=== PATIENT | male | born 1980 | race Caucasian/White ===

== ENCOUNTER 2016-12-15 15:58 | Emergency (ER) | payer OTHER, MEDICAID ==
--- NOTE | 2016-12-15 17:34 | RAD ---
HISTORY: Subacute trauma, headache COMPARISONS: May 04, 2016 TECHNIQUE: Multiple contiguous axial CT scans were obtained of the head without intravenous contrast. FINDINGS: HEMORRHAGE/INFARCT: There is no hemorrhage or acute infarct. MASSES/SHIFT: There is no mass or shift. EXTRA-AXIAL SPACES: There are no extra-axial fluid collections. SULCI AND VENTRICLES: The sulci and ventricles are normal in size and position for the patient's stated age. CEREBRUM: There are no focal parenchymal abnormalities. BRAINSTEM: There are no focal parenchymal abnormalities. CEREBELLUM: There are no focal parenchymal abnormalities. VESSELS: The vessels are grossly normal. PARANASAL SINUSES: The paranasal sinuses are clear. ORBITS: The orbits are unremarkable. BONES AND SOFT TISSUE: No bone or soft tissue abnormalities are noted. OTHER: None IMPRESSION: NO ACUTE INTRACRANIAL PATHOLOGY.
[2016-12-15] MEDS ORDERED: Ibuprofen TAB* 400 MG PO ONE (17:58)
[2016-12-15 18:18] VITALS: BP 156/94
--- NOTE | 2016-12-17 08:26 | ED ---
Job Brennan Matthew, scribed for Jonathan Rosales MD on 12/15/16 at 1751 . Head Injury - HPI Summary HPI Summary: A 36 y/o male presents to the ED after hitting his head at work 3 days ago. The patient stated that he was putting stuff in the walk-in cooler, when he knelt down and hit the latch of the cooler. He denies seeing stars or LOC. Yesterday, the patient woke-up with a headache and felt dizziness. The headache has decreased in severity since onset. He began to feel better, but then he developed bilateral blurry vision, which prompted him to present to the ED. He denies nausea and photophobia. Hx of HTN, HLD, and neurofibromatosis type 1. No Hx of diabetes. The patient stopped smoking 14 years ago. - History Of Current Complaint Chief Complaint: EDHeadInjury Stated Complaint: HIT HEAD ON FRI Time Seen by Provider: 12/15/16 17:11 Hx Obtained From: Patient Mechanism Of Injury: Blunt Trauma Onset/Duration: Started Days Ago, Atraumatic, Still Present Onset of Pain: Days Severity Currently: Moderate Severity Initially: Mild Location of Head Injury: Frontal Associated Signs And Symptoms: Headache, Other: - Blurry vision; Dizziness - Allergies/Home Medications Allergies/Adverse Reactions: Allergies Allergy/AdvReac Type Severity Reaction Status Date / Time Amoxicillin [From Augmentin] Allergy Mild Vomiting Verified 09/24/16 12:38 Clavulanic Acid Allergy Mild Vomiting Verified 09/24/16 12:38 [From Augmentin] Mushrooms Allergy Airway Uncoded 09/24/16 12:38 Obstruction Shrimp Allergy Hives Uncoded 09/24/16 12:38 PMH/Surg Hx/FS Hx/Imm Hx Endocrine/Hematology History: Denies: Hx Diabetes, Hx Thyroid Disease Cardiovascular History: Reports: Hx Hypercholesterolemia, Hx Hypertension, Other Cardiovascular Problems/Disorders - HYPERCHOLESTEMIA; varicose veins issues - wears compression stockings Denies: Hx Congestive Heart Failure, Hx Pacemaker/ICD Respiratory History: Denies: Hx Asthma, Hx Chronic Obstructive Pulmonary Disease (COPD) GI History: Denies: Hx Ulcer History: Denies: Hx Renal Disease Musculoskeletal History: Reports: Other Musculoskeletal History - Raynaud's Sensory History: Denies: Hx Hearing Aid Neurological History: Reports: Other Neuro Impairments/Disorders - NF Psychiatric History: Denies: Hx Panic Disorder - Immunization History Date of Tetanus Vaccine: UTD Date of Influenza Vaccine: 2012 Infectious Disease History: No Infectious Disease History: Reports: 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 Denies: Hx Clostridium Difficile, Hx Hepatitis, Hx Human Immunodeficiency Virus (HIV), Hx Shingles, Hx Tuberculosis, Hx Known/Suspected VRE, Hx Known/ Suspected VRSA, History Other Infectious Disease, Traveled Outside the [place] in Last 30 Days - Family History Known Family History: Positive: Hypertension - Social History Alcohol Use: Rare Hx Substance Use: No Substance Use Type: Reports: None Hx Tobacco Use: Yes Smoking Status (MU): Former Smoker - quit 2002 Type: Cigarettes Length of Time of Smoking/Using Tobacco: 2-3 years Review of Systems Constitutional: Negative Negative: Fever, Chills Positive: Blurred Vision - bilateral ENT: Negative Negative: Sore Throat Cardiovascular: Negative Negative: Chest Pain Respiratory: Negative Negative: Shortness Of Breath, Cough Gastrointestinal: Negative Negative: Abdominal Pain, Vomiting, Diarrhea, Nausea Genitourinary: Negative Negative: dysuria, hematuria Musculoskeletal: Negative Negative: Myalgia, Edema Skin: Negative Negative: Rash Neurological: Other - Dizziness Positive: Headache Psychological: Normal All Other Systems Reviewed And Are Negative: Yes Physical Exam Triage Information Reviewed: Yes Vital Signs On Initial Exam: Initial Vitals Temp Pulse Resp BP Pulse Ox 98.4 F 105 20 151/97 98 12/15/16 16:04 12/15/16 16:04 12/15/16 16:04 12/15/16 16:04 12/15/16 16:04 Vital Signs Reviewed: Yes Appearance: Positive: Well-Appearing, No Pain Distress Skin: Positive: Warm, Dry Head/Face: Positive: Other - Normocephalic; Atraumatic Eyes: Positive: Conjunctiva Clear ENT: Positive: Normal ENT inspection Dental: Negative: Cervical Lymphadenopathy Neck: Positive: No Lymphadenopathy, Other: - Full ROM; No JVD Respiratory/Lung Sounds: Positive: Other - Normal Effort; No respiratory distress. Negative: Rales, Rhonchi, Stridor, Tracheal Deviation, Wheezes Cardiovascular: Positive: RRR, Other - Rhythm regular, rate normal, Heart sounds normal; Intact distal pulses; The pedal pulses are 2+ and symmetric. Radial pulses are 2+ and symmetric. Negative: Murmur Abdomen Description: Positive: Nontender, Soft, Other: - No Rebound. Negative: Distended, Guarding Bowel Sounds: Positive: Present Musculoskeletal: Negative: Edema Left, Edema Right Neurological: Positive: Alert, Oriented to Person Place, Time Psychiatric: Positive: Affect/Mood Appropriate - Jl Coma Scale Coma Scale Total: 15 Diagnostics - Vital Signs Vital Signs Temp Pulse Resp BP Pulse Ox 12/15/16 16:04 98.4 F 105 20 151/97 98 - Laboratory Lab Statement: Any lab studies that have been ordered have been reviewed, and results considered in the medical decision making process. - CT Brain CT CT Interpretation: No Acute Changes - IMPRESSION: NO ACUTE INTRACRANIAL PATHOLOGY. CT Interpretation Completed By: Radiologist Head Injury Course/Dx Assessment/Plan: A 36 y/o male presents to the ED after hitting his head at work 3 days ago. The patient stated that he was putting stuff in the walk-in cooler, when he knelt down and hit the latch of the cooler. He denies seeing stars or LOC. Yesterday, the patient woke-up with a headache and felt dizziness. The headache has decreased in severity since onset. He began to feel better, but then he developed bilateral blurry vision, which prompted him to present to the ED. He denies nausea and photophobia. Hx of HTN, HLD, and neurofibromatosis type 1. No Hx of diabetes. Brain CT showed no acute intracranial pathology. The patient will be discharged home with Motrin and follow-up with his PCP. He understands and agrees. - Diagnoses Provider Diagnoses: Concussion Discharge - Discharge Plan Condition: Stable Disposition: HOME Patient Education Materials: Concussion (ED) Forms: *Work Release Referrals: Rekha Nassar MD [Primary Care Provider] - 3 Days Additional Instructions: Please follow-up with your primary care physician and return to the ED if your symptoms change or worsen. The documentation as recorded by the Job wallace Matthew accurately reflects the service I personally performed and the decisions made by me, Jonathan Rosales MD.
== END 2016-12-15 18:17 | disposition home or self-care (01) ==
LOC: ED 15:58
DX: S06.0X0A Concussion without loss of consciousness, initial encounter (principal); R51 Headache; H53.8 Other visual disturbances; R42 Dizziness and giddiness; Z87.891 Personal history of nicotine dependence; W22.8XXA Striking against or struck by other objects, initial encounter; Y93.9 Activity, unspecified; Y92.9 Unspecified place or not applicable
CPT/HCPCS: 70450; 99281; A9270-GY

== ENCOUNTER 2017-08-23 16:30 | Emergency (ER) | payer OTHER, MEDICAID ==
[2017-08-23 16:55] VITALS: BP 165/102
--- OUTSIDE RECORDS SUMMARY | 2017-08-23 17:11 | XMS REPORT ---
:1980 External Reference #:[id number] Author Organization [facility] Address [address] [place] [address] Phone [phone] Care Team Providers Name Role Phone Rekha Nassar M.D. Care Team Information Fund Manager Unavailable Rekha Nassar M.D. Primary Care Physician Unavailable Payers Type Date Identification Numbers Payment Provider Subscriber Health Maintenance Effective: Policy Number: [employer] Alex Obrien [facility] (O) 08/17/2012 [id number] [facility] Group Number: [id number] [id number] Group Name: [place] [address] PayID: [id number] Medicaid Effective: 01/15/2014 Policy Number: [id number] Medicaid [place] Alex Keen Ora PayID: [id number] [address] [place] [address] Problems Date Description Provider Status Onset: 11/01/2013 Peripheral venous insufficiency Ubaldo Donaldson M.D. Active Onset: 02/13/2015 Essential hypertension Milan Garcia M.D. Active Onset: 02/13/2015 Hyperlipidemia Milan Garcia M.D. Active Onset: 12/04/2015 Mixed hyperlipidemia Rekha Nassar M.D. Active Onset: 05/09/2016 Neurofibromatosis, type 1 Rekha Nassar M.D. Active Onset: 05/09/2016 Morbid obesity Rekha Nassar M.D. Active Onset: 12/23/2016 Concussion with no loss of Johnnykevin Garnett M.D. Active consciousness Family History Date Family Member(s) Problem(s) Comments General No immediate family members with early [place] or CVA. No immediate family history of colon, breast, ovarian, cervical or prostate cancer. Father Diabetes Mellitus, II : (2011) Mother due to Intestinal obstruction Social History Type Date Description Comments Marital Status Patient is Living Situation Lives with spouse, son and daughter Diet Excessive intake of fats and sweets. 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 Cigarette Use Nonsmoker ETOH Use Denies alcohol use Smoking nonsmoker Daily Caffeine Consumes on average 2 sodas per day Exercise Type/Frequency Current Does not exercise Allergies, Adverse Reactions, Alerts Date Description Reaction Status Severity Comments 11/10/2003 Augmentin active 09/01/2005 Shellfish active 07/18/2010 Mushrooms active Throat Closing Medications Medication Date Status Form Strength Qnty SIG Indications Ordering Provider Hydrochlorothiazid 08/03 Active Capsules 12.5mg 30cap 1 by mouth I10 Rekha s every day Otis Nassar Ibuprofen 03/08 Active Tablets 800mg 60tab take one J01.90 s tablet by jung Camilo twice DESK DIRECTOR a day as needed for pain Amlodipine 02/13 Active Tablets 10mg 30tab take one I10 Rekha Besylate s tablet by jung Nassar every M.D. day Atorvastatin 04/17 Active Tablets 20mg 30tab take one E78.2 Rekha Calcium s tablet by jung Nassar at M.D. bedtime Benzonatate 08/06 Hx Capsules 200mg 30cap 1 by mouth R0 s three times Luly, - a day as [facility] 08/16 needed for cough Guaifenesin-Codein 08/06 Hx Syrup 100-10mg/ 120ml 1-2 R05 5ML teaspoon Luly, - every at [facility] 08/13 bedtime as needed for cough Meclizine HCL 05/09 Hx Tablets 25mg 60tab 1 tab by Rekha s mouth every [place], - 6 hours as M.D. 08/06 needed Mucinex 03/19 Hx Tablets 600mg 30tab 1 tablet J06.9 ER 12HR s twice daily KRISSY Mena - as needed 05/09 for congestion and cough J01.90 Clarithromycin 03/08/2016 - Hx Tablets 500mg 20tabs 1 by mouth J01.90 Christine 05/09/2016 twice a day x Leslee, 10 days DESK DIRECTOR Mucinex 03/05/2016 - Hx Tablets ER 600mg 30tabs 1 tablet J06.9 Mavis 03/15/2016 12HR twice daily KRISSY Mena as needed for congestion and cough J01.90 Compression 01/16/2016 - Hx 20mm 1Pair use as M72.2 Ania Stockings 01/16/2016 HG directed; wear Luly, during day; Afnp-C can take off at night Compression 01/16/2016 - Hx 20mm 1Pair use as M72.2 Ania Stockings 01/16/2016 HG directed; wear Luly, during day; Afnp-C can take off at night Compression 01/16/2016 - Hx 40mm 1Pair use as M72.2 Ania Stockings 01/16/2016 HG directed; wear Luly, during day; Afnp-C can take off at night Compression 01/15/2016 - Hx 30mm 1Pair use as Rekha Stockings 09/10/2016 HG directed; wear [place], during the M.D. day; may take off at night. Naproxen 12/04/2015 - Hx Tablets 500mg 60tabs take 1 tablet M72.2 Rekha 05/09/2016 every 12 hours [place], as needed with M.D. food Compression 12/04/2015 - Hx 20mm 1Pair use as M72.2 Rekha Stockings 01/15/2016 HG directed; wear [place], during day; M.D. can take off at night Medrol (Gómez) 09/25/2015 - Hx Tablets 4mg 1pk take as M25.571 Fatuma 10/02/2015 directed, with [place], food and water Afnp-C Sulfamethoxazole/ 07/18/2015 - Hx Tablets 800-16 28tabs 1 by mouth L03.032 Ania Trimethoprim DS 08/01/2015 0mg twice a day x Luly, 14 days Afnp-C Mupirocin 07/18/2015 - Hx Ointment 2% 22gm apply small Ania 07/25/2015 amount three Luly, times a day x Afnp-C 5 days to area on scalp Ciprofloxacin HCL 05/31/2015 - Hx Tablets 500mg 14tabs 1 by mouth M54.9 Yovanny A. 06/07/2015 twice a day Otis Croft Cyclobenzaprine 02/13/2015 - Hx Tablets 10mg 30tabs 1 by mouth 724.2 Milan Garcia, HCL 05/31/2015 three times a M.D. day as needed Hydrocodone-Aceta 02/13/2015 - Hx Tablets 5-325m 40tabs 1 every 6 724.2 Milan Garcia, minophen 05/31/2015 g hours as M.D. needed Azithromycin 10/01/2014 - Hx Tablets 250mg 6tabs 2 by mouth Yovanny A. 10/06/2014 today then 1 [place], by mouth every M.D. day x 4 days Out Of Work 10/01/2014 - Hx out of work 465.9 Mavis 10/03/2014 due to illness KRISSY Mena 10/02 & 10/03/14 Lidocaine Viscous 09/30/2014 - Hx Solution 2% 100ml 08/19 lidocaine, 462 Ania 05/31/2015 1/3 Luly, sharadadryl,08/19 Afnp-C maalox, 1 teaspoon of each, swish, gargle and spit out every 2-4 hours Amlodipine 07/21/2014 - Hx Tablets 5mg 30tabs 1 by mouth 729.5 Christine Besylate 02/13/2015 every day BRYN Camilo Compression 11/01/2013 - Hx 20mm 1units one pair - 459.81 Ubaldo Villar 02/13/2015 HG knee high Otis Donaldson Azithromycin 09/26/2013 - Hx Tablets 250mg 6tabs take 2 tablets 465.8 Christine 10/31/2013 by mouth Leslee, today then DESK DIRECTOR take 1 tablet daily for next 4 days Note For Work 09/26/2013 - Hx Alex was seen 465.8 Christine 10/31/2013 by me today Leslee, and may not DESK DIRECTOR return to work until Thursday, 2\\12\\14 Sulamyd Opthalmic 03/13/2012 - Hx 10% 1Bottle 1-2 gtts into 372.00 Fatuma gtts 03/20/2012 affected eye [place], q4hrs w/a Afnp-C until clear, then continue 1 more day do not exceed 1 week use Cephalexin 12/17/2011 - Hx Tablets 500mg 30tabs 1 tab tid x 10 462 Christine 03/13/2012 days Leslee, DESK DIRECTOR Out Of Work 12/17/2011 - Hx seen in this 462 Fatuma 03/14/2012 office today, [place], ok for work Afnp-C return 03/14/12 Out Of Work 07/18/2010 - Hx out of work 465.9 Ania 07/21/2010 today due to Luly, illness Afnp-C Cephalexin 12/05/2009 - Hx Tablets 500mg 24tabs 1 po tid Fatuma 12/13/2009 [facility], Afnp-C Ciloxan 11/13/2009 - Hx Solution 0.3% 15cc 2 gtt affected 372.30 Christine 07/18/2010 eye(s) tid for Leslee, 2d then bid DESK DIRECTOR until clear Note For Work 11/13/2009 - Hx Alex was seen 380.22 [facility] 12/05/2009 by me today Leslee, and may not DESK DIRECTOR return to work until , 4\\1\\10 Return To Work 12/17/2006 - Hx 12/21/06 with Xiomara 10/22/2007 out von restrictions Otis Toro Out Of Work 12/08/2006 - Hx out of work Xiomara 10/22/2007 12/21/06 for 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 Keflex 12/08/2006 - Hx Tablets 500mg 20tabs 1 po bid x 10 Conner A. 12/14/2008 Days Otis Donaldson Bactroban 12/08/2006 - Hx Ointment 2% 30gm Apply To Xiomara 10/22/2007 Affected Area von Zina Toro M.D. Entex Pse 10/20/2006 - Hx Tablets 600mg; 20tabs 1 PO Q12 Hours 465.8 Xiomara 10/22/2007 120 mg prn Head von Congestion Otis Toro Keflex 04/25/2006 - Hx Tablets 500 40tabs 1 PO qid For Riley J. 05/05/2006 10D Otis Donahue Coenzyme Q10 09/01/2005 - Hx 50mg 1 PO qd Riley Radha 10/22/2007 Otis Donahue Zithromax 08/16/2005 - Hx Tablets 250mg 1tabs 2 PO qd Today Johnny F. 08/16/2005 , Then 1 PO qd Tamir, Times 4 M.DNilo Ketek 08/16/2005 - Hx Tablets 400mg 6tabs 2 PO qd Johnny F. 08/23/2005 Otis Garnett Keflex 06/30/2005 - Hx Capsules 500mg 20caps 1 PO bid Isaiah TNilo 08/16/2005 Otis Soriano Note 11/13/2004 - Hx alex was seen Christine 02/04/2005 by ak 3\\28\\05 Leslee, for bronchitis DESK DIRECTOR Biaxin XL 11/11/2004 - Hx 500mg 14units 2 PO qd Christine 02/04/2005 Leslee, DESK DIRECTOR Lipitor 10/01/2004 - Hx 20mg 15units 1 po qhs 272.4 Christine 04/17/2012 Leslee DESK DIRECTOR Lipitor 06/04/2004 - Hx 40mg 90units 1 po qhs Riley JNilo 10/01/2004 Otis Donahue Cortisporin Otic 05/28/2004 - Hx 1Bottle 4-5 gtts into 380.22 Christine Susp 07/18/2010 r ear qid Leslee, until clear DESK DIRECTOR Z-Pack 03/26/2004 - Hx 1 1units as Dir Riley Radha 03/31/2004 Otsi Donahue Ziac 11/10/2003 - Hx 10mg 90units 1 qd Riley JNilo 09/27/2004 Otis Donahue Bactrim DS - Hx Tablets 800-16 42tabs use bid Unknown 07/21/2014 0mg Meclizine HCL - Hx Tablets 12.5mg 2 by mouth Rekha 05/09/2016 three times a [place], day as needed Otis Naproxen - Hx Tablets 500mg 1 by mouth Unknown 08/03/2017 twice a day with food Silvadene - Hx Cream 1% use daily Unknown 08/03/2017 Immunizations CPT Code Status Date Vaccine Lot # [id number] Given 05/07/2017 Influenza Vac, Quad[place], [place] [id number] Given 05/09/2016 Influenza Vac, Quadrivalent, Slit Virus, Im [id number] Given 04/27/2015 Influenza Vac, [place]riv[place] [id number] Given 04/27/2015 DO Not Use Split Influenza Virus Vaccine [id number] Given 06/17/2014 DO Not Use Split Influenza Virus Vaccine Vital Signs Date Vital Result Comment 08/03/2017 BP Systolic 150 mmHg BP Diastolic 98 mmHg Heart Rate 84 /min Body Temperature 97.5 F Height 75 inches 6'3" Weight 385.00 lb BMI (Body Mass Index) 48.1 kg/m2 12/23/2016 BP Systolic 144 mmHg BP Diastolic 90 mmHg Heart Rate 84 /min Body Temperature 99.0 F Respiratory Rate 18 /min Height 75 inches 6'3" Weight 388.00 lb BMI (Body Mass Index) 48.5 kg/m2 12/12/2016 BP Systolic 130 mmHg BP Diastolic 88 mmHg Heart Rate 80 /min Body Temperature 98.8 F Respiratory Rate 18 /min Height 75 inches 6'3" Weight 388.00 lb BMI (Body Mass Index) 48.5 kg/m2 09/11/2016 BP Systolic 162 mmHg BP Diastolic 100 mmHg Heart Rate 90 /min Body Temperature 98.1 F Height 75 inches 6'3" Weight 383.12 lb BMI (Body Mass Index) 47.9 kg/m2 08/06/2016 BP Systolic 142 mmHg BP Diastolic 78 mmHg Heart Rate 80 /min Body Temperature 97.6 F Respiratory Rate 18 /min Height 75 inches 6'3" Weight 383.00 lb BMI (Body Mass Index) 47.9 kg/m2 05/09/2016 BP Systolic 142 mmHg BP Diastolic 90 mmHg Heart Rate 88 /min Body Temperature 97.7 F Respiratory Rate 20 /min Height 75 inches 6'3" Weight 387.00 lb BMI (Body Mass Index) 48.4 kg/m2 03/08/2016 BP Systolic 120 mmHg BP Diastolic 80 mmHg Heart Rate 80 /min Body Temperature 98.2 F Respiratory Rate 18 /min Height 75 inches 6'3" 03/05/2016 BP Systolic 148 mmHg BP Diastolic 100 mmHg Heart Rate 104 /min Body Temperature 97.7 F Respiratory Rate 24 /min O2 % BldC Oximetry 97 % Height 75 inches 6'3" Weight 385.00 lb BMI (Body Mass Index) 48.1 kg/m2 12/04/2015 BP Systolic 140 mmHg BP Diastolic 80 mmHg Heart Rate 88 /min Body Temperature 98.1 F Respiratory Rate 16 /min Height 75 inches 6'3" Weight 383.00 lb BMI (Body Mass Index) 47.9 kg/m2 10/06/2015 BP Systolic 140 mmHg BP Diastolic 90 mmHg Heart Rate 76 /min Body Temperature 98.1 F Respiratory Rate 18 /min Weight 380.00 lb 09/25/2015 BP Systolic 140 mmHg BP Diastolic 90 mmHg Heart Rate 64 /min Body Temperature 97.8 F Respiratory Rate 20 /min Height 75 inches 6'3" Weight 380.00 lb BMI (Body Mass Index) 47.5 kg/m2 07/18/2015 BP Systolic 144 mmHg BP Diastolic 96 mmHg Heart Rate 90 /min Body Temperature 97.8 F Respiratory Rate 16 /min Height 75 inches 6'3" Weight 362.00 lb BMI (Body Mass Index) 45.2 kg/m2 05/31/2015 BP Systolic 150 mmHg BP Diastolic 80 mmHg Heart Rate 104 /min Body Temperature 100.5 F Respiratory Rate 20 /min Height 75 inches 6'3" Weight 383.00 lb BMI (Body Mass Index) 47.9 kg/m2 02/13/2015 BP Systolic 140 mmHg BP Diastolic 110 mmHg Heart Rate 80 /min Body Temperature 98.5 F Respiratory Rate 18 /min Height 75 inches 6'3" Weight 389.00 lb BMI (Body Mass Index) 48.6 kg/m2 09/30/2014 BP Systolic 140 mmHg BP Diastolic 96 mmHg Heart Rate 84 /min Body Temperature 98.3 F Respiratory Rate 18 /min Height 75 inches 6'3" Weight 376.12 lb BMI (Body Mass Index) 47.0 kg/m2 08/11/2014 BP Systolic 138 mmHg BP Diastolic 98 mmHg Heart Rate 98 /min Body Temperature 98.3 F Respiratory Rate 20 /min Height 75 inches 6'3" Weight 370.00 lb BMI (Body Mass Index) 46.2 kg/m2 07/21/2014 BP Systolic 168 mmHg BP Diastolic 110 mmHg Heart Rate 78 /min Body Temperature 97.1 F Respiratory Rate 16 /min Height 75 inches 6'3" Weight 374.00 lb BMI (Body Mass Index) 46.7 kg/m2 01/18/2014 BP Systolic 144 mmHg BP Diastolic 98 mmHg Heart Rate 76 /min Body Temperature 97.5 F Respiratory Rate 16 /min Height 75 inches 6'3" Weight 381.00 lb BMI (Body Mass Index) 47.6 kg/m2 11/01/2013 BP Systolic 132 mmHg BP Diastolic 90 mmHg Heart Rate 84 /min Body Temperature 97.7 F Height 75 inches 6'3" Weight 367.38 lb BMI (Body Mass Index) 45.9 kg/m2 09/26/2013 BP Systolic 130 mmHg BP Diastolic 70 mmHg Heart Rate 72 /min Body Temperature 100.7 F Respiratory Rate 18 /min Height 75 inches 6'3" Weight 371.00 lb BMI (Body Mass Index) 46.4 kg/m2 03/13/2012 BP Systolic 130 mmHg BP Diastolic 80 mmHg Heart Rate 80 /min Body Temperature 98.8 F Height 75 inches 6'3" 12/17/2011 BP Systolic 130 mmHg BP Diastolic 80 mmHg Heart Rate 80 /min Body Temperature 97.5 F Respiratory Rate 22 /min Height 75 inches 6'3" 07/17/2011 BP Systolic 130 mmHg BP Diastolic 90 mmHg Heart Rate 80 /min Body Temperature 98.8 F Height 75 inches 6'3" Weight 35.00 lb BMI (Body Mass Index) 4.4 kg/m2 03/21/2011 BP Systolic 118 mmHg BP Diastolic 80 mmHg Heart Rate 88 /min Body Temperature 97.4 F Height 75 inches 6'3" 07/18/2010 BP Systolic 130 mmHg BP Diastolic 84 mmHg Heart Rate 84 /min Body Temperature 97.4 F Height 75 inches 6'3" Weight 350.00 lb BMI (Body Mass Index) 43.7 kg/m2 12/05/2009 BP Systolic 124 mmHg BP Diastolic 92 mmHg Heart Rate 72 /min Body Temperature 97.6 F Height 75 inches 6'3" Weight 348.00 lb BMI (Body Mass Index) 43.5 kg/m2 11/13/2009 BP Systolic 142 mmHg BP Diastolic 80 mmHg Heart Rate 96 /min Body Temperature 98.3 F Weight 344.00 lb 08/11/2009 BP Systolic 122 mmHg BP Diastolic 80 mmHg Heart Rate 88 /min Body Temperature 99.1 F 07/31/2009 BP Systolic 122 mmHg BP Diastolic 72 mmHg Heart Rate 88 /min Body Temperature 97.6 F 12/14/2008 BP Systolic 136 mmHg BP Diastolic 80 mmHg Heart Rate 90 /min Body Temperature 98.0 F 11/18/2008 BP Systolic 144 mmHg BP Diastolic 84 mmHg Body Temperature 97.8 F Height 75 inches 6'3" Weight 350.00 lb BMI (Body Mass Index) 43.7 kg/m2 09/18/2008 BP Systolic 132 mmHg BP Diastolic 100 mmHg Heart Rate 88 /min Body Temperature 97.7 F Weight 350.00 lb 10/22/2007 BP Systolic 120 mmHg BP Diastolic 70 mmHg Heart Rate 76 /min Height 75 inches 6'3" Weight 338.00 lb BMI (Body Mass Index) 42.2 kg/m2 12/17/2006 BP Systolic 140 mmHg BP Diastolic 90 mmHg Heart Rate 88 /min Body Temperature 98.7 F Height 75 inches 6'3" Weight 342.00 lb BMI (Body Mass Index) 42.7 kg/m2 12/08/2006 BP Systolic 140 mmHg BP Diastolic 80 mmHg Heart Rate 100 /min Body Temperature 99.3 F Height 75 inches 6'3" Weight 345.00 lb BMI (Body Mass Index) 43.1 kg/m2 10/20/2006 BP Systolic 132 mmHg BP Diastolic 92 mmHg Heart Rate 84 /min Body Temperature 99.0 F Height 75 inches 6'3" Weight 339.00 lb BMI (Body Mass Index) 42.4 kg/m2 10/16/2006 BP Systolic 120 mmHg BP Diastolic 78 mmHg Heart Rate 76 /min Height 75 inches 6'3" Weight 316.00 lb BMI (Body Mass Index) 39.5 kg/m2 04/25/2006 BP Systolic 120 mmHg BP Diastolic 80 mmHg Heart Rate 80 /min Body Temperature 98.8 F Height 75 inches 6'3" Weight 329.00 lb BMI (Body Mass Index) 41.1 kg/m2 09/01/2005 BP Systolic 130 mmHg BP Diastolic 92 mmHg Heart Rate 88 /min Height 75 inches 6'3" Weight 318.00 lb BMI (Body Mass Index) 39.7 kg/m2 08/16/2005 BP Systolic 122 mmHg BP Diastolic 84 mmHg Heart Rate 82 /min Body Temperature 97.6 F O2 % BldC Oximetry 97 % Height 75 inches 6'3" Weight 317.00 lb BMI (Body Mass Index) 39.6 kg/m2 06/30/2005 BP Systolic 128 mmHg BP Diastolic 80 mmHg Heart Rate 90 /min Body Temperature 99.0 F Height 75 inches 6'3" Weight 323.00 lb BMI (Body Mass Index) 40.4 kg/m2 02/04/2005 BP Systolic 120 mmHg BP Diastolic 82 mmHg Heart Rate 74 /min Height 75 inches 6'3" Weight 320.00 lb BMI (Body Mass Index) 40.0 kg/m2 11/11/2004 BP Systolic 152 mmHg BP Diastolic 90 mmHg Heart Rate 92 /min Body Temperature 98.5 F Height 75 inches 6'3" Weight 312.00 lb BMI (Body Mass Index) 39.0 kg/m2 08/06/2004 BP Systolic 114 mmHg BP Diastolic 60 mmHg Heart Rate 60 /min Height 75 inches 6'3" Weight 305.00 lb BMI (Body Mass Index) 38.1 kg/m2 05/28/2004 BP Systolic 118 mmHg BP Diastolic 75 mmHg Heart Rate 70 /min Height 75 inches 6'3" Weight 312.00 lb BMI (Body Mass Index) 39.0 kg/m2 05/17/2004 BP Systolic 122 mmHg BP Diastolic 78 mmHg Heart Rate 84 /min Body Temperature 97.8 F Height 75 inches 6'3" Weight 307.00 lb BMI (Body Mass Index) 38.4 kg/m2 03/26/2004 BP Systolic 120 mmHg BP Diastolic 68 mmHg Heart Rate 80 /min Height 75 inches 6'3" Weight 324.00 lb BMI (Body Mass Index) 40.5 kg/m2 11/17/2003 BP Systolic 128 mmHg BP Diastolic 86 mmHg Heart Rate 84 /min Height 75 inches 6'3" Weight 322.00 lb BMI (Body Mass Index) 40.2 kg/m2 11/10/2003 BP Systolic 122 mmHg BP Diastolic 92 mmHg Heart Rate 74 /min Height 75 inches 6'3" Weight 310.00 lb BMI (Body Mass Index) 38.7 kg/m2 Results Test Date Test Result H/L Range Note Comprehensive Metabolic Prof 07/21/2017 Sodium 135 mEq/L 134-149 Potassium 3.7 mEq/L 3.6-5.5 Chloride 102 mEq/L 94-112 Carbon Dioxide 22 mEq/L 21-32 Glucose 85 mg/dL 70-105 BUN 12 mg/dL 6-26 Creatinine 0.7 mg/dL 0.6-1.4 BUN/Creat Ratio 17.1 CALC 8.0-36.0 Calcium 8.7 mg/dL 8.6-10.2 Total Protein 7.0 g/dL 6.4-8.3 Albumin 4.0 g/dL 3.8-5.5 Globulin 3.0 g/dL 2.0-4.8 A/G Ratio 1.3 CALC 0.6-2.3 Alk. Phosphatase 98 U/L High 22-95 Alt (SGPT) 23 U/L 7-35 Ast (Sgot) 11 U/L 5-34 Total Bilirubin 0.9 mg/dL 0.2-1.3 GFR Non- >60 ml/min/1.73m^ >=60 GFR >60 ml/min/1.73m^ >=60 Lipid Profile 07/21/2017 Cholesterol 133 mg/dL 120-200 Triglycerides 107 mg/dL 30-200 HDL Cholesterol 38 mg/dL 30-70 LDL (Calculated) 74 CALC 0-129 VLDL Cholesterol 21 mg/dL 0-50 HDL Risk Factor 3.5 CALC 0.0-4.4 Complete Blood Count 07/21/2017 WBC 9.2 x10^3/UL 3.6-9.6 RBC 5.17 x10^6/UL 3.90-5.70 HGB 13.9 g/dL 12.1-17.2 HCT 42 % 36-50 MCV 82.0 fL Low 82.2-97.4 MCH 26.9 pg Low 27.6-33.3 MCHC 32.9 g/dL Low 33.0-35.5 RDW 13.8 % High 11.6-13.7 PLT 215 x10^3/UL 150-400 MPV 8.5 fL 7.4-10.4 Gran # 7.1 x10^3/UL 1.5-7.2 Lymph# 1.7 x10^3/UL 0.7-4.9 [place]# 0.4 x10^3/UL 0.1-0.9 Gran % 76.1 % High 42.2-75.2 Lymph % 18.9 % Low 20.5-51.1 [place]% 5.0 % 1.7-9.3 CBC Auto Diff 05/04/2016 White Blood Count 10.8 10^3/uL 3.5-10.8 Red Blood Count 5.31 10^6/uL 4.0-5.4 Hemoglobin 14.1 g/dL 14.0-18.0 Hematocrit 42 % 42-52 Mean Corpuscular Volume 79 fL Low 80-94 Mean Corpuscular Hemoglobin 27 pg 27-31 Mean Corpuscular HGB Conc 34 g/dL 31-36 Red Cell Distribution Width 14 % 10.5-15 Platelet Count 225 10^3/uL 150-450 Mean Platelet Volume 9 um3 7.4-10.4 Abs Neutrophils 7.2 10^3/uL 1.5-7.7 Abs Lymphocytes 2.0 10^3/uL 1.0-4.8 Abs Monocytes 0.9 10^3/uL High 0-0.8 Abs Eosinophils 0.5 10^3/uL 0-0.6 Abs Basophils 0.1 10^3/uL 0-0.2 Abs Nucleated RBC 0 10^3/uL Granulocyte % 66.3 % 38-83 Lymphocyte % 18.8 % Low 25-47 Monocyte % 8.7 % 1-9 Eosinophil % 5.0 % 0-6 Basophil % 1.2 % 0-2 Nucleated Red Blood Cells % 0 Comp Metabolic Panel 05/04/2016 Sodium 136 mmol/L 133-145 Potassium 3.7 mmol/L 3.5-5.0 Chloride 103 mmol/L 101-111 Co2 Carbon Dioxide 25 mmol/L 22-32 Anion Gap 8 mmol/L 2-11 Glucose 98 mg/dL 70-100 Blood Urea Nitrogen 12 mg/dL 6-24 Creatinine 0.80 mg/dL 0.67-1.17 BUN/Creatinine Ratio 15.0 8-20 Calcium 8.8 mg/dL 8.6-10.3 Total Protein 7.2 g/dL 6.4-8.9 Albumin 3.7 g/dL 3.2-5.2 Globulin 3.5 g/dL 2-4 Albumin/Globulin Ratio 1.1 1-3 Total Bilirubin 0.50 mg/dL 0.2-1.0 Alkaline Phosphatase 83 U/L 34-104 Alt 18 U/L 7-52 Ast 16 U/L 13-39 Egfr Non- 110.7 >60 Egfr 142.3 >60 1 Laboratory test finding 05/04/2016 Troponin I 0.00 ng/mL <0.03 2 Urinalysis Profile 05/04/2016 Urine Color Yellow Urine Appearance Clear Urine Specific [place]den 1.024 1.010-1.030 Urine pH 6.0 5-9 Urine Urobilinogen Negative Negative Urine Ketones Negative Negative Urine Protein Negative Negative Urine Leukocytes Negative Negative Urine Blood Negative Negative Urine Nitrite Negative Negative Urine Bilirubin Negative Negative Urine Glucose Negative Negative Comprehensive Metabolic Prof 04/29/2016 Sodium 138 mEq/L 134-149 Potassium 4.0 mEq/L 3.6-5.5 Chloride 102 mEq/L 94-112 Carbon Dioxide 25 mEq/L 21-32 Glucose 72 mg/dL 70-105 BUN 11 mg/dL 6-26 Creatinine 0.8 mg/dL 0.6-1.4 BUN/Creat Ratio 13.8 CALC 8.0-36.0 Calcium 8.7 mg/dL 8.6-10.2 Total Protein 7.0 g/dL 6.4-8.3 Albumin 3.8 g/dL 3.8-5.5 Globulin 3.2 g/dL 2.0-4.8 A/G Ratio 1.2 CALC 0.6-2.3 Alk. Phosphatase 83 U/L 22-95 Alt (SGPT) 22 U/L 7-35 Ast (Sgot) 17 U/L 5-34 Total Bilirubin 0.9 mg/dL 0.2-1.3 GFR Non- >60 ml/min/1.73m^ >=60 GFR >60 ml/min/1.73m^ >=60 Lipid Profile 04/29/2016 Cholesterol 131 mg/dL 120-200 Triglycerides 92 mg/dL 30-200 HDL Cholesterol 34 mg/dL 30-70 LDL (Calculated) 79 CALC 0-129 VLDL Cholesterol 18 mg/dL 0-50 HDL Risk Factor 3.9 CALC 0.0-4.4 Complete Blood Count 04/29/2016 WBC 10.0 x10^3/UL High 3.6-9.6 RBC 5.05 x10^6/UL 3.90-5.70 HGB 14.0 g/dL 12.1-17.2 HCT 42 % 36-50 MCV 83.0 fL 82.2-97.4 MCH 27.7 pg 27.6-33.3 MCHC 33.5 g/dL 33.0-35.5 RDW 14.0 % High 11.6-13.7 PLT 232 x10^3/UL 150-400 MPV 8.1 fL 7.4-10.4 Gran # 7.5 x10^3/UL High 1.5-7.2 Lymph# 1.9 x10^3/UL 0.7-4.9 [place]# 0.6 x10^3/UL 0.1-0.9 Gran % 74.8 % 42.2-75.2 Lymph % 19.1 % Low 20.5-51.1 [place]% 6.1 % 1.7-9.3 Laboratory test finding 01/10/2016 Rapid Strep Molecular Negative Negative 3 Rapid Strep A SEE RESULT BELOW 4 Rapid Influenza A & B 10/19/2015 Influenza A Molecular NEGATIVE Negative 5 Antigen Influenza B Molecular NEGATIVE Negative Laboratory test 10/19/2015 Rapid Strep A SEE RESULT BELOW 6 finding Rapid Influenza A 10/19/2015 Influenza A Molecular NEGATIVE Negative 7 & B Antigen Influenza B Molecular NEGATIVE Negative Laboratory test finding 10/19/2015 Rapid Strep Molecular Negative Negative 8 Throat Beta Strep Culture SEE RESULT BELOW 9 CBC Auto Diff 08/06/2015 White Blood Count 10.2 10^3/uL 3.5-10.8 Red Blood Count 5.65 10^6/uL High 4.0-5.4 Hemoglobin 15.1 g/dL 14.0-18.0 Hematocrit 47 % 42-52 Mean Corpuscular Volume 83 fL 80-94 Mean Corpuscular Hemoglobin 27 pg 27-31 Mean Corpuscular HGB Conc 32 g/dL 31-36 Red Cell Distribution Width 14 % 10.5-15 Platelet Count 205 10^3/uL 150-450 Mean Platelet Volume 9 um3 7.4-10.4 Abs Neutrophils 7.1 10^3/uL 1.5-7.7 Abs Lymphocytes 1.8 10^3/uL 1.0-4.8 Abs Monocytes 1.0 10^3/uL High 0-0.8 Abs Eosinophils 0.2 10^3/uL 0-0.6 Abs Basophils 0.1 10^3/uL 0-0.2 Abs Nucleated RBC 0.01 10^3/uL Granulocyte % 69.7 % 38-83 Lymphocyte % 17.8 % Low 25-47 Monocyte % 9.4 % High 1-9 Eosinophil % 2.1 % 0-6 Basophil % 1.0 % 0-2 Nucleated Red Blood Cells % 0.1 Comp Metabolic Panel 08/06/2015 Sodium 136 mmol/L 133-145 Potassium 4.1 mmol/L 3.5-5.0 Chloride 105 mmol/L 101-111 Co2 Carbon Dioxide 25 mmol/L 22-32 Anion Gap 6 mmol/L 2-11 Glucose 75 mg/dL 70-100 Blood Urea Nitrogen 11 mg/dL 6-24 Creatinine 0.67 mg/dL 0.67-1.17 BUN/Creatinine Ratio 16.4 8-20 Calcium 9.0 mg/dL 8.6-10.3 Total Protein 7.6 g/dL 6.4-8.9 Albumin 4.0 g/dL 3.2-5.2 Globulin 3.6 g/dL 2-4 Albumin/Globulin Ratio 1.1 1-3 Total Bilirubin 0.40 mg/dL 0.2-1.0 Alkaline Phosphatase 77 U/L 34-104 Alt 23 U/L 7-52 Ast 17 U/L 13-39 Egfr Non- 136.6 >60 Egfr 175.7 >60 10 Laboratory test finding 08/06/2015 Lipase 16 U/L 11.0-82.0 C Reactive Protein 14.45 mg/L High < 5.00 11 Lactic Acid 0.8 mmol/L 0.5-2.0 12 Urinalysis Profile 08/06/2015 Urine Color Yellow Urine Appearance Clear Urine Specific [place] 1.015 1.010-1.030 Urine pH 7.0 5-9 Urine Urobilinogen Negative Negative Urine Ketones Negative Negative Urine Protein Negative Negative Urine Leukocytes Negative Negative Urine Blood Negative Negative Urine Nitrite Negative Negative Urine Bilirubin Negative Negative Urine Glucose Negative Negative Aerobic Bacterial Culture 07/18/2015 Aerobic Bacterial Final report 13 , 14 Culture Result 1 Staphylococcus a <SEE NOTE> 13, 15 Result 2 Skin laron isola <SEE NOTE> 13, 16 Antimicrobial Susceptibility See Comment: 13, 17 Ua - Micro (Fma) 06/13/2015 Appearance CLEAR Color YELLOW Glucose, Urine (Fma/CMC/CTX) NEG Bilirubin NEG Ketones NEG SP Grav 1.010 Blood NEG PH 6.5 Protein NEG Urobil 0.2 Nitrite NEG Leukocytes (Fma/CMC/[facility]) NEG Hyaline - /Lpf Granular - /Lpf WBC (Fma,[facility]) 0-1 RBC 0-1 Mucus - /Lpf Epith - /Lpf Bacteria - /Hpf Amorphous - /Lpf Crystals, Fluid (Fma/CMC/CTX) - Z#Comments - Laboratory test finding 05/31/2015 Urine Culture And SEE RESULT BELOW 18 Sensitivities Ua - Micro (Fma) 05/31/2015 Appearance CLEAR Color YELLOW Glucose, Urine (Fma/CMC/CTX) NEG Bilirubin ICTO:NEG Ketones NEG SP Grav 1.020 Blood TRACE-LYSED PH 6.0 Protein SSA:NEG Urobil 0.2 Nitrite NEG Leukocytes (Fma/CMC/[facility]) NEG Hyaline - /Lpf Granular - /Lpf WBC (Fma,[facility]) 0-1 RBC 0-1 Mucus - /Lpf Epith - /Lpf Bacteria - /Hpf Amorphous - /Lpf Crystals, Fluid (Fma/CMC/CTX) - Z#Comments - Comprehensive Metabolic Prof 02/13/2015 Sodium 136 mEq/L 134-149 Potassium 4.0 mEq/L 3.6-5.5 Chloride 103 mEq/L 94-112 Carbon Dioxide 23 mEq/L 21-32 Glucose 84 mg/dL 70-105 BUN 14 mg/dL 6-26 Creatinine 0.7 mg/dL 0.6-1.4 BUN/Creat Ratio 20.0 CALC 8.0-36.0 Calcium 8.9 mg/dL 8.6-10.2 Total Protein 7.2 g/dL 6.4-8.3 Albumin 4.0 g/dL 3.8-5.5 Globulin 3.5 g/dL 2.0-4.8 A/G Ratio 1.3 CALC 0.6-2.3 Alk. Phosphatase 79 U/L 22-95 Alt (SGPT) 30 U/L 7-35 Ast (Sgot) 17 U/L 5-34 Total Bilirubin 0.6 mg/dL 0.2-1.3 Lipid Profile 02/13/2015 Cholesterol 120 mg/dL 120-200 Triglycerides 86 mg/dL 30-200 HDL Cholesterol 33 mg/dL 30-70 LDL (Calculated) 70 CALC 0-129 VLDL Cholesterol 17 mg/dL 0-50 HDL Risk Factor 3.6 CALC 0.0-4.4 Complete Blood Count 02/13/2015 WBC 9.3 x10^3/UL 3.6-9.6 RBC 5.37 x10^6/UL 3.90-5.70 HGB 14.5 g/dL 12.1-17.2 HCT 44 % 36-50 MCV 82.0 fL Low 82.2-97.4 MCH 27.0 pg Low 27.6-33.3 MCHC 32.9 g/dL Low 33.0-35.5 RDW 13.7 % 11.6-13.7 PLT 227 x10^3/UL 150-400 MPV 7.5 fL 7.4-10.4 Gran # 6.4 x10^3/UL 1.5-7.2 Lymph# 2.2 x10^3/UL 0.7-4.9 [place]# 0.7 x10^3/UL 0.1-0.9 Gran % 67.6 % 42.2-75.2 Lymph % 24.3 % 20.5-51.1 [place]% 8.1 % 1.7-9.3 Laboratory test finding 09/30/2014 Quickstrep NEGATIVE Negative Throat - Beta Strep Fma POSITIVE Throat-Beta Strept 03/13/2014 Throat Beta Strep (SEE NOTE) 19 Culture Comprehensive Metabolic Prof 01/18/2014 Sodium 135 mEq/L 134-149 Potassium 4.3 mEq/L 3.6-5.5 Chloride 105 mEq/L 94-112 Carbon Dioxide 20 mEq/L Low 21-32 20 Glucose 83 mg/dL 70-105 BUN 12 mg/dL 6-26 Creatinine 0.9 mg/dL 0.6-1.4 BUN/Creat Ratio 13.3 CALC 8.0-36.0 Calcium 9.3 mg/dL 8.6-10.2 Total Protein 7.6 g/dL 6.3-8.1 Albumin 4.5 g/dL 3.8-5.5 Globulin 3.1 g/dL 2.0-4.8 A/G Ratio 1.5 CALC 0.6-2.3 Alk. Phosphatase 93 U/L 22-95 Alt (SGPT) 39 U/L 10-40 Ast (Sgot) 19 U/L 5-34 Total Bilirubin 0.3 mg/dL 0.2-1.3 Lipid Profile 01/18/2014 Cholesterol 136 mg/dL 120-200 Triglycerides 114 mg/dL 30-200 HDL Cholesterol 35 mg/dL 30-70 LDL (Calculated) 78 CALC 0-129 VLDL Cholesterol 23 mg/dL 0-50 HDL Risk Factor 3.9 CALC 0.0-4.4 Ear Culture 01/10/2014 Ear Culture/Gram stain (SEE NOTE) 21 Laboratory test finding 11/01/2013 Magnesium, Serum 2.0 mEq/L 1.2-2.1 TSH 1.75 mIU/L 0.50-6.00 Basic Metabolic Profile 11/01/2013 Sodium 139 mEq/L 134-149 Potassium 4.1 mEq/L 3.6-5.5 Chloride 100 mEq/L 94-112 Carbon Dioxide 24 mEq/L 21-32 Glucose 81 mg/dL 70-105 BUN 12 mg/dL 6-26 Creatinine 0.8 mg/dL 0.6-1.4 BUN/Creat Ratio 15.0 CALC 8.0-36.0 Calcium 9.3 mg/dL 8.6-10.2 Complete Blood Count 11/01/2013 WBC 9.2 x10^3/UL 3.6-9.6 RBC 5.06 x10^6/UL 3.90-5.70 HGB 13.7 g/dL 12.1-17.2 HCT 42 % 36-50 MCV 84.0 fL 82.2-97.4 MCH 27.1 pg Low 27.6-33.3 MCHC 32.4 g/dL Low 33.0-35.5 RDW 11.9 % 11.6-13.7 PLT 203 x10^3/UL 150-400 MPV 8.1 fL 7.4-10.4 Gran # 7.1 x10^3/UL 1.5-7.2 Lymph# 1.7 x10^3/UL 0.7-4.9 [place]# 0.4 x10^3/UL 0.1-0.9 Gran % 76.6 % High 42.2-75.2 Lymph % 19.0 % Low 20.5-51.1 [place]% 4.4 % 1.7-9.3 Influenza A&B 09/26/2013 Influenza A NEG Influenza B NEG Lipid Profile 01/12/2013 Cholesterol 124 mg/dL 120-200 HDL 36 mg/dL 30-70 Triglycerides 107 mg/dL 30-200 HDL Risk Factor 3.4 CALC 0.0-4.4 LDL (Calculated) 66 CALC 0-129 VLDL (Calculated) 21 mg/dL 0-50 Hepatic 01/12/2013 Albumin 4.6 g/dL 3.8-5.5 Alk. Phos. 100 U/L High 22-95 Alt (SGPT) 29 U/L 10-40 Ast (Sgot) 17 U/L 5-34 Total Bilirubin 0.4 mg/dL 0.2-1.3 Total Protein 7.2 g/dL 6.3-8.1 Direct Bilirubin 0.2 mg/dL 0.0-0.6 Globulin 2.6 g/dL 2.0-4.8 A/G Ratio 1.8 Calc 0.6-2.3 Indirect Bilirubin 0.19 0.10-1.00 Laboratory test finding 12/17/2011 Quickstrep NEG Negative Throat - Beta Strep Fma negative@48hrs CBC Electronic (Fma) 07/17/2011 WBC 9.9 High 3.6-9.6 RBC 5.42 3.90-5.70 Hemoglobin (Fma/CMC/CTX) 15.0 g/dL 12.1 - 17.2 Hematocrit (Fma/CMC/CTX) 45.5 % 36.1 - 50.3 Platelets 227 10^3/ul 150-400 Lymph% 14.4 Low 20.5-51.1 Mixed% 3.8 Neutrophils % 81.8 Mean Corpuscular Vol 84 82.2-97.4 Mean Corpuscular Hemoglobin 27.7 27.6-33.3 Mean Corpuscular Hemo Concen 33.0 32.0-36.0 RDW 11.8 11.6-13.7 Mean Platelet Volume 8.2 6.5-11.0 Urinalysis 07/10/2011 Ua Color YELLOW Yellow Appearance-Urine CLEAR Clear Specific [place]-Ur 1.021 1.010-1.030 Esterase-Urine NEGATIVE Negative Nitrite NEGATIVE Negative [id number] NEGATIVE Negative Protein-Urine NEGATIVE Negative PH-Urine 6.0 5-9 Blood-Urine NEGATIVE Negative Ketones-Urine NEGATIVE Negative Bilirubin-Ur NEGATIVE Negative Glucose-Urine NEGATIVE Negative Comp Metabolic Panel 07/10/2011 Sodium 139 mmol/L 135-145 Potassium 4.2 mmol/L 3.5-5.0 Chloride 101 mmol/L 101-111 Co2 (Carbon Dioxide) 28.0 mmol/L 22-32 Anion Gap 10.0 mmol/L 2-11 22 Glucose 71 mg/dL 70-100 BUN 13 mg/dL 6-24 Creatinine 1.1 mg/dL 0.50-1.40 One Over Creatinine 0.90 BUN/Creatinine Ratio 11.8 8-20 Calcium 9.1 mg/dL 8.1-9.9 Total Protein 7.3 GM/DL 6.2-8.1 Albumin 3.8 GM/DL 3.6-5.4 Globulin 3.5 GM/DL 2-4 Albumin/Globulin Ratio 1.1 1-3 Bilirubin Total 0.7 mg/dL 0.4-1.5 23 Alkaline Phosphatase 86 U/L 39-117 Alt (SGPT) 38 U/L 17-63 Ast (Sgot) 20 U/L 12-42 eGFR Non- 79.1 > 60 eGFR 101.8 > 60 24 Laboratory test finding 07/10/2011 Magnesium 1.9 mg/dL 1.7-2.6 Amylase 64 U/L 20-120 25 Lipase 26 U/L 22-51 CBC Auto Diff 07/10/2011 White Blood Count 12.5 CUMM High 4.8-10.8 Red Cell Count 5.34 CUMM 4.6-6.2 Hemoglobin 15.2 g/dL 14.0-18.0 Hematocrit 45 % 42-52 Mean Corpuscular Volume 84 um3 80-94 Mean Corpuscular Hemoglob 28 pg 27-31 Mean Corpuscular HGB Cone 34 g/dL 32-36 Redcell Distribution WDTH 14 % 10.5-15 Platelet Count 210 CUMM 150-450 Mean Platelet Volume 9.7 um3 7.4-10.4 26 Manual Differential 07/10/2011 Polysegmented Neutrophil 80 % 38-83 Lymphocyte 14 % Low 25-47 Monocyte 4 % 0-13 Eosinophil 2 % 0-6 Absolute Neutrophil Count 10.0 RBC Morphology NORMAL Lipid Profile 03/21/2011 Cholesterol 117 mg/dL Low 120-200 27 HDL 34 mg/dL 30-70 Triglycerides 83 mg/dL 30-200 HDL Risk Factor 3.4 CALC 0.0-4.0 LDL (Calculated) 66 CALC 0-129 VLDL (Calculated) 17 mg/dL 0-50 Hepatic 03/21/2011 Albumin 4.0 g/dL 3.8-5.5 Alk. Phos. 97 U/L High 22-95 28 Alt (SGPT) 39 U/L 10-40 Ast (Sgot) 19 U/L 5-34 Total Bilirubin 0.5 mg/dL 0.2-1.3 Total Protein 6.9 g/dL 6.3-8.1 Direct Bilirubin 0.2 mg/dL 0.0-0.6 Globulin 2.9 g/dL 2.0-4.8 A/G Ratio 1.4 Calc 0.6-2.2 Indirect Bilirubin 0.21 0.10-1.00 Culture And Sensitivity 02/05/2011 Gram Stain Smear RARE EPITHELIAL 29 , 30 <SEE NOTE> Laboratory test finding 02/05/2011 Culture Sensitivity METH RESIST S. A 29, 31 <SEE NOTE> Sensitivities Wound 02/05/2011 Clindamycin <=0.25 29 Culture Ciprofloxacin <=0.5 29 Erythromycin >=8 29 Gentamicin <=0.5 29 Levofloxacin <=0.12 29 Linezolid 2 29 Oxacillin >=4 29 Rifampin <=0.5 29 Trimeth-Sulfa <=10 29 Tetracycline <=1 29 Tigecycline <=0.12 29 Vancomycin 1 29 Laboratory test finding 07/18/2010 Quickstrep NEGATIVE Negative Throat - Beta Strep Fma NEG @ 48 HRS CBC With Electronic Diff 04/04/2010 White Blood Count 9.6 CUMM 4.8-10.8 Red Cell Count 5.35 CUMM 4.6-6.2 Hemoglobin 15.4 g/dL 14.0-18.0 Hematocrit 45 % 42-52 Mean Corpuscular Volume 84 um3 80-94 Mean Corpuscular Hemoglob 29 pg 27-31 Mean Corpuscular HGB Cone 34 g/dL 32-36 Redcell Distribution WDTH 13 % 10.5-15 Platelet Count 185 CUMM 150-450 Mean Platelet Volume 8.3 um3 7.4-10.4 Gran % 77.9 % 38-83 Lymph % 8.9 % Low 25-47 Mononuclear % 10.7 % High 1-9 Eosinophil % 1.8 % 0-6 Basophil % 0.7 % 0-2 Abs Lymphs 0.9 Low 1.0-4.8 Abs Mononuclear 1.0 High 0-0.8 Absolute Neutrophil Count 7.5 1.5-7.7 Abs Eosinophils 0.2 0-0.6 Abs Basophils 0.1 0-0.2 32 Comp Metabolic Panel 04/04/2010 Sodium 136 mmol/L 135-145 Potassium 3.7 mmol/L 3.5-5.0 Chloride 106 mmol/L 101-111 Co2 (Carbon Dioxide) 23.0 mmol/L 22-32 Anion Gap 7.0 mmol/L 2-11 33 Glucose 91 mg/dL 70-100 34 BUN 10 mg/dL 6-24 Creatinine 0.70 mg/dL 0.50-1.40 One Over Creatinine 1.40 BUN/Creatinine Ratio 14.3 8-20 Calcium 9.1 mg/dL 8.1-9.9 35 Total Protein 7.3 GM/DL 6.2-8.1 Albumin 3.8 GM/DL 3.6-5.4 Globulin 3.5 GM/DL 2-4 Albumin/Globulin Ratio 1.1 1-3 Bilirubin Total 1.1 mg/dL 0.4-1.5 36 Alkaline Phosphatase 87 U/L 39-117 Alt (SGPT) 49 U/L 17-63 Ast (Sgot) 27 U/L 12-42 eGFR Non- 142.7 > 60 eGFR 172.7 > 60 37 Urinalysis 04/04/2010 Ua Color YELLOW Yellow Appearance-Urine CLEAR Clear Specific [place]-Ur 1.024 1.010-1.030 Esterase-Urine NEGATIVE Negative Nitrite NEGATIVE Negative Exqisxzyzwdy-Tk-PSC NEGATIVE Negative Protein-Urine NEGATIVE Negative PH-Urine 5.5 5-9 Blood-Urine NEGATIVE Negative Ketones-Urine NEGATIVE Negative Bilirubin-Ur NEGATIVE Negative Glucose-Urine NEGATIVE Negative Ua - Non Micro (Fma) 07/31/2009 Appearance clear Color yellow Glucose neg Bilirubin neg Ketones neg SP Grav 1.025 Blood neg PH 5.5 Protein neg Urobil 0.2 Nitrite neg Leukocytes ([facility] [place] neg Hepatic 12/07/2008 Albumin 4.3 g/dL 3.8-5.5 38 Alk. Phos. 89 U/L 22-95 38 Alt (SGPT) 42 U/L High 10-40 38, 39 Ast (Sgot) 23 U/L 5-34 38 Total Bilirubin 0.7 mg/dL 0.2-1.3 38 Total Protein 7.7 g/dL 6.3-8.1 38 Direct Bilirubin 0.4 mg/dL 0.0-0.6 38 Globulin 3.4 g/dL 2.0-4.8 38 A/G Ratio 1.3 Calc 0.6-2.2 38 Indirect Bilirubin 0.29 0.10-1.00 38 Lipid Profile 12/07/2008 Cholesterol 144 mg/dL 120-200 38 HDL 43 mg/dL 30-70 38 Triglycerides 104 mg/dL 30-200 38 HDL Risk Factor 3.4 CALC Low 4.2-7.0 38 LDL (Calculated) 81 CALC 0-129 38 VLDL (Calculated) 21 mg/dL 0-50 38 Comprehensive Metabolic Prof 10/22/2007 Albumin 4.2 g/dL 3.8-5.5 38 Alk. Phos. 88 U/L 22-95 38 Alt (SGPT) 60 U/L High 10-40 38, 40 Ast (Sgot) 25 U/L 5-34 38 BUN 14 mg/dL 6-26 38 Calcium 9.6 mg/dL 8.6-10.2 38 Chloride 101 mEq/L 94-112 38 Creatinine 0.9 mg/dL 0.6-1.4 38 Carbon Dioxide 26 mEq/L 21-32 38 Glucose 70 mg/dL 70-105 38 Sodium 138 mEq/L 134-149 38 Total Bilirubin 0.5 mg/dL 0.2-1.3 38 Total Protein 7.3 g/dL 6.3-8.1 38 Potassium 4.3 mEq/L 3.6-5.5 38 Globulin 3.1 g/dL 2.0-4.8 38 A/G Ratio 1.3 Calc 0.6-2.2 38 BUN/Creat Ratio 15.2 Calc 8.0-36.0 38 Lipid Profile 10/22/2007 Cholesterol 137 mg/dL 120-200 38 HDL 32 mg/dL 30-70 38 Triglycerides 112 mg/dL 30-200 38 HDL Risk Factor 4.3 CALC 4.2-7.0 38 LDL (Calculated) 83 CALC 0-129 38 VLDL (Calculated) 22 mg/dL 0-50 38 Laboratory test finding 10/20/2006 Quickstrep NEGATIVE Negative Throat - Beta Strep Fma NEG @ 48 HOURS Comprehensive Metabolic Prof 10/16/2006 Albumin 4.4 g/dL 3.8-5.5 38 Alk. Phos. 94 U/L 22-95 38 Alt (SGPT) 39 U/L 10-40 38 Ast (Sgot) 18 U/L 5-34 38 BUN 12 mg/dL 6-26 38 Calcium 9.1 mg/dL 8.6-10.2 38 Chloride 98 mEq/L 94-112 38 Creatinine 0.8 mg/dL 0.6-1.4 38 Carbon Dioxide 26 mEq/L 21-32 38 Glucose 73 mg/dL 70-105 38 Sodium 139 mEq/L 134-149 38 Total Bilirubin 0.7 mg/dL 0.2-1.3 38 Total Protein 7.9 g/dL 6.3-8.1 38 Potassium 4.1 mEq/L 3.6-5.5 38 Globulin 3.5 g/dL 2.0-4.8 38 A/G Ratio 1.3 Calc 0.6-2.2 38 BUN/Creat Ratio 16.0 Calc 8.0-36.0 38 Lipid Profile 10/16/2006 Cholesterol 150 mg/dL 120-200 38 HDL 35 mg/dL 30-70 38 Triglycerides 118 mg/dL 30-200 38 HDL Risk Factor 4.3 CALC 4.2-7.0 38 LDL (Calculated) 91 CALC 0-129 38 VLDL (Calculated) 24 mg/dL 0-50 38 Lipid Profile(a) Male 09/01/2005 Cholesterol 135 mg/dL 120-200 Triglyceride 130 mg/dL 30-200 HDL Cholesterol (a) Male 38 mg/dL 30-70 LDL, Calculated ([place] 71 CALC 0-129 LDL Direct (/[facility]) - mg/dL 0-130 VLDL 26 0-50 HDL Risk Factor (Fma) 3.5 CALC Low 4.2-7.0 Comp Metabolic (Fma) Male 09/01/2005 Glucose, Serum (Fma/CMC/CTX) 76 mg/dL 70-105 BUN (a[place] 9 mg/dL 6-26 Creatinine (a/CMC/CTX) 0.8 mg/dL 0.6-1.4 BUN/Creatinin Ratio 12.2 8.0-36 Sodium 141 134-149 Potassium 4.0 3.6-5.5 Chloride 99 mEq/L 94-112 Co2 30 21-32 Calcium (Fma/CMC/[facility]) 9.7 mg/dL 8.6-10.2 Total Protein 7.5 g/dL 6.3-8.1 Albumin (Fma/[facility]) 4.6 3.8-5.5 Globulin 2.9 2.0-4.8 A/G Ratio (a/CMC/[facility]) 1.6 0.6-2.2 Alk Phos ([facility]) Male 93 U/L 22-95 Alt-M SGPT Male ([facility]) 52 RESULT ANU'D High 10-40 Ast Sgot 25 U/L 5-34 Bilirubin, Total 0.7 mg/dL 0.2-1.3 CBC Electronic ([facility]) 09/01/2005 WBC 7.5 3.6-9.6 Lymphocytes 20.9 % 20.5 - 51.1 Monocytes 8.7 % 1.7-9.3 Granulocytes 70.4 % 42.2 - 75.2 Lymphocytes 1.6 10^3/uL 0.7 - 4.9 Monocytes 0.7 10^3/uL 0.1 - 0.9 Granulocytes 5.3 10^3/uL 1.5 - 7.2 RBC 5.63 3.90-5.70 Hemoglobin (a/CMC/CTX) 16.1 g/dL 12.1 - 17.2 Hematocrit (a/CMC/CTX) 46.4 % 36.1 - 50.3 Mean Corpuscular Vol 82.6 82.2-97.4 Mean Corpuscular Hemaglobin 28.5 27.6-33.3 Mean Corpuscular Hemo Concen 34.6 33.0-36.0 RDW 12.3 11.6-13.7 Platelets 198. 10^3/ul 150-400 Mean Platelet Volume 8.4 7.4-10.4 Ua - Non Micro ([facility]) 09/01/2005 Appearance CLEAR Color LT YELLOW Glucose NEG Bilirubin NEG Ketones NEG SP Grav 1.010 Blood NEG PH 6.0 Protein NEG g/dL Low 6.3-8.1 Urobil 0.2 Nitrite NEG Leukocytes NEG Laboratory test finding 08/16/2005 Throat Culture NEG @ 48 HOURS Flu A&B NEGATIVE Negative Liver Function ([facility]) 02/04/2005 Total Protein 8.0 g/dL 6.3-8.1 Albumin ([facility]) 4.5 3.8-5.5 A/G Ratio ([facility] 1.3 0.6-2.2 Globulin 3.6 2.0-4.8 Alkaline Phosphatase (F/C/CTX) 122 U/L High 22-95 Alt (SGPT) ([facility] 51 High 7-35 Ast (Sgot) ([facility]) 23 U/mL 5-34 Bilirubin, Total 0.8 mg/dL 0.2-1.3 Bilirubin, Direct 0.4 mg/dL 0-0.6 Bilirubin, Indirect 0.39 ml/dl 0.10-1.0 Liver Function ([facility]) 08/06/2004 Total Protein 7.4 g/dL 6.3-8.1 Albumin ([facility]) 4.4 3.8-5.5 A/G Ratio ([facility] 1.5 0.6-2.2 Globulin 3.0 2.0-4.8 Alkaline Phosphatase (F/C/CTX) 91 U/L 30-110 Alt (SGPT) 55 High 7-35 41 Ast (Sgot) ([facility] 23 U/mL 5-34 Bilirubin, Total 0.7 mg/dL 0.2-1.3 Bilirubin, Direct 0.3 mg/dL 0-0.6 Bilirubin, Indirect 0.35 ml/dl 0.10-1.0 Lipid Profile(a) Male 08/06/2004 Cholesterol 108 mg/dL Low 120-200 42 Triglyceride 90 mg/dL 30-200 HDL Cholesterol (a) Male 28 mg/dL Low 30-70 43 LDL, Calculated ([facility] 62 CALC 0-129 LDL, Direct - mg/dL 0-130 VLDL 18 0-50 HDL Risk Factor (Fma) 3.9 CALC Low 4.2-7.0 Lipid Profile([facility]) Male 05/28/2004 Cholesterol 216 mg/dL High 120-200 Triglyceride 133 mg/dL 30-200 HDL Cholesterol (Fma) Male 30 mg/dL 30-70 LDL, Calculated ([facility] 159 CALC High 0-129 LDL, Direct - mg/dL 0-130 VLDL 27 0-50 HDL Risk Factor (Fma) 7.1 CALC High 4.2-7.0 Laboratory test finding 05/17/2004 Throat Culture NEG @ 48 HOURS Lipid Profile(Fma) Male 03/27/2004 Cholesterol 221 mg/dL High 120-200 Triglyceride 151 mg/dL 30-200 HDL Cholesterol (Fma) Male 40 mg/dL 30-70 LDL, Calculated (Fma/CMC) 150 CALC High 0-129 LDL, Direct - mg/dL 0-130 VLDL 30 0-50 HDL Risk Factor (Fma) 5.5 CALC 4.2-7.0 Glucose/Hgaic Profile 03/27/2004 Glucose, Serum 80 mg/dL 70-118 (Fma/CMC (Fma/CMC/CTX) Hemoglobin A1c (F/C/CTX) 4.6 % 4.1-5.7 1 Because ethnic data is not always readily available, this report includes an eGFR for both -Americans and non- Americans. The National Kidney Disease Education Program (NKDEP) does not endorse the use of the MDRD equation for patients that are not between the ages of 18 and 70, are , have extremes of body size, muscle mass, or nutritional status, or are non- or non-. According to the National Kidney Foundation, irrespective of diagnosis, the stage of the disease is based on the level of kidney function: Stage Description GFR(mL/min/1.73 m(2)) 1 Kidney damage with normal or decreased GFR 90 2 Kidney damage with mild decrease in GFR 60-89 3 Moderate decrease in GFR 30-59 4 Severe decrease in GFR 15-29 5 Kidney failure <15 (or dialysis) 2 Reference Range and Interpretation: TnI (ng/mL) Interpretation Less Than 0.03 ng/mL Not supportive of diagnosis of [place] 0.03 - 0.50 ng/mL Indeterminate: suggest serial studies if clinically indicated. Greater than 0.5 ng/mL Consistent with diagnosis of [place] 3 Picture Enlarger: [id number] Owens Due to the increased sensitivity of molecular testing, reflex cultures are no longer performed. 4 SEE RESULT BELOW Name: ALEX OBRIEN : [address]: Montez Drake MD Acct: [id number] Unit: [id number] AGE: 35 Location: ED Re01/10/16 SEX: M Status: REG ER SPEC: [id number] SELENE: 01/10/16-[address]: Montez Drake MD REQ: [id number] RECD: 01/10/16 STATUS: COMP OTHR DR: Fatuma Richards VICE PRESIDENT OF PROCUREMENT _ SOURCE: THROAT SPDESC: ORDERED: Strep A Request Procedure Result Reported Site Rapid Strep A Request Final 01/10/16- 2219 ML Specimen received for Rapid Strep A Molecular testing * ML - MAIN LAB ([facility]) . END OF REPORT * ML=Testing performed at Main Lab DEPARTMENT OF PATHOLOGY, [address] [place] [address] Denilson Cheney M.D. Director [facility] # [id number] 5 Picture Enlarger: [id number] TICKNOR LUIS 6 SEE RESULT BELOW Name: ALEX OBRIEN : [address]: Perla Mcguire MD Acct: [id number] Unit: [id number] AGE: 35 Location: ED Re10/19/15 SEX: M Status: REG ER SPEC: [id number] SELENE: 10/19/[address]: Jus MCCLELLAND REQ: [id number] RECD: 10/19/15 STATUS: KARTIK HILLIARD DR: Fatuma Mcguire MD _ SOURCE: THROAT SPDESC: ORDERED: Strep A Request Procedure Result Reported Site Rapid Strep A Request Final 10/19/15- 1848 ML Specimen received for Rapid Strep A Molecular testing * ML - MAIN LAB ([facility]) . END OF REPORT * ML=Testing performed at Main Lab DEPARTMENT OF PATHOLOGY, [address] [place] [address] Denilson Cheney M.D. Director [facility] # [id number] 7 Picture Enlarger: SONIA SMITH 8 Picture Enlarger: SONIA SMITH The vascular ultrasound technologist and regulatory agencies both recommend that a throat culture for beta strep be performed if a Rapid Group A Strep assay yields a negative result. Therefore a culture will be automatically performed on all negative samples. 9 SEE RESULT BELOW Name: ALEX OBRIEN: [address]: Perla Mcguire MD Acct: [id number] Unit: [id number] AGE: 35 Location: ED Re10/19/15 SEX: M Status: DEP ER SPEC: [id number] SELENE: 10/19/[address]: Perla Mcguire MD REQ: [id number] RECD: 10/19/15 STATUS: KARTIK HILLIARD DR: Fatuma Richards VICE PRESIDENT OF PROCUREMENT _ SOURCE: THROAT SPDESC: ORDERED: Throat Beta Str Procedure Result Reported Site Throat Beta Strep Culture Final 10/21/15- 1006 ML Negative For Group A Beta Streptococcus * ML - MAIN LAB ([facility]) . END OF REPORT * ML=Testing performed at Main Lab DEPARTMENT OF PATHOLOGY, [address] [place] [address] Denilson Cheney M.D. Director [facility] # [id number] 10 Because ethnic data is not always readily available, this report includes an eGFR for both -Americans and non- Americans. The National Kidney Disease Education Program (NKDEP) does not endorse the use of the MDRD equation for patients that are not between the ages of 18 and 70, are , have extremes of body size, muscle mass, or nutritional status, or are non- or non-. According to the National Kidney Foundation, irrespective of diagnosis, the stage of the disease is based on the level of kidney function: Stage Description GFR(mL/min/1.73 m(2)) 1 Kidney damage with normal or decreased GFR 90 2 Kidney damage with mild decrease in GFR 60-89 3 Moderate decrease in GFR 30-59 4 Severe decrease in GFR 15-29 5 Kidney failure <15 (or dialysis) 11 Acute inflammation: >10.00 12 [facility] Severe Sepsis and Septic Shock Management Bundle Measure requires all lactic acids initially measuring >2.0mmol/L be repeated. 13 SRC:abdomin 1 plascencia fines t swab 14 Source of Specimen: abdomin 1 plascencia fines 15 Staphylococcus aureus Source of Specimen: abdomin 1 plascencia fines Moderate growth Most isolates of Staphylococcus sp. produce a beta-lactamase enzyme rendering them resistant to penicillin. Please contact the laboratory if penicillin is being considered for therapy. Based on susceptibility to oxacillin this isolate would be susceptible to: * Beta-lactam/beta-lactamase inhibitor combinations; such as: Amoxicillin-clavulanic acid Ampicillin-sulbactam * Antistaphylococcal cephems; such as: Cefaclor Cefuroxime * Antistaphylococcal carbapenems; such as: Imipenem Meropenem 16 Skin laron isolated Source of Specimen: abdomin 1 plascencia fines Moderate growth 17 Source of Specimen: abdomin 1 plascencia fines S=Susceptible; I=Intermediate; R=Resistant P=Positive; N=Negative MICS are expressed in micrograms per mL Antibiotic RSLT#1 RSLT#2 RSLT#3 RSLT#4 Ciprofloxacin R Clindamycin S Erythromycin S Gentamicin S Levofloxacin I Linezolid S Moxifloxacin R Oxacillin S Quinupristin/Dalfopristin S Rifampin S Tetracycline S Trimethoprim/Sulfa S Vancomycin S 18 SEE RESULT BELOW Name: ALEX OBRIEN : [address]: Yovanny Croft MD Acct: [id number] Unit: [id number] AGE: 35 Location: [facility] Re06/01/15 SEX: M Status: REG REF SPEC: [id number] SELENE: 05/31/15-[address]32 [facility] [address]: Yovanny Croft MD REQ: [id number] RECD: 06/01/15 STATUS: COMP _ SOURCE: URINE SPDESC: ORDERED: Urine Culture COMMENTS: LUIZ WITH URINE Procedure Result Verified Site Urine Culture Final 06/03/15- 1051 ML No Growth Day 2 (<1,000 CFU/mL) * ML - MAIN LAB ([facility]) . END OF REPORT * ML=Testing performed at Main Lab DEPARTMENT OF PATHOLOGY, [facility] [place] [address] Denilson Cheney M.D. Director [facility] # [id number] 19 RUN DATE: 03/16/14 [facility] LAB LIVE PAGE 1 RUN TIME: 08 [facility] [place], [place] [address] Specimen Inquiry Name: ALEX OBRIEN : [address]: Jung Puente MD Acct: [id number] Unit: [id number] AGE: 34 Location: [facility] Re03/13/14 SEX: M Status: DEP ER SPEC: [id number] SELENE: 03/13/14-[address] [facility] [address]: Jnug Puente MD REQ: [id number] RECD: 03/14/14 STATUS: KARTIK HILLIARD DR: [facility] Ubaldo Donaldson MD _ SOURCE: THROAT SPDESC: ORDERED: Throat Beta Str Procedure Result Verified Site Throat Beta Strep Culture Final 03/16/14- 5156 ML Negative For Group A Beta Streptococcus END OF REPORT * ML=Testing performed at Main Lab DEPARTMENT OF PATHOLOGY, [address] [place] [address] Denilson Cheney M.D. Director [facility] # [id number] 20 RESULTS VERIFIED BY REPEAT ANALYSIS 21 RUN DATE: 01/13/14 [facility] LAB LIVE PAGE 1 RUN TIME: [address] [place] [id number] Specimen Inquiry Name: ALEX OBRIEN : [address]: Berenice Zavala MD Acct: [id number] Unit: [id number] AGE: 33 Location: [facility] Re01/10/14 SEX: M Status: DEP ER SPEC: [id number] SELENE: 01/10/14-[address] [facility] [address]: Kierra MCCLELLAND REQ: [id number] RECD: 01/10/14 STATUS: KARTIK HILLIARD DR: Berenice Donaldson MD _ SOURCE: EAR SPDESC:LEFT ORDERED: EAR Cult/GS Procedure Result Verified Site Ear Culture Final 01/13/14- 1037 ML Organism 1 MRSA Quantity 1+ Organism 2 NORMAL LARON Quantity 2+ 1. MRSA M.I.C. RX --------- ------ Penicillin >=0.5 R Clindamycin >=8 R Erythromycin >=8 R Gentamicin <=0.5 S Linezolid 2 S Nitrofurantoin <=16 S Oxacillin >=4 R * Quinupristin/Dalfopristin 0.5 S Rifampin <=0.5 S Tetracycline <=1 S Doxycycline - Deduced S * Minocycline - Deduced S Trimethoprim/Sulfamethoxazole <=10 S Vancomycin 1 S Imipenem-Deduced R * Ampicillin/Sulbactam-Deduced R Cefazolin-Deduced R CONTINUED ON NEXT PAGE * ML=Testing performed at Main Lab DEPARTMENT OF PATHOLOGY, [facility] [address] [place], [place] [address] Denilson Cheney M.D. Director [facility] # [id number] RUN DATE: 01/13/14 [facility] LAB LIVE PAGE 2 RUN TIME: 1036 [facility] [place] [place], [place] [address] Specimen Inquiry Patient: ALEX OBRIEN [id number] (Continued) Specimen: [id number] Collected: 01/10/14-1649 Received: 01/10/14 (Continued) Procedure Result Verified Site Ear Culture Final (continued) * These antibiotics are not available in the [facility] Formulary Contact the Microbiology Department for any additional antibiotic reporting. Ear Gram Stain Final 01/11/14- 820 ML 1+ Polys 2+ Epithelial Cells 1+ Gram Positive Cocci END OF REPORT * ML=Testing performed at Main Lab DEPARTMENT OF PATHOLOGY, [address] [place] [address] Denilson Cheney M.D. Director [facility] # [id number] 22 Anion gap measurement may be of limited value in the presence of any alkalosis, especially in a combined acid base disorder. . 23 A metabolite of Naproxen, O-desmethylnaproxen, has been shown to interfere with the Jendrassik-Radha method for measuring total bilirubin. Samples from patients who have taken Naproxen have shown spurious elevation in total bilirubin levels. 24 Because ethnic data is not always readily available, this report includes an eGFR for both -Americans and non- Americans. The National Kidney Disease Education Program (NKDEP) does not endorse the use of the MDRD equation for patients that are not between the ages of 18 and 70, are , have extremes of body size, muscle mass, or nutritional status, or are non- or non-. According to the National Kidney Foundation, irrespective of diagnosis, the stage of the disease is based on the level of kidney function: Stage Description GFR(mL/min/1.73 m(2)) 1 Kidney damage with normal or decreased GFR 90 2 Kidney damage with mild decrease in GFR 60-89 3 Moderate decrease in GFR 30-59 4 Severe decrease in GFR 15-29 5 Kidney failure <15 (or dialysis) 25 PLEASE NOTE NEW REFERENCE RANGE. 26 Lymphopenia % 27 RESULT ANU'D 28 RESULT ANU'D 29 COMMENTS: WOUND ON RIGHT LOWER LEG 30 RARE EPITHELIAL CELLS RARE GRAM POSITIVE COCCI NONE 31 METH RESIST S. AUREUS (MRSA) MOD^MODERATE^QTY 32 Lymphopenia % 33 Anion gap measurement may be of limited value in the presence of any alkalosis, especially in a combined acid base disorder. . 34 Note change in reference range as of 04/06/08. The change was based on recommendations from the [place] [employer]. 35 Please note change in reference range effective 08 . 36 A metabolite of Naproxen, O-desmethylnaproxen, has been shown to interfere with the Jendrassik-Radha method for measuring total bilirubin. Samples from patients who have taken Naproxen have shown spurious elevation in total bilirubin levels. 37 Because ethnic data is not always readily available, this report includes an eGFR for both -Americans and non- Americans. The National Kidney Disease Education Program (NKDEP) does not endorse the use of the MDRD equation for patients that are not between the ages of 18 and 70, are , have extremes of body size, muscle mass, or nutritional status, or are non- or non-. According to the National Kidney Foundation, irrespective of diagnosis, the stage of the disease is based on the level of kidney function: Stage Description GFR(mL/min/1.73 m(2)) 1 Kidney damage with normal or decreased GFR 90 2 Kidney damage with mild decrease in GFR 60-89 3 Moderate decrease in GFR 30-59 4 Severe decrease in GFR 15-29 5 Kidney failure <15 (or dialysis) 38 FASTING 39 RESULT ANU'D 40 RESULT ANU'D 41 RESULT VERIFIED BY REPEAT ANALYSIS 42 RESULT VERIFIED BY REPEAT ANALYSIS 43 RESULT VERIFIED BY REPEAT ANALYSIS Procedures Date CPT Code Description Status 05/09/2016 92986 CPHL SHQ Completed 11/01/2013 19862 Electrocardiogram Complete Completed Encounters Type Date Location Provider CPT E/M Dx Office Visit 12/12/2016 11:10a [facility] Rekha Nassar M.D. 06563 I10 Q85.01 E66.01 Office Visit 09/11/2016 9:45a [facility] BRYN Basilio 66146 M25.561 Office Visit 08/06/2016 3:45p [facility] Maria R Sultana 45209 R05 Office Visit 03/08/2016 11:15a [facility] Office BRYN Basilio 77126 J01.90 Office Visit 03/05/2016 2:30p [place] [address] J06.9 Office Visit 12/04/2015 11:30a Main Office Rekha Nassar M.D. 53965 M72.2 I10 E78.2 E66.8 Office Visit 10/06/2015 11:30a [facility] BRYN Alvarez 26621 J02.9 Office Visit 09/25/2015 9:00a [facility] Fatuma Richards 88781 M25.571 Afkrissy-C M79.671 Office Visit 07/18/2015 11:15a [facility] Maria R Sultana 43181 L03.032 L03.311 L03.811 Office Visit 05/31/2015 6:30p Main Office Yovanny Croft M.D. 48344 M54.9 Office Visit 02/13/2015 11:10a [facility] Milan Garcia M.D. 03325 724.2 401.9 272.4 Office Visit 09/30/2014 10:45a Main Office Ania Mauricio Afnp-C 96017 462 Office Visit 08/11/2014 1:30p Main Office Christine Camilo, [facility] 34221 729.5 Office Visit 07/21/2014 1:30p Main Office Christine Camilo, DESK DIRECTOR 80068 729.5 Office Visit 01/18/2014 9:30a Main Office Christine Camilo, DESK DIRECTOR 21296 272.4 041.12 Office Visit 11/01/2013 8:50a [facility] Ubaldo Donaldson M.D. 90551 785.1 459.81 Office Visit 09/26/2013 1:45p Main Office Christine Camilo, DESK DIRECTOR 17943 465.8 Office Visit 03/13/2012 10:15a Main Office Fatuma Richards, Afnp-C 57285 372.00 Office Visit 12/17/2011 9:15a [facility] Christine Camilo, DESK DIRECTOR 36669 462 Office Visit 07/17/2011 9:30a [facility] Ania Mauricio, Afnp-C 26846 789.00 Office Visit 03/21/2011 9:00a Main Office Christine Camilo, DESK DIRECTOR 76239 272.4 Office Visit 07/18/2010 10:15a Main Office Ania Mauricio, Afnp-C 67104 465.9 462 Office Visit 12/05/2009 2:00p Main Office Fatuma Richards, Afnp-C 60312 373.11 703.0 Office Visit 11/13/2009 8:00p Main Office Christine Camilo, DESK DIRECTOR 05159 380.22 372.30 Office Visit 08/11/2009 10:30a [facility] Zbigniew Peterson M.D. 79209 465.9 Office Visit 07/31/2009 8:30a Main Office Cristel Guerrero M.D. 10236 388.70 791.0 Office Visit 12/14/2008 9:40a [facility] Xiomara Delacruz, 22473 272.4 M.Rita 401.9 959.7 Office Visit 11/18/2008 10:00a Main Office Ubaldo Donaldson M.D. 22126 382.9 Office Visit 09/18/2008 8:40a [facility] Jocelyne Day M.D. 91342 477.8 401.9 Office Visit 12/21/2007 3:20p Main Office Ubaldo Donaldson M.D. 22055 465.9 Office Visit 10/22/2007 9:45a Main Office Christine Camilo [facility] 69745 272.4 Office Visit 10/20/2006 8:00p [place] [address] 465.8 528.00 Office Visit 10/16/2006 9:45a Main Office Christine Camilo [facility] 58366 272.4 Office Visit 04/25/2006 11:40a Main Office Riley Donahue M.D. 53612 682.6 680.6 Office Visit 09/01/2005 10:20a Main Office Riley Donahue M.D. 27888 V70.0 272.4 V12.2 237.70 Office Visit 08/16/2005 12:20p Main Office Johnny Garnett M.D. 97603 465.9 461.9 272.4 Office Visit 06/30/2005 12:00p Main Office Isaiah Soriano M.D. 84528 461.9 465.9 Office Visit 02/04/2005 11:10a Main Office Riley Donahue M.D. 67380 272.4 278.00 Office Visit 11/11/2004 7:15p Main Office BRYN Basilio 25853 490 Office Visit 08/06/2004 11:20a Main Office Riley Donahue M.D. 44524 401.9 272.4 Office Visit 05/28/2004 9:00a Main Office Riley Donahue M.D. 63541 401.1 380.10 272.4 278.00 Office Visit 05/17/2004 10:30a [facility] NoeGwen 57689 465.9 Office Visit 03/26/2004 9:00a Main Office Riley Donahue M.D. 97040 278.00 401.9 382.9 784.0 V77.1 Office Visit 11/17/2003 9:50a Main Office Isaiah Soriano M.D. 59917 719.47 Office Visit 11/10/2003 10:00a [facility] NoeGwen 68822 401.9 Plan of Care Future Appointment(s):11/12/2017 9:40 am - Rekha Nassar M.D. at Main [id number] - Rekha Nassar M.D.Z00.01 Encounter for general adult medical exam w abnormal findingsComments:Encourage an active and healthy lifestyle with proper eating habits including fruits, vegetables, 6-8 glasses of water a day and monitoring portion size. Recommend 30 minutes of daily physical activityincluding walking, aerobic exercise, sports, yoga or dance. Any activity is better than no activity.Recommend routine eye and dental exams. Encourage 1200 units of calcium and 1000 units of vitamin D daily. Next physical is due in 1-2 years.I10 Essential (primary) hypertensionNew Medication: Hydrochlorothiazide 12.5 mgComments:The patient will continue to monitor blood pressure and let me know the blood pressure results if there are readings persistently above 140/80. Goal blood pressure is less than 140/80. Recommend low salt/cardiac diet and routine exercise.Follow up:3 vvjsplZ25.01 Neurofibromatosis, type 1E66.01 Morbid (severe) obesity due to excess caloriesComments:Counseled on heart healthy diet such as Mediterranean diet. Eat protein and vegetables first then carbohydrates last. Get at least 150 minutes of moderate aerobic activity or 75 minutes of vigorous aerobic activity a week, or a combination of moderate and vigorous activity. General goal of 30 minutes of physical activity a day.E78.2 Mixed hyperlipidemiaComments:stable on xsksspzompjI44.83 SnoringComments:would like to think about sleep testG57.12 Meralgia paresthetica, left lower limbComments:advised weight loss and mens multivitaminAllComments:~B_~U_Medication Management~b_~u_ Patient Understands medications he's taking? Yes No Are there Barriers to Adherence? Yes No Has the patient been asked about herbal supplements and therapies, and OTC meds? Yes No
[2017-08-23] MEDS ORDERED: Clindamycin CAP* 150 MG PO ONE ×2 (18:10→18:11)
[2017-08-23] MEDS ORDERED: Acetaminop/Codeine 30 MG TAB* 1 TAB (300 MG/30 MG) PO ONE (18:10)
[2017-08-23] MEDS ORDERED: Ketorolac INJ* 60 MG/2 ML VIAL IM ONE (18:10)
--- NOTE | 2017-09-04 11:32 | ED ---
Throat Pain/Nasal Congestion - HPI Summary HPI Summary: Pt here w/ Rt upper jaw dental pain x 2 days. Denies injury here but admits he' s had issues with his teeth and has not had dental care and he's quite afraid of having dental work done. Denies fever, chills, N/V/D, neck pain, facial swelling, headache, neck stiffness, difficulty breathing or swallowing. Eating and drinking well. - History of Current Complaint Chief Complaint: EDDentalPain Time Seen by Provider: 08/23/17 17:40 Hx Obtained From: Patient, Family/Double Backer - female partner - Allergies/Home Medications Allergies/Adverse Reactions: Allergies Allergy/AdvReac Type Severity Reaction Status Date / Time Amoxicillin [From Augmentin] Allergy Mild Vomiting Verified 09/24/16 12:38 Clavulanic Acid Allergy Mild Vomiting Verified 09/24/16 12:38 [From Augmentin] Mushrooms Allergy Airway Uncoded 09/24/16 12:38 Obstruction Shrimp Allergy Hives Uncoded 09/24/16 12:38 PMH/Surg Hx/FS Hx/Imm Hx Previously Healthy: Yes Endocrine/Hematology History: Denies: Hx Diabetes, Hx Thyroid Disease Cardiovascular History: Reports: Hx Hypercholesterolemia, Hx Hypertension, Other Cardiovascular Problems/Disorders - HYPERCHOLESTEMIA; varicose veins issues - wears compression stockings Denies: Hx Congestive Heart Failure, Hx Pacemaker/ICD Respiratory History: Denies: Hx Asthma, Hx Chronic Obstructive Pulmonary Disease (COPD) GI History: Denies: Hx Ulcer History: Denies: Hx Renal Disease Musculoskeletal History: Reports: Other Musculoskeletal History - Raynaud's Sensory History: Denies: Hx Hearing Aid Neurological History: Reports: Other Neuro Impairments/Disorders - NF Psychiatric History: Denies: Hx Panic Disorder - Immunization History Date of Tetanus Vaccine: UTD Date of Influenza Vaccine: 2012 Infectious Disease History: No Infectious Disease History: Reports: 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 Denies: Hx Clostridium Difficile, Hx Hepatitis, Hx Human Immunodeficiency Virus (HIV), Hx Shingles, Hx Tuberculosis, Hx Known/Suspected VRE, Hx Known/ Suspected VRSA, History Other Infectious Disease, Traveled Outside the [place] in Last 30 Days - Family History Known Family History: Positive: Hypertension - Social History Lives: With Family Alcohol Use: Rare Hx Substance Use: No Substance Use Type: Reports: None Hx Tobacco Use: Yes Smoking Status (MU): Former Smoker Type: Cigarettes Length of Time of Smoking/Using Tobacco: 2-3 years Review of Systems Constitutional: Negative Negative: Fever, Chills Eyes: Negative Negative: Photophobia, Blurred Vision, Diplopia, Erythema Positive: Dental Pain. Negative: Sore Throat, Ear Ache, Nasal Discharge Cardiovascular: Negative Negative: Chest Pain Respiratory: Negative Negative: Shortness Of Breath Gastrointestinal: Negative Positive: no symptoms reported Musculoskeletal: Negative Skin: Negative Neurological: Negative Positive: Anxious All Other Systems Reviewed And Are Negative: Yes Physical Exam Triage Information Reviewed: Yes Vital Signs On Initial Exam: Initial Vitals Temp Pulse Resp BP Pulse Ox 99.5 F 95 16 165/102 98 08/23/17 16:53 08/23/17 16:53 08/23/17 16:53 08/23/17 16:53 08/23/17 16:53 Vital Signs Reviewed: Yes Appearance: Positive: Well-Appearing, Pain Distress - mild, Obese Skin: Positive: Warm, Skin Color Reflects Adequate Perfusion, Dry - no erythema , no lesions, no ecchymosis nor edema about Rt side of face where pt complains of pain Head/Face: Positive: Normal Head/Face Inspection Eyes: Positive: Normal, EOMI, Conjunctiva Clear. Negative: Conjunctiva Inflammed, Discharge ENT: Positive: Normal ENT inspection, Hearing grossly normal, Pharynx normal, TMs normal. Negative: Nasal congestion, Nasal drainage Dental: Positive: Percussion Tenderness @, Gross Decay/Caries @. Negative: Abscess @ - no obvious area of abscess - gingiva is w/ mild edema about the tooth diffusely and w/ mild erythema -no pustules nor d/c observed Neck: Positive: Supple, Nontender, No Lymphadenopathy Respiratory/Lung Sounds: Positive: Clear to Auscultation, Breath Sounds Present Cardiovascular: Positive: Normal, RRR Musculoskeletal: Positive: Normal, Strength/ROM Intact Neurological: Positive: Normal, Sensory/Motor Intact, Alert, Oriented to Person Place, Time, CN Intact II-III Psychiatric: Positive: Anxious - concerned about seeing a dentist - [place] Coma Scale Coma Scale Total: 15 Diagnostics - Vital Signs Vital Signs Temp Pulse Resp BP Pulse Ox 08/23/17 16:53 99.5 F 95 16 165/102 98 - Laboratory Lab Statement: Any lab studies that have been ordered have been reviewed, and results considered in the medical decision making process. EENT Course/Dx - Diagnoses Provider Diagnoses: Dental infection, Gingivitis Discharge - Discharge Plan Condition: Stable Disposition: HOME Prescriptions: Acetaminophen TAB* [Tylenol TAB*] 975 mg PO Q6H PRN #20 tab MDD 4 PRN Reason: Pain Chlorhexidine MOUTHWASH 0.12%* [Peridex Mouth Wash 0.12%*] 15 ml MT BID #1 btl Clindamycin HCl [Clindamycin 150 MG CAP*] 300 mg PO Q8HR #28 cap Patient Education Materials: Dental Abscess (ED), Gingivitis (ED) Referrals: Rekha Nassar MD [Primary Care Provider] - Additional Instructions: Rinse with warm salt water throughout the day May apply heat to face or ice for pain as needed Complete antibiotics as directed both pills and mouthwash You may take ibuprofen (800mg) alternating with acetaminophen (975mg) for pain - DO NOT EXCEED 4,000MG daily Avoid sleeping pills or narcotic pain medications until you are tested for sleep apnea - call PCP tomorrow to schedule appointment Call dentist tomorrow to address dental issue - a list of providers in the area has been given to you today *If you develop facial swelling, severe headache, fever, trouble breathing or swallowing, return to ED
== END 2017-08-23 18:40 | disposition home or self-care (01) ==
LOC: ED 16:30
DX: K04.7 Periapical abscess without sinus (principal); K05.10 Chronic gingivitis, plaque induced; Z86.79 Personal history of other diseases of the circulatory system; Z87.891 Personal history of nicotine dependence
CPT/HCPCS: 96372; 99282; A9270-GY; J1885

== ENCOUNTER 2017-10-07 15:18 | Emergency (ER) | payer OTHER, MEDICAID ==
--- NOTE | 2017-10-07 20:36 | RAD ---
INDICATION: ] Right upper quadrant pain COMPARISON: CT abdomen pelvis August 06, 2015 TECHNIQUE: Longitudinal and transverse scans of the right upper quadrant were obtained. Doppler interrogation of the hepatic and portal venous system was performed. This is a limited examination due to morbid obesity FINDINGS: Liver: There is hepatomegaly with hepatic steatosis. There are no masses . The liver measures 19.9 cm in cephalocaudal dimension. Vessels: There is normal hepatic and portal venous flow. Bile ducts: There is no evidence of intrahepatic or extrahepatic ductal dilatation. The common duct measures 0.4 cm. Gallbladder: There are probable tiny gallstones There is no evidence of cholelithiasis, thickening of the gallbladder wall, or pericholecystic fluid. Pancreas: The visualized pancreas appears normal Right kidney: The right kidney is normal in size and echogenicity. There are no masses or calculi. There is no evidence of hydronephrosis. The right kidney measures 11.2 x 6.3 x 5.7 cm. IVC and aorta: The aorta and superior vena cava appear normal. Fluid: There is no ascites. Other: None. IMPRESSION: SUSPECT MULTIPLE TINY GALLSTONES. HEPATOMEGALY WITH HEPATIC STEATOSIS LIMITED EXAMINATION DUE TO BODY HABITUS.
--- NOTE | 2017-10-07 21:13 | RAD ---
INDICATION: ] Right upper quadrant pain. Negative gallbladder sonogram COMPARISON: Gallbladder sonogram same date TECHNIQUE: Noncontrast axial source images were acquired from the level hemidiaphragms to the symphysis pubis as part of CT imaging for renal stone. Examination is mildly limited due to artifact from the gantry. This is related to patient's size Lung bases: The lung bases are clear. Liver: The liver is enlarged with findings of hepatic steatosis. Noncontrast imaging shows no evidence of a hepatic mass or ductal dilatation. Gallbladder: There are no calcified gallstones. Gallbladder ultrasonography has suggested tiny gallstones, however. There is no evidence of wall thickening or pericholecystic fluid.. Spleen: The spleen is normal in size. The noncontrast CT appearance is normal. Pancreas: Noncontrast imaging shows no pancreatic mass or ductal dilitation. Adrenal glands: No masses are identified. Kidneys/Bladder: There is no evidence of nephrolithiasis or CT evidence of hydronephrosis. Noncontrast imaging shows no evidence of a renal mass. The bladder is unremarkable.. Adenopathy: There is no evidence of intraperitoneal or retroperitoneal adenopathy. Evaluation is limited without oral contrast. Fluid collections: There are no free or localized fluid collections. Vessels: The aorta and iliac vessels are normal in caliber. There are no significant atherosclerotic changes. The IVC appears normal Pelvic organs: The prostate and seminal vesicles appear normal GI tract: Evaluation of the bowel is limited without oral contrast. The stomach, small bowel, and lower GI tract are grossly normal. Soft tissues: There is a small periumbilical hernia. Osseous structures: There are no acute osseous findings. IMPRESSION: NO CT EVIDENCE OF UROLITHIASIS. NO MASS OR INFLAMMATORY CHANGES
[2017-10-07 21:22] LABS: ABS Basophils 0.1 10^3/ul (0-0.2); ABS Eosinophils 0.3 10^3/ul (0-0.6); ABS Monocytes 0.9 10^3/ul (0-0.8); ABS Neutrophils 9.4 10^3/ul (1.5-7.7); ABS Nucleated RBC 0 10^3/ul; Eosinophil % 2.3 % (0-6); Hematocrit 42 % (42-52); Hemoglobin 14.2 g/dl (14.0-18.0); Lymphocyte % 15.7 % (25-47); Mean Corpuscular HGB Conc 33 g/dl (31-36); Mean Corpuscular Hemoglobin 27 pg (27-31); Mean Corpuscular Volume 81 fL (80-94); Mean Platelet Volume 8 um3 (7.4-10.4); Nucleated Red Blood Cells % 0.3; Platelet Count 239 10^3/ul (150-450); Red Blood Count 5.24 10^6/ul (4.0-5.4); Red Cell Distribution Width 14 % (10.5-15); White Blood Count 12.7 10^3/ul (3.5-10.8)
[2017-10-07 21:39] LABS: Urine Appearance Clear; Urine Blood Negative (Negative); Urine Color Yellow; Urine Ketones Trace (Negative); Urine Protein Negative (Negative); Urine Specific Gravity 1.017 (1.010-1.030); Urine Urobilinogen Negative (Negative)
[2017-10-07 21:40] LABS: EGFR Non-African American 126.3 (>60)
[2017-10-07] MEDS ORDERED: Potassium Chlor TAB* 20 MEQ TAB.ER PO ONE (21:43)
[2017-10-07] MEDS ORDERED: oxyCODONE/Acetamin 5/325 MG* TAB PO ONE (22:01)
[2017-10-08 01:53] VITALS: BP 157/93
--- NOTE | 2017-10-08 20:47 | ED ---
Filiberto Brennan Julia, scribed for Ruslan Dominguez on 10/07/17 at 2021 . Abdominal Pain/Male - HPI Summary HPI Summary: This patient is a 37 year old M presenting to [facility] with a chief complaint of intermittent stabbing RUQ abdominal pain for the past two days. Patient reports nausea. Patient denies vomiting, diarrhea, blood in urine, chest pain, an d SOB. The patient rates the pain 7/10 in severity. - History of Current Complaint Chief Complaint: EDAbdPain Stated Complaint: ABD PAIN Time Seen by Provider: 10/07/17 19:59 Hx Obtained From: Patient Onset/Duration: Lasting Days Timing: Intermittent Pain Intensity: 7 Pain Scale Used: 0-10 Numeric Location: Discrete At: RUQ Character: Sharp - stabbing Associated Signs And Symptoms: Positive: Other - nausea. Negative: Chest Pain, Urinary Symptoms, Vomiting, Diarrhea - Allergies/Home Medications Allergies/Adverse Reactions: Allergies Allergy/AdvReac Type Severity Reaction Status Date / Time MS Amoxicillin Allergy Mild Vomiting Verified 09/24/16 12:38 [From Augmentin] MS Clavulanic Acid Allergy Mild Vomiting Verified 09/24/16 12:38 [From Augmentin] Mushrooms Allergy Airway Uncoded 09/24/16 12:38 Obstruction Shrimp Allergy Hives Uncoded 09/24/16 12:38 PMH/Surg Hx/FS Hx/Imm Hx Endocrine/Hematology History: Denies: Hx Diabetes, Hx Thyroid Disease Cardiovascular History: Reports: Hx Hypercholesterolemia, Hx Hypertension, Other Cardiovascular Problems/Disorders - HYPERCHOLESTEMIA; varicose veins issues - wears compression stockings Denies: Hx Congestive Heart Failure, Hx Pacemaker/ICD Respiratory History: Denies: Hx Asthma, Hx Chronic Obstructive Pulmonary Disease (COPD) GI History: Denies: Hx Ulcer History: Denies: Hx Renal Disease Musculoskeletal History: Reports: Other Musculoskeletal History - Raynaud's Sensory History: Denies: Hx Hearing Aid Neurological History: Reports: Other Neuro Impairments/Disorders - NF Psychiatric History: Denies: Hx Panic Disorder - Immunization History Date of Tetanus Vaccine: UTD Date of Influenza Vaccine: 2012 Infectious Disease History: No Infectious Disease History: Reports: 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 Denies: Hx Clostridium Difficile, Hx Hepatitis, Hx Human Immunodeficiency Virus (HIV), Hx Shingles, Hx Tuberculosis, Hx Known/Suspected VRE, Hx Known/ Suspected VRSA, History Other Infectious Disease, Traveled Outside the [place] in Last 30 Days - Family History Known Family History: Positive: Hypertension - Social History Alcohol Use: Rare Hx Substance Use: No Substance Use Type: Reports: None Hx Tobacco Use: Yes Smoking Status (MU): Former Smoker Type: Cigarettes Length of Time of Smoking/Using Tobacco: 2-3 years Review of Systems Negative: Chest Pain Negative: Shortness Of Breath Positive: Abdominal Pain, Nausea. Negative: Vomiting, Diarrhea Negative: hematuria All Other Systems Reviewed And Are Negative: Yes Physical Exam - Summary Physical Exam Summary: Appearance: Well appearing, no pain distress Skin: warm, dry, reflects adequate perfusion Head/face: normal Eyes: EOMI, GABRIELA ENT: normal Neck: supple, non-tender Respiratory: CTA, breath sounds present Cardiovascular: RRR, pulses symmetrical Abdomen: RUQ and RLQ tenderness, soft Bowel: present Musculoskeletal: normal, strength/ROM intact Neuro: normal, sensory motor intact, A&Ox3 Triage Information Reviewed: Yes Vital Signs On Initial Exam: Initial Vitals Temp Pulse Resp BP Pulse Ox 98.2 F 94 20 145/89 97 10/07/17 15:20 10/07/17 15:20 10/07/17 15:20 10/07/17 15:20 10/07/17 15:20 Vital Signs Reviewed: Yes Diagnostics - Vital Signs Vital Signs Temp Pulse Resp BP Pulse Ox 10/07/17 17:15 98.2 F 92 20 142/86 97 10/07/17 15:20 98.2 F 94 20 145/89 97 - Laboratory Lab Results: Lab Results 10/07/17 10/07/17 10/07/17 Range/Units 21:05 21:05 21:05 WBC 12.7 H (3.5-10.8) 10^3/ul RBC 5.24 (4.0-5.4) 10^6/ul Hgb 14.2 (14.0-18.0) g/dl Hct 42 (42-52) % MCV 81 (80-94) fL MCH 27 (27-31) pg MCHC 33 (31-36) g/dl RDW 14 (10.5-15) % Plt Count 239 (150-450) 10^3/ul MPV 8 (7.4-10.4) um3 Neut % (Auto) 73.8 (38-83) % Lymph % (Auto) 15.7 L (25-47) % [place] % (Auto) 7.5 (1-9) % Eos % (Auto) 2.3 (0-6) % Baso % (Auto) 0.7 (0-2) % Absolute Neuts (auto) 9.4 H (1.5-7.7) 10^3/ul Absolute Lymphs (auto) 2.0 (1.0-4.8) 10^3/ul Absolute Monos (auto) 0.9 H (0-0.8) 10^3/ul Absolute Eos (auto) 0.3 (0-0.6) 10^3/ul Absolute Basos (auto) 0.1 (0-0.2) 10^3/ul Absolute Nucleated RBC 0 10^3/ul Nucleated RBC % 0.3 Sodium 136 (133-145) mmol/L Potassium 3.3 L (3.5-5.0) mmol/L Chloride 102 (101-111) mmol/L Carbon Dioxide 25 (22-32) mmol/L Anion Gap 9 (2-11) mmol/L BUN 11 (6-24) mg/dL Creatinine 0.71 (0.67-1.17) mg/dL Est GFR ( Amer) 162.4 (>60) Est GFR (Non-Af Amer) 126.3 (>60) BUN/Creatinine Ratio 15.5 (8-20) Glucose 70 (70-100) mg/dL Lactic Acid 0.9 (0.5-2.0) mmol/L Calcium 9.1 (8.6-10.3) mg/dL Total Bilirubin 0.70 (0.2-1.0) mg/dL AST 16 (13-39) U/L ALT 24 (7-52) U/L Alkaline Phosphatase 87 (34-104) U/L Troponin I 0.01 (<0.04) ng/mL C-Reactive Protein 21.95 H (< 5.00) mg/L Total Protein 7.6 (6.4-8.9) g/dL Albumin 3.9 (3.2-5.2) g/dL Globulin 3.7 (2-4) g/dL Albumin/Globulin Ratio 1.1 (1-3) Lipase 11 (11.0-82.0) U/L Urine Color Urine Appearance Urine pH (5-9) Ur Specific [place] (1.010-1.030) Urine Protein (Negative) Urine Ketones (Negative) Urine Blood (Negative) Urine Nitrate (Negative) Urine Bilirubin (Negative) Urine Urobilinogen (Negative) Ur Leukocyte Esterase (Negative) Urine Glucose (Negative) 10/07/17 Range/Units 21:29 WBC (3.5-10.8) 10^3/ul RBC (4.0-5.4) 10^6/ul Hgb (14.0-18.0) g/dl Hct (42-52) % MCV (80-94) fL MCH (27-31) pg MCHC (31-36) g/dl RDW (10.5-15) % Plt Count (150-450) 10^3/ul MPV (7.4-10.4) um3 Neut % (Auto) (38-83) % Lymph % (Auto) (25-47) % [place] % (Auto) (1-9) % Eos % (Auto) (0-6) % Baso % (Auto) (0-2) % Absolute Neuts (auto) (1.5-7.7) 10^3/ul Absolute Lymphs (auto) (1.0-4.8) 10^3/ul Absolute Monos (auto) (0-0.8) 10^3/ul Absolute Eos (auto) (0-0.6) 10^3/ul Absolute Basos (auto) (0-0.2) 10^3/ul Absolute Nucleated RBC 10^3/ul Nucleated RBC % Sodium (133-145) mmol/L Potassium (3.5-5.0) mmol/L Chloride (101-111) mmol/L Carbon Dioxide (22-32) mmol/L Anion Gap (2-11) mmol/L BUN (6-24) mg/dL Creatinine (0.67-1.17) mg/dL Est GFR ( Amer) (>60) Est GFR (Non-Af Amer) (>60) BUN/Creatinine Ratio (8-20) Glucose (70-100) mg/dL Lactic Acid (0.5-2.0) mmol/L Calcium (8.6-10.3) mg/dL Total Bilirubin (0.2-1.0) mg/dL AST (13-39) U/L ALT (7-52) U/L Alkaline Phosphatase (34-104) U/L Troponin I (<0.04) ng/mL C-Reactive Protein (< 5.00) mg/L Total Protein (6.4-8.9) g/dL Albumin (3.2-5.2) g/dL Globulin (2-4) g/dL Albumin/Globulin Ratio (1-3) Lipase (11.0-82.0) U/L Urine Color Yellow Urine Appearance Clear Urine pH 5.0 (5-9) Ur Specific [place] 1.017 (1.010-1.030) Urine Protein Negative (Negative) Urine Ketones Trace H (Negative) Urine Blood Negative (Negative) Urine Nitrate Negative (Negative) Urine Bilirubin Negative (Negative) Urine Urobilinogen Negative (Negative) Ur Leukocyte Esterase Negative (Negative) Urine Glucose Negative (Negative) Result Diagrams: 10/07/17 21:05 10/07/17 21:05 Lab Statement: Any lab studies that have been ordered have been reviewed, and results considered in the medical decision making process. - CT A/P CT Interpretation Completed By: Radiologist - NO CT EVIDENCE OF UROLITHIASIS. NO MASS OR INFLAMMATORY CHANGES. ED Physician has reviewed this report. - Additional Comments Diagnostic Additional Comments: A Gallbladder US reveals: SUSPECT MULTIPLE TINY GALLSTONES. HEPATOMEGALY WITH HEPATIC STEATOSIS LIMITED EXAMINATION DUE TO BODY HABITUS. ED Physician has reviewed this report. Abdominal Pain Fem Course/Dx - Course Course Of Treatment: Patient presents with intermittent stabbing RUQ abdominal pain for the past two days. Patient reports nausea. A Gallbladder US is indicative of gallstones. A CT A/P reveals no evidence for kidney stones. Patient is given Potassium Chloride. - Diagnoses Differential Diagnosis/HQI/PQRI: Appendicitis, Diverticulitis, Renal Colic, Ureteral Stone, Urinary Tract Infection Provider Diagnoses: Gallstones, Abdominal pain - Provider Notifications Discussed Care Of Patient With: Corey Buenrostro - surgery Time Discussed With Above Provider: 21:55 Instructed by Provider To: Other - Patient should follow up in his office. Discharge - Discharge Plan Condition: Stable Disposition: HOME Prescriptions: Oxycodone HCl/Acetaminophen [Percocet] 1 tab PO TID #202 tab MDD 3 Patient Education Materials: Gallstones (ED) Referrals: Corey Buenrostro MD [Medical Doctor] - 1 Day (Call Dr. Bravo office in the morning. Contact information is provided.) The documentation as recorded by the Filiberto wallace Julia accurately reflects the service I personally performed and the decisions made by , Ruslan Dominguez.
== END 2017-10-07 22:55 | disposition home or self-care (01) ==
LOC: ED 15:18
DX: K80.80 Other cholelithiasis without obstruction (principal); R10.11 Right upper quadrant pain; R11.0 Nausea; Z87.891 Personal history of nicotine dependence
CPT/HCPCS: 36415; 74176; 76705; 80053; 81003; 83605; 83690; 84484; 85025; 86140; 87040; 99283; A9270-GY

== ENCOUNTER 2018-01-28 20:42 | Emergency (ER) | payer OTHER, MEDICAID ==
--- OUTSIDE RECORDS SUMMARY | 2018-01-28 20:59 | XMS REPORT ---
:1980 External Reference #:[id number] Author Organization [facility] Address [address] [place] [address] Phone [phone] Care Team Providers Name Role Phone Rekha Nassar M.D. Care Team Information Filling Room Operator Unavailable Rekha Nassar M.D. Primary Care Physician Unavailable Payers Type Date Identification Numbers Payment Provider Subscriber Health Maintenance Effective: Policy Number: [place] Alex Obrien [facility] ([facility]) 08/17/2012 [id number] [facility] Group Number: [id number] [id number] Group Name: [place] [id number] PayID: [id number] Medicaid Effective: 01/15/2014 Policy Number: [id number] Medicaid [place] Alex Chavezley PayID: [id number] [address] [place] [address] Problems Date Description Provider Status Onset: 11/01/2013 [...] General No immediate family members with early AR or CVA. No immediate family history of colon, breast, ovarian, cervical or prostate cancer. Father Diabetes Mellitus, II : (2011) Mother due to Intestinal obstruction Social History Type Date Description Comments Marital Status Patient is Living Situation Lives with spouse, son and daughter Diet Excessive intake of fats and sweets. 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 Cigarette Use Nonsmoker ETOH Use Denies alcohol use Smoking nonsmoker Daily Caffeine Consumes on average 2 sodas per day Exercise Type/Frequency Current Does not exercise Allergies, Adverse Reactions, Alerts Date Description Reaction Status Severity Comments 11/10/2003 Augmentin active 09/01/2005 Shellfish active 07/18/2010 Mushrooms active Throat Closing Medications Medication Date Status Form Strength Qnty SIG Indications Ordering Provider Proair HFA 01/01 Active Aerosol 108(90Bas 8.500 2 puffs R05 e) gm every 4 Terrance, mcg/Act hours as [employer]IN [employer] needed Breo Ellipta 01/01 Active Aerosol 100-25mcg 1 R05 Xiomara /2018 /Inh inhalation Terrance, once per [employer] day, rinse, samples Xyzal Allergy 24HR 11/18 Active Tablets 5mg 30tab one by H69.93 Zbigniew Orozco /2017 s mouth Divina waldrop MD Compression 10/31 Active 30-40mm 2unit to knee, Rekha Stockings /2017 HG s wear as [place], needed M.D. please provide size to patient that fits Hydrochlorothiazid 08/03 Active Capsules 12.5mg 90cap 1 by mouth I10 Rekha s every day Otis Nassar Ibuprofen 03/08 Active Tablets 800mg 90tab 1 by mouth J01.90 Rekha /2015 s q8 hours Cesario three M.D. times a day as needed with food Amlodipine 02/13 Active Tablets 10mg 90tab take one I10 Rekha Besylate s tablet by Cesario mouth M.D. every day Atorvastatin 04/17 Active Tablets 20mg 90tab take one E78.2 Rekha Calcium s tablet by Cesario mouth at M.D. bedtime Tamiflu 09/09 Hx Capsules 75mg 10cap 1 tab by Rekha s mouth Cesario, - twice a M.D. 11/11 day x days Benzonatate 08/06 Hx Capsules 200mg 30cap 1 by mouth R05 s three Luly, - times a Afnp-C 08/16 day needed for cough Guaifenesin-Codein 08/06 Hx Syrup 100-10mg/ 120ml 1-2 R05 5ML teaspoon Luly, - every at Afnp-C 08/13 bedtime needed for cough Meclizine HCL 05/09 Hx Tablets 25mg 60tab 1 tab by s mouth [place], - every 6 M.D. 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 day; may take off at night. Naproxen 12/04/2015 - Hx Tablets 500mg 60tabs take 1 tablet M72.2 Rekha 05/09/2016 every 12 hours [place], as needed with M.D. food Compression 12/04/2015 - Hx 20mm 1Pair use as M72.2 Rekha Stockings 01/15/2016 HG directed; wear [place], during day; M.D. can take off at [...] 500mg 14tabs 1 by mouth M54.9 Yovanny ANilo 06/07/2015 twice a day Otis Croft Cyclobenzaprine 02/13/2015 - Hx Tablets 10mg 30tabs 1 by mouth 724.2 Milan Garcia, HCL 05/31/2015 three times a M.D. day as needed Hydrocodone-Aceta 02/13/2015 - Hx Tablets 5-325m 40tabs 1 every 6 724.2 Milan Garcia, minophen 05/31/2015 g hours as M.D. needed Azithromycin 10/01/2014 - Hx Tablets 250mg 6tabs 2 by mouth Yovanny ANilo 10/06/2014 today then 1 Guerda, by mouth every M.D. 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 Azithromycin 09/26/2013 - Hx Tablets 250mg 6tabs take 2 tablets 465.8 Christine 10/31/2013 by mouth Leslee, today then [employer] take 1 tablet daily for next 4 days Note For Work 09/26/2013 - Hx Laex was seen 465.8 Christine 10/31/2013 by me today Leslee, and may not [employer] TE[employer]ER return to work until Thursday, 2\\12\\14 Sulamyd Opthalmic 03/13/2012 - Hx 10% 1Bottle 1-2 gtts into 372.00 Fatuma gtts 03/20/2012 affected eye Susie, q4hrs w/a Afnp-C until clear, then continue 1 more day do not exceed 1 week use Cephalexin 12/17/2011 - Hx Tablets 500mg 30tabs 1 tab tid x 10 462 Christine 03/13/2012 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, [employer]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 Out Of Work 12/17/2011 - Hx seen in this 462 Fatuma 03/14/2012 office today, antonio Richards for work Afnp-C return 03/14/12 Out Of Work 07/18/2010 - Hx out of work 465.9 Ania 07/21/2010 today due to Luly, illness Afnp-C Cephalexin 12/05/2009 - Hx Tablets 500mg 24tabs 1 po tid Fatuma 12/13/2009 Malcom Richards-Musa Ciloxan 11/13/2009 - Hx Solution 0.3% 15cc 2 gtt affected 372.30 Christine 07/18/2010 eye(s) tid for Leslee, 2d then bid [employer] TE[employer]ER until clear Note For Work 11/13/2009 - Hx Alex was seen 380.22 Christine 12/05/2009 by me today Leslee, and 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 Out Of Work 12/08/2006 - Hx out of work Xiomara 10/22/2007 12/21/06 for von work related [place], fingertip Otis amputation Vicodin 5/500 12/08/2006 - Hx 30units 1 PO QHS prn Xiomara 10/22/2007 Pain penny Toro M.D. Keflex 12/08/2006 - Hx Tablets 500mg 20tabs 1 po bid x 10 Conner A. 12/14/2008 Days Otis Donaldson Bactroban 12/08/2006 - Hx Ointment 2% 30gm Apply To [place] 10/22/2007 Affected Area von Daily Otis Toro Entex Pse 10/20/2006 - Hx Tablets 600mg; 20tabs 1 PO Q12 Hours 465.8 Xiomara 10/22/2007 120 mg prn Head von Congestion Otis Toro Keflex 04/25/2006 - Hx Tablets 500 40tabs 1 PO qid For Riley JNilo 05/05/2006 10D Otis Donahue Coenzyme Q10 09/01/2005 - Hx 50mg 1 PO qd Riley JNilo 10/22/2007 Otis Donahue Zithromax 08/16/2005 - Hx Tablets 250mg 1tabs 2 PO qd Today Johnny FNilo 08/16/2005 , Then 1 PO qd Tamir, Ricki 4 MNiloDNilo Ketalessandra 08/16/2005 - Hx Tablets 400mg 6tabs 2 PO qd Johnny F. 08/23/2005 Otis Garnett Keflex 06/30/2005 - Hx Capsules 500mg 20caps 1 PO bid Isaiah TNilo 08/16/2005 Otis Soriano Note 11/13/2004 - Hx alex was seen Christine 02/04/2005 by id 3\\28\\05 lavon Camilo bronchitis BRYN Biaxin XL 11/11/2004 - Hx 500mg 14units 2 PO qd Christine 02/04/2005 BRYN Camilo Lipitor 10/01/2004 - Hx 20mg 15units 1 po qhs 272.4 Christine 04/17/2012 BRYN Camilo Lipitor 06/04/2004 - Hx 40mg 90units 1 po qhs Riley J. 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 Z-Pack 03/26/2004 - Hx 1 1units as Dir Riley Garcia 03/31/2004 Otis Donahue Ziac 11/10/2003 - Hx 10mg 90units 1 qd Riley Garcia 09/27/2004 Otis Donahue Bactrim DS - Hx Tablets 800-16 42tabs use bid Unknown 07/21/2014 0mg Meclizine HCL - Hx Tablets 12.5mg 2 by mouth Rekha 05/09/2016 three times a [place], day as needed Otis Naproxen - Hx Tablets 500mg 1 by mouth Unknown 08/03/2017 twice a day with food Silvadene - Hx Cream 1% use daily Unknown 08/03/2017 Naproxen - Hx Tablets 500mg 1 by mouth Unknown 11/12/2017 twice a day with food Immunizations CPT Code Status Date Vaccine Lot # [id number] Given 05/07/2017 Influenza Vac, Quadriv[place], [place] [address] Given 05/09/2016 Influenza Vac, Quadrivalent, Slit Virus, Im [id number] Given 04/27/2015 Influenza Vac, [place]riv[place] [address] Given 04/27/2015 DO Not Use Split Influenza Virus Vaccine 52814 Given 06/17/2014 DO Not Use Split Influenza Virus Vaccine Vital Signs Date Vital Result Comment 01/01/2018 BP Systolic 144 mmHg BP Diastolic 92 mmHg Heart Rate 86 /min Body Temperature 97.5 F Respiratory Rate 18 /min Height 75 inches 6'3" Weight 405.12 lb BMI (Body Mass Index) 50.6 kg/m2 11/18/2017 BP Systolic 144 mmHg BP Diastolic 88 mmHg Heart Rate 90 /min Body Temperature 98.4 F Respiratory Rate 16 /min Height 75 inches 6'3" 11/12/2017 BP Systolic 144 mmHg BP Diastolic 84 mmHg Heart Rate 80 /min Body Temperature 98.1 F Respiratory Rate 18 /min Height 75 inches 6'3" Weight 387.00 lb BMI (Body Mass Index) 48.4 kg/m2 08/03/2017 BP Systolic 150 mmHg BP Diastolic [...] Test Date Test Result H/L Range Note Laboratory test finding 10/07/2017 Blood Culture SEE RESULT BELOW 1 Urinalysis Profile 10/07/2017 Urine Color Yellow Urine Appearance Clear Urine Specific [place] 1.017 1.010-1.030 Urine pH 5.0 5-9 Urine Urobilinogen Negative Negative Urine Ketones Trace Negative Urine Protein Negative Negative Urine Leukocytes Negative Negative Urine Blood Negative Negative Urine Nitrite Negative Negative Urine Bilirubin Negative Negative Urine Glucose Negative Negative Laboratory test finding 10/07/2017 Lactic Acid 0.9 mmol/L 0.5-2.0 2 Comp Metabolic Panel 10/07/2017 Sodium 136 mmol/L 133-145 Potassium 3.3 mmol/L Low 3.5-5.0 Chloride 102 mmol/L 101-111 Co2 Carbon Dioxide 25 mmol/L 22-32 Anion Gap 9 mmol/L 2-11 Glucose 70 mg/dL 70-100 Blood Urea Nitrogen 11 mg/dL 6-24 Creatinine 0.71 mg/dL 0.67-1.17 BUN/Creatinine Ratio 15.5 8-20 Calcium 9.1 mg/dL 8.6-10.3 Total Protein 7.6 g/dL 6.4-8.9 Albumin 3.9 g/dL 3.2-5.2 Globulin 3.7 g/dL 2-4 Albumin/Globulin Ratio 1.1 1-3 Total Bilirubin 0.70 mg/dL 0.2-1.0 Alkaline Phosphatase 87 U/L 34-104 Alt 24 U/L 7-52 Ast 16 U/L 13-39 Egfr Non- 126.3 >60 Egfr 162.4 >60 3 CBC Auto Diff 10/07/2017 White Blood Count 12.7 10^3/uL High 3.5-10.8 Red Blood Count 5.24 10^6/uL 4.0-5.4 Hemoglobin 14.2 g/dL 14.0-18.0 Hematocrit 42 % 42-52 Mean Corpuscular Volume 81 fL 80-94 Mean Corpuscular Hemoglobin 27 pg 27-31 Mean Corpuscular HGB Conc 33 g/dL 31-36 Red Cell Distribution Width 14 % 10.5-15 Platelet Count 239 10^3/uL 150-450 Mean Platelet Volume 8 um3 7.4-10.4 Abs Neutrophils 9.4 10^3/uL High 1.5-7.7 Abs Lymphocytes 2.0 10^3/uL 1.0-4.8 Abs Monocytes 0.9 10^3/uL High 0-0.8 Abs Eosinophils 0.3 10^3/uL 0-0.6 Abs Basophils 0.1 10^3/uL 0-0.2 Abs Nucleated RBC 0 10^3/uL Granulocyte % 73.8 % 38-83 Lymphocyte % 15.7 % Low 25-47 Monocyte % 7.5 % 1-9 Eosinophil % 2.3 % 0-6 Basophil % 0.7 % 0-2 Nucleated Red Blood Cells % 0.3 Laboratory test finding 10/07/2017 Lipase 11 U/L 11.0-82.0 C Reactive Protein 21.95 mg/L High < 5.00 4 Troponin I 0.01 ng/mL <0.04 Comprehensive Metabolic Prof 07/21/2017 Sodium 135 mEq/L [...] >60 ml/min/1.73m^ >=60 GFR >60 ml/min/1.73m^ >=60 Complete Blood Count 07/21/2017 WBC 9.2 x10^3/UL 3.6-9.6 RBC 5.17 x10^6/UL 3.90-5.70 HGB 13.9 g/dL 12.1-17.2 HCT 42 % 36-50 MCV 82.0 fL Low 82.2-97.4 MCH 26.9 pg Low 27.6-33.3 MCHC 32.9 g/dL Low 33.0-35.5 RDW 13.8 % High 11.6-13.7 PLT 215 x10^3/UL 150-400 MPV 8.5 fL 7.4-10.4 Gran # 7.1 x10^3/UL 1.5-7.2 Lymph# 1.7 x10^3/UL 0.7-4.9 Republic# 0.4 x10^3/UL 0.1-0.9 Gran % 76.1 % High 42.2-75.2 Lymph % 18.9 % Low 20.5-51.1 Republic% 5.0 % 1.7-9.3 Lipid Profile 07/21/2017 Cholesterol 133 mg/dL 120-200 Triglycerides 107 mg/dL 30-200 HDL Cholesterol 38 mg/dL 30-70 LDL (Calculated) 74 CALC 0-129 VLDL Cholesterol 21 mg/dL 0-50 HDL Risk Factor 3.5 CALC 0.0-4.4 Comp Metabolic Panel 05/04/2016 Sodium 136 mmol/L [...] Egfr Non- 110.7 >60 Egfr 142.3 >60 5 Laboratory test finding 05/04/2016 Troponin I 0.00 ng/mL <0.03 6 Urinalysis Profile 05/04/2016 Urine Color Yellow Urine Appearance Clear Urine Specific [place] 1.024 1.010-1.030 Urine pH 6.0 5-9 Urine Urobilinogen Negative Negative Urine Ketones Negative Negative Urine Protein Negative Negative Urine Leukocytes Negative Negative Urine Blood Negative Negative Urine Nitrite Negative Negative Urine Bilirubin Negative Negative Urine Glucose Negative Negative CBC Auto Diff 05/04/2016 White Blood Count [...] 0-2 Nucleated Red Blood Cells % 0 Comprehensive Metabolic Prof 04/29/2016 Sodium 138 mEq/L [...] x10^3/UL High 1.5-7.2 Lymph# 1.9 x10^3/UL 0.7-4.9 Republic# 0.6 x10^3/UL 0.1-0.9 Gran % 74.8 % 42.2-75.2 Lymph % 19.1 % Low 20.5-51.1 Republic% 6.1 % 1.7-9.3 Laboratory test finding 01/10/2016 Rapid Strep Molecular Negative Negative 7 Rapid Strep A SEE RESULT BELOW 8 Rapid Influenza A & B 10/19/2015 Influenza A Molecular NEGATIVE Negative 9 Antigen Influenza B Molecular NEGATIVE Negative Laboratory test 10/19/2015 Rapid Strep A SEE RESULT BELOW 10 finding Rapid Influenza A 10/19/2015 Influenza A NEGATIVE Negative 11 & B Antigen Molecular Influenza B Molecular NEGATIVE Negative Laboratory test finding 10/19/2015 Rapid Strep Molecular Negative Negative 12 Throat Beta Strep Culture SEE RESULT BELOW 13 Laboratory test finding 08/06/2015 Lipase 16 U/L 11.0-82.0 C Reactive Protein 14.45 mg/L High < 5.00 14 Lactic Acid 0.8 mmol/L 0.5-2.0 15 Urinalysis Profile 08/06/2015 Urine Color Yellow Urine Appearance Clear Urine Specific [place] 1.015 1.010-1.030 Urine pH 7.0 5-9 Urine Urobilinogen Negative Negative Urine Ketones Negative Negative Urine Protein Negative Negative Urine Leukocytes Negative Negative Urine Blood Negative Negative Urine Nitrite Negative Negative Urine Bilirubin Negative Negative Urine Glucose Negative Negative Comp Metabolic Panel 08/06/2015 Sodium 136 mmol/L [...] Egfr Non- 136.6 >60 Egfr 175.7 >60 16 CBC Auto Diff 08/06/2015 White Blood Count [...] 0-2 Nucleated Red Blood Cells % 0.1 Aerobic Bacterial Culture 07/18/2015 Aerobic Bacterial Final report 17 , 18 Culture Result 1 Staphylococcus a <SEE NOTE> 17, 19 Result 2 Skin laron isola <SEE NOTE> 17, 20 Antimicrobial Susceptibility See Comment: 17, 21 Ua - Micro (Fma) 06/13/2015 Appearance CLEAR [...] 05/31/2015 Urine Culture And SEE RESULT BELOW 22 Sensitivities Ua - Micro (Fma) 05/31/2015 Appearance [...] 6.4 x10^3/UL 1.5-7.2 Lymph# 2.2 x10^3/UL 0.7-4.9 Republic# 0.7 x10^3/UL 0.1-0.9 Gran % 67.6 % 42.2-75.2 Lymph % 24.3 % 20.5-51.1 Republic% 8.1 % 1.7-9.3 Laboratory test finding 09/30/2014 Quickstrep NEGATIVE Negative Throat - Beta Strep Fma POSITIVE Throat-Beta Strept 03/13/2014 Throat Beta Strep (SEE NOTE) 23 Culture Comprehensive Metabolic Prof 01/18/2014 Sodium 135 mEq/L 134-149 Potassium 4.3 mEq/L 3.6-5.5 Chloride 105 mEq/L 94-112 Carbon Dioxide 20 mEq/L Low 21-32 24 Glucose 83 mg/dL 70-105 BUN 12 mg/dL [...] Culture 01/10/2014 Ear Culture/Gram stain (SEE NOTE) 25 Laboratory test finding 11/01/2013 Magnesium, Serum 2.0 [...] 7.1 x10^3/UL 1.5-7.2 Lymph# 1.7 x10^3/UL 0.7-4.9 Republic# 0.4 x10^3/UL 0.1-0.9 Gran % 76.6 % High 42.2-75.2 Lymph % 19.0 % Low 20.5-51.1 Republic% 4.4 % 1.7-9.3 Influenza A&B 09/26/2013 Influenza [...] Color YELLOW Yellow Appearance-Urine CLEAR Clear Specific [place]-Ur 1.021 1.010-1.030 Esterase-Urine NEGATIVE Negative Nitrite NEGATIVE Negative [id number] NEGATIVE Negative Protein-Urine NEGATIVE Negative PH-Urine 6.0 5-9 Blood-Urine NEGATIVE Negative Ketones-Urine NEGATIVE Negative Bilirubin-Ur NEGATIVE Negative Glucose-Urine NEGATIVE Negative Comp Metabolic Panel 07/10/2011 Sodium 139 mmol/L 135-145 Potassium 4.2 mmol/L 3.5-5.0 Chloride 101 mmol/L 101-111 Co2 (Carbon Dioxide) 28.0 mmol/L 22-32 Anion Gap 10.0 mmol/L 2-11 26 Glucose 71 mg/dL 70-100 BUN 13 mg/dL 6-24 Creatinine 1.1 mg/dL 0.50-1.40 One Over Creatinine 0.90 BUN/Creatinine Ratio 11.8 8-20 Calcium 9.1 mg/dL 8.1-9.9 Total Protein 7.3 GM/DL 6.2-8.1 Albumin 3.8 GM/DL 3.6-5.4 Globulin 3.5 GM/DL 2-4 Albumin/Globulin Ratio 1.1 1-3 Bilirubin Total 0.7 mg/dL 0.4-1.5 27 Alkaline Phosphatase 86 U/L 39-117 Alt (SGPT) 38 U/L 17-63 Ast (Sgot) 20 U/L 12-42 eGFR Non- 79.1 > 60 eGFR 101.8 > 60 28 Laboratory test finding 07/10/2011 Magnesium 1.9 mg/dL 1.7-2.6 Amylase 64 U/L 20-120 29 Lipase 26 U/L 22-51 CBC Auto Diff [...] 150-450 Mean Platelet Volume 9.7 um3 7.4-10.4 30 Manual Differential 07/10/2011 Polysegmented Neutrophil 80 % 38-83 Lymphocyte 14 % Low 25-47 Monocyte 4 % 0-13 Eosinophil 2 % 0-6 Absolute Neutrophil Count 10.0 RBC Morphology NORMAL Lipid Profile 03/21/2011 Cholesterol 117 mg/dL Low 120-200 31 HDL 34 mg/dL 30-70 Triglycerides 83 mg/dL 30-200 HDL Risk Factor 3.4 CALC 0.0-4.0 LDL (Calculated) 66 CALC 0-129 VLDL (Calculated) 17 mg/dL 0-50 Hepatic 03/21/2011 Albumin 4.0 g/dL 3.8-5.5 Alk. Phos. 97 U/L High 22-95 32 Alt (SGPT) 39 U/L 10-40 Ast (Sgot) 19 U/L 5-34 Total Bilirubin 0.5 mg/dL 0.2-1.3 Total Protein 6.9 g/dL 6.3-8.1 Direct Bilirubin 0.2 mg/dL 0.0-0.6 Globulin 2.9 g/dL 2.0-4.8 A/G Ratio 1.4 Calc 0.6-2.2 Indirect Bilirubin 0.21 0.10-1.00 Culture And Sensitivity 02/05/2011 Gram Stain Smear RARE EPITHELIAL 33 , 34 <SEE NOTE> Laboratory test finding 02/05/2011 Culture Sensitivity METH RESIST S. A 33, 35 <SEE NOTE> Sensitivities Wound 02/05/2011 Clindamycin <=0.25 33 Culture Ciprofloxacin <=0.5 33 Erythromycin >=8 33 Gentamicin <=0.5 33 Levofloxacin <=0.12 33 Linezolid 2 33 Oxacillin >=4 33 Rifampin <=0.5 33 Trimeth-Sulfa <=10 33 Tetracycline <=1 33 Tigecycline <=0.12 33 Vancomycin 1 33 Laboratory test finding 07/18/2010 Quickstrep NEGATIVE Negative [...] Eosinophils 0.2 0-0.6 Abs Basophils 0.1 0-0.2 36 Comp Metabolic Panel 04/04/2010 Sodium 136 mmol/L 135-145 Potassium 3.7 mmol/L 3.5-5.0 Chloride 106 mmol/L 101-111 Co2 (Carbon Dioxide) 23.0 mmol/L 22-32 Anion Gap 7.0 mmol/L 2-11 37 Glucose 91 mg/dL 70-100 38 BUN 10 mg/dL 6-24 Creatinine 0.70 mg/dL 0.50-1.40 One Over Creatinine 1.40 BUN/Creatinine Ratio 14.3 8-20 Calcium 9.1 mg/dL 8.1-9.9 39 Total Protein 7.3 GM/DL 6.2-8.1 Albumin 3.8 GM/DL 3.6-5.4 Globulin 3.5 GM/DL 2-4 Albumin/Globulin Ratio 1.1 1-3 Bilirubin Total 1.1 mg/dL 0.4-1.5 40 Alkaline Phosphatase 87 U/L 39-117 Alt (SGPT) 49 U/L 17-63 Ast (Sgot) 27 U/L 12-42 eGFR Non- 142.7 > 60 eGFR 172.7 > 60 41 Urinalysis 04/04/2010 Ua Color YELLOW Yellow Appearance-Urine CLEAR Clear Specific [place]-Ur 1.024 1.010-1.030 Esterase-Urine NEGATIVE Negative Nitrite NEGATIVE Negative Pktnzanxqtjn-Te-KRL NEGATIVE Negative Protein-Urine NEGATIVE Negative PH-Urine 5.5 5-9 Blood-Urine NEGATIVE Negative Ketones-Urine NEGATIVE Negative Bilirubin-Ur NEGATIVE Negative Glucose-Urine NEGATIVE Negative Ua - Non Micro (Fma) 07/31/2009 Appearance clear Color yellow Glucose neg Bilirubin neg Ketones neg SP Grav 1.025 Blood neg PH 5.5 Protein neg Urobil 0.2 Nitrite neg Leukocytes (Fma/CMC/Centrex) neg Hepatic 12/07/2008 Albumin 4.3 g/dL 3.8-5.5 42 Alk. Phos. 89 U/L 22-95 42 Alt (SGPT) 42 U/L High 10-40 42, 43 Ast (Sgot) 23 U/L 5-34 42 Total Bilirubin 0.7 mg/dL 0.2-1.3 42 Total Protein 7.7 g/dL 6.3-8.1 42 Direct Bilirubin 0.4 mg/dL 0.0-0.6 42 Globulin 3.4 g/dL 2.0-4.8 42 A/G Ratio 1.3 Calc 0.6-2.2 42 Indirect Bilirubin 0.29 0.10-1.00 42 Lipid Profile 12/07/2008 Cholesterol 144 mg/dL 120-200 42 HDL 43 mg/dL 30-70 42 Triglycerides 104 mg/dL 30-200 42 HDL Risk Factor 3.4 CALC Low 4.2-7.0 42 LDL (Calculated) 81 CALC 0-129 42 VLDL (Calculated) 21 mg/dL 0-50 42 Comprehensive Metabolic Prof 10/22/2007 Albumin 4.2 g/dL 3.8-5.5 42 Alk. Phos. 88 U/L 22-95 42 Alt (SGPT) 60 U/L High 10-40 42, 44 Ast (Sgot) 25 U/L 5-34 42 BUN 14 mg/dL 6-26 42 Calcium 9.6 mg/dL 8.6-10.2 42 Chloride 101 mEq/L 94-112 42 Creatinine 0.9 mg/dL 0.6-1.4 42 Carbon Dioxide 26 mEq/L 21-32 42 Glucose 70 mg/dL 70-105 42 Sodium 138 mEq/L 134-149 42 Total Bilirubin 0.5 mg/dL 0.2-1.3 42 Total Protein 7.3 g/dL 6.3-8.1 42 Potassium 4.3 mEq/L 3.6-5.5 42 Globulin 3.1 g/dL 2.0-4.8 42 A/G Ratio 1.3 Calc 0.6-2.2 42 BUN/Creat Ratio 15.2 Calc 8.0-36.0 42 Lipid Profile 10/22/2007 Cholesterol 137 mg/dL 120-200 42 HDL 32 mg/dL 30-70 42 Triglycerides 112 mg/dL 30-200 42 HDL Risk Factor 4.3 CALC 4.2-7.0 42 LDL (Calculated) 83 CALC 0-129 42 VLDL (Calculated) 22 mg/dL 0-50 42 Laboratory test finding 10/20/2006 Quickstrep NEGATIVE Negative Throat - Beta Strep Fma NEG @ 48 HOURS Comprehensive Metabolic Prof 10/16/2006 Albumin 4.4 g/dL 3.8-5.5 42 Alk. Phos. 94 U/L 22-95 42 Alt (SGPT) 39 U/L 10-40 42 Ast (Sgot) 18 U/L 5-34 42 BUN 12 mg/dL 6-26 42 Calcium 9.1 mg/dL 8.6-10.2 42 Chloride 98 mEq/L 94-112 42 Creatinine 0.8 mg/dL 0.6-1.4 42 Carbon Dioxide 26 mEq/L 21-32 42 Glucose 73 mg/dL 70-105 42 Sodium 139 mEq/L 134-149 42 Total Bilirubin 0.7 mg/dL 0.2-1.3 42 Total Protein 7.9 g/dL 6.3-8.1 42 Potassium 4.1 mEq/L 3.6-5.5 42 Globulin 3.5 g/dL 2.0-4.8 42 A/G Ratio 1.3 Calc 0.6-2.2 42 BUN/Creat Ratio 16.0 Calc 8.0-36.0 42 Lipid Profile 10/16/2006 Cholesterol 150 mg/dL 120-200 42 HDL 35 mg/dL 30-70 42 Triglycerides 118 mg/dL 30-200 42 HDL Risk Factor 4.3 CALC 4.2-7.0 42 LDL (Calculated) 91 CALC 0-129 42 VLDL (Calculated) 24 mg/dL 0-50 42 Lipid Profile([facility]) Male 09/01/2005 Cholesterol 135 mg/dL 120-200 Triglyceride 130 mg/dL 30-200 HDL Cholesterol ([facility]) Male 38 mg/dL 30-70 LDL, Calculated (a/[facility]) 71 CALC 0-129 LDL Direct (/[facility]rex) - mg/dL 0-130 VLDL 26 0-50 HDL Risk Factor (a) 3.5 CALC Low 4.2-7.0 Comp Metabolic ([facility]) Male 09/01/2005 Glucose, Serum (a/CMC/CTX) 76 mg/dL 70-105 BUN (a/CMC/Centrex) 9 mg/dL 6-26 Creatinine (a/CMC/CTX) 0.8 mg/dL 0.6-1.4 BUN/Creatinin Ratio 12.2 8.0-36 Sodium 141 134-149 Potassium 4.0 3.6-5.5 Chloride 99 mEq/L 94-112 Co2 30 21-32 Calcium (Fma/CMC/Centrex) 9.7 mg/dL 8.6-10.2 Total Protein 7.5 g/dL 6.3-8.1 Albumin (Fma/CMCC/Centrex) 4.6 3.8-5.5 Globulin 2.9 2.0-4.8 A/G Ratio (Fma/CMC/Centrex) 1.6 0.6-2.2 Alk Phos (a) Male 93 U/L 22-95 Alt-M SGPT Male ([facility]) 52 RESULT ANU'D High 10-40 Ast Sgot 25 U/L 5-34 Bilirubin, Total 0.7 mg/dL 0.2-1.3 CBC Electronic ([facility]) 09/01/2005 WBC 7.5 3.6-9.6 Lymphocytes 20.9 % 20.5 - 51.1 Monocytes 8.7 % 1.7-9.3 Granulocytes 70.4 % 42.2 - 75.2 Lymphocytes 1.6 10^3/uL 0.7 - 4.9 Monocytes 0.7 10^3/uL 0.1 - 0.9 Granulocytes 5.3 10^3/uL 1.5 - 7.2 RBC 5.63 3.90-5.70 Hemoglobin ([facility]) 16.1 g/dL 12.1 - 17.2 Hematocrit ([facility]/CTX) 46.4 % 36.1 - 50.3 Mean Corpuscular Vol 82.6 82.2-97.4 Mean Corpuscular Hemaglobin 28.5 27.6-33.3 Mean Corpuscular Hemo Concen 34.6 33.0-36.0 RDW 12.3 11.6-13.7 Platelets 198. 10^3/ul 150-400 Mean Platelet Volume 8.4 7.4-10.4 Ua - Non Micro ([facility]) 09/01/2005 Appearance CLEAR Color LT YELLOW Glucose NEG Bilirubin NEG Ketones NEG SP Grav 1.010 Blood NEG PH 6.0 Protein NEG g/dL Low 6.3-8.1 Urobil 0.2 Nitrite NEG Leukocytes NEG Laboratory test finding 08/16/2005 Throat Culture NEG @ 48 HOURS Flu A&B NEGATIVE Negative Liver Function (a) 02/04/2005 Total Protein 8.0 g/dL 6.3-8.1 Albumin ([facility]) 4.5 3.8-5.5 A/G Ratio ([facility]) 1.3 0.6-2.2 Globulin 3.6 2.0-4.8 Alkaline Phosphatase (F/C/CTX) 122 U/L High 22-95 Alt (SGPT) ([facility]) 51 High 7-35 Ast (Sgot) ([facility]) 23 U/mL 5-34 Bilirubin, Total 0.8 mg/dL 0.2-1.3 Bilirubin, Direct 0.4 mg/dL 0-0.6 Bilirubin, Indirect 0.39 ml/dl 0.10-1.0 Lipid Profile([facility]) Male 08/06/2004 Cholesterol 108 mg/dL Low 120-200 45 Triglyceride 90 mg/dL 30-200 HDL Cholesterol (a) Male 28 mg/dL Low 30-70 46 LDL, Calculated ([facility]) 62 CALC 0-129 LDL, Direct - mg/dL 0-130 VLDL 18 0-50 HDL Risk Factor ([facility]) 3.9 CALC Low 4.2-7.0 Liver Function (a) 08/06/2004 Total Protein 7.4 g/dL 6.3-8.1 Albumin ([facility]) 4.4 3.8-5.5 A/G Ratio ([facility]) 1.5 0.6-2.2 Globulin 3.0 2.0-4.8 Alkaline Phosphatase (F/C/CTX) 91 U/L 30-110 Alt (SGPT) 55 High 7-35 47 Ast (Sgot) ([facility]) 23 U/mL 5-34 Bilirubin, Total 0.7 mg/dL 0.2-1.3 Bilirubin, Direct 0.3 mg/dL 0-0.6 Bilirubin, Indirect 0.35 ml/dl 0.10-1.0 Lipid Profile([facility]) Male 05/28/2004 Cholesterol 216 mg/dL High 120-200 Triglyceride 133 mg/dL 30-200 HDL Cholesterol (a) Male 30 mg/dL 30-70 LDL, Calculated ([facility]) 159 CALC High 0-129 LDL, Direct - [...] Hemoglobin A1c (F/C/CTX) 4.6 % 4.1-5.7 1 SEE RESULT BELOW Name: ALEX OBRIEN : [address]: Ruslan Dominguez MD Acct: [id number] Unit: [id number] AGE: 37 Location: ED Re10/07/17 SEX: M Status: DEP ER SPEC: [id number] SELENE: 10/07/[address]: Geoff Maldonado MD REQ: [id number] RECD: 10/07/17 STATUS: KARTIK HILLIARD DR: Rekha Dominguez MD _ SOURCE: BLOOD,[facility]: ORDERED: Blood Cult Procedure Result Reported Site Aerobic Culture Bottle Final 10/12/172116 ML No Growth Day 5 Anaerobic Culture Bottle Final 10/12/172116 ML No Growth Day 5 * ML - MAIN LAB ([facility]) . END OF REPORT * ML=Testing performed at Main Lab DEPARTMENT OF PATHOLOGY, [address] [place] [address] Denilson Cheney M.D. Director [facility] # [id number] 2 [facility] Severe Sepsis and Septic Shock Management Bundle Measure requires all lactic acids initially measuring >2.0 mmol/L be repeated. 3 Because ethnic data is not always readily [...] 15-29 5 Kidney failure <15 (or dialysis) 4 Acute inflammation: >10.00 5 Because ethnic data is not always readily [...] 15-29 5 Kidney failure <15 (or dialysis) 6 Reference Range and Interpretation: TnI (ng/mL) Interpretation Less Than 0.03 ng/mL Not supportive of diagnosis of AR 0.03 - 0.50 ng/mL Indeterminate: suggest serial studies if clinically indicated. Greater than 0.5 ng/mL Consistent with diagnosis of AR 7 [employer] Head: [id number] Owens Due to the increased sensitivity of molecular testing, reflex cultures are no longer performed. 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 END OF REPORT * ML=Testing performed at Main Lab DEPARTMENT OF PATHOLOGY, [address] [place] [address] Denilson Cheney M.D. Director [facility] # [id number] 9 [employer] Head: [id number] TICKNOR LUIS 10 SEE RESULT BELOW Name: ALEX OBRIEN : [address]: Perla Mcguire MD Acct: [id number] Unit: [id number] AGE: 35 Location: ED Re10/19/15 SEX: M Status: REG ER SPEC: [id number] SELENE: 10/19/[address]: Jus MCCLELLAND REQ: [id number] RECD: 10/19/15 STATUS: KARTIK HILLIARD DR: Fatuma Mcguire MD _ SOURCE: THROAT SPDESC: ORDERED: Strep A Request Procedure Result Reported Site Rapid Strep A Request Final 10/19/15- 1848 ML Specimen received for Rapid Strep A Molecular testing * ML - MAIN LAB ([facility]) . END OF REPORT * ML=Testing performed at Main Lab DEPARTMENT OF PATHOLOGY, [address] [place] [address] Denilson Chneey M.D. Director [facility] # [id number] 11 [employer] Head: SONIA SMITH 12 [employer] Head: SONIA SMITH The machine operator packaging and regulatory agencies both recommend that a throat culture for beta strep be performed if a Rapid Group A Strep assay yields a negative result. Therefore a culture will be automatically performed on all negative samples. 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 END OF REPORT * ML=Testing performed at Main Lab DEPARTMENT OF PATHOLOGY, [address] [place] [address] Denilson Cheney M.D. Director [facility] # [id number] 14 Acute inflammation: >10.00 15 [facility] Severe Sepsis and Septic Shock Management Bundle Measure requires all lactic acids initially measuring >2.0mmol/L be repeated. 16 Because ethnic data is not always readily [...] 15-29 5 Kidney failure <15 (or dialysis) 17 SRC:abdomin 1 [facility] t swab 18 Source of Specimen: abdomin 1 [facility] 19 Staphylococcus aureus Source of Specimen: abdomin 1 [...] * Antistaphylococcal carbapenems; such as: Imipenem Meropenem 20 Skin laron isolated Source of Specimen: abdomin 1 plasc[employer] fines Moderate growth 21 Source of Specimen: abdomin 1 plascencia fines S=Susceptible; I=Intermediate; R=Resistant P=Positive; N=Negative MICS are expressed in micrograms per mL Antibiotic RSLT#1 RSLT#2 RSLT#3 RSLT#4 Ciprofloxacin R Clindamycin S Erythromycin S Gentamicin S Levofloxacin I Linezolid S Moxifloxacin R Oxacillin S Quinupristin/Dalfopristin S Rifampin S Tetracycline S Trimethoprim/Sulfa S Vancomycin S 22 SEE RESULT BELOW Name: ALEX OBRIEN : [address]: Yovanny Croft MD Acct: [id number] Unit: [id number] AGE: 35 Location: [facility] Re06/01/15 SEX: M Status: REG REF SPEC: [id number] SELENE: 05/31/15-[address] [facility] [address]: Yovanny Croft MD REQ: [id number] RECD: 06/01/15 STATUS: COMP _ SOURCE: URINE SPDESC: ORDERED: Urine Culture COMMENTS: LUIZ WITH URINE Procedure Result Verified Site Urine Culture Final 06/03/15- 1051 ML No Growth Day 2 (<1,000 CFU/mL) * ML - MAIN LAB ([facility]) . END OF REPORT * ML=Testing performed at Main Lab DEPARTMENT OF PATHOLOGY, [facility] [employer] [address] Denilson Cheney M.D. Director [facility] # [id number] 23 RUN DATE: 03/16/14 [facility] LAB LIVE PAGE 1 RUN TIME: 08 [facility] [employer], [place] [address] Specimen Inquiry Name: ALEX OBRIEN : [address]: Jung Puente MD Acct: [id number] Unit: [id number] AGE: 34 Location: [facility] Re03/13/14 SEX: M Status: DEP ER SPEC: [id number] SELENE: 03/13/14-[address] [facility] [address]: Jung Puente MD REQ: [id number] RECD: 03/14/14 STATUS: KARTIK HILLIARD DR: [employer] Ubaldo Donaldson MD _ SOURCE: THROAT SPDESC: ORDERED: Throat Beta Str Procedure Result Verified Site Throat Beta Strep Culture Final 03/16/14- 6756 ML Negative For Group A Beta Streptococcus END OF REPORT * ML=Testing performed at Main Lab DEPARTMENT OF PATHOLOGY, [address] [place] [address] Denilson Cheney M.D. Director [facility] # [id number] 24 RESULTS VERIFIED BY REPEAT ANALYSIS RUN DATE: 01/13/14 [facility] LAB LIVE PAGE 1 RUN TIME: [address] [place] [address] Specimen Inquiry Name: ALEX OBRIEN : [address]: Berenice Zavala MD Acct: [id number] Unit: [id number] AGE: 33 Location: [facility] Re01/10/14 SEX: M Status: DEP ER SPEC: [id number] SELENE: 01/10/14-[address] [facility] [address]: Kierra MCCLELLAND REQ: [id number] RECD: 01/10/14 STATUS: KARTIK HILLIARD DR: Berenice [...] performed at Main Lab DEPARTMENT OF PATHOLOGY, [facility] [employer] [place], [place] [address] Denilson Cheney M.D. Director [facility] # [id number] RUN DATE: 01/13/14 [facility] LAB LIVE PAGE 2 RUN TIME: 1036 [facility] [place], [place] [address] Specimen Inquiry Patient: ALEX OBRIEN [id number] (Continued) Specimen: [id number] Collected: 01/10/14-1649 Received: 01/10/14 (Continued) Procedure Result Verified Site Ear Culture Final (continued) * These antibiotics are not available in the [facility] Formulary Contact the Microbiology Department for any additional antibiotic reporting. Ear Gram Stain Final 01/11/14- 820 ML 1+ Polys 2+ Epithelial Cells 1+ Gram Positive Cocci END OF REPORT * ML=Testing performed at Main Lab DEPARTMENT OF PATHOLOGY, [address] [place] [address] Denilson Cheney M.D. Director [facility] # [id number] 26 Anion gap measurement may be of limited value in the presence of any alkalosis, especially in a combined acid base disorder. . 27 A metabolite of Naproxen, O-desmethylnaproxen, has been shown to interfere with the Jendrassik-Radha method for measuring total bilirubin. Samples from patients who have taken Naproxen have shown spurious elevation in total bilirubin levels. 28 Because ethnic data is not always readily [...] 15-29 5 Kidney failure <15 (or dialysis) 29 PLEASE NOTE NEW REFERENCE RANGE. 30 Lymphopenia % 31 RESULT ANU'D 32 RESULT ANU'D 33 COMMENTS: WOUND ON RIGHT LOWER LEG 34 RARE EPITHELIAL CELLS RARE GRAM POSITIVE COCCI NONE 35 METH RESIST S. AUREUS (MRSA) MOD^MODERATE^QTY 36 Lymphopenia % 37 Anion gap measurement may be of limited value in the presence of any alkalosis, especially in a combined acid base disorder. . 38 Note change in reference range as of 04/06/08. The change was based on recommendations from the [employer]. 39 Please note change in reference range effective 08 . 40 A metabolite of Naproxen, O-desmethylnaproxen, has been shown to interfere with the Jendrassik-Radha method for measuring total bilirubin. Samples from patients who have taken Naproxen have shown spurious elevation in total bilirubin levels. 41 Because ethnic data is not always readily [...] 15-29 5 Kidney failure <15 (or dialysis) 42 FASTING 43 RESULT ANU'D 44 RESULT ANU'D 45 RESULT VERIFIED BY REPEAT ANALYSIS 46 RESULT VERIFIED BY REPEAT ANALYSIS 47 RESULT VERIFIED BY REPEAT ANALYSIS Procedures Date CPT Code Description Status 08/03/2017 62920 [facility] Completed 05/09/2016 79526 [facility] Completed 11/01/2013 64604 Electrocardiogram Complete Completed Encounters Type Date Location Provider CPT E/M Dx Office Visit 11/18/2017 4:10p [place] [address] H69.93 Office Visit 11/12/2017 9:40a Main Office Rekha Nassar M.D. 49777 M25.531 I10 Q85.01 E66.01 E78.5 Office Visit 12/12/2016 11:10a [facility] Rekha Nassar M.D. 17668 I10 Q85.01 E66.01 Office Visit 09/11/2016 9:45a [facility] BRYN Basilio 15904 M25.561 Office Visit 08/06/2016 3:45p [facility] Office Maria R Sultana 21229 R05 Office Visit 03/08/2016 11:15a Main Office BRYN Basilio 99852 J01.90 Office Visit 03/05/2016 2:30p [place] [address] J06.9 Office Visit 12/04/2015 11:30a Main Office Rekha Nassar M.D. 03311 M72.2 I10 E78.2 E66.8 Office Visit 10/06/2015 11:30a [facility] Office BRYN Alvarez 37666 J02.9 Office Visit 09/25/2015 9:00a [facility] Office Fatuma Richards, 29601 M25.571 Afnp-C M79.671 Office Visit 07/18/2015 11:15a [facility] Ania Mauricio Afnp-C 82348 L03.032 L03.311 L03.811 Office Visit 05/31/2015 6:30p Main Office Yovanny Croft M.D. 96595 M54.9 Office Visit 02/13/2015 11:10a [facility] Milan Garcia M.D. 93496 724.2 401.9 272.4 Office Visit 09/30/2014 10:45a Main Office Ania Mauricio Afnp-C 39757 462 Office Visit 08/11/2014 1:30p Main Office Christine Camilo, VIOLIN TEACHER 21787 729.5 Office Visit 07/21/2014 1:30p Main Office Christine Penarer, VIOLIN TEACHER 71255 729.5 Office Visit 01/18/2014 9:30a Main Office Christine Rinconr, VIOLIN TEACHER 38203 272.4 041.12 Office Visit 11/01/2013 8:50a [facility] Office Ubaldo Donaldson M.D. 48255 785.1 459.81 Office Visit 09/26/2013 1:45p Main Office Christine Camilo, VIOLIN TEACHER 86309 465.8 Office Visit 03/13/2012 10:15a Main Office Fatuma Richards Afnp-C 91131 372.00 Office Visit 12/17/2011 9:15a [facility] Christine Penarer, VIOLIN TEACHER 98260 462 Office Visit 07/17/2011 9:30a [facility] Office Ania Mauricio Afnp-C 62262 789.00 Office Visit 03/21/2011 9:00a Main Office Christine Penarer, VIOLIN TEACHER 78155 272.4 Office Visit 07/18/2010 10:15a Main Office Ania Mauricio, Afnp-C 08039 465.9 462 Office Visit 12/05/2009 2:00p Main Office Fatuma Richards Afnp-C 94747 373.11 703.0 Office Visit 11/13/2009 8:00p Main Office Christine Camilo [facility] 14220 380.22 372.30 Office Visit 08/11/2009 10:30a [facility] Office Zbigniew Peterson M.D. 75655 465.9 Office Visit 07/31/2009 8:30a Main Office Cristel Guerrero M.D. 58658 388.70 791.0 Office Visit 12/14/2008 9:40a [facility] Office Xiomara Chungnatalie, 99110 272.4 MChi 401.9 959.7 Office Visit 11/18/2008 10:00a Main Office Ubaldo Donaldson M.D. 62848 382.9 Office Visit 09/18/2008 8:40a [facility] Jocelyne Day M.D. 33849 477.8 401.9 Office Visit 12/21/2007 3:20p Main Office Ubaldo Donaldson M.D. 51814 465.9 Office Visit 10/22/2007 9:45a Main Office Christine Camilo [facility] 86426 272.4 Office Visit 10/20/2006 8:00p Main Office Cat Hendricks KRISSY Bazzi 73300 465.8 528.00 Office Visit 10/16/2006 9:45a Main Office Christine Camilo [facility] 90726 272.4 Office Visit 04/25/2006 11:40a Main Office Riley Donahue M.D. 68265 682.6 680.6 Office Visit 09/01/2005 10:20a Main Office Riley Donahue M.D. 16596 V70.0 272.4 V12.2 237.70 Office Visit 08/16/2005 12:20p Main Office Johnny Garnett M.D. 13331 465.9 461.9 272.4 Office Visit 06/30/2005 12:00p Main Office Isaiah Soriano M.D. 87677 461.9 465.9 Office Visit 02/04/2005 11:10a Main Office Riley Donahue M.D. 93571 272.4 278.00 Office Visit 11/11/2004 7:15p Main Office Christine Camilo [facility] 17798 490 Office Visit 08/06/2004 11:20a Main Office Riley Donahue M.D. 70395 401.9 272.4 Office Visit 05/28/2004 9:00a Main Office Riley Donahue M.D. 24970 401.1 380.10 272.4 278.00 Office Visit 05/17/2004 10:30a [facility] Office Maria R Sultana 59715 465.9 Office Visit 03/26/2004 9:00a Main Office Riley Donahue M.D. 04908 278.00 401.9 382.9 784.0 V77.1 Office Visit 11/17/2003 9:50a Main Office Isaiah Soriano M.D. 86196 719.47 Office Visit 11/10/2003 10:00a [facility] Office Ania HughesMaria R black 96704 401.9 Plan of Care Future Appointment(s):05/18/2018 8:00 am - Carmenza Ball NP at [facility] Uzdlnl6101/01/2018 - Xiomara Carlos, [id number] CoughNew Medication:Proair HFA 108( 90 Base) mcg/ActBreo Ellipta 100-25 mcg/InhComments:You appear to have a bronchial infection, 80-90% bronchitis infections caused by VIRUS not BACTERIAANTIBIOTICS treat BACTERIA, not VIRUSESWe don't have treatment for VIRUSES in the vast majority of cases, such as yoursInhalers will help with coughing, windednessKeep taking Tussin as neededWarm steamy showers, humidity in the bedroom, PUSH FLUIDSContinue your allergy medications as you are using nowR06.02 Shortness of bzmwrmN38.89 Other chest painAllComments:~B_~U_ Medication Management~b_~u_ Patient Understands medications he 's taking? Yes No Are there Barriers to Adherence? Yes No Has the patient been asked about herbal supplements and therapies, and OTC meds? Yes No
[2018-01-28] MEDS ORDERED: Meclizine TAB* 12.5 MG PO ONE (22:34)
[2018-01-28] MEDS ORDERED: Metoclopramide TAB* 10 MG PO ONE (22:34)
[2018-01-29 00:20] VITALS: BP 142/82
--- NOTE | 2018-01-29 05:36 | ED ---
Nolan Brennan Elizabeth, scribed for Errol Sinclair MD on 01/28/18 at 2253 . Dizziness - HPI Summary HPI Summary: This patient is a 37 year old M presenting to [facility] with a chief complaint of sudden onset, intermittent dizziness since 12:00 today. The patient reports that the dizziness has alleviated since arrival to [facility]. The patient rates the pain 0/10 in severity. Symptoms aggravated by nothing. Symptoms alleviated by nothing. Patient reports nausea. Patient denies shortness of breath, chest pain , vomiting, diarrhea, and change in appetite. The patient has hx of vertigo but takes no medications for it. - History Of Current Complaint Chief Complaint: EDDizziness Stated Complaint: DIZZINESS/SOB Time Seen by Provider: 01/28/18 21:30 Hx Obtained From: Patient Onset/Duration: Resolved, Suddenly Timing: Hours Severity Initially: Moderate Severity Currently: None Character: Lightheaded, Dizzy Aggravating Factor(s): Nothing Alleviating Factor(s): Nothing Associated Signs And Symptoms: Positive: Nausea. Negative: Vomiting, Diarrhea, Chest Pain, SOB, Change In Diet - Allergies/Home Medications Allergies/Adverse Reactions: Allergies Allergy/AdvReac Type Severity Reaction Status Date / Time amoxicillin Allergy Vomiting Verified 01/28/18 21:43 clavulanic acid Allergy Vomiting Verified 01/28/18 21:43 mushroom Allergy Airway Verified 01/28/18 21:43 Obstruction shrimp Allergy Hives Verified 01/28/18 21:43 Home Medications: Home Medications Atorvastatin* [Lipitor*] 20 mg PO DAILY 01/28/18 [History Confirmed 01/28/18] Hydrochlorothiazide TAB* [Hydrodiuril TAB*] 12.5 mg PO DAILY 01/28/18 [History Confirmed 01/28/18] LevoCETirizine TAB (NF) [Xyzal TAB (NF)] 5 mg PO DAILY 01/28/18 [History Confirmed 01/28/18] amLODIPine TAB* [Norvasc 5 mg TAB*] 10 mg PO DAILY 01/28/18 [History Confirmed 01/28/18] PMH/Surg Hx/FS Hx/Imm Hx Endocrine/Hematology History: Denies: Hx Diabetes, Hx Thyroid Disease Cardiovascular History: Reports: Hx Hypercholesterolemia, Hx Hypertension, Other Cardiovascular Problems/Disorders - HYPERCHOLESTEMIA; varicose veins issues - wears compression stockings Denies: Hx Congestive Heart Failure, Hx Pacemaker/ICD Respiratory History: Denies: Hx Asthma, Hx Chronic Obstructive Pulmonary Disease (COPD) GI History: Denies: Hx Ulcer History: Denies: Hx Renal Disease Musculoskeletal History: Reports: Other Musculoskeletal History - Raynaud's Sensory History: Denies: Hx Hearing Aid Neurological History: Reports: Other Neuro Impairments/Disorders - NF Psychiatric History: Denies: Hx Panic Disorder - Immunization History Date of Tetanus Vaccine: UTD Date of Influenza Vaccine: 2012 Infectious Disease History: No Infectious Disease History: Reports: 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 Denies: Hx Clostridium Difficile, Hx Hepatitis, Hx Human Immunodeficiency Virus (HIV), Hx Shingles, Hx Tuberculosis, Hx Known/Suspected VRE, Hx Known/ Suspected VRSA, History Other Infectious Disease, Traveled Outside the [place] in Last 30 Days - Family History Known Family History: Positive: Hypertension - Social History Alcohol Use: Rare Hx Substance Use: No Substance Use Type: Reports: None Hx Tobacco Use: Yes Smoking Status (MU): Former Smoker Type: Cigarettes Length of Time of Smoking/Using Tobacco: 2-3 years Review of Systems Negative: Fever Negative: Epistaxis Negative: Chest Pain Negative: Shortness Of Breath Positive: Nausea. Negative: Vomiting, Diarrhea Neurological: Other - positive dizziness All Other Systems Reviewed And Are Negative: Yes Physical Exam - Summary Physical Exam Summary: Appearance: Well-appearing, no distress, Well-nourished Skin: Warm, color reflects adequate perfusion Head: Normal Head/Face inspection Eyes: Conjunctiva clear, horizontal nystagmus ENT: Normal inspection Neck: Supple, no nodes, no JVD. Respiratory: Lungs clear, Normal breath sounds, no respiratory distress Cardio: RRR, No murmur, pulses normal, brisk capillary refill Abdomen: soft, nontender, no guarding, no rebound Bowel sounds: present Musculoskeletal: Strength Intact/ ROM intact. No calf tenderness. No edema. Neuro: Alert, muscle tone normal, facial symmetry, speech normal, sensory/motor intact, GCS 15 Psychological: Normal Triage Information Reviewed: Yes Vital Signs On Initial Exam: Initial Vitals Temp Pulse Resp BP Pulse Ox 98.3 F 106 22 157/99 95 01/28/18 20:45 01/28/18 20:45 01/28/18 20:45 01/28/18 20:45 01/28/18 20:45 Vital Signs Reviewed: Yes Diagnostics - Vital Signs Vital Signs Temp Pulse Resp BP Pulse Ox 01/28/18 22:11 100 23 163/94 95 01/28/18 22:00 95 19 95 01/28/18 21:41 96 22 151/88 96 01/28/18 20:45 98.3 F 106 22 157/99 95 - Laboratory Lab Statement: Any lab studies that have been ordered have been reviewed, and results considered in the medical decision making process. - CT CT Brain CT Interpretation: No Acute Changes - impression: no acute territorial infarct, hemorrhage, or space-occupying mass. Dr. Sinclair has reviewed this report. CT Interpretation Completed By: Radiologist Re-Evaluation - Re-Evaluation First Eval Re-Evaluation Time: 23:36 Change: Improved - Pt symptoamtically improved. pt resting comfortably in bed. pt repeat CN exam inact II-XII. pt symptoms most consistent with vertigo. Dizzy Course/Dx - Diagnoses Differential Diagnosis/HQI/PQRI: Anxiety, Benign Paroxysmal Positional Vertigo, Coronary Artery Disease, CVA, Dysrhythmia, Transient Ischemic Attack, Vasovagal Reaction Provider Diagnoses: Vertigo Discharge - Sign-Out/Discharge Documenting (check all that apply): Discharge/Admit/Transfer - Discharge Plan Condition: Improved Disposition: HOME Prescriptions: Meclizine TAB* [Antivert 12.5 TAB*] 25 mg PO TID 5 Days #12 tab Patient Education Materials: Vertigo (ED) Referrals: Rekha Nassar MD [Primary Care Provider] - - Billing Disposition and Condition Condition: IMPROVED Disposition: Home The documentation as recorded by the Nolan wallace Elizabeth accurately reflects the service I personally performed and the decisions made by , Errol Sinclair MD.
--- NOTE | 2018-01-29 07:51 | RAD ---
HISTORY: dizziness COMPARISONS: December 15, 2016 TECHNIQUE: Multiple contiguous axial CT scans were obtained of the head without intravenous contrast. FINDINGS: HEMORRHAGE/INFARCT: There is no hemorrhage or acute infarct. MASSES/SHIFT: There is no mass or shift. EXTRA-AXIAL SPACES: There are no extra-axial fluid collections. SULCI AND VENTRICLES: The sulci and ventricles are normal in size and position for the patient's stated age. CEREBRUM: There are no focal parenchymal abnormalities. BRAINSTEM: There are no focal parenchymal abnormalities. CEREBELLUM: There are no focal parenchymal abnormalities. VESSELS: The vessels are grossly normal. PARANASAL SINUSES: The paranasal sinuses are clear. ORBITS: The orbits are unremarkable. BONES AND SOFT TISSUE: No bone or soft tissue abnormalities are noted. OTHER: None IMPRESSION: NO ACUTE INTRACRANIAL PATHOLOGY.
== END 2018-01-29 00:18 | disposition home or self-care (01) ==
LOC: ED 20:42
DX: R42 Dizziness and giddiness (principal); I10 Essential (primary) hypertension; E78.00 Pure hypercholesterolemia, unspecified; Z87.891 Personal history of nicotine dependence; Z88.3 Allergy status to other anti-infective agents; Z88.8 Allergy status to other drugs, medicaments and biological substances
CPT/HCPCS: 70450; 99283; A9270-GY

== ENCOUNTER 2018-03-14 13:23 | Emergency (ER) | payer OTHER, MEDICAID ==
[2018-03-14 15:07] LABS: Urine Appearance Clear; Urine Blood Negative (Negative); Urine Color Yellow; Urine Ketones Negative (Negative); Urine Protein Negative (Negative); Urine Specific Gravity 1.021 (1.010-1.030); Urine Urobilinogen Negative (Negative)
--- NOTE | 2018-03-14 15:57 | RAD ---
INDICATION: Right flank pain COMPARISON: CT abdomen pelvis October 07, 2017 TECHNIQUE: Noncontrast axial source images were acquired from the level hemidiaphragms to the symphysis pubis as part of CT imaging for renal stone. Lung bases: The lung bases are clear. Liver: The liver is normal in size. Noncontrast imaging shows no evidence of a hepatic mass or ductal dilatation. Gallbladder: There are no calcified gallstones. There is no evidence of wall thickening or pericholecystic fluid. The gallbladder is contracted.. Spleen: The spleen is normal in size. The noncontrast CT appearance is normal. Pancreas: Noncontrast imaging shows no pancreatic mass or ductal dilitation. Adrenal glands: No masses are identified. Kidneys/Bladder: There is no evidence of nephrolithiasis or CT evidence of hydronephrosis. Noncontrast imaging shows no evidence of a renal mass. The bladder is unremarkable.. Adenopathy: There is no evidence of intraperitoneal or retroperitoneal adenopathy. Evaluation is limited without oral contrast. Fluid collections: There are no free or localized fluid collections. Vessels: The aorta and iliac vessels are normal in caliber. There are no significant atherosclerotic changes. The IVC appears normal Pelvic organs: The uterus and adnexa appear normal GI tract: Evaluation of the bowel is limited without oral contrast. The stomach, small bowel, and lower GI tract appear grossly normal. There are no obstructive findings. The appendix is visualized and appears normal. Soft tissues: There are edematous changes in the subcutaneous fat in the anterior lower abdomen, unchanged. There is a tiny periumbilical hernia Osseous structures: There are no acute osseous findings. There is degenerative disc disease about L5-S1. IMPRESSION: NO ACUTE CT FINDINGS. NO EVIDENCE OF UROLITHIASIS. NORMAL APPENDIX.
[2018-03-14] MEDS ORDERED: Ketorolac INJ* 30 MG/ML 1 ML VIAL IM ONE (16:00)
[2018-03-14] MEDS ORDERED: Cyclobenzaprine TAB* 10 MG PO ONE (16:00)
--- NOTE | 2018-03-14 16:01 | ED ---
Back Pain - HPI Summary HPI Summary: 37-year-old male presents with right-sided flank pain for the past couple days. He denies any injury. No loss of bowel or bladder. No saddle anesthesia. No numbness or tingling. No pains in legs. No dysuria hematuria or urgency or frequency. No fevers. No nausea vomiting. No history kidney stones. No abdominal pain. No previous belly surgeries. Has not tried anything for her symptoms. Pain is worse with movement. - History of Current Complaint Chief Complaint: EDBackInjuryPain Stated Complaint: BACK PAIN Time Seen by Provider: 03/14/18 14:28 Pain Intensity: 6 - Allergies/Home Medications Allergies/Adverse Reactions: Allergies Allergy/AdvReac Type Severity Reaction Status Date / Time amoxicillin Allergy Vomiting Verified 03/14/18 14:15 clavulanic acid Allergy Vomiting Verified 03/14/18 14:15 mushroom Allergy Airway Verified 03/14/18 14:15 Obstruction shrimp Allergy Hives Verified 03/14/18 14:15 PMH/Surg Hx/FS Hx/Imm Hx Endocrine/Hematology History: Denies: Hx Diabetes, Hx Thyroid Disease Cardiovascular History: Reports: Hx Hypercholesterolemia, Hx Hypertension, Other Cardiovascular Problems/Disorders - HYPERCHOLESTEMIA; varicose veins issues - wears compression stockings Denies: Hx Congestive Heart Failure, Hx Pacemaker/ICD Respiratory History: Denies: Hx Asthma, Hx Chronic Obstructive Pulmonary Disease (COPD) GI History: Denies: Hx Ulcer History: Denies: Hx Renal Disease Musculoskeletal History: Reports: Other Musculoskeletal History - Raynaud's Sensory History: Denies: Hx Hearing Aid Neurological History: Reports: Other Neuro Impairments/Disorders - NF Psychiatric History: Denies: Hx Panic Disorder - Immunization History Date of Tetanus Vaccine: UTD Date of Influenza Vaccine: 2012 Infectious Disease History: No Infectious Disease History: Reports: 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 Denies: Hx Clostridium Difficile, Hx Hepatitis, Hx Human Immunodeficiency Virus (HIV), Hx Shingles, Hx Tuberculosis, Hx Known/Suspected VRE, Hx Known/ Suspected VRSA, History Other Infectious Disease, Traveled Outside the [place] in Last 30 Days - Family History Known Family History: Positive: Hypertension - Social History Alcohol Use: Occasionally Hx Substance Use: No Substance Use Type: Reports: None Hx Tobacco Use: Yes Smoking Status (MU): Former Smoker Type: Cigarettes Length of Time of Smoking/Using Tobacco: 2-3 years Review of Systems Negative: Fever Negative: Chest Pain Negative: Shortness Of Breath Negative: Abdominal Pain, Nausea Positive: flank pain. Negative: dysuria All Other Systems Reviewed And Are Negative: Yes Physical Exam Triage Information Reviewed: Yes Vital Signs On Initial Exam: Initial Vitals Temp Pulse Resp BP Pulse Ox 98.2 F 98 18 156/95 96 03/14/18 13:36 03/14/18 13:36 03/14/18 13:36 03/14/18 13:36 03/14/18 13:36 Vital Signs Reviewed: Yes Appearance: Positive: Well-Appearing Skin: Positive: Warm, Dry Head/Face: Positive: Normal Head/Face Inspection Eyes: Positive: Normal, Conjunctiva Clear ENT: Positive: Pharynx normal Respiratory/Lung Sounds: Positive: Clear to Auscultation, Breath Sounds Present Cardiovascular: Positive: Normal, RRR Abdomen Description: Positive: Nontender, Soft, CVA Tenderness (R), Other: - tenderness right side of back Bowel Sounds: Positive: Present Musculoskeletal: Positive: Normal, Strength/ROM Intact - back, Other - neg SLR, good pulses Neurological: Positive: Normal Psychiatric: Positive: Normal Diagnostics - Vital Signs Vital Signs Temp Pulse Resp BP Pulse Ox 03/14/18 13:36 98.2 F 98 18 156/95 96 - Laboratory Lab Results: Lab Results 03/14/18 Range/Units 14:55 Urine Color Yellow Urine Appearance Clear Urine pH 5.0 (5-9) Ur Specific Bruner 1.021 (1.010-1.030) Urine Protein Negative (Negative) Urine Ketones Negative (Negative) Urine Blood Negative (Negative) Urine Nitrate Negative (Negative) Urine Bilirubin Negative (Negative) Urine Urobilinogen Negative (Negative) Ur Leukocyte Esterase Negative (Negative) Urine Glucose Negative (Negative) Lab Statement: Any lab studies that have been ordered have been reviewed, and results considered in the medical decision making process. - CT abd CT Interpretation: No Acute Changes CT Interpretation Completed By: Radiologist Back Pain Course/Dx - Course Course Of Treatment: 37-year-old male presents with right-sided flank pain for the past couple days. He denies any injury. No loss of bowel or bladder. No saddle anesthesia. No numbness or tingling. No pains in legs. No dysuria hematuria or urgency or frequency. No fevers. No nausea vomiting. No history kidney stones. No abdominal pain. No previous belly surgeries. Has not tried anything for her symptoms. Pain is worse with movement. on exam has tenderness right side of lower back. urine normal. CT normal. nontender abd. will treat with muscle relaxer. patient understand and agrees with plan. - Diagnoses Differential Diagnosis/HQI/PQRI: Positive: Herniated Disc, Strain, Sprain Provider Diagnoses: Back pain Discharge - Sign-Out/Discharge Documenting (check all that apply): Patient Departure - Discharge Plan Condition: Good Disposition: HOME Prescriptions: Cyclobenzaprine TAB* [Flexeril 10 MG TAB*] 10 mg PO TID PRN #21 tab PRN Reason: Pain Patient Education Materials: Back Pain (ED) Forms: *Work Release Referrals: Rekha Nassar MD [Primary Care Provider] - Additional Instructions: Take muscle relaxers three times a day Use ibuprofen or Tylenol for pain every 6 hours ice/heat area, move as much as possible Follow up with primary within 5 days Return to ED if develop any new or worsening symptoms - Billing Disposition and Condition Condition: GOOD Disposition: Home
[2018-03-14 16:24] VITALS: BP 127/74
== END 2018-03-14 16:22 | disposition home or self-care (01) ==
LOC: ED 13:23
DX: M54.5 Low back pain (principal); Z87.891 Personal history of nicotine dependence; Z88.3 Allergy status to other anti-infective agents; Z88.8 Allergy status to other drugs, medicaments and biological substances
CPT/HCPCS: 74176; 81003; 96372; 99282; A9270-GY; J1885

== ENCOUNTER 2018-04-25 10:10 | Emergency (ER) | payer OTHER, MEDICAID ==
--- NOTE | 2018-04-25 11:34 | ED ---
Lower Extremity - HPI Summary HPI Summary: Patient is a 38-year-old male who presents emergency department for ongoing right foot pain times roughly once 2 weeks. Patient does not recall any specific injuries or falls. 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 Pain is worse with ambulation and better with rest. Symptoms are mild in severity. - History of Current Complaint Chief Complaint: EDExtremityLower Stated Complaint: RT FOOT PAIN Time Seen by Provider: 04/25/18 11:06 Hx Obtained From: Patient Pain Intensity: 8 - Allergies/Home Medications Allergies/Adverse Reactions: Allergies Allergy/AdvReac Type Severity Reaction Status Date / Time amoxicillin Allergy Vomiting Verified 03/14/18 14:15 clavulanic acid Allergy Vomiting Verified 03/14/18 14:15 mushroom Allergy Airway Verified 03/14/18 14:15 Obstruction shrimp Allergy Hives Verified 03/14/18 14:15 PMH/Surg Hx/FS Hx/Imm Hx Previously Healthy: Yes Endocrine/Hematology History: Denies: Hx Diabetes, Hx Thyroid Disease Cardiovascular History: Reports: Hx Hypercholesterolemia, Hx Hypertension, Other Cardiovascular Problems/Disorders - HYPERCHOLESTEMIA; varicose veins issues - wears compression stockings Denies: Hx Congestive Heart Failure, Hx Pacemaker/ICD Respiratory History: Denies: Hx Asthma, Hx Chronic Obstructive Pulmonary Disease (COPD) GI History: Denies: Hx Ulcer History: Denies: Hx Renal Disease Musculoskeletal History: Reports: Other Musculoskeletal History - Raynaud's Sensory History: Denies: Hx Hearing Aid Neurological History: Reports: Other Neuro Impairments/Disorders - NF Psychiatric History: Denies: Hx Panic Disorder - Immunization History Date of Tetanus Vaccine: UTD Date of Influenza Vaccine: 2012 Infectious Disease History: No Infectious Disease History: Reports: 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 Denies: Hx Clostridium Difficile, Hx Hepatitis, Hx Human Immunodeficiency Virus (HIV), Hx Shingles, Hx Tuberculosis, Hx Known/Suspected VRE, Hx Known/ Suspected VRSA, History Other Infectious Disease, Traveled Outside the [place] in Last 30 Days - Family History Known Family History: Positive: Hypertension - Social History Occupation: Employed Full-time Lives: With Family Alcohol Use: Occasionally Hx Substance Use: No Substance Use Type: Reports: None Hx Tobacco Use: Yes Smoking Status (MU): Former Smoker Type: Cigarettes Length of Time of Smoking/Using Tobacco: 2-3 years Review of Systems Positive: Other - pain to right foot All Other Systems Reviewed And Are Negative: Yes Physical Exam Triage Information Reviewed: Yes Vital Signs On Initial Exam: Initial Vitals Temp Pulse Resp BP Pulse Ox 97.6 F 88 18 161/100 98 04/25/18 10:15 04/25/18 10:15 04/25/18 10:15 04/25/18 10:15 04/25/18 10:15 Vital Signs Reviewed: Yes Appearance: Positive: Well-Appearing - Patient lying in bed in no acute distress. Family present., Obese Skin: Positive: Warm, Dry Head/Face: Positive: Normal Head/Face Inspection Eyes: Positive: Normal, EOMI Neck: Positive: Supple Musculoskeletal: Positive: Other - Small numerous noninfected looking wounds noted to right lower leg. No calf tenderness or swelling. Pain on palpation over the plantar aspect at the heel. Neurological: Positive: Normal, CN Intact II-III Psychiatric: Positive: Affect/Mood Appropriate Diagnostics - Vital Signs Vital Signs Temp Pulse Resp BP Pulse Ox 04/25/18 10:15 97.6 F 88 18 161/100 98 - Laboratory Lab Statement: Any lab studies that have been ordered have been reviewed, and results considered in the medical decision making process. Lower Extremity Course/Dx - Course Course Of Treatment: Pt. presenting for ongoing right foot pain. Xray obtained to r/o stress fx. Heel spur noted. Radiology read shows mild edema without fx. Results discussed. Advised pt. to f.u with ortho. Ice and elevate. Tylenol or Motrin for pain as directed. Supportive footwear. Pt. understands and agrees with plan. - Diagnoses Differential Diagnosis/HQI/PQRI: Positive: Contusion, Fracture (Closed), Sprain , Strain Provider Diagnoses: Heel spur, Strain of foot Discharge - Sign-Out/Discharge Documenting (check all that apply): Patient Departure - Discharge Plan Condition: Good Disposition: HOME Patient Education Materials: Foot Sprain (ED), Heel Spur (ED) Referrals: Rekha Nassar MD [Primary Care Provider] - Joni Law MD [Medical Doctor] - Additional Instructions: Schedule a follow up appointment with orthopedics Ice and elevate Tylenol or Motrin for pain as directed Wear supportive foot wear Return to ER if symptoms change or worsen - Billing Disposition and Condition Condition: GOOD Disposition: Home
--- NOTE | 2018-04-25 12:18 | RAD ---
Indication: Right foot pain. 3 views of the right foot are reviewed. No fracture is noted. Soft tissue swelling is noted medially. IMPRESSION: Soft tissue swelling medially in the foot without fracture.
[2018-04-25 12:35] VITALS: BP 150/93
== END 2018-04-25 12:34 | disposition home or self-care (01) ==
LOC: ED 10:10
DX: S96.911A Strain of unspecified muscle and tendon at ankle and foot level, right foot, initial encounter (principal); X58.XXXA Exposure to other specified factors, initial encounter; Y92.9 Unspecified place or not applicable; M77.9 Enthesopathy, unspecified; Z88.3 Allergy status to other anti-infective agents; Z88.8 Allergy status to other drugs, medicaments and biological substances; Z87.891 Personal history of nicotine dependence
CPT/HCPCS: 99281

== ENCOUNTER 2018-05-02 20:29 | Emergency (ER) | payer OTHER, MEDICAID ==
--- OUTSIDE RECORDS SUMMARY | 2018-05-02 20:44 | XMS REPORT ---
:1980 External Reference #:[id number] Author Organization [facility] Address [address] [place] [address] [place] [address] Phone [phone] Care Team Providers Name Role Phone Rekha Nassar MD Primary Care Physician Unavailable Payers Type Date Identification Numbers Payment Provider Subscriber Commercial Policy Number: [id number] [employer] Alex Payan PayID: [id number] [address] [place] [address] Medigap Part B Effective: 2013 Policy Number: [id number] Medicaid Alex Payan Group Name: 1 1 [address] PayID: [id number] [place] [address] Problems Description No Information Social History Type Date Description Comments Marital Status Lives With Family Occupation [employer] ETOH Use Rarely consumes alcohol Smoking Patient is a former smoker Recreational Drug Use Denies Drug Use Exercise Type/Frequency Does not exercise Allergies, Adverse Reactions, Alerts Date Description Reaction Status Severity Comments 10/09/2017 Mushrooms active 10/09/2017 Shrimp Allergenic Extract active 10/09/2017 Amoxicillin / Clavulanate active Medications Medication Date Status Form Strength Qnty SIG Indications Ordering Provider Ibuprofen Active Tablets 800mg by mouth Unknown /0000 three times a day as needed Amlodipine Active Tablets 10mg 1 by mouth Unknown Besylate /0000 every day Atorvastatin Active Tablets 20mg take 1 Unknown Calcium /0000 tablet at bedtime Xyzal Allergy 24HR 00/ Active Unknown /0000 Hydrochlorothiazid 0000 Active Unknown e /0000 Clindamycin HCL Hx Capsules 300mg Unknown /0000 Silver 00 Hx Cream 1% . Unknown Sulfadiazine /0000 - 04/29 Meclizine HCL Hx Tablets 25mg 1 tablet Unknown /0000 every 8 hours as needed Chlorhexidine Hx Solution 0.12% swish and Unknown Gluconate / spit 15 - milliliters 04/29 twice a day until resolution of symptoms Oxycodone-Acetamin Hx Tablets 5-325mg 1-2 tabs by Unknown ophen / mouth every - 4-6 hours 04/29 as needed for pain Vital Signs Date Vital Result Comment 04/30/2018 Height 75 inches 6'3" Weight 406.00 lb Heart Rate 100 /min Respiratory Rate 22 /min Body Temperature 98.0 F Pain Level 5 BMI (Body Mass Index) 50.7 kg/m2 10/09/2017 Height 75 inches 6'3" Weight 380.00 lb Heart Rate 76 /min BP Systolic 156 mmHg BP Diastolic 98 mmHg Respiratory Rate 18 /min Body Temperature 98.1 F BMI (Body Mass Index) 47.5 kg/m2 Results Description No Information Procedures Date CPT Code Description Status 12/06/2013 22752 Removal Devitalization Tissue Wound Less Than Equal 20 Completed Square CM 11/15/2013 80479 Removal Devitalization Tissue Wound Less Than Equal 20 Completed Square CM 10/21/2013 80498 Holter Monitor Review (24 hr)dr eller & interp only Completed Encounters Type Date Location Provider CPT E/M Dx Office Visit 04/30/2018 [facility] [place] [address] M72.2 9:30a C.M.ANilo Office Visit 10/09/2017 [facility], [address] K80.20 2:15p Elio FLOREZ Office Visit 01/05/2014 [facility] [place], [address] 707.19 10:49a TYRONE Berg 459.31 Office Visit 12/29/2013 11:12a [facility] [address] 707.19 TYRONE Berg 459.31 Office Visit 12/22/2013 10:34a [facility] [place], [address] 707.19 TYRONE Berg 459.31 Office Visit 12/13/2013 10:06a [facility] [place], [address] 707.19 [facility] Otis 459.31 Office Visit 11/29/2013 3:25p [facility] [place], [address] 707.19 [facility] Otis 459.31 457.1 Office Visit 11/22/2013 12:27p [facility] [place], [address] 707.19 [facility] tOis 459.31 457.1 Office Visit 11/08/2013 12:30p [facility] [place], [address] 707.19 [facility] Otis 681.11 Plan of Care Future Appointment(s):06/11/2018 10:00 am - Albino Suggs MD at [facility].04/30/2018 - Alb[facility] Suggs, MDM72.2 Plantar fascial fibromatosisFollow up:Follow Up: 6 weeks Patient education
--- NOTE | 2018-05-02 21:09 | ED ---
Complex/Multi-Sys Presentation - HPI Summary HPI Summary: This patient is a 38 year old M presenting to [facility] with a concern for possible adverse drug reaction. Pt was prescribed Bactrim for a small sore on his foot 3 days ago and states since then he has developed bilateral neck pain and RODRIGUEZ that have been getting worse since. The patient rates the pain 8/10 in severity. Patient reports mildly labored breathing. Patient denies rash, SOB, sore throat , and fever. - History Of Current Complaint Chief Complaint: EDAllergicReaction Hx Obtained From: Patient Onset/Duration: Lasting Days, Still Present, Worse Since Timing: Constant Severity Currently: Mild Severity Initially: Mild Location: Pain At: - neck and head Associated Signs And Symptoms: Positive: Headache. Negative: SOB - Allergies/Home Medications Allergies/Adverse Reactions: Allergies Allergy/AdvReac Type Severity Reaction Status Date / Time amoxicillin Allergy Vomiting Verified 05/02/18 20:38 clavulanic acid Allergy Vomiting Verified 05/02/18 20:38 mushroom Allergy Airway Verified 05/02/18 20:38 Obstruction shrimp Allergy Hives Verified 05/02/18 20:38 PMH/Surg Hx/FS Hx/Imm Hx Endocrine/Hematology History: Denies: Hx Diabetes, Hx Thyroid Disease Cardiovascular History: Reports: Hx Hypercholesterolemia, Hx Hypertension, Other Cardiovascular Problems/Disorders - HYPERCHOLESTEMIA; varicose veins issues - wears compression stockings Denies: Hx Congestive Heart Failure, Hx Pacemaker/ICD Respiratory History: Denies: Hx Asthma, Hx Chronic Obstructive Pulmonary Disease (COPD) GI History: Denies: Hx Ulcer History: Denies: Hx Renal Disease Musculoskeletal History: Reports: Other Musculoskeletal History - Raynaud's Sensory History: Denies: Hx Hearing Aid Neurological History: Reports: Other Neuro Impairments/Disorders - NF Psychiatric History: Denies: Hx Panic Disorder - Immunization History Date of Tetanus Vaccine: UTD Date of Influenza Vaccine: 2012 Infectious Disease History: No Infectious Disease History: Reports: 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 Denies: Hx Clostridium Difficile, Hx Hepatitis, Hx Human Immunodeficiency Virus (HIV), Hx Shingles, Hx Tuberculosis, Hx Known/Suspected VRE, Hx Known/ Suspected VRSA, History Other Infectious Disease, Traveled Outside the [place] in Last 30 Days - Family History Known Family History: Positive: Hypertension - Social History Alcohol Use: Occasionally Hx Substance Use: No Substance Use Type: Reports: None Hx Tobacco Use: Yes Smoking Status (MU): Former Smoker Type: Cigarettes Length of Time of Smoking/Using Tobacco: 2-3 years Review of Systems Negative: Fever Positive: Other - neck pain Positive: Headache All Other Systems Reviewed And Are Negative: Yes Physical Exam - Summary Physical Exam Summary: Appearance: Well-appearing, Well-nourished, lying in bed comfortably Skin: Warm, dry, multiple caf ole spots Eyes: sclera anicteric, no conjunctival pallor ENT: mucous membranes moist, pharynx appears normal Neck: Supple, nontender Respiratory: Clear to auscultation, no signs of respiratory distress Cardiovascular: Normal S1, S2. No murmurs. Normal distal pulses in tibial and radial bilaterally. Abdomen: Soft, nontender, normal active bowel sounds present Musculoskeletal: Normal, Strength/ROM Intact Neurological: A&Ox3, awake and alert, mentation is normal, speech is fluent and appropriate Psychiatric: affect is normal, does not appear anxious or depressed Triage Information Reviewed: Yes Vital Signs On Initial Exam: Initial Vitals Temp Pulse Resp BP Pulse Ox 98.7 F 101 20 119/85 96 05/02/18 20:35 05/02/18 20:35 05/02/18 20:35 05/02/18 20:35 05/02/18 20:35 Vital Signs Reviewed: Yes Diagnostics - Vital Signs Vital Signs Temp Pulse Resp BP Pulse Ox 05/02/18 20:35 98.7 F 101 20 119/85 96 - Laboratory Lab Statement: Any lab studies that have been ordered have been reviewed, and results considered in the medical decision making process. Complex Multi-Symp Course/Dx Assessment/Plan: This patient is a 38 year old M presenting to [facility] with a concern for possible adverse drug reaction. Pt was prescribed Bactrim for a small sore on his foot 3 days ago and states since then he has developed bilateral neck pain and RODRIGUEZ that have been getting worse since. The patient rates the pain 8/10 in severity. Patient reports mildly labored breathing. Patient denies rash, SOB, sore throat, and fever. Pt was instructed to stop Bactrim because I dont think it is essential because his wound is healing and does not appear infected. I suspect the patient is developing an illness that may be causing his sx . Patient will be discharged. The patient is agreeable with this plan. - Diagnoses Provider Diagnoses: Neck pain Discharge - Sign-Out/Discharge Documenting (check all that apply): Patient Departure - Discharge Plan Condition: Good Disposition: HOME Patient Education Materials: Neck Pain (ED) Referrals: Rekha Nassar MD [Primary Care Provider] - Additional Instructions: The symptoms you are describing are not typical for a reaction to Bactrim, but I don't believe an coincidences I think it is reasonable to stop the Bactrim in case it is the offending agent. I do not think that the indication for the Bactrim is so compelling as to mandate substitution of another antibiotic, as that could potentially muddy the picture further. If her symptoms progress or worsen, or you develop new symptoms that are concerning, you can always return here. - Billing Disposition and Condition Condition: GOOD Disposition: Home - Attestation Statements Document Initiated by Esau: Yes Documenting Scribe: Laurent Rabago Provider For Whom Esau is Documenting (Include Credential): Montez Pabon MD Scribe Attestation: ILaurent , scribed for Montez Pabon MD on 05/03/18 at 0209. Scribe Documentation Reviewed: Yes Provider Attestation: The documentation as recorded by the Laurent wallace accurately reflects the service I personally performed and the decisions made by me, Montez Pabon MD
[2018-05-02 21:24] VITALS: BP 127/75
== END 2018-05-02 21:23 | disposition home or self-care (01) ==
LOC: ED 20:29
DX: M54.2 Cervicalgia (principal); E78.00 Pure hypercholesterolemia, unspecified; I10 Essential (primary) hypertension
CPT/HCPCS: 99282

== ENCOUNTER 2018-05-31 19:11 | Emergency (ER) | payer OTHER, MEDICAID ==
--- OUTSIDE RECORDS SUMMARY | 2018-05-31 19:43 | XMS REPORT ---
:1980 External Reference #:[id number] Author Organization [facility] Address [address] [place] [address] Phone [phone] Care Team Providers Name Role Phone Rekha Nassar M.D. Care Team Information Facing Baster Jumpbasting Unavailable Rekha Nassar M.D. Primary Care Physician Unavailable Payers Type Date Identification Numbers Payment Provider Subscriber Health Maintenance Effective: Policy Number: [place] [facility] [place] 08/17/2012 [id number] [facility] Group Number: [id number] [id number] Group Name: [place] [id number] PayID: [id number] Medicaid Effective: 01/15/2014 Policy Number: [id number] Medicaid [place] Alex Keen Ora PayID: [id number] [id number] [facility] [place] [address] Problems Date Description Provider Status Onset: 11/01/2013 Peripheral venous insufficiency Ubaldo Donaldson M.D. Active Onset: 02/13/2015 Essential hypertension Milan Garcia M.D. Active Onset: 02/13/2015 Hyperlipidemia Milan Garcia M.D. Active Onset: 12/04/2015 Mixed hyperlipidemia Rekha Nassar M.D. Active Onset: 05/09/2016 Neurofibromatosis, type 1 Rekha Nassar M.D. Active Onset: 05/09/2016 Morbid obesity Rekha Nassar M.D. Active Onset: 12/23/2016 Concussion with no loss of Johnny Alex Garnett M.D. Active consciousness Family History Date Family Member(s) Problem(s) Comments General No immediate family members with early NE or CVA. No immediate family history of colon, breast, ovarian, cervical or prostate cancer. Father Diabetes Mellitus, II : (2011) Mother due to Intestinal obstruction Social History Type Date Description Comments Marital Status Patient is Living Situation Lives with spouse, son and daughter Diet Excessive intake of fats and sweets. 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 Cigarette Use Nonsmoker ETOH Use Denies alcohol use Smoking nonsmoker Daily Caffeine Consumes on average 2 sodas per day Exercise Type/Frequency Current Does not exercise Allergies, Adverse Reactions, Alerts Date Description Reaction Status Severity Comments 11/10/2003 Augmentin active 09/01/2005 Shellfish active 07/18/2010 Mushrooms active Throat Closing Medications Medication Date Status Form Strength Qnty SIG Indications Ordering Provider Xyzal Allergy 24HR 11/18 Active Tablets 5mg 30tab one by H69.93 Carmenza Arcelia /2017 s mouth Ball, daily CUSTOMS COMPLIANCE DIRECTOR Compression 10/31 Active 30-40mm 2unit to knee, Rekha Stockings /2017 HG s wear as Keo, needed M.D. please provide size to patient that fits Hydrochlorothiazid 08/03 Active Capsules 12.5mg 90cap 1 by mouth I10 Carmenza Arcelia e s every day KRISSY Ball Ibuprofen 03/08 Active Tablets 800mg 90tab 1 by mouth J30.2 s q8 hours Keo, three M.D. 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 11/11 day x days Benzonatate 08/06 Hx Capsules 200mg 30cap 1 by mouth R05 s three Luly, - times a Afnp-C 08/16 day needed for cough Guaifenesin-Codein 08/06 Hx Syrup 100-10mg/ 120ml 1-2 R05 5ML teaspoon Luly, - every at Afnp-C 08/13 bedtime needed for cough Meclizine HCL 05/09 Hx Tablets 25mg 60tab 1 tab by s mouth Keo, - every 6 M.D. 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 day; may take off at night. Naproxen 12/04/2015 - Hx Tablets 500mg 60tabs take 1 tablet M72.2 Rekha 05/09/2016 every 12 hours Keo, as needed with M.D. food Compression 12/04/2015 - Hx 20mm 1Pair use as M72.2 Rekha Stockings 01/15/2016 directed; wear Keo, during day; M.D. can take off at night Medrol (Gómez) 09/25/2015 - Hx Tablets 4mg 1pk take as M25.571 Fatuma 10/02/2015 directed, with Hiliaorf, food and water Afnp-C Sulfamethoxazole/ 07/18/2015 - [...] Tablets 10mg 30tabs 1 by mouth 724.2 Milanmelany Garcia, HCL 05/31/2015 three times a M.D. day as needed Hydrocodone-Aceta 02/13/2015 - Hx Tablets 5-325m 40tabs 1 every 6 724.2 Milan Garcia, minophen 05/31/2015 g hours as M.D. needed Azithromycin 10/01/2014 - Hx Tablets 250mg 6tabs 2 by mouth Yovanny A. 10/06/2014 today then 1 Guerda, by mouth every M.D. day x 4 days Out Of Work 10/01/2014 - Hx out of work 465.9 Mavis 10/03/2014 due to illness Brown, CUSTOMS COMPLIANCE DIRECTOR 10/02 & 10/03/14 Lidocaine Viscous 09/30/2014 - Hx Solution 2% 100ml 08/19 lidocaine, 462 Ania 05/31/2015 1/3 Luly, benadryl,/3 Afnp-C maalox, 1 teaspoon of each, swish, gargle and spit out every 2-4 hours Amlodipine 07/21/2014 - Hx Tablets 5mg 30tabs 1 by mouth 729.5 Christine Besylate 02/13/2015 every day Leslee, HAT STOCK LAMINATING MACHINE OPERATOR Compression 11/01/2013 - Hx 20mm 1units one pair - 459.81 Ubaldo Villar 02/13/2015 HG sacha Donaldson M.D. 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 return to work until Thursday, 2\\12\\14 Sulamyd Opthalmic 03/13/2012 - Hx 10% 1Bottle 1-2 gtts into 372.00 Fatuma gtts 03/20/2012 affected eye Susie, q4hrs w/a Afnp-C until clear, then continue 1 more day do not exceed 1 week use Cephalexin 12/17/2011 - Hx Tablets 500mg 30tabs 1 tab tid x 10 462 Christine 03/13/2012 days Leslee, HAT STOCK LAMINATING MACHINE OPERATOR Out Of Work 12/17/2011 - Hx seen in this 462 [facility] 03/14/2012 office today, Susie, pa for work Afnp-C return 03/14/12 Out Of Work 07/18/2010 - Hx out of work 465.9 Ania 07/21/2010 today due to Luly, illness Afnp-C Cephalexin 12/05/2009 - Hx Tablets 500mg 24tabs 1 po tid Fatuma 12/13/2009 Malcom Richards-C Ciloxan 11/13/2009 - Hx Solution 0.3% 15cc 2 gtt affected 372.30 Christine 07/18/2010 eye(s) tid for Leslee, 2d then bid 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 Out Of Work 12/08/2006 - Hx out [...] Apply To Xiomara 10/22/2007 Affected Area von Daily Otis Toro Entex Pse 10/20/2006 - Hx Tablets 600mg; 20tabs 1 PO Q12 Hours 465.8 Xiomara 10/22/2007 120 mg prn Head von Congestion Otis Toro Keflex 04/25/2006 - Hx Tablets 500 40tabs 1 PO qid For Riley J. 05/05/2006 10D Otis Donahue Coenzyme Q10 09/01/2005 - Hx 50mg 1 PO qd Riley J. 10/22/2007 Otis Donahue Zithromax 08/16/2005 - Hx Tablets 250mg 1tabs 2 PO qd Today Johnny FNilo 08/16/2005 , Then 1 PO qd Tamir, Ricki 4 M.DNilo Ketalessandra 08/16/2005 - Hx Tablets 400mg 6tabs 2 PO qd Johnny F. 08/23/2005 Otis Garnett Keflex 06/30/2005 - Hx Capsules 500mg 20caps 1 PO bid Isaiah TNilo 08/16/2005 Otis Soriano Note 11/13/2004 - Hx alex was seen Christine 02/04/2005 by me 3\\28\\05 lavon Camilo bronchitis HAT STOCK LAMINATING MACHINE OPERATOR Biaxin XL 11/11/2004 - Hx 500mg 14units 2 PO qd Christine 02/04/2005 BRYN Camilo Lipitor 10/01/2004 - Hx 20mg 15units 1 po qhs 272.4 Christine 04/17/2012 BRYN Camilo Lipitor 06/04/2004 - Hx 40mg 90units 1 po qhs Riley J. 10/01/2004 Otis Donahue Cortisporin Otic 05/28/2004 - Hx 1Bottle 4-5 gtts into 380.22 Christine Susp 07/18/2010 r ear qid Leslee, until clear HAT STOCK LAMINATING MACHINE OPERATOR Z-Pack 03/26/2004 - Hx 1 1units as Dir Riley Garcia 03/31/2004 Otis Donahue Ziac 11/10/2003 - Hx 10mg 90units 1 qd Riley Garcia 09/27/2004 Otis Donahue Bactrim DS - Hx Tablets 800-16 42tabs use bid Unknown 07/21/2014 0mg Meclizine HCL - Hx Tablets 12.5mg 2 by mouth Rekha 05/09/2016 three times a Keo, day as needed Otis Naproxen - Hx Tablets 500mg 1 by mouth Unknown 08/03/2017 twice a day with food Silvadene - Hx Cream 1% use daily Unknown 08/03/2017 Naproxen - Hx Tablets 500mg 1 by mouth Unknown 11/12/2017 twice a day with food Immunizations CPT Code Status Date Vaccine Lot # [id number] Given 05/07/2017 Influenza Vac, Quadriv[place], [place] [id number] Given 05/09/2016 Influenza Vac, Quadrivalent, Slit Virus, Im [id number] Given 04/27/2015 Influenza Vac, [place]riv[place] [address] Given 04/27/2015 DO Not Use Split Influenza Virus Vaccine [id number] Given 06/17/2014 DO Not Use Split Influenza Virus Vaccine Vital Signs Date Vital Result Comment 05/18/2018 BP Systolic 130 mmHg BP Diastolic 78 mmHg Heart Rate 84 /min Body Temperature 97.9 F Respiratory Rate 18 /min Height 75 inches 6'3" Weight 409.00 lb BMI (Body Mass Index) 51.1 kg/m2 01/01/2018 BP Systolic 144 mmHg BP Diastolic [...] Test Date Test Result H/L Range Note Urinalysis Profile 03/14/2018 Urine Color Yellow Urine Appearance Clear Urine Specific Nenzel 1.021 1.010-1.030 Urine pH 5.0 5-9 Urine Urobilinogen Negative Negative Urine Ketones Negative Negative Urine Protein Negative Negative Urine Leukocytes Negative Negative Urine Blood Negative Negative Urine Nitrite Negative Negative Urine Bilirubin Negative Negative Urine Glucose Negative Negative Urinalysis Profile 10/07/2017 Urine Color Yellow Urine Appearance Clear Urine Specific Nenzel 1.017 1.010-1.030 Urine pH 5.0 5-9 Urine Urobilinogen Negative Negative Urine Ketones Trace Negative Urine Protein Negative Negative Urine Leukocytes Negative Negative Urine Blood Negative Negative Urine Nitrite Negative Negative Urine Bilirubin Negative Negative Urine Glucose Negative Negative Laboratory test finding 10/07/2017 Lactic Acid 0.9 mmol/L 0.5-2.0 1 Comp Metabolic Panel 10/07/2017 Sodium 136 mmol/L [...] Egfr Non- 126.3 >60 Egfr 162.4 >60 2 Laboratory test finding 10/07/2017 Lipase 11 U/L 11.0-82.0 C Reactive Protein 21.95 mg/L High < 5.00 3 Troponin I 0.01 ng/mL <0.04 CBC Auto Diff 10/07/2017 White Blood Count [...] Cells % 0.3 Laboratory test finding 10/07/2017 Blood Culture SEE RESULT BELOW 4 Comprehensive Metabolic Prof 07/21/2017 Sodium 135 mEq/L [...] 7.1 x10^3/UL 1.5-7.2 Lymph# 1.7 x10^3/UL 0.7-4.9 Bee# 0.4 x10^3/UL 0.1-0.9 Gran % 76.1 % High 42.2-75.2 Lymph % 18.9 % Low 20.5-51.1 Bee% 5.0 % 1.7-9.3 CBC Auto Diff 05/04/2016 [...] 0-2 Nucleated Red Blood Cells % 0 Urinalysis Profile 05/04/2016 Urine Color Yellow Urine Appearance Clear Urine Specific Nenzel 1.024 1.010-1.030 Urine pH 6.0 5-9 Urine Urobilinogen Negative Negative Urine Ketones Negative Negative Urine Protein Negative Negative Urine Leukocytes Negative Negative Urine Blood Negative Negative Urine Nitrite Negative Negative Urine Bilirubin Negative Negative Urine Glucose Negative Negative Laboratory test finding 05/04/2016 Troponin I 0.00 ng/mL <0.03 5 Comp Metabolic Panel 05/04/2016 Sodium 136 mmol/L [...] Egfr Non- 110.7 >60 Egfr 142.3 >60 6 Complete Blood Count 04/29/2016 WBC 10.0 x10^3/UL High 3.6-9.6 RBC 5.05 x10^6/UL 3.90-5.70 HGB 14.0 g/dL 12.1-17.2 HCT 42 % 36-50 MCV 83.0 fL 82.2-97.4 MCH 27.7 pg 27.6-33.3 MCHC 33.5 g/dL 33.0-35.5 RDW 14.0 % High 11.6-13.7 PLT 232 x10^3/UL 150-400 MPV 8.1 fL 7.4-10.4 Gran # 7.5 x10^3/UL High 1.5-7.2 Lymph# 1.9 x10^3/UL 0.7-4.9 Bee# 0.6 x10^3/UL 0.1-0.9 Gran % 74.8 % 42.2-75.2 Lymph % 19.1 % Low 20.5-51.1 Bee% 6.1 % 1.7-9.3 Lipid Profile 04/29/2016 Cholesterol 131 mg/dL 120-200 Triglycerides 92 mg/dL 30-200 HDL Cholesterol 34 mg/dL 30-70 LDL (Calculated) 79 CALC 0-129 VLDL Cholesterol 18 mg/dL 0-50 HDL Risk Factor 3.9 CALC 0.0-4.4 Comprehensive Metabolic Prof 04/29/2016 Sodium 138 mEq/L [...] >60 ml/min/1.73m^ >=60 GFR >60 ml/min/1.73m^ >=60 Laboratory test finding 01/10/2016 Rapid Strep Molecular Negative Negative 7 Rapid Strep A SEE RESULT BELOW 8 Rapid Influenza A & B Antigen 10/19/2015 Influenza A Molecular NEGATIVE Negative 9 Influenza B Molecular NEGATIVE Negative Laboratory test 10/19/2015 Rapid Strep A SEE RESULT BELOW 10 finding Rapid Influenza A & B 10/19/2015 Influenza A NEGATIVE Negative 11 Antigen Molecular Influenza B Molecular NEGATIVE Negative Laboratory test finding 10/19/2015 Rapid Strep Molecular Negative Negative 12 Throat Beta Strep Culture SEE RESULT BELOW 13 Urinalysis Profile 08/06/2015 Urine Color Yellow Urine Appearance Clear Urine Specific Nenzel 1.015 1.010-1.030 Urine pH 7.0 5-9 Urine Urobilinogen Negative Negative Urine Ketones Negative Negative Urine Protein Negative Negative Urine Leukocytes Negative Negative Urine Blood Negative Negative Urine Nitrite Negative Negative Urine Bilirubin Negative Negative Urine Glucose Negative Negative Laboratory test finding 08/06/2015 Lipase 16 U/L 11.0-82.0 C Reactive Protein 14.45 mg/L High < 5.00 14 Lactic Acid 0.8 mmol/L 0.5-2.0 15 Comp Metabolic Panel 08/06/2015 Sodium 136 mmol/L [...] 6.4 x10^3/UL 1.5-7.2 Lymph# 2.2 x10^3/UL 0.7-4.9 Bee# 0.7 x10^3/UL 0.1-0.9 Gran % 67.6 % 42.2-75.2 Lymph % 24.3 % 20.5-51.1 Bee% 8.1 % 1.7-9.3 Laboratory test finding 09/30/2014 [...] 7.1 x10^3/UL 1.5-7.2 Lymph# 1.7 x10^3/UL 0.7-4.9 Bee# 0.4 x10^3/UL 0.1-0.9 Gran % 76.6 % High 42.2-75.2 Lymph % 19.0 % Low 20.5-51.1 Bee% 4.4 % 1.7-9.3 Influenza A&B 09/26/2013 Influenza [...] - Beta Strep Fma negative@48hrs CBC Electronic (a) 07/17/2011 WBC 9.9 High 3.6-9.6 RBC 5.42 [...] Color YELLOW Yellow Appearance-Urine CLEAR Clear Specific Nenzel-Ur 1.021 1.010-1.030 Esterase-Urine NEGATIVE Negative Nitrite NEGATIVE Negative Kucwpwtlknfi-Do-OBO NEGATIVE Negative Protein-Urine NEGATIVE Negative PH-Urine 6.0 [...] Color YELLOW Yellow Appearance-Urine CLEAR Clear Specific Nenzel-Ur 1.024 1.010-1.030 Esterase-Urine NEGATIVE Negative Nitrite NEGATIVE Negative Sjonvmeumkde-No-CIO NEGATIVE Negative Protein-Urine NEGATIVE Negative PH-Urine 5.5 5-9 Blood-Urine NEGATIVE Negative Ketones-Urine NEGATIVE Negative Bilirubin-Ur NEGATIVE Negative Glucose-Urine NEGATIVE Negative Ua - Non Micro (Fma) 07/31/2009 Appearance clear Color yellow Glucose neg Bilirubin neg Ketones neg SP Grav 1.025 Blood neg PH 5.5 Protein neg Urobil 0.2 Nitrite neg Leukocytes ([facility]) neg Hepatic 12/07/2008 Albumin 4.3 g/dL 3.8-5.5 [...] g/dL 3.8-5.5 42 Alk. Phos. 88 U/L -95 42 Alt (SGPT) 60 U/L High 10-40 [...] Beta Strep Fma NEG @ 48 HOURS Lipid Profile 10/16/2006 Cholesterol 150 mg/dL 120-200 42 HDL 35 mg/dL 30-70 42 Triglycerides 118 mg/dL 30-200 42 HDL Risk Factor 4.3 CALC 4.2-7.0 42 LDL (Calculated) 91 CALC 0-129 42 VLDL (Calculated) 24 mg/dL 0-50 42 Comprehensive Metabolic Prof 10/16/2006 Albumin 4.4 g/dL [...] 42 BUN/Creat Ratio 16.0 Calc 8.0-36.0 42 Ua - Non Micro (a New) 09/01/2005 Appearance CLEAR Color LT YELLOW Glucose NEG Bilirubin NEG Ketones NEG SP Grav 1.010 Blood NEG PH 6.0 Protein NEG g/dL Low 6.3-8.1 Urobil 0.2 Nitrite NEG Leukocytes NEG Lipid Profile(a) Male 09/01/2005 Cholesterol 135 mg/dL 120-200 Triglyceride 130 mg/dL 30-200 HDL Cholesterol (a) Male 38 mg/dL 30-70 LDL, Calculated (Fma/CMC) 71 CALC 0-129 LDL Direct (FM/CMC/[facility]) - mg/dL 0-130 VLDL 26 0-50 HDL Risk Factor (Fma) 3.5 CALC Low 4.2-7.0 Comp Metabolic (a) Male 09/01/2005 Glucose, Serum (Fma/CMC/CTX) 76 mg/dL 70-105 BUN (Fma/[facility]) 9 mg/dL 6-26 Creatinine (Fma/CMC/CTX) 0.8 mg/dL 0.6-1.4 BUN/Creatinin Ratio 12.2 8.0-36 Sodium 141 134-149 Potassium 4.0 3.6-5.5 Chloride 99 mEq/L 94-112 Co2 30 21-32 Calcium (Fma/[facility]) 9.7 mg/dL 8.6-10.2 Total Protein 7.5 g/dL 6.3-8.1 Albumin (Fma/[facility]) 4.6 3.8-5.5 Globulin 2.9 2.0-4.8 A/G Ratio (Fma/[facility]) 1.6 0.6-2.2 Alk Phos ([facility]) Male 93 U/L 22-95 Alt-M SGPT Male (a) 52 RESULT ANU'D High 10-40 Ast Sgot 25 U/L 5-34 Bilirubin, Total 0.7 mg/dL 0.2-1.3 CBC Electronic ([facility]) 09/01/2005 WBC 7.5 3.6-9.6 Lymphocytes [...] 10^3/ul 150-400 Mean Platelet Volume 8.4 7.4-10.4 Laboratory test finding 08/16/2005 Throat Culture NEG @ 48 HOURS Flu A&B NEGATIVE Negative Liver Function (a) 02/04/2005 Total Protein 8.0 g/dL 6.3-8.1 Albumin ([facility]) 4.5 3.8-5.5 A/G Ratio ([facility]) 1.3 0.6-2.2 Globulin 3.6 2.0-4.8 Alkaline Phosphatase (F/C/CTX) 122 U/L High 22-95 Alt (SGPT) ([facility]) 51 High 7-35 Ast (Sgot) ([facility]) 23 U/mL 5-34 Bilirubin, Total 0.8 mg/dL 0.2-1.3 Bilirubin, Direct 0.4 mg/dL 0-0.6 Bilirubin, Indirect 0.39 ml/dl 0.10-1.0 Lipid Profile([facility]) Male 08/06/2004 Cholesterol 108 mg/dL Low 120-200 45 Triglyceride 90 mg/dL 30-200 HDL Cholesterol ([facility]) Male 28 mg/dL Low 30-70 46 LDL, Calculated ([facility]) 62 CALC 0-129 LDL, Direct - mg/dL 0-130 VLDL 18 0-50 HDL Risk Factor ([facility]) 3.9 CALC Low 4.2-7.0 Liver Function ([facility]) 08/06/2004 Total Protein 7.4 g/dL 6.3-8.1 Albumin ([facility]) 4.4 3.8-5.5 A/G Ratio ([facility]) 1.5 0.6-2.2 Globulin 3.0 2.0-4.8 Alkaline Phosphatase (F/C/CTX) 91 U/L 30-110 Alt (SGPT) 55 High 7-35 47 Ast (Sgot) ([facility]) 23 U/mL 5-34 Bilirubin, Total 0.7 mg/dL 0.2-1.3 Bilirubin, Direct 0.3 mg/dL 0-0.6 Bilirubin, Indirect 0.35 ml/dl 0.10-1.0 Lipid Profile(Fma) Male 05/28/2004 Cholesterol 216 mg/dL High 120-200 Triglyceride 133 mg/dL 30-200 HDL Cholesterol ([facility]ma) Male 30 mg/dL 30-70 LDL, Calculated (Fma/[facility]) 159 CALC High 0-129 LDL, Direct - mg/dL 0-130 VLDL 27 0-50 HDL Risk Factor (Fma) 7.1 CALC High 4.2-7.0 Laboratory test finding 05/17/2004 Throat Culture NEG @ 48 HOURS Glucose/Hgaic Profile 03/27/2004 Glucose, Serum 80 mg/dL 70-118 (Fma/CMC (Fma/CMC/CTX) Hemoglobin A1c (F/C/CTX) 4.6 % 4.1-5.7 Lipid Profile(Fma) Male 03/27/2004 Cholesterol 221 mg/dL High 120-200 Triglyceride 151 mg/dL 30-200 HDL Cholesterol (Fma) Male 40 mg/dL 30-70 LDL, Calculated (Fma/CMC) 150 CALC High 0-129 LDL, Direct - mg/dL 0-130 VLDL 30 0-50 HDL Risk Factor (Fma) 5.5 CALC 4.2-7.0 1 [facility] Severe Sepsis and Septic Shock Management Bundle Measure requires all lactic acids initially measuring >2.0 mmol/L be repeated. 2 Because ethnic data is not always readily [...] 15-29 5 Kidney failure <15 (or dialysis) 3 Acute inflammation: >10.00 4 SEE RESULT BELOW Name: ALEX OBRIEN : [address]: Ruslan Dominguez MD Acct: [id number] Unit: [id number] AGE: 37 Location: ED Re10/07/17 SEX: M Status: DEP ER SPEC: [id number] SELENE: 10/07/[address] [facility] DR: Geoff Maldonado MD REQ: [id number] RECD: 10/07/17 STATUS: KARTIK HILLIARD DR: Rekha Dominguez MD _ SOURCE: BLOOD,VENO SPDESC: ORDERED: Blood Cult Procedure Result Reported Site Aerobic Culture Bottle Final 10/12/172116 ML No Growth Day 5 Anaerobic Culture Bottle Final 10/12/172116 ML No Growth Day 5 * ML - [facility] ([facility]) . END OF REPORT * ML=Testing performed at Main Lab DEPARTMENT OF PATHOLOGY, [address] [place] [address] Denilson Cheney M.D. Director [facility] # [id number] 5 Reference Range and Interpretation: TnI (ng/mL) Interpretation Less Than 0.03 ng/mL Not supportive of diagnosis of NE 0.03 - 0.50 ng/mL Indeterminate: suggest serial studies if clinically indicated. Greater than 0.5 ng/mL Consistent with diagnosis of NE 6 Because ethnic data is not always readily [...] 15-29 5 Kidney failure <15 (or dialysis) 7 Complaint Analyst: [id number] Owens Due to the increased sensitivity of molecular testing, reflex cultures are no longer performed. 8 SEE RESULT BELOW Name: ALEX OBRIEN : [address]: Montez Drake MD Acct: [id number] Unit: [id number] AGE: 35 Location: ED Re01/10/16 SEX: M Status: REG ER SPEC: [id number] SELENE: 01/10/[address]: Montez Drake MD REQ: [id number] RECD: 01/10/16 STATUS: KARTIK HILLIARD DR: Fatuma Richards CUSTOMS COMPLIANCE DIRECTOR _ SOURCE: THROAT SPDESC: ORDERED: Strep A Request Procedure Result Reported Site Rapid Strep A Request Final 01/10/16- 2219 ML Specimen received for Rapid Strep A Molecular testing * ML - MAIN LAB ([facility]) . END OF REPORT * ML=Testing performed at Main Lab DEPARTMENT OF PATHOLOGY, [address] [place] [address] Denilson Cheney M.D. Director [facility] # [id number] 9 Complaint Analyst: [id number] ZACKERY SMITH 10 SEE RESULT BELOW Name: ALEX OBRIEN : [address]: Perla Mcguire MD Acct: [id number] Unit: [id number] AGE: 35 Location: ED Re10/19/15 SEX: M Status: REG ER SPEC: [id number] SELENE: 10/19/[address]: Jus MCCLELLAND REQ: [id number] RECD: 10/19/15 STATUS: COMP OTHR DR: Fatuma Mcguire MD _ SOURCE: THROAT SPDESC: ORDERED: Strep A Request Procedure Result Reported Site Rapid Strep A Request Final 10/19/15- 1848 ML Specimen received for Rapid Strep A Molecular testing * ML - MAIN LAB ([facility]) . END OF REPORT * ML=Testing performed at Main Lab DEPARTMENT OF PATHOLOGY, [address] [place] [address] Denilson Cheney M.D. Director [facility] # [id number] 11 Complaint Analyst: SONIA SMITH 12 Complaint Analyst: SONIA SMITH The [employer] bpm architect and regulatory agencies both recommend that a throat culture for beta strep be performed if a Rapid Group A Strep assay yields a negative result. Therefore a culture will be automatically performed on all negative samples. 13 SEE RESULT BELOW Name: ALEX OBRIEN Leonila : [address]: Perla Mcguire MD Acct: [id number] Unit: [id number] AGE: 35 Location: ED Re10/19/15 SEX: M Status: DEP ER SPEC: [id number] SELENE: 10/19/[address] [facility] DR: Perla Mcguire MD REQ: [id number] RECD: 10/19/15 STATUS: KARTIK HILLIARD DR: Fatuma Richards CUSTOMS COMPLIANCE DIRECTOR _ SOURCE: THROAT SPDESC: ORDERED: Throat Beta Str Procedure Result Reported Site Throat Beta Strep Culture Final 10/21/15- 1006 ML Negative For Group A Beta Streptococcus * ML - MAIN LAB ([facility]) . END OF REPORT * ML=Testing performed at Main Lab DEPARTMENT OF PATHOLOGY, [address] [place] [address] Denilson Cheney M.D. Director [facility] # [id number] 14 Acute inflammation: >10.00 15 [facility] Severe Sepsis and Septic Shock Management [...] failure <15 (or dialysis) 17 SRC:abdomin 1 plascencia fines t swab 18 Source of Specimen: abdomin 1 plascencia fines 19 Staphylococcus aureus Source of Specimen: abdomin [...] laron isolated Source of Specimen: abdomin 1 [employer] devontes Moderate growth 21 Source of Specimen: abdomin 1 plascencia devontes S=Susceptible; I=Intermediate; R=Resistant P=Positive; N=Negative MICS are expressed in micrograms per mL Antibiotic RSLT#1 RSLT#2 RSLT#3 RSLT#4 Ciprofloxacin R Clindamycin S Erythromycin S Gentamicin S Levofloxacin I Linezolid S Moxifloxacin R Oxacillin S Quinupristin/Dalfopristin S Rifampin S Tetracycline S Trimethoprim/Sulfa S Vancomycin S 22 SEE RESULT BELOW Name: ALEX OBRIEN : [address]: Yovanny Croft MD Acct: [id number] Unit: [id number] AGE: 35 Location: [facility] Re06/01/15 SEX: M Status: REG REF SPEC: [id number] SELENE: 05/31/15-[address] [facility] DR: Yovanny Croft MD REQ: [id number] RECD: 06/01/15 STATUS: COMP _ SOURCE: URINE SPDESC: ORDERED: Urine Culture COMMENTS: LUIZ WITH URINE Procedure Result Verified Site Urine Culture Final 06/03/15- 1051 ML No Growth Day 2 (<1,000 CFU/mL) * ML - MAIN LAB (PSC1) . END OF REPORT * ML=Testing performed at Main Lab DEPARTMENT OF PATHOLOGY, [facility] [place], [place] [address] Denilson Cheney M.D. Director CLIA # [id number] RUN DATE: 03/16/14 [facility] LAB LIVE PAGE 1 RUN TIME: 855 [facility] [place], [place] [address] Specimen Inquiry Name: ALEX OBRIEN : [address]: Jung Puente MD Acct: [id number] Unit: [id number] AGE: 34 Location: [facility] Re03/13/14 SEX: M Status: DEP ER SPEC: [id number] SELENE: 03/13/14-[address] [facility] DR: Jung Puente MD REQ: [id number] RECD: 03/14/14-1040 STATUS: KARTIK HILLIARD DR: [facility] Ubaldo Donaldson MD _ SOURCE: THROAT SPDESC: ORDERED: Throat Beta Str Procedure Result Verified Site Throat Beta Strep Culture Final 03/16/14- 0856 ML Negative For Group A Beta Streptococcus END OF REPORT * ML=Testing performed at Main Lab DEPARTMENT OF PATHOLOGY, [address] [place] [address] Denilson Cheney M.D. Director STEVE # [id number] 24 RESULTS VERIFIED BY REPEAT ANALYSIS RUN DATE: 01/13/14 [facility] LAB LIVE PAGE 1 RUN TIME: [address] [place] [address] Specimen Inquiry Name: ALEX OBRIEN : [address]: Berenice Zavala MD Acct: [id number] Unit: [id number] AGE: 33 Location: [facility] Re01/10/14 SEX: M Status: DEP ER SPEC: [id number] SELENE: 01/10/14-[address] [facility] DR: Kierra MCCLELLAND REQ: [id number] RECD: 01/10/14 STATUS: KARTIK HILLIARD DR: Berenice Donaldson MD _ SOURCE: EAR SPDESC:LEFT ORDERED: EAR Cult/GS Procedure Result Verified Site Ear Culture Final 01/13/14- 1037 ML Organism 1 MRSA Quantity 1+ Organism 2 NORMAL ALRON Quantity 2+ 1. MRSA M.I.C. RX --------- [...] performed at Main Lab DEPARTMENT OF PATHOLOGY, [facility] [place] [address] Denilson Cheney M.D. Director [facility] # [id number] RUN DATE: 01/13/14 [facility] LAB LIVE PAGE 2 RUN TIME: 1037 [facility] [place], [place] [address] Specimen Inquiry Patient: ALEX OBRIEN [id number] (Continued) Specimen: [id number] Collected: 01/10/14 Received: 01/10/14 (Continued) Procedure Result Verified Site Ear Culture Final (continued) * These antibiotics are not available in the [facility] Formulary Contact the Microbiology Department for any additional antibiotic reporting. Ear Gram Stain Final 01/11/14820 ML 1+ Polys 2+ Epithelial Cells 1+ Gram Positive Cocci END OF REPORT * ML=Testing performed at Main Lab DEPARTMENT OF PATHOLOGY, [address] [place] [address] Denilson Cheney M.D. Director [facility] # [id number] 26 Anion gap measurement may be of [...] change was based on recommendations from the [place] [employer]. 39 Please note change in reference range effective 08 . 40 A metabolite of Naproxen, O-desmethylnaproxen, has been shown to interfere with the Jendrassik-Mcalmont method for measuring total bilirubin. Samples from [...] ANALYSIS Procedures Date CPT Code Description Status 01/01/2018 54667 Nebulizer Treatment Completed 08/03/2017 57782 CPHL SHQ Completed 05/09/2016 53695 CPHL SHQ Completed 11/01/2013 85905 Electrocardiogram Complete Completed Encounters Type Date Location Provider CPT E/M Dx Office Visit 01/01/2018 9:45a Main Office BRYN Alvarez 51421 R05 R06.02 R07.89 Office Visit 11/18/2017 4:10p [place] [address] H69.93 Office Visit 11/12/2017 9:40a Main Office Rekha Nassar M.D. 51201 M25.531 I10 Q85.01 E66.01 E78.5 Office Visit 12/12/2016 11:10a Northeast Office Rekha Nassar M.D. 58394 I10 Q85.01 E66.01 Office Visit 09/11/2016 9:45a Northeast Office BRYN Basilio 66280 M25.561 Office Visit 08/06/2016 3:45p Northeast Office Maria R Sultana 48513 R05 Office Visit 03/08/2016 11:15a Main Office BRYN Basilio 63821 J01.90 Office Visit 03/05/2016 2:30p [place] [address] J06.9 Office Visit 12/04/2015 11:30a Main Office Rekha Nassar M.D. 95396 M72.2 I10 E78.2 E66.8 Office Visit 10/06/2015 11:30a Northeast Office Xiomara Carlos, [facility] 94906 J02.9 Office Visit 09/25/2015 9:00a Northeast Office Fatuma Richards, [address] M25.571 Afnp-C M79.671 Office Visit 07/18/2015 11:15a Northeast Office Ania Mauricio Afnp-C 38520 L03.032 L03.311 L03.811 Office Visit 05/31/2015 6:30p Main Office Yovanny Croft M.D. 69086 M54.9 Office Visit 02/13/2015 11:10a Northeast Office Milan Garcia M.D. 09460 724.2 401.9 272.4 Office Visit 09/30/2014 10:45a Main Office Ania Mauricio Afnp-C 01031 462 Office Visit 08/11/2014 1:30p Main Office Christine Camilo, [facility] 59669 729.5 Office Visit 07/21/2014 1:30p Main Office Christine Camilo, [employer] L[employer]INATING MACHINE OPERATOR 16333 729.5 Office Visit 01/18/2014 9:30a Main Office Christine Camilo, [employer] L[employer]INATING MACHINE OPERATOR 53524 272.4 041.12 Office Visit 11/01/2013 8:50a Northeast Office Ubaldo Donaldson M.D. 43484 785.1 459.81 Office Visit 09/26/2013 1:45p Main Office Christine Camilo, [employer] LAMINATING MACHINE OPERATOR 12075 465.8 Office Visit 03/13/2012 10:15a Main Office Fatuma Zenaina Afnp-C 55050 372.00 Office Visit 12/17/2011 9:15a Northeast Office Christine Camilo [employer] STOCK LAMINATING MACHINE OPERATOR 52429 462 Office Visit 07/17/2011 9:30a Northeast Office Ania Mauricio Afnp-C 32193 789.00 Office Visit 03/21/2011 9:00a Main Office Christine Camilo, H[employer] STOCK LAMINATING MACHINE OPERATOR 65792 272.4 Office Visit 07/18/2010 10:15a Main Office Ania Mauricio Afnp-C 78091 465.9 462 Office Visit 12/05/2009 2:00p Main Office Fatuma Richards, [facility] 48638 373.11 703.0 Office Visit 11/13/2009 8:00p Main Office Christine Camilo, [facility] 30337 380.22 372.30 Office Visit 08/11/2009 10:30a Northeast Office Zbigniew Peterson M.D. 97783 465.9 Office Visit 07/31/2009 8:30a Main Office Cristel Guerrero M.D. 50940 388.70 791.0 Office Visit 12/14/2008 9:40a Northeast Office Xiomaranate Delacruz 69206 272.4 Otis 401.9 959.7 Office Visit 11/18/2008 10:00a Main Office Ubaldo Donaldson M.D. 32328 382.9 Office Visit 09/18/2008 8:40a Northeast Office Jocelyne Day M.D. 26638 477.8 401.9 Office Visit 12/21/2007 3:20p Main Office Ubaldo Donaldson M.D. 50084 465.9 Office Visit 10/22/2007 9:45a Main Office Christine Camilo [facility] 47476 272.4 Office Visit 10/20/2006 8:00p Main Office Cat Hendricks KRISSY Bazzi 46786 465.8 528.00 Office Visit 10/16/2006 9:45a Main Office Christine Camilo [facility] 66179 272.4 Office Visit 04/25/2006 11:40a Main Office Riley Donahue M.D. 58527 682.6 680.6 Office Visit 09/01/2005 10:20a Main Office Riley Donahue M.D. 74694 V70.0 272.4 V12.2 237.70 Office Visit 08/16/2005 12:20p Main Office Johnny Garnett M.D. 56830 465.9 461.9 272.4 Office Visit 06/30/2005 12:00p Main Office Isaiah Soriano M.D. 23935 461.9 465.9 Office Visit 02/04/2005 11:10a Main Office Riley Donahue M.D. 27692 272.4 278.00 Office Visit 11/11/2004 7:15p Main Office Christine CamiloBRYN 34879 490 Office Visit 08/06/2004 11:20a Main Office Riley Donahue M.D. 52986 401.9 272.4 Office Visit 05/28/2004 9:00a Main Office Riley Donahue M.D. 34765 401.1 380.10 272.4 278.00 Office Visit 05/17/2004 10:30a Northeast Office Malcom Sultana-C 25690 465.9 Office Visit 03/26/2004 9:00a Main Office Riley Donahue M.D. 83651 278.00 401.9 382.9 784.0 V77.1 Office Visit 11/17/2003 9:50a Main Office Isaiah Soriano M.D. 96458 719.47 Office Visit 11/10/2003 10:00a Northeast Office Malcom Sultana-C 63945 401.9 Plan of Care 05/18/2018 - Carmenza Ball, NPI10 Essential (primary) hypertensionNew Labs: Comp Metabolic-ALL Lab CompaniLipid Panel-ALL Lab CompaniesCBC Electronic-ALL Lab CompaniUa - Micro If Indicated (CentrTSH (Fma/CMC/[facility])Comments:The patient will continue to monitor blood pressure and let me know the blood pressure results if there are readings persistently above 140/80. Goal blood pressure is less than 140/80. Recommend low salt/cardiac diet and routine exercise.Follow up:stable - follow up on all chronic conditions in 6 fbfzisK25.01 Neurofibromatosis, type 1E66.01 Morbid (severe) obesity due to excess caloriesNew Labs:Microalb, Random (Fma/CMC/CTX)Comments:Counseled on heart healthy diet and olsktillJ76.5 Hyperlipidemia, unspecifiedComments:Goal LDL is <130, HDL >40, Triglycerides <200I73.00 Raynaud's syndrome without gangreneComments:encouraged use of dish gloves while washing and mittens as the winter is coming upZ23 Encounter for immunizationComments:Your flu vaccination has been administered. This protects you for the fall, winter and spring. It will decrease the likelihood that you will get the flu. If you are unlucky and get the flu, the symptoms will be less severe.J30.2 Other seasonal allergic rhinitisComments:patient was instructed to call or return if symptoms did not improveAllComments:~B_~U_Medication Management~b_~u_ Patient Understands medications he 's taking? Yes No Are there Barriers to Adherence? Yes No Has the patient been asked about herbal supplements and therapies, and OTC meds? Yes No ~B_~U_Care Plan~b_~u_1. Patient has been queried about patient's goals/preferences and functional/ lifestyle goals at relevant visits. If relevant, describe: na2. Treatment goals as explained to the patient: above3. Are there barriers to meeting treatment goals? Yes No If Yes, please describe:4. Self-Management goals as described to the patient:Yes NoAs always, we strongly encourage a healthy diet and making physical activity a part of your every day life. If you have questions about how or where to start, please contact the office.
[2018-05-31] MEDS ORDERED: Cephalexin CAP* 500 MG PO ONE (21:22)
--- NOTE | 2018-05-31 21:25 | ED ---
Lower Extremity - HPI Summary HPI Summary: Patient hasn't recurrent known to left anterior angel. Has been followed by wound care for same with intermittent healing and intermittent reopening of wound. Patient states wound is been open for 4 days, denies trauma, erythema, purulent discharge, fever, cough, sore throat, CP, SOB, N/V/D, abdominal pain, change in urine, change in BM. Medical history is HTN, HDL. - History of Current Complaint Chief Complaint: EDExtremityLower Stated Complaint: LT LEG SWOLLEN Time Seen by Provider: 05/31/18 20:25 Hx Obtained From: Patient Mechanism Of Injury: Unknown Severity Currently: None Pain Intensity: 0 Pain Scale Used: 0-10 Numeric Associated Signs And Symptoms: Positive: Negative Aggravating Factor(s): Nothing - Allergies/Home Medications Allergies/Adverse Reactions: Allergies Allergy/AdvReac Type Severity Reaction Status Date / Time amoxicillin Allergy Vomiting Verified 05/31/18 20:23 clavulanic acid Allergy Vomiting Verified 05/31/18 20:23 mushroom Allergy Airway Verified 05/31/18 20:23 Obstruction shrimp Allergy Hives Verified 05/31/18 20:23 trimethoprim AdvReac See Comment Verified 05/31/18 20:23 PMH/Surg Hx/FS Hx/Imm Hx Endocrine/Hematology History: Denies: Hx Diabetes, Hx Thyroid Disease Cardiovascular History: Reports: Hx Hypercholesterolemia, Hx Hypertension, Other Cardiovascular Problems/Disorders - HYPERCHOLESTEMIA; varicose veins issues - wears compression stockings Denies: Hx Congestive Heart Failure, Hx Pacemaker/ICD Respiratory History: Denies: Hx Asthma, Hx Chronic Obstructive Pulmonary Disease (COPD) GI History: Denies: Hx Ulcer History: Denies: Hx Renal Disease Musculoskeletal History: Reports: Other Musculoskeletal History - Raynaud's Sensory History: Denies: Hx Hearing Aid Neurological History: Reports: Other Neuro Impairments/Disorders - NF Psychiatric History: Denies: Hx Panic Disorder - Immunization History Date of Tetanus Vaccine: UTD Date of Influenza Vaccine: 2012 Infectious Disease History: No Infectious Disease History: Reports: 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 Denies: Hx Clostridium Difficile, Hx Hepatitis, Hx Human Immunodeficiency Virus (HIV), Hx Shingles, Hx Tuberculosis, Hx Known/Suspected VRE, Hx Known/ Suspected VRSA, History Other Infectious Disease, Traveled Outside the [place] in Last 30 Days - Family History Known Family History: Positive: Hypertension - Social History Alcohol Use: Occasionally Hx Substance Use: No Substance Use Type: Reports: None Hx Tobacco Use: Yes Smoking Status (MU): Former Smoker Type: Cigarettes Length of Time of Smoking/Using Tobacco: 2-3 years Review of Systems Constitutional: Negative Eyes: Negative ENT: Negative Cardiovascular: Negative Respiratory: Negative Gastrointestinal: Negative Genitourinary: Negative Musculoskeletal: Negative Positive: Bruising Neurological: Negative Psychological: Normal All Other Systems Reviewed And Are Negative: Yes Physical Exam - Summary Physical Exam Summary: Wound to left anterior angel. No purulent discharge, no erythema, no redness, swelling, extra warmth noted to left leg. Nontender. PMS intact distally. Triage Information Reviewed: Yes Vital Signs On Initial Exam: Initial Vitals Temp Pulse Resp BP Pulse Ox 98.2 F 104 20 152/99 97 05/31/18 19:28 05/31/18 19:28 05/31/18 19:28 05/31/18 19:28 05/31/18 19:28 Vital Signs Reviewed: Yes Appearance: Positive: Well-Appearing Skin: Positive: Warm Head/Face: Positive: Normal Head/Face Inspection Eyes: Positive: Normal Neck: Positive: Supple Respiratory/Lung Sounds: Positive: Clear to Auscultation Cardiovascular: Positive: Normal Abdomen Description: Positive: Nontender Musculoskeletal: Positive: Normal Neurological: Positive: Normal Psychiatric: Positive: Normal - [place] Coma Scale Best Eye Response: 4 - Spontaneous Best Motor Response: 6 - Obeys Commands Best Verbal Response: 5 - Oriented Coma Scale Total: 15 Diagnostics - Vital Signs Vital Signs Temp Pulse Resp BP Pulse Ox 05/31/18 19:28 98.2 F 104 20 152/99 97 - Laboratory Lab Statement: Any lab studies that have been ordered have been reviewed, and results considered in the medical decision making process. Lower Extremity Course/Dx - Course Course Of Treatment: Patient hasn't recurrent known to left anterior angel. Has been followed by wound care for same with intermittent healing and intermittent reopening of wound. Patient states wound is been open for 4 days, denies trauma , erythema, purulent discharge, fever, cough, sore throat, CP, SOB, N/V/D, abdominal pain, change in urine, change in BM. Medical history is HTN, HDL. Physical exam:Wound to left anterior angel. No purulent discharge, no erythema, no redness, swelling, extra warmth noted to left leg. Nontender. PMS intact distally. Patient states history of same. Wound usually heals with Keflex by mouth. Rx for Keflex by mouth. - Diagnoses Provider Diagnoses: Wound cellulitis Discharge - Sign-Out/Discharge Documenting (check all that apply): Patient Departure - Discharge Plan Condition: Stable Disposition: HOME Prescriptions: Cephalexin CAP* [Keflex CAP*] 500 mg PO TID 10 Days #30 cap Patient Education Materials: Cellulitis (ED) Referrals: Rekha Nassar MD [Primary Care Provider] - Additional Instructions: Keep wound clean and and dry and cover when not washing. Return to the ED for any new or worsening symptoms. - Billing Disposition and Condition Condition: STABLE Disposition: Home
[2018-05-31 21:45] VITALS: BP 127/81
== END 2018-05-31 21:40 | disposition home or self-care (01) ==
LOC: ED 19:11
DX: L03.116 Cellulitis of left lower limb (principal); S81.802A Unspecified open wound, left lower leg, initial encounter; X58.XXXA Exposure to other specified factors, initial encounter; Y92.9 Unspecified place or not applicable; Z87.891 Personal history of nicotine dependence; Z88.0 Allergy status to penicillin
CPT/HCPCS: 99282; A9270-GY

== ENCOUNTER → 2018-06-27 19:55 | Emergency (ER) | payer OTHER, MEDICAID ==
[~2018-06-27 19:55] MED LIST: Azithromycin TAB* 250 MG PO ONE; Benzonatate CAP* 100 MG PO ONE; Potassium Chlor TAB* 20 MEQ TAB.ER PO ONE
--- OUTSIDE RECORDS SUMMARY | 2018-06-27 20:14 | XMS REPORT ---
:1980 External Reference #:[id number] Author Organization [employer] Address [address] [place] [address] [place] [address] Phone [phone] Care Team Providers Name Role Phone Rekha Nassar MD Primary Care Physician Unavailable Payers Type Date Identification Numbers Payment Provider Subscriber Commercial Policy Number: [id number] [employer] Alex Payan PayID: [id number] [address] [place] [address] Medigap Part B Effective: 2013 Policy Number: [id number] Medicaid Alex Payan Group Name: 1 1 [address] PayID: [id number] [place] [address] Problems Description No Information Social History Type Date Description Comments Marital Status Lives With Family Occupation [employer] ETOH Use Rarely consumes alcohol Smoking Patient is a former smoker Recreational Drug Use Denies Drug Use Exercise Type/Frequency Does not exercise Allergies, Adverse Reactions, Alerts Date Description Reaction Status Severity Comments 10/09/2017 Mushrooms active 10/09/2017 Shrimp Allergenic Extract active 10/09/2017 Amoxicillin / Clavulanate active Medications Medication Date Status Form Strength Qnty SIG Indications Ordering Provider Bactrim DS 04/30 Active Tablets 800-160mg 14tab 1 by mouth s twice a day MD Ifeanyi Ibuprofen Active Tablets 800mg by mouth Unknown /0000 three times a day as needed Amlodipine Active Tablets 10mg 1 by mouth Unknown Besylate /0000 every day Atorvastatin Active Tablets 20mg take 1 Unknown Calcium /0000 tablet at bedtime Xyzal Allergy 24HR Active Unknown /0000 Hydrochlorothiazid Active Unknown e Clindamycin HCL Hx Capsules 300mg Unknown Silver Hx Cream 1% . Unknown Sulfadiazine / - 04/29 Meclizine HCL Hx Tablets 25mg 1 tablet Unknown / every 8 hours as needed Chlorhexidine Hx Solution 0.12% swish and Unknown Gluconate / spit 15 - milliliters 04/29 twice a day /2017 until resolution of symptoms Oxycodone-Acetamin Hx Tablets 5-325mg 1-2 tabs by Unknown ophen / mouth every - 4-6 hours 04/29 as needed for pain Vital Signs Date Vital Result Comment 06/11/2018 Heart Rate 100 /min Respiratory Rate 18 /min Body Temperature 97.2 F 04/30/2018 Height 75 inches 6'3" Weight 406.00 [...] Procedures Date CPT Code Description Status 12/06/2013 96215 Removal Devitalization Tissue Wound Less Than Equal 20 Completed Square CM 11/15/2013 39158 Removal Devitalization Tissue Wound Less Than Equal 20 Completed Square CM 10/21/2013 92969 Holter Monitor Review (24 hr)dr review & interp only Completed Encounters Type Date Location Provider CPT E/M Dx Office Visit 06/11/2018 [facility] [place] [address] M72.2 10:00a C.M.A. Office Visit 04/30/2018 [facility] [place] [address] M72.2 9:30a C.M.A. Office Visit 10/09/2017 [facility], 56387 K80.20 2:15p Elio FLOREZ Office Visit 01/05/2014 [facility], 12090 707.19 10:49a TYRONE Berg 459.31 Office Visit 12/29/2013 11:12a [facility] [address] 707.19 [facility] [place] 459.31 Office Visit 12/22/2013 10:34a [facility], [address] 707.19 [facility] [place] 459.31 Office Visit 12/13/2013 10:06a [facility], 43157 707.19 [facility] [place] 459.31 Office Visit 11/29/2013 3:25p [facility], [address]67 707.19 [facility] [place] 459.31 457.1 Office Visit 11/22/2013 12:27p [facility], 21502 707.19 [facility] [place] 459.31 457.1 Office Visit 11/08/2013 12:30p [facility], 13253 707.19 [facility] [place] 681.11 Plan of Care 06/11/2018 - Albino Suggs, MDM72.2 Plantar fascial fibromatosisFollow up: Follow Up: As needed
--- OUTSIDE RECORDS SUMMARY | 2018-06-27 20:14 | XMS REPORT ---
:1980 External Reference #:[id number] Author Organization [employer] Address [address] [place] [address] [place] [address] Phone [phone] Care Team Providers Name Role Phone Rekha Nassar MD Primary Care Physician Unavailable Payers Type Date Identification Numbers Payment Provider Subscriber Commercial Policy Number: [id number] [employer] Insurance Alex Payan PayID: [id number] [address] [place] [address] Medigap Part B Effective: 2013 Policy Number: [id number] Medicaid Alex Payan Group Name: 1 1 [address] PayID: [id number] [place] [address] Problems Description No Information Social History Type Date Description Comments Marital Status Lives With Family Occupation [employer] [facility] [facility] ETOH Use Rarely consumes alcohol Smoking Patient [...] Procedures Date CPT Code Description Status 12/06/2013 77949 Removal Devitalization Tissue Wound Less Than Equal 20 Completed Square CM 11/15/2013 28546 Removal Devitalization Tissue Wound Less Than Equal 20 Completed Square CM 10/21/2013 20874 Holter Monitor Review (24 hr)dr review & interp only Completed Encounters Type Date Location Provider CPT E/M Dx Office Visit 06/11/2018 [facility] [place] [address] M72.2 10:00a C.M.A. Office Visit 04/30/2018 [facility] [place] [address] M72.2 9:30a C.M.A. Office Visit 10/09/2017 [facility], 72508 K80.20 2:15p Elio FLOREZ Office Visit 01/05/2014 [facility], 97762 707.19 10:49a TYRONE Berg 459.31 Office Visit 12/29/2013 11:12a [facility] [address] 707.19 [facility] Otis 459.31 Office Visit 12/22/2013 10:34a [facility], 14216 707.19 [facility] Otis 459.31 Office Visit 12/13/2013 10:06a [facility], 31032 707.19 [facility] Otis 459.31 Office Visit 11/29/2013 3:25p [facility], 40547 707.19 [facility] Otis 459.31 457.1 Office Visit 11/22/2013 12:27p [facility], 87065 707.19 [facility] Otis 459.31 457.1 Office Visit 11/08/2013 12:30p [facility], 02582 707.19 [facility] Otis 681.11 Plan of Care 06/11/2018 - Albino Suggs, MDM72.2 Plantar fascial fibromatosisFollow up: Follow Up: As needed
[2018-06-27 22:23] LABS: ABS Basophils 0.1 10^3/ul (0-0.2); ABS Eosinophils 0.2 10^3/ul (0-0.6); ABS Lymphocytes 1.5 10^3/ul (1.0-4.8); ABS Monocytes 1.5 10^3/ul (0-0.8); ABS Neutrophils 7.6 10^3/ul (1.5-7.7); ABS Nucleated RBC 0 10^3/ul; Eosinophil % 1.8 % (0-6); Hematocrit 41 % (42-52); Hemoglobin 13.5 g/dl (14.0-18.0); Lymphocyte % 13.8 % (25-47); Mean Corpuscular HGB Conc 33 g/dl (31-36); Mean Corpuscular Hemoglobin 26 pg (27-31); Mean Corpuscular Volume 79 fL (80-94); Mean Platelet Volume 8.3 fL (7.4-10.4); Nucleated Red Blood Cells % 0.3; Platelet Count 220 10^3/ul (150-450); Red Blood Count 5.15 10^6/ul (4.00-5.40); Red Cell Distribution Width 14 % (10.5-15); White Blood Count 11.1 10^3/ul (3.5-10.8)
[2018-06-27 22:39] LABS: EGFR Non-African American 109.4 (>60)
--- NOTE | 2018-06-27 23:03 | ED ---
Respiratory - HPI Summary HPI Summary: Complains of persistent dry cough, mild SOB associated with cough, chills starting 06/25/18 Denies fever, sore throat, RODRIGUEZ, neck stiffness, CP, N/V/D, bowel pain, change in urine, change in BM, sinus congestion, body aches. Medical history is HTN, HDL, no neurofibromatosis, raynauds. Nonsmoker. - History of Current Complaint Chief Complaint: EDUpperRespComplaint Stated Complaint: SOB/COUGH/CONGESTION Time Seen by Provider: 06/27/18 22:03 Hx Obtained From: Patient Onset/Duration: Gradual Onset Timing: Constant Initial Severity: Moderate Current Severity: Moderate Pain Intensity: 6 Character: Cough (Nonproductive) Sputum Amount: Small Sputum Color: Blanco Aggravating Factor(s): Nothing Alleviating Factor(s): Nothing Associated Signs and Symptoms: SOB, Chills - Allergy/Home Medications Allergies/Adverse Reactions: Allergies Allergy/AdvReac Type Severity Reaction Status Date / Time amoxicillin Allergy Vomiting Verified 06/27/18 20:02 clavulanic acid Allergy Vomiting Verified 06/27/18 20:02 mushroom Allergy Airway Verified 06/27/18 20:02 Obstruction shrimp Allergy Hives Verified 06/27/18 20:02 trimethoprim AdvReac See Comment Verified 06/27/18 20:02 PMH/Surg Hx/FS Hx/Imm Hx Endocrine/Hematology History: Denies: Hx Diabetes, Hx Thyroid Disease Cardiovascular History: Reports: Hx Hypercholesterolemia, Hx Hypertension, Other Cardiovascular Problems/Disorders - HYPERCHOLESTEMIA; varicose veins issues - wears compression stockings Denies: Hx Congestive Heart Failure, Hx Pacemaker/ICD Respiratory History: Denies: Hx Asthma, Hx Chronic Obstructive Pulmonary Disease (COPD) GI History: Denies: Hx Ulcer History: Denies: Hx Renal Disease Musculoskeletal History: Reports: Other Musculoskeletal History - Raynaud's Sensory History: Denies: Hx Hearing Aid Neurological History: Reports: Other Neuro Impairments/Disorders - NF Psychiatric History: Denies: Hx Panic Disorder - Immunization History Date of Tetanus Vaccine: UTD Date of Influenza Vaccine: 2012 Infectious Disease History: Yes Infectious Disease History: Reports: 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 Denies: Hx Clostridium Difficile, Hx Hepatitis, Hx Human Immunodeficiency Virus (HIV), Hx Shingles, Hx Tuberculosis, Hx Known/Suspected VRE, Hx Known/ Suspected VRSA, History Other Infectious Disease, Traveled Outside the [place] in Last 30 Days - Family History Known Family History: Positive: Hypertension - Social History Alcohol Use: Rare Hx Substance Use: No Substance Use Type: Reports: None Hx Tobacco Use: Yes Smoking Status (MU): Former Smoker Type: Cigarettes Length of Time of Smoking/Using Tobacco: 2-3 years Review of Systems Constitutional: Negative Eyes: Negative ENT: Negative Cardiovascular: Negative Positive: Shortness Of Breath, Cough Gastrointestinal: Negative Genitourinary: Negative Musculoskeletal: Negative Skin: Negative Neurological: Negative Psychological: Normal All Other Systems Reviewed And Are Negative: Yes Physical Exam Triage Information Reviewed: Yes Vital Signs On Initial Exam: Initial Vitals Temp Pulse Resp BP Pulse Ox 99.3 F 116 20 130/78 96 06/27/18 19:55 06/27/18 19:55 06/27/18 19:55 06/27/18 19:55 06/27/18 19:55 Vital Signs Reviewed: Yes Appearance: Positive: Well-Appearing Skin: Positive: Warm Head/Face: Positive: Normal Head/Face Inspection Eyes: Positive: Normal Neck: Positive: Supple Respiratory/Lung Sounds: Positive: Clear to Auscultation Cardiovascular: Positive: Normal Abdomen Description: Positive: Nontender Musculoskeletal: Positive: Normal Neurological: Positive: Normal Psychiatric: Positive: Normal AVPU Assessment: Alert - [place] Coma Scale Best Eye Response: 4 - Spontaneous Best Motor Response: 6 - Obeys Commands Best Verbal Response: 5 - Oriented Coma Scale Total: 15 Diagnostics - Vital Signs Vital Signs Temp Pulse Resp BP Pulse Ox 06/27/18 19:55 99.3 F 116 20 130/78 96 - Laboratory Lab Results: Lab Results 06/27/18 06/27/18 06/27/18 Range/Units 22:11 22:11 22:11 WBC 11.1 H (3.5-10.8) 10^3/ul RBC 5.15 (4.00-5.40) 10^6/ul Hgb 13.5 L (14.0-18.0) g/dl Hct 41 L (42-52) % MCV 79 L (80-94) fL MCH 26 L (27-31) pg MCHC 33 (31-36) g/dl RDW 14 (10.5-15) % Plt Count 220 (150-450) 10^3/ul MPV 8.3 (7.4-10.4) fL Neut % (Auto) 69.2 (38-83) % Lymph % (Auto) 13.8 L (25-47) % [place] % (Auto) 13.9 H (0-7) % Eos % (Auto) 1.8 (0-6) % Baso % (Auto) 1.3 (0-2) % Absolute Neuts (auto) 7.6 (1.5-7.7) 10^3/ul Absolute Lymphs (auto) 1.5 (1.0-4.8) 10^3/ul Absolute Monos (auto) 1.5 H (0-0.8) 10^3/ul Absolute Eos (auto) 0.2 (0-0.6) 10^3/ul Absolute Basos (auto) 0.1 (0-0.2) 10^3/ul Absolute Nucleated RBC 0 10^3/ul Nucleated RBC % 0.3 Sodium 133 L (135-145) mmol/L Potassium 3.3 L (3.5-5.0) mmol/L Chloride 101 (101-111) mmol/L Carbon Dioxide 24 (22-32) mmol/L Anion Gap 8 (2-11) mmol/L BUN 14 (6-24) mg/dL Creatinine 0.80 (0.67-1.17) mg/dL Est GFR ( Amer) 132.4 (>60) Est GFR (Non-Af Amer) 109.4 (>60) BUN/Creatinine Ratio 17.5 (8-20) Glucose 107 H (70-100) mg/dL Lactic Acid 0.9 (0.5-2.0) mmol/L Calcium 8.9 (8.6-10.3) mg/dL Total Bilirubin 0.70 (0.2-1.0) mg/dL AST 21 (13-39) U/L ALT 31 (7-52) U/L Alkaline Phosphatase 84 (34-104) U/L C-Reactive Protein 87.96 H (<8.01) mg/L Total Protein 7.6 (6.4-8.9) g/dL Albumin 3.8 (3.2-5.2) g/dL Globulin 3.8 (2-4) g/dL Albumin/Globulin Ratio 1.0 (1-3) Result Diagrams: 11/11/18 22:11 06/27/18 22:11 Lab Statement: Any lab studies that have been ordered have been reviewed, and results considered in the medical decision making process. Disposition - Course Course Of Treatment: Complains of persistent dry cough, mild SOB associated with cough, chills starting 06/25/18 Denies fever, sore throat, RODRIGUEZ, neck stiffness, CP, N/V/D, bowel pain, change in urine, change in BM, sinus congestion, body aches. Medical history is HTN, HDL, no neurofibromatosis, raynauds. Nonsmoker. Vital signs within normal limits. Labs unremarkable. Chest x-ray unremarkable. Rx for azithromycin and Tessalon Perles. - Differential Dx - Cardiopulmonary Differential Diagnoses - Cardiopulmonary: Acute Dyspnea, Bronchitis, Lower Resp Infection - Diagnoses Provider Diagnoses: Upper respiratory infection Discharge - Sign-Out/Discharge Documenting (check all that apply): Patient Departure - Discharge Plan Condition: Stable Disposition: HOME Prescriptions: Azithromycin 250 mg PO DAILY 4 Days #4 tablet Benzonatate CAP* [Tessalon 100 MG CAP*] 200 mg PO TID 4 Days #12 cap Patient Education Materials: Upper Respiratory Infection (ED) Referrals: Rekha Nassar MD [Primary Care Provider] - Additional Instructions: Follow-up with primary care. Return to the ED for any new or worsening symptoms - Billing Disposition and Condition Condition: STABLE Disposition: Home
[2018-06-27 23:18] VITALS: BP 152/93
== END | disposition home or self-care (01) ==
LOC: ED 19:55
DX: J06.9 Acute upper respiratory infection, unspecified (principal); Z88.1 Allergy status to other antibiotic agents; Z88.0 Allergy status to penicillin; Z88.2 Allergy status to sulfonamides; Z87.891 Personal history of nicotine dependence
CPT/HCPCS: 36415; 71045; 80053; 83605; 85025; 86140; 99282; A9270-GY

== ENCOUNTER 2018-08-21 16:05 | Emergency (ER) | payer OTHER, MEDICAID ==
[2018-08-21] MEDS ORDERED: Ketorolac INJ* 30 MG/ML 1 ML VIAL IM ONE (18:28)
[2018-08-21] MEDS ORDERED: Dexamethasone IV* 4 MG/ML 1 ML (4 MG) IM ONE (18:28)
[2018-08-21] MEDS ORDERED: Methocarbamol TAB* 500 MG PO ONE ×2 (18:29)
--- NOTE | 2018-08-21 18:30 | ED ---
Back Pain - HPI Summary HPI Summary: 38-year-old presents with back pain for the past couple days. he states it started after he took down the tree. No urinary symptoms. No fevers. no abdominal pain. No loss bowel or bladder or saddle anesthesia. He states it is located in left side of his back. No pain into his legs. No numbness or tingling. No weakness. Able to ambulate. Tried some Flexeril and ibuprofen yesterday without relief. he states that this pain is in a different location than his normal. Denies any other symptoms. - History of Current Complaint Chief Complaint: EDBackInjuryPain Stated Complaint: BACK PAIN Time Seen by Provider: 08/21/18 17:35 Pain Intensity: 8 - Allergies/Home Medications Allergies/Adverse Reactions: Allergies Allergy/AdvReac Type Severity Reaction Status Date / Time amoxicillin Allergy Vomiting Verified 08/21/18 17:43 clavulanic acid Allergy Vomiting Verified 08/21/18 17:43 mushroom Allergy Airway Verified 08/21/18 17:43 Obstruction shrimp Allergy Hives Verified 08/21/18 17:43 trimethoprim AdvReac See Comment Verified 08/21/18 17:43 PMH/Surg Hx/FS Hx/Imm Hx Endocrine/Hematology History: Denies: Hx Diabetes, Hx Thyroid Disease Cardiovascular History: Reports: Hx Hypercholesterolemia, Hx Hypertension, Other Cardiovascular Problems/Disorders - HYPERCHOLESTEMIA; varicose veins issues - wears compression stockings Denies: Hx Congestive Heart Failure, Hx Pacemaker/ICD Respiratory History: Denies: Hx Asthma, Hx Chronic Obstructive Pulmonary Disease (COPD) GI History: Denies: Hx Ulcer History: Denies: Hx Renal Disease Musculoskeletal History: Reports: Other Musculoskeletal History - Raynaud's Sensory History: Denies: Hx Hearing Aid Neurological History: Reports: Other Neuro Impairments/Disorders - NF Psychiatric History: Denies: Hx Panic Disorder - Immunization History Date of Tetanus Vaccine: UTD Date of Influenza Vaccine: 2012 Infectious Disease History: No Infectious Disease History: Reports: 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 Denies: Hx Clostridium Difficile, Hx Hepatitis, Hx Human Immunodeficiency Virus (HIV), Hx Shingles, Hx Tuberculosis, Hx Known/Suspected VRE, Hx Known/ Suspected VRSA, History Other Infectious Disease, Traveled Outside the [place] in Last 30 Days - Family History Known Family History: Positive: Hypertension - Social History Alcohol Use: Rare Hx Substance Use: No Substance Use Type: Reports: None Hx Tobacco Use: Yes Smoking Status (MU): Former Smoker Type: Cigarettes Length of Time of Smoking/Using Tobacco: 2-3 years Review of Systems Negative: Fever Negative: Chest Pain Negative: Shortness Of Breath Positive: Myalgia - back pain All Other Systems Reviewed And Are Negative: Yes Physical Exam Triage Information Reviewed: Yes Vital Signs On Initial Exam: Initial Vitals Temp Pulse Resp BP Pulse Ox 98.4 F 98 18 181/64 98 08/21/18 16:23 08/21/18 16:23 08/21/18 16:23 08/21/18 16:23 08/21/18 16:23 Vital Signs Reviewed: Yes Appearance: Positive: Well-Appearing Skin: Positive: Warm, Dry Head/Face: Positive: Normal Head/Face Inspection Eyes: Positive: Normal, Conjunctiva Clear ENT: Positive: Pharynx normal Respiratory/Lung Sounds: Positive: Clear to Auscultation, Breath Sounds Present Cardiovascular: Positive: Normal, RRR Musculoskeletal: Positive: Other - tenderness left side of back, neg SLR, no midline tenderness, good pulses Neurological: Positive: Babinski Bilateral - normal Psychiatric: Positive: Normal Diagnostics - Vital Signs Vital Signs Temp Pulse Resp BP Pulse Ox 08/21/18 16:23 98.4 F 98 18 181/64 98 - Laboratory Lab Statement: Any lab studies that have been ordered have been reviewed, and results considered in the medical decision making process. Back Pain Course/Dx - Course Course Of Treatment: 38-year-old presents with back pain for the past couple days. he states it started after he took down the tree. No urinary symptoms. No fevers. no abdominal pain. No loss bowel or bladder or saddle anesthesia. He states it is located in left side of his back. No pain into his legs. No numbness or tingling. No weakness. Able to ambulate. Tried some Flexeril and ibuprofen yesterday without relief. he states that this pain is in a different location than his normal. Denies any other symptoms. On exam has tenderness over left sided lower back. No midline tenderness. had normal CT a couple months ago and has no midline tenderness so did not get imaging. Neurovascularly intact. Full range of motion of back. We'll treat with Robaxin and steroid. Patient understands agrees with plan. - Diagnoses Differential Diagnosis/HQI/PQRI: Positive: Fracture, Herniated Disc, Strain Provider Diagnoses: Back pain Discharge - Sign-Out/Discharge Documenting (check all that apply): Patient Departure - Discharge Plan Condition: Good Disposition: HOME Prescriptions: Methocarbamol TAB* [Robaxin 500 MG TAB*] 500 mg PO TID PRN #15 tab PRN Reason: Pain methylPREDNISolone [Medrol Dosepak 4 MG*] 4 mg PO .SEE JOHN INSTRUCTION #1 packet Patient Education Materials: Back Pain (ED) Referrals: Rekha Nassar MD [Primary Care Provider] - Additional Instructions: Follow directions on package for Medrol pack Take muscle relaxers three times a day Use ibuprofen or Tylenol for pain every 6 hours ice/heat area, move as much as possible Follow up with primary within 5 days Return to ED if develop any new or worsening symptoms - Billing Disposition and Condition Condition: GOOD Disposition: Home
[2018-08-21 19:13] VITALS: BP 166/102
== END 2018-08-21 19:12 | disposition home or self-care (01) ==
LOC: ED 16:05
DX: M54.9 Dorsalgia, unspecified (principal); Z88.1 Allergy status to other antibiotic agents; Z88.0 Allergy status to penicillin; Z87.891 Personal history of nicotine dependence
CPT/HCPCS: 96372; 99282; A9270-GY; J1100; J1885

== ENCOUNTER → 2018-08-31 11:42 | Day surgery (SDC) | payer OTHER, MEDICAID ==
[~2018-08-31 11:42] MED LIST changes: +Acetaminophen IV 1GM/100ML * 1,000 MG/100 ML VIAL IVPB ONE; +Acetaminophen IV 1GM/100ML * 100 ML ONE; -Azithromycin TAB* 250 MG PO ONE; -Benzonatate CAP* 100 MG PO ONE; +Buffered Lidocaine 1% SYRIN* 1 ML/SYRINGE INTRADERM ONE; +Bupivacaine 0.25% W/EPI* 10 ML SDV ONE; +Dexamethasone IV* 4 MG/ML 1 ML (4 MG) IV SLOW PU ONE; +Dexamethasone IV* 4 MG/ML 1 ML (4 MG) ONE; +DiMENhydriNATE IV* 50 MG/ML VIAL IV PUSH PRN; +DiMENhydriNATE IV* 50 MG/ML VIAL ONE; +Famotidine IV* 10 MG/ML 2 ML (20 mg) IV ONE; +Famotidine IV* 10 MG/ML 2 ML (20 mg) ONE; +Glycopyrrolate IV* 0.2 MG/ML 1 ML VIAL ONE; +HYDROcodone/ACETAMIN 5-325 MG* 1 TAB ONE; +HYDROcodone/ACETAMIN 5-325 MG* 1 TAB PO PRN; +Heparin VIAL(*) 5000 UNITS/ML VIAL (FIVE THOUSAND) ONE; +Ketorolac INJ* 30 MG/ML 1 ML VIAL IV PRN; +Ketorolac INJ* 30 MG/ML 1 ML VIAL ONE; +Lactated Ringers 1000 ML Bag* 1,000 ML IV SCH; +Lidocaine 2% PF * 5 ML VIAL ONE; +Midazolam* 1 MG/ML 2 ML VIAL (2 MG) ONE; +Naloxone* 0.4 MG/ML 1 ML VIAL IV PRN; +Neostigmine Methylsulfate* 1 MG/ML 10 ML VIAL (1 mg/ml) ONE; +Ondansetron INJ* 2 MG/ML VIAL ONE; +PROCHLORPERAZINE INJ 5 MG/ML 2 ML VIAL IV PRN; -Potassium Chlor TAB* 20 MEQ TAB.ER PO ONE; +Propofol* 10 MG/ML 20 ML BTL ONE; +Rocuronium* 10 MG/ML VIAL ONE; +Succinylcholine* 20 MG/ML 10 ML VIAL ONE; +ceFAZolin 1 GM ADVAN(*) 1 GM ADDV.VIAL IVPB ONE; +ceFAZolin 2 GM PREMIX in ORs 2 GM/50 ML BAG IVPB ONE; +fentaNYL* 50 MCG/ML 2 ML VIAL (100 MCG VIAL) IV PRN; +fentaNYL* 50 MCG/ML 5 ML VIAL (250 MCG VIAL) ONE; +hydrALAZINE IV* 20 MG/ML VIAL IV SLOW PU ONE
[2018-08-31 18:51] VITALS: BP 148/95
--- NOTE | 2018-09-01 02:01 | OP ---
CC: [facility] * DATE OF OPERATION: 08/31/18 - SDS DATE OF : 84 SURGEON: Dr. Lopez Salgado. PRESS TENDER: Jennifer Arellano NP. ANESTHESIOLOGIST: Dr. Khan. ANESTHESIA: General endotracheal. PRE-OP DIAGNOSIS: Symptomatic cholelithiasis. POST-OP DIAGNOSIS: Symptomatic cholelithiasis. OPERATIVE PROCEDURE: Laparoscopic cholecystectomy. ESTIMATED BLOOD LOSS: 50 mL. IV FLUIDS: Crystalloid. SPECIMENS: Gallbladder. DRAINS: None. COMPLICATIONS: None. COUNTS: Instrument, needle and sponge counts correct. DESCRIPTION OF PROCEDURE: The patient was brought to the operating room and placed on the table supine. Sequential compression devices were placed on both lower extremities and general anesthesia was administered. The abdomen was prepped and draped in the usual sterile fashion. Time-out was performed. Local anesthetic was infiltrated into the skin and soft tissue prior to making each incision. Entry into the abdomen was through a right supraumbilical paramedian incision accommodating a 5 optical trocar. After accessing the peritoneal cavity, carbon dioxide was insufflated to a pressure of 15 mmHg. Under direct visualization, two 5 mm trocars were placed in the right upper quadrant and a 12 mm trocar was placed in the subxiphoid position. The liver appeared to be fatty infiltrated. The gallbladder was identified. It appeared to be contracted and enrobed in yellow fat. The fundus was grasped and retracted cephalad, and adhesions that were met into the gallbladder were taken down using a combination of blunt and sharp dissection with cautery. The fat invested in the gallbladder and the perineum was incised with cautery and dissected free. The infundibulum was identified and retracted laterally. The dissection proceeded around the medial and lateral aspects of the gallbladder, dissected out, and blunt and sharp dissection was used to dissect out the cystic artery and cystic duct. A critical view was obtained and then each structure was clipped and divided. The gallbladder was then freed from attachments to the liver using the cautery, staying in an avascular plane. Once the gallbladder was freed, it was placed into a retrieval bag and retrieved through the subxiphoid port site. Inspection revealed hemostasis to be excellent and clips were intact. Ports were removed under direct visualization and carbon dioxide was released. The incisions were closed with 4 -0 Monocryl in subcuticular fashion and Steri-Strips were applied. The patient tolerated the procedure well. He was extubated and transferred to recovery in stable condition. [id number]/[facility] #: [id number] [facility]OSPITALAdwoa
== END | disposition home or self-care (01) ==
LOC: OR 11:42
PROVIDERS: ATTEND Surgery
DX: K81.1 Chronic cholecystitis (principal); I10 Essential (primary) hypertension; E78.5 Hyperlipidemia, unspecified; G47.33 Obstructive sleep apnea (adult) (pediatric); Z87.891 Personal history of nicotine dependence; Z88.8 Allergy status to other drugs, medicaments and biological substances
CPT/HCPCS: 88304; J0330; J0690; J1100; J1240; J1644; J1885; J2250; J2405; J2704; J2710; J3010

== ENCOUNTER 2018-12-12 20:41 | Emergency (ER) | payer OTHER, MEDICAID ==
--- OUTSIDE RECORDS SUMMARY | 2018-12-12 20:54 | XMS REPORT | Continuity of Care Document ---
:1980 External Reference #:[id number] Author Name Carmenza Ball NP Address [address] [place] [address] Care Team Providers Name Role Phone Rekha Nassar M.D. Care Team Information Coronary Care Unit Nurse Unavailable Rekha Nassar M.D. Primary Care Physician Unavailable Payers Date Identification Numbers Payment Provider Subscriber Effective: 2012 Policy Number: [id number] [facility] Alex Obrien Group Number: [id number] [id number] Group Name: [place] [address] PayID: [id number] Effective: 2014 Policy Number: [id number] Medicaid [place] Alex Obrien PayID: [id number] [address] [place] [address] Advance Directives Description No Information Available Problems Active Problems Provider Date Peripheral venous insufficiency Ubaldo Donaldson M.D. Onset: 11/01/2013 Essential hypertension Milan aGrcia M.D. Onset: 02/13/2015 Hyperlipidemia Milan Garcia M.D. Onset: 02/13/2015 Mixed hyperlipidemia Rekha Nassar M.D. Onset: 12/04/2015 Neurofibromatosis type 1 Rekha Nassar M.D. Onset: 05/09/2016 Morbid obesity Rekha Nassar M.D. Onset: 05/09/2016 Concussion with no loss of consciousness Johnny Garnett M.D. Onset: 2016 Family History Date Family Member(s) Observation Comments General No immediate family members with early TX or CVA. No immediate family history of colon, breast, ovarian, cervical or prostate cancer. Father Diabetes Mellitus, II : (2011) Mother due to Intestinal obstruction Social History Type Date Description Comments Sex Unknown Marital Status Patient is Living Situation Lives with spouse, son and daughter Diet Excessive intake of fats and sweets. 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 Tobacco Use Start: Unknown Nonsmoker Smoking Status Reviewed: 11/22/18 Nonsmoker ETOH Use Denies alcohol use Tobacco Use Start: Unknown nonsmoker Exercise Type/Frequency Does not exercise Current Allergies, Adverse Reactions, Alerts Active Allergies Reaction Severity Comments Date Augmentin 11/10/2003 Shellfish 09/01/2005 Mushrooms Throat Closing 07/18/2010 Bactrim stiff neck 11/08/2018 Medications Active Medications SIG Qnty Indications Ordering Date Provider Naproxen 1 by mouth 60tabs M54.5 Carmenza Paniagua 11/22/2018 500mg Tablets twice a day as KRISSY Ball needed pain Cyclobenzaprine HCL take 1-2 30tabs M54.5 Carmenza Paniagua 11/22/2018 5mg Tablets tablets by KRISSY Ball mouth at night as needed for back spasm Xyzal Allergy 24HR one by mouth 30tabs H69.93 Carmenza Paniagua 11/18/2017 5mg Tablets daily KRISSY Ball Compression Stockings to knee, wear 2units Rekha Nassar, 10/31/2017 30-40mm HG as needed M.D. please provide size to patient that fits Hydrochlorothiazide 1 by mouth 90caps I10 Carmenza Paniagua 08/03/2017 12.5mg every day KRISSY Ball Capsules Ibuprofen 1 by mouth q8 90tabs J30.2 Rekha Nassar, 03/08/2016 800mg Tablets hours three M.D. times a day as needed with food Amlodipine Besylate Take One 90tabs I10 Rekha Nassar, 02/13/2015 10mg Tablets Tablet By M.D. Mouth Every Day Atorvastatin Calcium take one 30tabs E78.2 Carmenza Paniagua 04/17/2012 20mg Tablets tablet by KRISSY Ball mouth at bedtime History Medications Medrol take dose pack as 1units Carmenza Paniagua 11/08/2018 - 4mg TBPK directed KRISSY Ball 11/22/2018 Proair HFA 2 puffs every 4 8.500gm R05 Xiomara 01/01/2018 - hours as needed Terrance, [facility] 05/18/2018 108(90Base) mcg/Act Aerosol Breo Ellipta 1 inhalation once R0 Xiomara 01/01/2018 - per day, rinse, Terrance, [facility] 05/18/2018 100-25mcg/Inh samples Aerosol Tamiflu 1 tab by mouth 10caps Rekha Nassar, 09/09/2017 - 75mg twice a day x 5 M.D. 11/11/2017 Capsules days Benzonatate 1 by mouth three 30caps R05 Ania Mauricio, 08/06/2016 - 200mg times a day as Afnp-C 08/16/2016 Capsules needed for cough Guaifenesin-Codeine 1-2 teaspoon every 120ml R0 Ania Mauricio, 2015 - at bedtime as Afnp-C 08/13/2016 100-10mg/5ML Syrup needed for cough Meclizine HCL 1 tab by mouth 60tabs Rekha Nassar, 05/09/2016 - 25mg every 6 hours as M.D. 08/06/2016 Tablets needed Mucinex 1 tablet twice 30tabs J06.9 Mavis Mena, RESPIRATORY COORDINATOR 03/19/2016 - 600mg daily as needed 05/09/2016 Tablets ER 12HR for congestion and cough J30.2 Clarithromycin 1 by mouth twice a 20tabs J30.2 Christine Camilo, 03/08/2016 - 500mg day x 10 days [facility] 05/09/2016 Tablets Mucinex 1 tablet twice 30tabs J06.9 Mavis Mena, 03/05/2016 - 600mg Tablets ER daily as needed RESPIRATORY COORDINATOR 03/15/2016 12HR for congestion and cough J30.2 Compression Stockings use as directed; 1Pair M72.2 Ania Luly, 2015 - wear during day; Afnp-C 01/16/2016 20mm HG can take off at night Compression Stockings use as directed; 1Pair M72.2 Ania Luly, 2015 - wear during day; Afnp-C 01/16/2016 20mm HG can take off at night Compression Stockings use as directed; 1Pair M72.2 Ania Luly, 2015 - wear during day; Afnp-C 01/16/2016 40mm HG can take off at night Compression Stockings use as directed; 1Pair Rekha Nassar, 01/15/2016 - wear during the M.D. 09/10/2016 30mm HG day; may take off at night. Naproxen take 1 tablet 60tabs M72.2 Rekha Nassar, 12/04/2015 - 500mg Tablets every 12 hours as M.D. 05/09/2016 needed with food Compression Stockings use as directed; 1Pair M72.2 Rekha Rumely, 2015 - wear during day; M.D. 01/15/2016 20mm HG can take off at night Medrol (Gómez) take as directed, 1pk M25.571 Fatuma 09/25/2015 - 4mg with food and [place], 10/02/2015 Tablets water Afnp-C Mupirocin apply small amount 22gm Ania Mauricio, 07/18/2015 - 2% Ointment three times a day Afnp-C 07/25/2015 x 5 days to area on scalp Sulfamethoxazole/Trim 1 by mouth twice a 28tabs L03.032 Ania Mauricio, 09/2014 - ethoprim DS day x 14 days Afnp-C 08/01/2015 800-160mg Tablets Ciprofloxacin HCL 1 by mouth twice a 14tabs M54.9 Yovanny Nick 05/31/2015 - 500mg day Otis Croft 06/07/2015 Tablets Cyclobenzaprine HCL 1 by mouth three 30tabs 724.2 Milan Garcia M.D. 2014 - times a day as 05/31/2015 10mg Tablets needed Hydrocodone-Acetamino 1 every 6 hours as 40tabs 724.2 Milan Garcia M.D. - phen needed 05/31/2015 5-325mg Tablets Azithromycin 2 by mouth today 6tabs Yovanny Nick 10/01/2014 - 250mg then 1 by mouth Otis Croft 10/06/2014 Tablets every day x 4 days Out Of Work out of work due to 465.9 Mavis Mena, 10/01/2014 - illness 10/02 & RESPIRATORY COORDINATOR 10/03/2014 10/03/14 Lidocaine Viscous 08/19 lidocaine, 08/19 100ml 462 Ania Mauricio, 09/30/2014 - 2% benadryl,1/3 Afnp-C 05/31/2015 Solution maalox, 1 teaspoon of each, swish, gargle and spit out every 2-4 hours Amlodipine Besylate 1 by mouth every 30tabs 729.5 Christine Camilo, 2013 - 5mg day [facility] 02/13/2015 Tablets Compression Stockings one pair - knee 1units 459.81 Ubaldo Nick 11/01/2013 - high Mendoza M.D. 02/13/2015 20mm HG Azithromycin take 2 tablets by 6tabs 465.8 Christine Camilo, 09/26/2013 - 250mg mouth today then [facility] 10/31/2013 Tablets take 1 tablet daily for next 4 days Note For Work Alex was seen by 465.8 Christine Camilo, 09/26/2013 - me today and december [facility] 10/31/2013 not return to work until Thursday, 2\\12\\14 Sulamyd Opthalmic 1-2 gtts into 1Bottle 372.00 [facility] 03/13/2012 - gtts affected eye q4hrs [facility], 03/20/2012 10% w/a until Afnp-C clear, then continue 1 more day do not exceed 1 week use Cephalexin 1 tab tid x 10 30tabs 462 Christine Camilo, 12/17/2011 - 500mg days [facility] 03/13/2012 Tablets Out Of Work seen in this 462 Fatuma 12/17/2011 - office today, [facility], 03/14/2012 for work return Afnp-C 03/14/12 Out Of Work out of work today 465.9 Ania Mauricio, 07/18/2010 - due to illness Afnp-C 07/21/2010 Cephalexin 1 po tid 24tabs [facility] 12/05/2009 - 500mg [facility], 12/13/2009 Tablets Afnp-C Note For Work Alex was seen by 380.22 Christine Camilo, 11/13/2009 - me today and december [facility] 12/05/2009 not return to work until , 4\\1\\10 Ciloxan 2 gtt affected 15cc 372.30 Christine Camilo, 11/13/2009 - 0.3% Solution eye(s) tid for 2d [employer] 07/18/2010 then bid until clear Return To Work 12/21/06 with out Xiomara francis 12/17/2006 - restrictions Otis Toro 10/22/2007 Out Of Work out of work 12/21/06 Xiomara francis 12/08/2006 - for work related Otis Toro 10/22/2007 fingertip amputation Vicodin 5/500 1 PO QHS prn Pain 30units Xiomara francis 12/08/2006 - Otis Toro 10/22/2007 Keflex 1 po bid x 10 Days 20tabs Conner ANilo 12/08/2006 - 500mg Tablets Otis Donaldson 12/14/2008 Bactroban Apply To Affected 30gm iXomara francis 12/08/2006 - 2% Ointment Area Daily Otis Toro 10/22/2007 Entex Pse 1 PO Q12 Hours prn 20tabs 465.8 Xiomara francis 10/20/2006 - 600mg;120 mg Head Congestion Otis Toro 10/22/2007 Tablets Keflex 1 PO qid For 10D 40tabs Riley Garcia 04/25/2006 - 500 Tablets Otis Donahue 05/05/2006 Coenzyme Q10 1 PO qd Riley Garcia 09/01/2005 - 50mg Otis Donahue 10/22/2007 Zithromax 2 PO qd Today , 1tabs Johnny FNilo 08/16/2005 - 250mg Tablets Then 1 PO qd Times Otis Garnett 08/16/2005 4 Ketek 2 PO qd 6tabs Johnny FNilo 08/16/2005 - 400mg Tablets Otis Garnett 08/23/2005 Keflex 1 PO bid 20caps Isaiah Soriano, 06/30/2005 - 500mg Capsules Otis 08/16/2005 Note alex was seen by Christine Camilo, 11/13/2004 - wi 3\\28\\05 for [employer] 02/04/2005 bronchitis Biaxin XL 2 PO qd 14units Christine Camilo, 11/11/2004 - 500mg [employer] 02/04/2005 Lipitor 1 po qhs 15units 272.4 Christine Camilo, 10/01/2004 - 20mg [employer] 04/17/2012 Lipitor 1 po qhs 90undiana Riley Garcia 06/04/2004 - 40mg Otis Donahue 10/01/2004 Cortisporin Otic Susp 4-5 gtts into r 1Bottle 380.22 Christine Camilo, 2003 - ear qid until [employer] TE[employer] 07/18/2010 clear Z-Pack as Dir 1undiana Riley Garcia 03/26/2004 - 1 Otis Donahue 03/31/2004 Ziac 1 qd 90undiana Riley Garcia 11/10/2003 - 10mg Otis Donahue 09/27/2004 Bactrim DS use bid 42tabs Unknown - 800-160mg 07/21/2014 Tablets Meclizine HCL 2 by mouth three Rekha Rumely, - 12.5mg times a day as MChi 05/09/2016 Tablets needed Naproxen 1 by mouth twice a Unknown - 500mg Tablets day with food 08/03/2017 Silvadene use daily Unknown - 1% Cream 08/03/2017 Naproxen 1 by mouth twice a Unknown - 500mg Tablets day with food 11/12/2017 Medrol dose-pack as Unknown - 4mg Tablets instructed 08/26/2018 Cyclobenzaprine HCL 1 by mouth three Unknown - times a day as 11/07/2018 10mg Tablets needed Immunizations CPT Code Status Date Vaccine Lot # [id number] Given 05/18/2018 Influenza Vac, Quadrivalent, Slit Virus, Im [id number] Given 05/07/2017 Influenza Vac, [place] [id number] Given 05/09/2016 Influenza Vac, Quadrivalent, Slit Virus, Im [id number] [id number] Given 04/27/2015 Influenza Vac, [place] [id number] Given 04/27/2015 DO Not Use Split Influenza Virus Vaccine [id number] Given 06/17/2014 DO Not Use Split Influenza Virus Vaccine Vital Signs Date Vital Result Comment 11/22/2018 8:53am BP Systolic 148 mmHg BP Diastolic 72 mmHg Heart Rate 97 /min Body Temperature 97.5 F Respiratory Rate 24 /min Weight 399.00 lb 11/08/2018 9:44am BP Systolic 146 mmHg BP Diastolic 88 mmHg Heart Rate 78 /min Body Temperature 98.6 F Respiratory Rate 18 /min Height 75 inches 6'3" Weight 399.00 lb BMI (Body Mass Index) 49.9 kg/m2 08/23/2018 6:27pm BP Systolic 128 mmHg BP Diastolic 80 mmHg Heart Rate 80 /min Body Temperature 98.8 F Respiratory Rate 16 /min Weight 397.00 lb 05/18/2018 7:58am BP Systolic 130 mmHg BP Diastolic 78 mmHg Heart Rate 84 /min Body Temperature 97.9 F Respiratory Rate 18 /min Height 75 inches 6'3" Weight 409.00 lb BMI (Body Mass Index) 51.1 kg/m2 01/01/2018 9:39am BP Systolic 144 mmHg BP Diastolic 92 mmHg Heart Rate 86 /min Body Temperature 97.5 F Respiratory Rate 18 /min Height 75 inches 6'3" Weight 405.12 lb BMI (Body Mass Index) 50.6 kg/m2 11/18/2017 4:05pm BP Systolic 144 mmHg BP Diastolic 88 mmHg Heart Rate 90 /min Body Temperature 98.4 F Respiratory Rate 16 /min Height 75 inches 6'3" 11/12/2017 8:57am BP Systolic 144 mmHg BP Diastolic 84 mmHg Heart Rate 80 /min Body Temperature 98.1 F Respiratory Rate 18 /min Height 75 inches 6'3" Weight 387.00 lb BMI (Body Mass Index) 48.4 kg/m2 08/03/2017 6:00pm BP Systolic 150 mmHg BP Diastolic 98 mmHg Heart Rate 84 /min Body Temperature 97.5 F Height 75 inches 6'3" Weight 385.00 lb BMI (Body Mass Index) 48.1 kg/m2 12/23/2016 8:45pm BP Systolic 144 mmHg BP Diastolic 90 mmHg Heart Rate 84 /min Body Temperature 99.0 F Respiratory Rate 18 /min Height 75 inches 6'3" Weight 388.00 lb BMI (Body Mass Index) 48.5 kg/m2 12/12/2016 10:52am BP Systolic 130 mmHg BP Diastolic 88 mmHg Heart Rate 80 /min Body Temperature 98.8 F Respiratory Rate 18 /min Height 75 inches 6'3" Weight 388.00 lb BMI (Body Mass Index) 48.5 kg/m2 09/11/2016 9:53am BP Systolic 162 mmHg BP Diastolic 100 mmHg Heart Rate 90 /min Body Temperature 98.1 F Height 75 inches 6'3" Weight 383.12 lb BMI (Body Mass Index) 47.9 kg/m2 08/06/2016 3:32pm BP Systolic 142 mmHg BP Diastolic 78 mmHg Heart Rate 80 /min Body Temperature 97.6 F Respiratory Rate 18 /min Height 75 inches 6'3" Weight 383.00 lb BMI (Body Mass Index) 47.9 kg/m2 05/09/2016 2:46pm BP Systolic 142 mmHg BP Diastolic 90 mmHg Heart Rate 88 /min Body Temperature 97.7 F Respiratory Rate 20 /min Height 75 inches 6'3" Weight 387.00 lb BMI (Body Mass Index) 48.4 kg/m2 03/08/2016 11:10am BP Systolic 120 mmHg BP Diastolic 80 mmHg Heart Rate 80 /min Body Temperature 98.2 F Respiratory Rate 18 /min Height 75 inches 6'3" 03/05/2016 2:11pm BP Systolic 148 mmHg BP Diastolic 100 mmHg Heart Rate 104 /min Body Temperature 97.7 F Respiratory Rate 24 /min O2 % BldC Oximetry 97 % Height 75 inches 6'3" Weight 385.00 lb BMI (Body Mass Index) 48.1 kg/m2 12/04/2015 11:27am BP Systolic 140 mmHg BP Diastolic 80 mmHg Heart Rate 88 /min Body Temperature 98.1 F Respiratory Rate 16 /min Height 75 inches 6'3" Weight 383.00 lb BMI (Body Mass Index) 47.9 kg/m2 10/06/2015 11:26am BP Systolic 140 mmHg BP Diastolic 90 mmHg Heart Rate 76 /min Body Temperature 98.1 F Respiratory Rate 18 /min Weight 380.00 lb 09/25/2015 8:52am BP Systolic 140 mmHg BP Diastolic 90 mmHg Heart Rate 64 /min Body Temperature 97.8 F Respiratory Rate 20 /min Height 75 inches 6'3" Weight 380.00 lb BMI (Body Mass Index) 47.5 kg/m2 07/18/2015 11:34am BP Systolic 144 mmHg BP Diastolic 96 mmHg Heart Rate 90 /min Body Temperature 97.8 F Respiratory Rate 16 /min Height 75 inches 6'3" Weight 362.00 lb BMI (Body Mass Index) 45.2 kg/m2 05/31/2015 6:16pm BP Systolic 150 mmHg BP Diastolic 80 mmHg Heart Rate 104 /min Body Temperature 100.5 F Respiratory Rate 20 /min Height 75 inches 6'3" Weight 383.00 lb BMI (Body Mass Index) 47.9 kg/m2 02/13/2015 11:07am BP Systolic 140 mmHg BP Diastolic 110 mmHg Heart Rate 80 /min Body Temperature 98.5 F Respiratory Rate 18 /min Height 75 inches 6'3" Weight 389.00 lb BMI (Body Mass Index) 48.6 kg/m2 09/30/2014 11:11am BP Systolic 140 mmHg BP Diastolic 96 mmHg Heart Rate 84 /min Body Temperature 98.3 F Respiratory Rate 18 /min Height 75 inches 6'3" Weight 376.12 lb BMI (Body Mass Index) 47.0 kg/m2 08/11/2014 1:20pm BP Systolic 138 mmHg BP Diastolic 98 mmHg Heart Rate 98 /min Body Temperature 98.3 F Respiratory Rate 20 /min Height 75 inches 6'3" Weight 370.00 lb BMI (Body Mass Index) 46.2 kg/m2 07/21/2014 1:26pm BP Systolic 168 mmHg BP Diastolic 110 mmHg Heart Rate 78 /min Body Temperature 97.1 F Respiratory Rate 16 /min Height 75 inches 6'3" Weight 374.00 lb BMI (Body Mass Index) 46.7 kg/m2 01/18/2014 8:58am BP Systolic 144 mmHg BP Diastolic 98 mmHg Heart Rate 76 /min Body Temperature 97.5 F Respiratory Rate 16 /min Height 75 inches 6'3" Weight 381.00 lb BMI (Body Mass Index) 47.6 kg/m2 11/01/2013 8:45am BP Systolic 132 mmHg BP Diastolic 90 mmHg Heart Rate 84 /min Body Temperature 97.7 F Height 75 inches 6'3" Weight 367.38 lb BMI (Body Mass Index) 45.9 kg/m2 09/26/2013 1:50pm BP Systolic 130 mmHg BP Diastolic 70 mmHg Heart Rate 72 /min Body Temperature 100.7 F Respiratory Rate 18 /min Height 75 inches 6'3" Weight 371.00 lb BMI (Body Mass Index) 46.4 kg/m2 03/13/2012 10:16am BP Systolic 130 mmHg BP Diastolic 80 mmHg Heart Rate 80 /min Body Temperature 98.8 F Height 75 inches 6'3" 12/17/2011 9:21am BP Systolic 130 mmHg BP Diastolic 80 mmHg Heart Rate 80 /min Body Temperature 97.5 F Respiratory Rate 22 /min Height 75 inches 6'3" 07/17/2011 9:33am BP Systolic 130 mmHg BP Diastolic 90 mmHg Heart Rate 80 /min Body Temperature 98.8 F Height 75 inches 6'3" Weight 35.00 lb BMI (Body Mass Index) 4.4 kg/m2 03/21/2011 8:56am BP Systolic 118 mmHg BP Diastolic 80 mmHg Heart Rate 88 /min Body Temperature 97.4 F Height 75 inches 6'3" 07/18/2010 10:13am BP Systolic 130 mmHg BP Diastolic 84 mmHg Heart Rate 84 /min Body Temperature 97.4 F Height 75 inches 6'3" Weight 350.00 lb BMI (Body Mass Index) 43.7 kg/m2 12/05/2009 2:12pm BP Systolic 124 mmHg BP Diastolic 92 mmHg Heart Rate 72 /min Body Temperature 97.6 F Height 75 inches 6'3" Weight 348.00 lb BMI (Body Mass Index) 43.5 kg/m2 11/13/2009 8:16pm BP Systolic 142 mmHg BP Diastolic 80 mmHg Heart Rate 96 /min Body Temperature 98.3 F Weight 344.00 lb 08/11/2009 10:47am BP Systolic 122 mmHg BP Diastolic 80 mmHg Heart Rate 88 /min Body Temperature 99.1 F 07/31/2009 8:35am BP Systolic 122 mmHg BP Diastolic 72 mmHg Heart Rate 88 /min Body Temperature 97.6 F 12/14/2008 9:41am BP Systolic 136 mmHg BP Diastolic 80 mmHg Heart Rate 90 /min Body Temperature 98.0 F 11/18/2008 9:52am BP Systolic 144 mmHg BP Diastolic 84 mmHg Body Temperature 97.8 F Height 75 inches 6'3" Weight 350.00 lb BMI (Body Mass Index) 43.7 kg/m2 09/18/2008 9:07am BP Systolic 132 mmHg BP Diastolic 100 mmHg Heart Rate 88 /min Body Temperature 97.7 F Weight 350.00 lb 10/22/2007 9:54am BP Systolic 120 mmHg BP Diastolic 70 mmHg Heart Rate 76 /min Height 75 inches 6'3" Weight 338.00 lb BMI (Body Mass Index) 42.2 kg/m2 12/17/2006 11:55am BP Systolic 140 mmHg BP Diastolic 90 mmHg Heart Rate 88 /min Body Temperature 98.7 F Height 75 inches 6'3" Weight 342.00 lb BMI (Body Mass Index) 42.7 kg/m2 12/08/2006 7:10pm BP Systolic 140 mmHg BP Diastolic 80 mmHg Heart Rate 100 /min Body Temperature 99.3 F Height 75 inches 6'3" Weight 345.00 lb BMI (Body Mass Index) 43.1 kg/m2 10/20/2006 8:11pm BP Systolic 132 mmHg BP Diastolic 92 mmHg Heart Rate 84 /min Body Temperature 99.0 F Height 75 inches 6'3" Weight 339.00 lb BMI (Body Mass Index) 42.4 kg/m2 10/16/2006 9:30am BP Systolic 120 mmHg BP Diastolic 78 mmHg Heart Rate 76 /min Height 75 inches 6'3" Weight 316.00 lb BMI (Body Mass Index) 39.5 kg/m2 04/25/2006 11:19am BP Systolic 120 mmHg BP Diastolic 80 mmHg Heart Rate 80 /min Body Temperature 98.8 F Height 75 inches 6'3" Weight 329.00 lb BMI (Body Mass Index) 41.1 kg/m2 09/01/2005 10:27am BP Systolic 130 mmHg BP Diastolic 92 mmHg Heart Rate 88 /min Height 75 inches 6'3" Weight 318.00 lb BMI (Body Mass Index) 39.7 kg/m2 08/16/2005 1:22pm BP Systolic 122 mmHg BP Diastolic 84 mmHg Heart Rate 82 /min Body Temperature 97.6 F O2 % BldC Oximetry 97 % Height 75 inches 6'3" Weight 317.00 lb BMI (Body Mass Index) 39.6 kg/m2 06/30/2005 11:52am BP Systolic 128 mmHg BP Diastolic 80 mmHg Heart Rate 90 /min Body Temperature 99.0 F Height 75 inches 6'3" Weight 323.00 lb BMI (Body Mass Index) 40.4 kg/m2 02/04/2005 10:59am BP Systolic 120 mmHg BP Diastolic 82 mmHg Heart Rate 74 /min Height 75 inches 6'3" Weight 320.00 lb BMI (Body Mass Index) 40.0 kg/m2 11/11/2004 7:26pm BP Systolic 152 mmHg BP Diastolic 90 mmHg Heart Rate 92 /min Body Temperature 98.5 F Height 75 inches 6'3" Weight 312.00 lb BMI (Body Mass Index) 39.0 kg/m2 08/06/2004 11:01am BP Systolic 114 mmHg BP Diastolic 60 mmHg Heart Rate 60 /min Height 75 inches 6'3" Weight 305.00 lb BMI (Body Mass Index) 38.1 kg/m2 05/28/2004 8:56am BP Systolic 118 mmHg BP Diastolic 75 mmHg Heart Rate 70 /min Height 75 inches 6'3" Weight 312.00 lb BMI (Body Mass Index) 39.0 kg/m2 05/17/2004 10:40am BP Systolic 122 mmHg BP Diastolic 78 mmHg Heart Rate 84 /min Body Temperature 97.8 F Height 75 inches 6'3" Weight 307.00 lb BMI (Body Mass Index) 38.4 kg/m2 03/26/2004 8:50am BP Systolic 120 mmHg BP Diastolic 68 mmHg Heart Rate 80 /min Height 75 inches 6'3" Weight 324.00 lb BMI (Body Mass Index) 40.5 kg/m2 11/17/2003 9:53am BP Systolic 128 mmHg BP Diastolic 86 mmHg Heart Rate 84 /min Height 75 inches 6'3" Weight 322.00 lb BMI (Body Mass Index) 40.2 kg/m2 11/10/2003 10:23am BP Systolic 122 mmHg BP Diastolic 92 mmHg Heart Rate 74 /min Height 75 inches 6'3" Weight 310.00 lb BMI (Body Mass Index) 38.7 kg/m2 Results Test Date Facility Test Result H/L Range Note Laboratory test 11/08/2018 [facility] Quickstrep negative Negative finding (607)- - Laboratory test 11/08/2018 [facility] Culture Throat SEE RESULT 1 finding BELOW Comp Metabolic 08/25/2018 [facility] Sodium 136 mmol/L N 135-145 Panel Potassium 3.7 mmol/L N 3.5-5.0 Chloride 104 mmol/L N 101-111 Co2 Carbon Dioxide 24 mmol/L N 22-32 Anion Gap 8 mmol/L N 2-11 Glucose 78 mg/dL N 70-100 Blood Urea Nitrogen 18 mg/dL N 6-24 Creatinine 0.69 mg/dL N 0.67-1.17 BUN/Creatinine Ratio 26.1 High 8-20 Calcium 9.0 mg/dL N 8.6-10.3 Total Protein 7.5 g/dL N 6.4-8.9 Albumin 4.2 g/dL N 3.2-5.2 Globulin 3.3 g/dL N 2-4 Albumin/Globulin Ratio 1.3 N 1-3 Total Bilirubin 0.50 mg/dL N 0.2-1.0 Alkaline Phosphatase 88 U/L N 34-104 Alt 26 U/L N 7-52 Ast 15 U/L N 13-39 Egfr Non- 129.7 >60 Egfr 157.0 >60 2 Laboratory test finding 08/25/2018 [facility] Lipase 20 U/L N 11.0-82.0 C Reactive Protein 10.69 mg/L High <8.01 CBC Auto Diff 08/25/2018 [facility] White Blood Count 18.5 10^3/uL High 3.5- 10.8 Red Blood Count 5.79 10^6/uL High 4.00-5.40 Hemoglobin 15.1 g/dL N 14.0-18.0 Hematocrit 46 % N 42-52 Mean Corpuscular Volume 80 fL N 80-94 Mean Corpuscular Hemoglobin 26 pg Low 27-31 Mean Corpuscular HGB Conc 33 g/dL N 31-36 Red Cell Distribution Width 15 % N 10.5-15 Platelet Count 252 10^3/uL N 150-450 Mean Platelet Volume 8.8 fL N 7.4-10.4 Abs Neutrophils 14.5 10^3/uL High 1.5-7.7 Abs Lymphocytes 1.9 10^3/uL N 1.0-4.8 Abs Monocytes 1.8 10^3/uL High 0-0.8 Abs Eosinophils 0.2 10^3/uL N 0-0.6 Abs Basophils 0.1 10^3/uL N 0-0.2 Abs Nucleated RBC 0.1 10^3/uL Granulocyte % 78.3 % Lymphocyte % 10.3 % Monocyte % 9.6 % Eosinophil % 1.0 % Basophil % 0.8 % Nucleated Red Blood Cells % 0.3 Laboratory test finding 08/25/2018 [facility] Lactic Acid 0.9 mmol/L N 0.5-2.0 3 Comp Metabolic Panel 06/27/2018 [facility] Sodium 133 mmol/L Low 135-145 Potassium 3.3 mmol/L Low 3.5-5.0 Chloride 101 mmol/L N 101-111 Co2 Carbon Dioxide 24 mmol/L N 22-32 Anion Gap 8 mmol/L N 2-11 Glucose 107 mg/dL High 70-100 Blood Urea Nitrogen 14 mg/dL N 6-24 Creatinine 0.80 mg/dL N 0.67-1.17 BUN/Creatinine Ratio 17.5 N 8-20 Calcium 8.9 mg/dL N 8.6-10.3 Total Protein 7.6 g/dL N 6.4-8.9 Albumin 3.8 g/dL N 3.2-5.2 Globulin 3.8 g/dL N 2-4 Albumin/Globulin Ratio 1.0 N 1-3 Total Bilirubin 0.70 mg/dL N 0.2-1.0 Alkaline Phosphatase 84 U/L N 34-104 Alt 31 U/L N 7-52 Ast 21 U/L N 13-39 Egfr Non- 109.4 >60 Egfr 132.4 >60 4 Laboratory test 06/27/2018 [facility] C Reactive Protein 87.96 mg/L High <8.01 finding CBC Auto Diff 06/27/2018 [facility] White Blood Count 11.1 10^3/uL High 3.5- 10.8 Red Blood Count 5.15 10^6/uL N 4.00-5.40 Hemoglobin 13.5 g/dL Low 14.0-18.0 Hematocrit 41 % Low 42-52 Mean Corpuscular Volume 79 fL Low 80-94 Mean Corpuscular Hemoglobin 26 pg Low 27-31 Mean Corpuscular HGB Conc 33 g/dL N 31-36 Red Cell Distribution Width 14 % N 10.5-15 Platelet Count 220 10^3/uL N 150-450 Mean Platelet Volume 8.3 fL N 7.4-10.4 Abs Neutrophils 7.6 10^3/uL N 1.5-7.7 Abs Lymphocytes 1.5 10^3/uL N 1.0-4.8 Abs Monocytes 1.5 10^3/uL High 0-0.8 Abs Eosinophils 0.2 10^3/uL N 0-0.6 Abs Basophils 0.1 10^3/uL N 0-0.2 Abs Nucleated RBC 0 10^3/uL Granulocyte % 69.2 % N 38-83 Lymphocyte % 13.8 % Low 25-47 Monocyte % 13.9 % High 0-7 Eosinophil % 1.8 % N 0-6 Basophil % 1.3 % N 0-2 Nucleated Red Blood Cells % 0.3 Laboratory test finding 06/27/2018 [facility] Lactic Acid 0.9 mmol/L N 0.5-2.0 5 Ua - Non Micro (Fma) 05/18/2018 [facility] Appearance clear (607)- - Color yellow Glucose, Urine (Fma/CMC/CTX) neg Bilirubin neg Ketones neg SP Grav 1.015 Blood neg PH 5.5 Protein neg Urobil 0.2 Nitrite neg Leukocytes (a/CMC/Centrex) neg Laboratory test 05/18/2018 [facility] Microalb, Random 16.0 mg/L 0.5-37 finding (607)- - (Fma/CMC/CTX) CBC Electronic 05/18/2018 Rudy Parisi WBC 10.2 High 4.0-10.0 Fma x10^3/UL RBC 5.34 x10^6/UL 3.93-6.00 HGB 14.3 g/dL 12.0-17.0 HCT 43 % 35-50 MCV 80.1 fL 80.0-95.0 MCH 26.8 pg 25.6-32.2 MCHC 33.4 g/dL 32.2-36.0 RDW-CV 13.3 % 11.6-14.4 PLT 234 x10^3/UL 163-400 MPV 10.2 fL 9.4-12.4 [place]ida# 7.16 x10^3/UL High 1.56-6.13 Lymph# 1.60 x10^3/UL 1.18-3.74 [place]# 0.92 x10^3/UL High 0.24-0.82 Eos # 0.4 x10^3/UL 0.0-0.5 Baso # 0.09 x10^3/UL High 0.01-0.08 Frida% 70.4 % High 34.0-70.0 Lymph % 15.7 % Low 20.0-52.0 [place]% 9.0 % 5.0-12.0 Eos% 3.6 % 0.7-7.0 Baso% 0.9 % 0.1-1.2 Laboratory test 05/18/2018 Grant Flora TSH 2.77 mIU/L 0.50-6.00 finding Lipid Profile 05/18/2018 Rudy Laron Cholesterol 131 mg/dL 120-200 Triglycerides 99 mg/dL 30-200 HDL Cholesterol 39 mg/dL 30-70 LDL (Calculated) 72 CALC 0-129 VLDL Cholesterol 20 mg/dL 0-50 HDL Risk Factor 3.4 CALC 0.0-4.4 Comprehensive Metabolic Prof 05/18/2018 Grant Laron Sodium 135 mEq/L 134-149 Potassium 3.9 mEq/L 3.6-5.5 Chloride 100 mEq/L 94-112 Carbon Dioxide 22 mEq/L 21-32 Glucose 80 mg/dL 70-105 BUN 11 mg/dL 6-26 Creatinine 0.7 mg/dL 0.6-1.4 BUN/Creat Ratio 15.7 CALC 8.0-36.0 Calcium 8.7 mg/dL 8.6-10.2 Total Protein 6.6 g/dL 6.4-8.3 Albumin 3.9 g/dL 3.8-5.5 Globulin 2.7 g/dL 2.0-4.8 A/G Ratio 1.4 CALC 0.6-2.3 Alk. Phosphatase 96 U/L High 22-95 6 Alt (SGPT) 29 U/L 7-35 Ast (Sgot) 18 U/L 5-34 Total Bilirubin 0.5 mg/dL 0.2-1.3 GFR Non- >60 ml/min/1.73m^ >=60 GFR >60 ml/min/1.73m^ >=60 Urinalysis Profile 03/14/2018 [facility] Urine Color Yellow Urine Appearance Clear Urine Specific [place] 1.021 N 1.010-1.030 Urine pH 5.0 N 5-9 Urine Urobilinogen Negative Negative Urine Ketones Negative Negative Urine Protein Negative Negative Urine Leukocytes Negative Negative Urine Blood Negative Negative Urine Nitrite Negative Negative Urine Bilirubin Negative Negative Urine Glucose Negative Negative Urinalysis Profile 10/07/2017 [facility] Urine Color Yellow Urine Appearance Clear Urine Specific [place] 1.017 N 1.010-1.030 Urine pH 5.0 N 5-9 Urine Urobilinogen Negative Negative Urine Ketones Trace Abnormal Negative Urine Protein Negative Negative Urine Leukocytes Negative Negative Urine Blood Negative Negative Urine Nitrite Negative Negative Urine Bilirubin Negative Negative Urine Glucose Negative Negative Laboratory test finding 10/07/2017 [facility] Lactic Acid 0.9 mmol/L N 0.5-2.0 7 Comp Metabolic Panel 10/07/2017 [facility] Sodium 136 mmol/L N 133-145 Potassium 3.3 mmol/L Low 3.5-5.0 Chloride 102 mmol/L N 101-111 Co2 Carbon Dioxide 25 mmol/L N 22-32 Anion Gap 9 mmol/L N 2-11 Glucose 70 mg/dL N 70-100 Blood Urea Nitrogen 11 mg/dL N 6-24 Creatinine 0.71 mg/dL N 0.67-1.17 BUN/Creatinine Ratio 15.5 N 8-20 Calcium 9.1 mg/dL N 8.6-10.3 Total Protein 7.6 g/dL N 6.4-8.9 Albumin 3.9 g/dL N 3.2-5.2 Globulin 3.7 g/dL N 2-4 Albumin/Globulin Ratio 1.1 N 1-3 Total Bilirubin 0.70 mg/dL N 0.2-1.0 Alkaline Phosphatase 87 U/L N 34-104 Alt 24 U/L N 7-52 Ast 16 U/L N 13-39 Egfr Non- 126.3 >60 Egfr 162.4 >60 8 Laboratory test finding 10/07/2017 [facility] Lipase 11 U/L N 11.0-82.0 C Reactive Protein 21.95 mg/L High < 5.00 9 Troponin I 0.01 ng/mL <0.04 CBC Auto Diff 10/07/2017 [facility] White Blood Count 12.7 10^3/uL High 3.5- 10.8 Red Blood Count 5.24 10^6/uL N 4.0-5.4 Hemoglobin 14.2 g/dL N 14.0-18.0 Hematocrit 42 % N 42-52 Mean Corpuscular Volume 81 fL N 80-94 Mean Corpuscular Hemoglobin 27 pg N 27-31 Mean Corpuscular HGB Conc 33 g/dL N 31-36 Red Cell Distribution Width 14 % N 10.5-15 Platelet Count 239 10^3/uL N 150-450 Mean Platelet Volume 8 um3 N 7.4-10.4 Abs Neutrophils 9.4 10^3/uL High 1.5-7.7 Abs Lymphocytes 2.0 10^3/uL N 1.0-4.8 Abs Monocytes 0.9 10^3/uL High 0-0.8 Abs Eosinophils 0.3 10^3/uL N 0-0.6 Abs Basophils 0.1 10^3/uL N 0-0.2 Abs Nucleated RBC 0 10^3/uL Granulocyte % 73.8 % N 38-83 Lymphocyte % 15.7 % Low 25-47 Monocyte % 7.5 % N 1-9 Eosinophil % 2.3 % N 0-6 Basophil % 0.7 % N 0-2 Nucleated Red Blood Cells % 0.3 Laboratory test 10/07/2017 [facility] Blood Culture SEE RESULT 10 finding BELOW Comprehensive 07/21/2017 Rudy Parisi Sodium 135 mEq/L 134-149 Metabolic Prof Potassium 3.7 mEq/L 3.6-5.5 Chloride 102 mEq/L [...] GFR >60 ml/min/1.73m^ >=60 Lipid Profile 07/21/2017 Rudy Parisi Cholesterol 133 mg/dL 120-200 Triglycerides 107 mg/dL 30-200 HDL Cholesterol 38 mg/dL 30-70 LDL (Calculated) 74 CALC 0-129 VLDL Cholesterol 21 mg/dL 0-50 HDL Risk Factor 3.5 CALC 0.0-4.4 Complete Blood Count 07/21/2017 Rudy Parisi WBC 9.2 x10^3/UL 3.6-9.6 RBC 5.17 x10^6/UL 3.90-5.70 HGB 13.9 g/dL 12.1-17.2 HCT 42 % 36-50 MCV 82.0 fL Low 82.2-97.4 MCH 26.9 pg Low 27.6-33.3 MCHC 32.9 g/dL Low 33.0-35.5 RDW 13.8 % High 11.6-13.7 PLT 215 x10^3/UL 150-400 MPV 8.5 fL 7.4-10.4 Gran # 7.1 x10^3/UL 1.5-7.2 Lymph# 1.7 x10^3/UL 0.7-4.9 [place]# 0.4 x10^3/UL 0.1-0.9 Gran % 76.1 % High 42.2-75.2 Lymph % 18.9 % Low 20.5-51.1 [place]% 5.0 % 1.7-9.3 Urinalysis Profile 05/04/2016 [facility] Urine Color Yellow N Urine Appearance Clear N Urine Specific [place] 1.024 N 1.010-1.030 Urine pH 6.0 N 5-9 Urine Urobilinogen Negative N Negative Urine Ketones Negative N Negative Urine Protein Negative N Negative Urine Leukocytes Negative N Negative Urine Blood Negative N Negative Urine Nitrite Negative N Negative Urine Bilirubin Negative N Negative Urine Glucose Negative N Negative CBC Auto Diff 05/04/2016 [facility] White Blood Count 10.8 10^3/uL N 3.5-10.8 Red Blood Count 5.31 10^6/uL N 4.0-5.4 Hemoglobin 14.1 g/dL N 14.0-18.0 Hematocrit 42 % N 42-52 Mean Corpuscular Volume 79 fL Low 80-94 Mean Corpuscular Hemoglobin 27 pg N 27-31 Mean Corpuscular HGB Conc 34 g/dL N 31-36 Red Cell Distribution Width 14 % N 10.5-15 Platelet Count 225 10^3/uL N 150-450 Mean Platelet Volume 9 um3 N 7.4-10.4 Abs Neutrophils 7.2 10^3/uL N 1.5-7.7 Abs Lymphocytes 2.0 10^3/uL N 1.0-4.8 Abs Monocytes 0.9 10^3/uL High 0-0.8 Abs Eosinophils 0.5 10^3/uL N 0-0.6 Abs Basophils 0.1 10^3/uL N 0-0.2 Abs Nucleated RBC 0 10^3/uL N Granulocyte % 66.3 % N 38-83 Lymphocyte % 18.8 % Low 25-47 Monocyte % 8.7 % N 1-9 Eosinophil % 5.0 % N 0-6 Basophil % 1.2 % N 0-2 Nucleated Red Blood Cells % 0 N Comp Metabolic Panel 05/04/2016 [facility] Sodium 136 mmol/L N 133-145 Potassium 3.7 mmol/L N 3.5-5.0 Chloride 103 mmol/L N 101-111 Co2 Carbon Dioxide 25 mmol/L N 22-32 Anion Gap 8 mmol/L N 2-11 Glucose 98 mg/dL N 70-100 Blood Urea Nitrogen 12 mg/dL N 6-24 Creatinine 0.80 mg/dL N 0.67-1.17 BUN/Creatinine Ratio 15.0 N 8-20 Calcium 8.8 mg/dL N 8.6-10.3 Total Protein 7.2 g/dL N 6.4-8.9 Albumin 3.7 g/dL N 3.2-5.2 Globulin 3.5 g/dL N 2-4 Albumin/Globulin Ratio 1.1 N 1-3 Total Bilirubin 0.50 mg/dL N 0.2-1.0 Alkaline Phosphatase 83 U/L N 34-104 Alt 18 U/L N 7-52 Ast 16 U/L N 13-39 Egfr Non- 110.7 N >60 Egfr 142.3 N >60 11 Laboratory test finding 05/04/2016 [facility] Troponin I 0.00 ng/mL N <0.03 12 Comprehensive Metabolic 04/29/2016 Grant Laron Sodium 138 mEq/L 134- 149 Prof Potassium 4.0 mEq/L 3.6-5.5 Chloride 102 mEq/L [...] GFR >60 ml/min/1.73m^ >=60 Lipid Profile 04/29/2016 Rudy Laron Cholesterol 131 mg/dL 120-200 Triglycerides 92 mg/dL 30-200 HDL Cholesterol 34 mg/dL 30-70 LDL (Calculated) 79 CALC 0-129 VLDL Cholesterol 18 mg/dL 0-50 HDL Risk Factor 3.9 CALC 0.0-4.4 Complete Blood Count 04/29/2016 Rudy Laron WBC 10.0 x10^3/UL High 3.6 -9.6 RBC 5.05 x10^6/UL 3.90-5.70 HGB 14.0 g/dL 12.1-17.2 HCT 42 % 36-50 MCV 83.0 fL 82.2-97.4 MCH 27.7 pg 27.6-33.3 MCHC 33.5 g/dL 33.0-35.5 RDW 14.0 % High 11.6-13.7 PLT 232 x10^3/UL 150-400 MPV 8.1 fL 7.4-10.4 Gran # 7.5 x10^3/UL High 1.5-7.2 Lymph# 1.9 x10^3/UL 0.7-4.9 [place]# 0.6 x10^3/UL 0.1-0.9 Gran % 74.8 % 42.2-75.2 Lymph % 19.1 % Low 20.5-51.1 [place]% 6.1 % 1.7-9.3 Laboratory test finding 01/10/2016 [facility] Rapid Strep Molecular Negative N Negative 13 Rapid Strep A SEE RESULT BELOW 14 Rapid Influenza A & B 10/19/2015 [facility] Influenza A Molecular NEGATIVE N Negative 15 Antigen Influenza B Molecular NEGATIVE N Negative Laboratory test 10/19/2015 [facility] Rapid Strep A SEE RESULT BELOW 16 finding Rapid Influenza A & 10/19/2015 [facility] Influenza A NEGATIVE N Negative 17 B Antigen Molecular Influenza B Molecular NEGATIVE N Negative Laboratory test finding 10/19/2015 [facility] Rapid Strep Molecular Negative N Negative 18 Throat Beta Strep Culture SEE RESULT BELOW 19 Laboratory test finding 08/06/2015 [facility] Lipase 16 U/L N 11.0-82.0 C Reactive Protein 14.45 mg/L High < 5.00 20 Lactic Acid 0.8 mmol/L N 0.5-2.0 21 Urinalysis Profile 08/06/2015 [facility] Urine Color Yellow N Urine Appearance Clear N Urine Specific [place] 1.015 N 1.010-1.030 Urine pH 7.0 N 5-9 Urine Urobilinogen Negative N Negative Urine Ketones Negative N Negative Urine Protein Negative N Negative Urine Leukocytes Negative N Negative Urine Blood Negative N Negative Urine Nitrite Negative N Negative Urine Bilirubin Negative N Negative Urine Glucose Negative N Negative Comp Metabolic Panel 08/06/2015 [facility] Sodium 136 mmol/L N 133-145 Potassium 4.1 mmol/L N 3.5-5.0 Chloride 105 mmol/L N 101-111 Co2 Carbon Dioxide 25 mmol/L N 22-32 Anion Gap 6 mmol/L N 2-11 Glucose 75 mg/dL N 70-100 Blood Urea Nitrogen 11 mg/dL N 6-24 Creatinine 0.67 mg/dL N 0.67-1.17 BUN/Creatinine Ratio 16.4 N 8-20 Calcium 9.0 mg/dL N 8.6-10.3 Total Protein 7.6 g/dL N 6.4-8.9 Albumin 4.0 g/dL N 3.2-5.2 Globulin 3.6 g/dL N 2-4 Albumin/Globulin Ratio 1.1 N 1-3 Total Bilirubin 0.40 mg/dL N 0.2-1.0 Alkaline Phosphatase 77 U/L N 34-104 Alt 23 U/L N 7-52 Ast 17 U/L N 13-39 Egfr Non- 136.6 N >60 Egfr 175.7 N >60 22 CBC Auto Diff 08/06/2015 [facility] White Blood Count 10.2 10^3/uL N 3.5-10.8 Red Blood Count 5.65 10^6/uL High 4.0-5.4 Hemoglobin 15.1 g/dL N 14.0-18.0 Hematocrit 47 % N 42-52 Mean Corpuscular Volume 83 fL N 80-94 Mean Corpuscular Hemoglobin 27 pg N 27-31 Mean Corpuscular HGB Conc 32 g/dL N 31-36 Red Cell Distribution Width 14 % N 10.5-15 Platelet Count 205 10^3/uL N 150-450 Mean Platelet Volume 9 um3 N 7.4-10.4 Abs Neutrophils 7.1 10^3/uL N 1.5-7.7 Abs Lymphocytes 1.8 10^3/uL N 1.0-4.8 Abs Monocytes 1.0 10^3/uL High 0-0.8 Abs Eosinophils 0.2 10^3/uL N 0-0.6 Abs Basophils 0.1 10^3/uL N 0-0.2 Abs Nucleated RBC 0.01 10^3/uL N Granulocyte % 69.7 % N 38-83 Lymphocyte % 17.8 % Low 25-47 Monocyte % 9.4 % High 1-9 Eosinophil % 2.1 % N 0-6 Basophil % 1.0 % N 0-2 Nucleated Red Blood Cells % 0.1 N Aerobic 07/18/2015 [facility] Aerobic Final Abnormal 23, 24 Bacterial [id number] [facility] [place] [address] Culture (607)- - Result 1 Staphylococcus a <SEE NOTE> Abnormal 25 Result 2 Skin laron isola <SEE NOTE> 26 Antimicrobial Susceptibility See Comment: 27 Ua - Micro ([facility]) 06/13/2015 [facility] Medicine Appearance CLEAR (607)- - Color YELLOW Glucose, Urine (a/CMC/CTX) NEG Bilirubin NEG Ketones NEG SP Grav 1.010 Blood NEG PH 6.5 Protein NEG Urobil 0.2 Nitrite NEG Leukocytes (a/CMC/Centrex) NEG Hyaline - /Lpf Granular - /Lpf WBC (a,Centrex) 0-1 # RBC 0-1 # Mucus - /Lpf Epith - /Lpf Bacteria - /Hpf Amorphous - /Lpf Crystals, Fluid (Fma/CMC/CTX) - Z#Comments - Laboratory test 05/31/2015 [facility] Urine Culture And SEE RESULT 28 finding Sensitivities BELOW Ua - Micro ([facility]) 05/31/2015 [facility] Medicine Appearance CLEAR (607)- - Color YELLOW Glucose, Urine (Fma/CMC/CTX) NEG Bilirubin ICTO:NEG Ketones NEG SP Grav 1.020 Blood TRACE-LYSED # PH 6.0 Protein SSA:NEG Urobil 0.2 Nitrite NEG Leukocytes (a/CMC/Centrex) NEG Hyaline - /Lpf Granular - /Lpf WBC (a,Centrex) 0-1 # RBC 0-1 # Mucus - /Lpf Epith - /Lpf Bacteria - /Hpf Amorphous - /Lpf Crystals, Fluid (a/CMC/CTX) - Z#Comments - Comprehensive Metabolic Prof 02/13/2015 Grant Laron Sodium 136 mEq/L 134-149 Potassium 4.0 mEq/L [...] Bilirubin 0.6 mg/dL 0.2-1.3 Lipid Profile 02/13/2015 Rudy Pariis Cholesterol 120 mg/dL 120-200 Triglycerides 86 mg/dL 30-200 HDL Cholesterol 33 mg/dL 30-70 LDL (Calculated) 70 CALC 0-129 VLDL Cholesterol 17 mg/dL 0-50 HDL Risk Factor 3.6 CALC 0.0-4.4 Complete Blood Count 02/13/2015 Rudy Parisi WBC 9.3 x10^3/UL 3.6-9.6 RBC 5.37 x10^6/UL 3.90-5.70 HGB 14.5 g/dL 12.1-17.2 HCT 44 % 36-50 MCV 82.0 fL Low 82.2-97.4 MCH 27.0 pg Low 27.6-33.3 MCHC 32.9 g/dL Low 33.0-35.5 RDW 13.7 % 11.6-13.7 PLT 227 x10^3/UL 150-400 MPV 7.5 fL 7.4-10.4 Gran # 6.4 x10^3/UL 1.5-7.2 Lymph# 2.2 x10^3/UL 0.7-4.9 [place]# 0.7 x10^3/UL 0.1-0.9 Gran % 67.6 % 42.2-75.2 Lymph % 24.3 % 20.5-51.1 [place]% 8.1 % 1.7-9.3 Laboratory test finding 09/30/2014 [facility] Quickstrep NEGATIVE Negative (607)- - Throat - Beta Strep Fma POSITIVE # Throat-Beta Strept 03/13/2014 [facility] Throat Beta (SEE NOTE) 29 Strep Culture Comprehensive 01/18/2014 Grant Laron Sodium 135 mEq/L 134-149 Metabolic Prof Potassium 4.3 mEq/L 3.6-5.5 Chloride 105 mEq/L 94-112 Carbon Dioxide 20 mEq/L Low 21-32 30 Glucose 83 mg/dL 70-105 BUN 12 mg/dL 6-26 Creatinine 0.9 mg/dL 0.6-1.4 BUN/Creat Ratio 13.3 CALC 8.0-36.0 Calcium 9.3 mg/dL 8.6-10.2 Total Protein 7.6 g/dL 6.3-8.1 Albumin 4.5 g/dL 3.8-5.5 Globulin 3.1 g/dL 2.0-4.8 A/G Ratio 1.5 CALC 0.6-2.3 Alk. Phosphatase 93 U/L 22-95 Alt (SGPT) 39 U/L 10-40 Ast (Sgot) 19 U/L 5-34 Total Bilirubin 0.3 mg/dL 0.2-1.3 Lipid Profile 01/18/2014 Grant Laron Cholesterol 136 mg/dL 120-200 Triglycerides 114 mg/dL 30-200 HDL Cholesterol 35 mg/dL 30-70 LDL (Calculated) 78 CALC 0-129 VLDL Cholesterol 23 mg/dL 0-50 HDL Risk Factor 3.9 CALC 0.0-4.4 Ear Culture 01/10/2014 [facility] Ear Culture/Gram (SEE NOTE) 31 stain Laboratory test 11/01/2013 Grant Laron Magnesium, Serum 2.0 mEq/L 1.2 -2. finding 1 TSH 1.75 mIU/L 0.50-6.00 Basic Metabolic Profile 11/01/2013 Grant Laron Sodium 139 mEq/L 134- 149 Potassium 4.1 mEq/L 3.6-5.5 Chloride 100 mEq/L 94-112 Carbon Dioxide 24 mEq/L 21-32 Glucose 81 mg/dL 70-105 BUN 12 mg/dL 6-26 Creatinine 0.8 mg/dL 0.6-1.4 BUN/Creat Ratio 15.0 CALC 8.0-36.0 Calcium 9.3 mg/dL 8.6-10.2 Complete Blood Count 11/01/2013 Rudy Parisi WBC 9.2 x10^3/UL 3.6-9.6 RBC 5.06 x10^6/UL 3.90-5.70 HGB 13.7 g/dL 12.1-17.2 HCT 42 % 36-50 MCV 84.0 fL 82.2-97.4 MCH 27.1 pg Low 27.6-33.3 MCHC 32.4 g/dL Low 33.0-35.5 RDW 11.9 % 11.6-13.7 PLT 203 x10^3/UL 150-400 MPV 8.1 fL 7.4-10.4 Gran # 7.1 x10^3/UL 1.5-7.2 Lymph# 1.7 x10^3/UL 0.7-4.9 [place]# 0.4 x10^3/UL 0.1-0.9 Gran % 76.6 % High 42.2-75.2 Lymph % 19.0 % Low 20.5-51.1 [place]% 4.4 % 1.7-9.3 Influenza A&B 09/26/2013 [facility] Influenza A NEG (607)- - Influenza B NEG Lipid Profile 01/12/2013 Rudy Parisi Cholesterol 124 mg/dL 120-200 HDL 36 mg/dL 30-70 Triglycerides 107 mg/dL 30-200 HDL Risk Factor 3.4 CALC 0.0-4.4 LDL (Calculated) 66 CALC 0-129 VLDL (Calculated) 21 mg/dL 0-50 Hepatic 01/12/2013 Rudy Parisi Albumin 4.6 g/dL 3.8-5.5 Alk. Phos. 100 U/L High 22-95 Alt (SGPT) 29 U/L 10-40 Ast (Sgot) 17 U/L 5-34 Total Bilirubin 0.4 mg/dL 0.2-1.3 Total Protein 7.2 g/dL 6.3-8.1 Direct Bilirubin 0.2 mg/dL 0.0-0.6 Globulin 2.6 g/dL 2.0-4.8 A/G Ratio 1.8 Calc 0.6-2.3 Indirect Bilirubin 0.19 0.10-1.00 Laboratory test finding 12/17/2011 [facility] Quickstrep NEG Negative (607)- - Throat - Beta Strep Fma negative@48hrs CBC Electronic (Fma) 07/17/2011 [facility] Medicine WBC 9.9 High 3.6-9.6 (607)- - RBC 5.42 3.90-5.70 Hemoglobin (Fma/CMC/CTX) 15.0 g/dL 12.1 - 17.2 Hematocrit (Fma/CMC/CTX) 45.5 % 36.1 - 50.3 Platelets 227 10^3/ul 150-400 Lymph% 14.4 Low 20.5-51.1 Mixed% 3.8 Neutrophils % 81.8 Mean Corpuscular Vol 84 82.2-97.4 Mean Corpuscular Hemoglobin 27.7 27.6-33.3 Mean Corpuscular Hemo Concen 33.0 32.0-36.0 RDW 11.8 11.6-13.7 Mean Platelet Volume 8.2 6.5-11.0 Urinalysis 07/10/2011 [facility] Ua Color YELLOW Yellow Appearance-Urine CLEAR Clear Specific [place]-Ur 1.021 1.010-1.030 Esterase-Urine NEGATIVE Negative Nitrite NEGATIVE Negative [id number] NEGATIVE Negative Protein-Urine NEGATIVE Negative PH-Urine 6.0 5-9 Blood-Urine NEGATIVE Negative Ketones-Urine NEGATIVE Negative Bilirubin-Ur NEGATIVE Negative Glucose-Urine NEGATIVE Negative Comp Metabolic Panel 07/10/2011 [facility] Sodium 139 mmol/L 135-145 Potassium 4.2 mmol/L 3.5-5.0 Chloride 101 mmol/L 101-111 Co2 (Carbon Dioxide) 28.0 mmol/L 22-32 Anion Gap 10.0 mmol/L 2-11 32 Glucose 71 mg/dL 70-100 BUN 13 mg/dL 6-24 Creatinine 1.1 mg/dL 0.50-1.40 One Over Creatinine 0.90 BUN/Creatinine Ratio 11.8 8-20 Calcium 9.1 mg/dL 8.1-9.9 Total Protein 7.3 GM/DL 6.2-8.1 Albumin 3.8 GM/DL 3.6-5.4 Globulin 3.5 GM/DL 2-4 Albumin/Globulin Ratio 1.1 1-3 Bilirubin Total 0.7 mg/dL 0.4-1.5 33 Alkaline Phosphatase 86 U/L 39-117 Alt (SGPT) 38 U/L 17-63 Ast (Sgot) 20 U/L 12-42 eGFR Non- 79.1 > 60 eGFR 101.8 > 60 34 Laboratory test finding 07/10/2011 [facility] Magnesium 1.9 mg/dL 1.7-2.6 Amylase 64 U/L 20-120 35 Lipase 26 U/L 22-51 CBC Auto Diff 07/10/2011 [facility] White Blood Count 12.5 CUMM High 4.8-10.8 Red Cell Count 5.34 CUMM 4.6-6.2 Hemoglobin 15.2 g/dL 14.0-18.0 Hematocrit 45 % 42-52 Mean Corpuscular Volume 84 um3 80-94 Mean Corpuscular Hemoglob 28 pg 27-31 Mean Corpuscular HGB Cone 34 g/dL 32-36 Redcell Distribution WDTH 14 % 10.5-15 Platelet Count 210 CUMM 150-450 Mean Platelet Volume 9.7 um3 7.4-10.4 36 Manual Differential 07/10/2011 [facility] Polysegmented Neutrophil 80 % 38-83 Lymphocyte 14 % Low 25-47 Monocyte 4 % 0-13 Eosinophil 2 % 0-6 Absolute Neutrophil Count 10.0 RBC Morphology NORMAL Lipid Profile 03/21/2011 Grant Laron Cholesterol 117 mg/dL Low 120- 200 37 HDL 34 mg/dL 30-70 Triglycerides 83 mg/dL 30-200 HDL Risk Factor 3.4 CALC 0.0-4.0 LDL (Calculated) 66 CALC 0-129 VLDL (Calculated) 17 mg/dL 0-50 Hepatic 03/21/2011 Grant Laron Albumin 4.0 g/dL 3.8-5.5 Alk. Phos. 97 U/L High 22-95 38 Alt (SGPT) 39 U/L 10-40 Ast (Sgot) 19 U/L 5-34 Total Bilirubin 0.5 mg/dL 0.2-1.3 Total Protein 6.9 g/dL 6.3-8.1 Direct Bilirubin 0.2 mg/dL 0.0-0.6 Globulin 2.9 g/dL 2.0-4.8 A/G Ratio 1.4 Calc 0.6-2.2 Indirect Bilirubin 0.21 0.10-1.00 Culture And 02/05/2011 [facility] Gram Stain Smear RARE EPITHELIAL 39, 40 Sensitivity <SEE NOTE> Laboratory test 02/05/2011 [facility] Culture METH RESIST S. A 41 finding Sensitivity <SEE NOTE> Sensitivities Wound 02/05/2011 [facility] Clindamycin <=0.25 S Culture Ciprofloxacin <=0.5 S Erythromycin >=8 R Gentamicin <=0.5 S Levofloxacin <=0.12 S Linezolid 2 S Oxacillin >=4 R Rifampin <=0.5 S Trimeth-Sulfa <=10 S Tetracycline <=1 S Tigecycline <=0.12 S Vancomycin 1 S Laboratory test finding 07/18/2010 [facility] Quickstrep NEGATIVE Negative (607)- - Throat - Beta Strep Fma NEG @ 48 HRS CBC With Electronic Diff 04/04/2010 [facility] White Blood Count 9.6 CUMM 4.8- 10.8 Red Cell Count 5.35 CUMM 4.6-6.2 Hemoglobin [...] Eosinophils 0.2 0-0.6 Abs Basophils 0.1 0-0.2 42 Comp Metabolic Panel 04/04/2010 [facility] Sodium 136 mmol/L 135-145 Potassium 3.7 mmol/L 3.5-5.0 Chloride 106 mmol/L 101-111 Co2 (Carbon Dioxide) 23.0 mmol/L 22-32 Anion Gap 7.0 mmol/L 2-11 43 Glucose 91 mg/dL 70-100 44 BUN 10 mg/dL 6-24 Creatinine 0.70 mg/dL 0.50-1.40 One Over Creatinine 1.40 BUN/Creatinine Ratio 14.3 8-20 Calcium 9.1 mg/dL 8.1-9.9 45 Total Protein 7.3 GM/DL 6.2-8.1 Albumin 3.8 GM/DL 3.6-5.4 Globulin 3.5 GM/DL 2-4 Albumin/Globulin Ratio 1.1 1-3 Bilirubin Total 1.1 mg/dL 0.4-1.5 46 Alkaline Phosphatase 87 U/L 39-117 Alt (SGPT) 49 U/L 17-63 Ast (Sgot) 27 U/L 12-42 eGFR Non- 142.7 > 60 eGFR 172.7 > 60 47 Urinalysis 04/04/2010 [facility] Ua Color YELLOW Yellow Appearance-Urine CLEAR Clear Specific [place]-Ur 1.024 1.010-1.030 E[place]ase-Urine NEGATIVE Negative Nitrite NEGATIVE Negative [id number]-BTH NEGATIVE Negative Protein-Urine NEGATIVE Negative PH-Urine 5.5 5-9 Blood-Urine NEGATIVE Negative Ketones-Urine NEGATIVE Negative Bilirubin-Ur NEGATIVE Negative Glucose-Urine NEGATIVE Negative Ua - Non Micro ([facility]) 07/31/2009 [facility] Appearance clear (607)- - Color yellow Glucose neg Bilirubin neg Ketones neg SP Grav 1.025 Blood neg PH 5.5 Protein neg Urobil 0.2 Nitrite neg Leukocytes ([facility]) neg Hepatic 12/07/2008 [facility] Albumin 4.3 g/dL 3.8-5.5 48 Alk. Phos. 89 U/L 22-95 Alt (SGPT) 42 U/L High 10-40 49 Ast (Sgot) 23 U/L 5-34 Total Bilirubin 0.7 mg/dL 0.2-1.3 Total Protein 7.7 g/dL 6.3-8.1 Direct Bilirubin 0.4 mg/dL 0.0-0.6 Globulin 3.4 g/dL 2.0-4.8 A/G Ratio 1.3 Calc 0.6-2.2 Indirect Bilirubin 0.29 0.10-1.00 Lipid Profile 12/07/2008 [facility] Cholesterol 144 mg/dL 120-200 HDL 43 mg/dL 30-70 Triglycerides 104 mg/dL 30-200 HDL Risk Factor 3.4 CALC Low 4.2-7.0 LDL (Calculated) 81 CALC 0-129 VLDL (Calculated) 21 mg/dL 0-50 Comprehensive Metabolic Prof 10/22/2007 [facility] Albumin 4.2 g/dL 3.8-5.5 Alk. Phos. 88 U/L 22-95 Alt (SGPT) 60 U/L High 10-40 50 Ast (Sgot) 25 U/L 5-34 BUN 14 mg/dL 6-26 Calcium 9.6 mg/dL 8.6-10.2 Chloride 101 mEq/L 94-112 Creatinine 0.9 mg/dL 0.6-1.4 Carbon Dioxide 26 mEq/L 21-32 Glucose 70 mg/dL 70-105 Sodium 138 mEq/L 134-149 Total Bilirubin 0.5 mg/dL 0.2-1.3 Total Protein 7.3 g/dL 6.3-8.1 Potassium 4.3 mEq/L 3.6-5.5 Globulin 3.1 g/dL 2.0-4.8 A/G Ratio 1.3 Calc 0.6-2.2 BUN/Creat Ratio 15.2 Calc 8.0-36.0 Lipid Profile 10/22/2007 [facility] Cholesterol 137 mg/dL 120-200 HDL 32 mg/dL 30-70 Triglycerides 112 mg/dL 30-200 HDL Risk Factor 4.3 CALC 4.2-7.0 LDL (Calculated) 83 CALC 0-129 VLDL (Calculated) 22 mg/dL 0-50 Laboratory test finding 10/20/2006 [facility] Quickstrep NEGATIVE Negative (607)- - Throat - Beta Strep [facility] NEG @ 48 HOURS Comprehensive Metabolic Prof 10/16/2006 [facility] Albumin 4.4 g/dL 3.8-5.5 Alk. Phos. 94 U/L 22-95 Alt (SGPT) 39 U/L 10-40 Ast (Sgot) 18 U/L 5-34 BUN 12 mg/dL 6-26 Calcium 9.1 mg/dL 8.6-10.2 Chloride 98 mEq/L 94-112 Creatinine 0.8 mg/dL 0.6-1.4 Carbon Dioxide 26 mEq/L 21-32 Glucose 73 mg/dL 70-105 Sodium 139 mEq/L 134-149 Total Bilirubin 0.7 mg/dL 0.2-1.3 Total Protein 7.9 g/dL 6.3-8.1 Potassium 4.1 mEq/L 3.6-5.5 Globulin 3.5 g/dL 2.0-4.8 A/G Ratio 1.3 Calc 0.6-2.2 BUN/Creat Ratio 16.0 Calc 8.0-36.0 Lipid Profile 10/16/2006 [facility] Cholesterol 150 mg/dL 120-200 HDL 35 mg/dL 30-70 Triglycerides 118 mg/dL 30-200 HDL Risk Factor 4.3 CALC 4.2-7.0 LDL (Calculated) 91 CALC 0-129 VLDL (Calculated) 24 mg/dL 0-50 Lipid Profile([facility]) Male 09/01/2005 [facility] Cholesterol 135 mg/dL 120-200 (607)- - Triglyceride 130 mg/dL 30-200 HDL Cholesterol ([facility]) Male 38 mg/dL 30-70 LDL, Calculated ([facility]) 71 CALC 0-129 LDL Direct (/[facility]) - mg/dL 0-130 VLDL 26 0-50 HDL Risk Factor ([facility]) 3.5 CALC Low 4.2-7.0 Comp Metabolic 09/01/2005 [facility] Glucose, Serum 76 mg/dL 70- 105 ([facility]) Male (607)- - ([facility]/CTX) BUN (a/[facility]) 9 mg/dL 6-26 Creatinine (a/[facility]/CTX) 0.8 mg/dL 0.6-1.4 BUN/Creatinin Ratio 12.2 8.0-36 Sodium 141 134-149 Potassium 4.0 3.6-5.5 Chloride 99 mEq/L 94-112 Co2 30 21-32 Calcium (a/[facility]) 9.7 mg/dL 8.6-10.2 Total Protein 7.5 g/dL 6.3-8.1 Albumin ([facility]) 4.6 3.8-5.5 Globulin 2.9 2.0-4.8 A/G Ratio (a/[facility]) 1.6 0.6-2.2 Alk Phos ([facility]) Male 93 U/L 22-95 Alt-M SGPT [facility] [facility] 52 RESULT ANU'D High 10-40 Ast Sgot 25 U/L 5-34 Bilirubin, Total 0.7 mg/dL 0.2-1.3 CBC Electronic ([facility]) 09/01/2005 [facility] WBC 7.5 3.6-9.6 (607)- - Lymphocytes 20.9 % 20.5 - 51.1 Monocytes [...] Volume 8.4 7.4-10.4 Ua - Non Micro (a New) 09/01/2005 [facility] Appearance CLEAR (607)- - Color LT YELLOW Glucose NEG Bilirubin NEG Ketones NEG SP Grav 1.010 Blood NEG PH 6.0 Protein NEG g/dL Low 6.3-8.1 Urobil 0.2 Nitrite NEG Leukocytes NEG Laboratory test 08/16/2005 [facility] Throat Culture NEG @ 48 HOURS finding (607)- - Flu A&B NEGATIVE Negative Liver Function (a) 02/04/2005 [facility] Total Protein 8.0 g/dL 6.3-8.1 (607)- - Albumin (a/CMCC/Centrex) 4.5 3.8-5.5 A/G Ratio (Fma/CMC/Centrex) 1.3 0.6-2.2 Globulin 3.6 2.0-4.8 Alkaline Phosphatase (F/C/CTX) 122 U/L High 22-95 Alt (SGPT) (Fma/CMC/Centrex) 51 High 7-35 Ast (Sgot) (Fma/CMC/Centrex) 23 U/mL 5-34 Bilirubin, Total 0.8 mg/dL 0.2-1.3 Bilirubin, Direct 0.4 mg/dL 0-0.6 Bilirubin, Indirect 0.39 ml/dl 0.10-1.0 Lipid Profile(Fma) 08/06/2004 [facility] Cholesterol 108 mg/dL Low 120-200 51 Male (607)- - Triglyceride 90 mg/dL 30-200 HDL Cholesterol (Fma) Male 28 mg/dL Low 30-70 52 LDL, Calculated (a/CMC) 62 CALC 0-129 LDL, Direct - mg/dL 0-130 VLDL 18 0-50 HDL Risk Factor (Fma) 3.9 CALC Low 4.2-7.0 Liver Function (Fma) 08/06/2004 [facility] Total Protein 7.4 g/dL 6.3-8.1 (607)- - Albumin ([facility]/Centrex) 4.4 3.8-5.5 A/G Ratio ([facility]/Centrex) 1.5 0.6-2.2 Globulin 3.0 2.0-4.8 Alkaline Phosphatase (F/C/CTX) 91 U/L 30-110 Alt (SGPT) 55 High 7-35 53 Ast (Sgot) (a/[facility]/Centrex) 23 U/mL 5-34 Bilirubin, Total 0.7 mg/dL 0.2-1.3 Bilirubin, Direct 0.3 mg/dL 0-0.6 Bilirubin, Indirect 0.35 ml/dl 0.10-1.0 Lipid Profile(a) 05/28/2004 [facility] Cholesterol 216 mg/dL High 120-200 Male (607)- - Triglyceride 133 mg/dL 30-200 HDL Cholesterol (Fma) Male 30 mg/dL 30-70 LDL, Calculated (a/CMC) 159 CALC High 0-129 LDL, Direct - mg/dL 0-130 VLDL 27 0-50 HDL Risk Factor (Fma) 7.1 CALC High 4.2-7.0 Laboratory test 05/17/2004 [facility] Throat Culture NEG @ 48 finding (607)- - HOURS Lipid Profile(a) 03/27/2004 [facility] Cholesterol 221 mg/dL High 120-200 Male (607)- - Triglyceride 151 mg/dL 30-200 HDL Cholesterol (Fma) Male 40 mg/dL 30-70 LDL, Calculated (Fma/CMC) 150 CALC High 0-129 LDL, Direct - mg/dL 0-130 VLDL 30 0-50 HDL Risk Factor (Fma) 5.5 CALC 4.2-7.0 Glucose/Hgaic 03/27/2004 [facility] Glucose, Serum 80 mg/dL 70-118 Profile (Fma/CMC (607)- - (Fma/CMC/CTX) Hemoglobin A1c (F/C/CTX) 4.6 % 4.1-5.7 1 SEE RESULT BELOW Name: ALEX OBRIEN : [address]: Carmenza Ball NP Acct: [id number] Unit: [id number] AGE: 38 Location: [facility] Re11/08/18 SEX: M Status: REG REF SPEC: [id number] SELENE: 11/08/18-1023 [facility] DR: Carmenza Ball NP REQ: [id number] RECD: 11/08/18 STATUS: KARTIK HILLIARD DR: Rekha Nassar MD _ SOURCE: THROAT SPDESC: ORDERED: Throat Culture COMMENTS: [id number] copan swab sent Procedure Result Reported Site Throat Culture Final 11/10/18- 0920 ML Organism 1 NORMAL LARON Quantity 3+ Throat cultures are clinically indicated to detect the presence of group A strep, arcanobacterium and yeast. In certain cases, predominating organisms will be reported. * ML - Main Lab . END OF REPORT DEPARTMENT OF PATHOLOGY, [address] [place] [address] Denilson Cheney M.D. Director [facility] # [id number] 2 Because ethnic data is not always [...] 5 Kidney failure <15 (or dialysis) 3 [facility] Severe Sepsis and Septic Shock Management Bundle Measure requires all lactic acids initially measuring >2.0 mmol/L be repeated. 4 Because ethnic data is not always readily [...] 15-29 5 Kidney failure <15 (or dialysis) 5 [facility] Severe Sepsis and Septic Shock Management Bundle Measure requires all lactic acids initially measuring >2.0 mmol/L be repeated. 6 consistent w/ previous results 7 [facility] Severe Sepsis and Septic Shock Management Bundle Measure requires all lactic acids initially measuring >2.0 mmol/L be repeated. 8 Because ethnic data is not always readily [...] 15-29 5 Kidney failure <15 (or dialysis) 9 Acute inflammation: >10.00 10 SEE RESULT BELOW Name: ALEX OBRIEN : [address]: Ruslan Dominguez MD Acct: [id number] Unit: [id number] AGE: 37 Location: ED Re10/07/17 SEX: M Status: DEP ER SPEC: [id number] SELENE: 10/07/[address]: Geoff Maldonado MD REQ: [id number] RECD: 10/07/17 STATUS: KARTIK HILLIARD DR: Rekha Dominguez MD _ SOURCE: BLOOD,VENO SPDESC: ORDERED: Blood Cult Procedure Result Reported Site Aerobic Culture Bottle Final 10/12/17- 2116 ML No Growth Day Anaerobic Culture Bottle Final 10/12/172116 ML No Growth Day 5 * ML - [facility] ([facility]) . END OF REPORT * ML=Testing performed at Main Lab DEPARTMENT OF PATHOLOGY, [address] [place] [address] Denilson Cheney M.D. Director [facility] # [id number] 11 Because ethnic data is not always readily [...] 15-29 5 Kidney failure <15 (or dialysis) 12 Reference Range and Interpretation: TnI (ng/mL) Interpretation Less Than 0.03 ng/mL Not supportive of diagnosis of [place] 0.03 - 0.50 ng/mL Indeterminate: suggest serial studies if clinically indicated. Greater than 0.5 ng/mL Consistent with diagnosis of [place] 13 Rn Clinical: KADE Owens Due to the increased sensitivity of molecular testing, reflex cultures are no longer performed. 14 SEE RESULT BELOW Name: ALEX OBRIEN Leonila : [address]: Montez Drake MD Acct: [id number] Unit: [id number] AGE: 35 Location: ED Re01/10/16 SEX: M Status: REG ER SPEC: [id number] SELENE: 01/10/16 [facility] DR: Montez Drake MD REQ: [id number] RECD: 01/10/16 STATUS: KARTIK HILLIARD DR: Fatuma Richards RESPIRATORY COORDINATOR _ SOURCE: THROAT SPDESC: ORDERED: Strep A Request Procedure Result Reported Site Rapid Strep A Request Final 01/10/16- 2219 ML Specimen received for Rapid Strep A Molecular testing * ML - MAIN LAB ([facility]) . END OF REPORT * ML=Testing performed at Main Lab DEPARTMENT OF PATHOLOGY, [address] [place] [address] Denilson Cheney M.D. Director [facility] # [id number] 15 Rn Clinical: [id number] ZACKERY SMITH 16 SEE RESULT BELOW Name: ALEX OBRIEN : [address]: ePrla Mcguire MD Acct: [id number] Unit: [id number] AGE: 35 Location: ED Re10/19/15 SEX: M Status: REG ER SPEC: [id number] SELENE: 10/19/[address]: Jus MCCLELLAND REQ: [id number] RECD: 10/19/15 STATUS: KARTIK HILLIARD DR: Fatuma Mcguire MD _ SOURCE: THROAT SPDESC: ORDERED: Strep A Request Procedure Result Reported Site Rapid Strep A Request Final 10/19/151847 ML Specimen received for Rapid Strep A Molecular testing * ML - MAIN LAB ([facility]) . END OF REPORT * ML=Testing performed at Main Lab DEPARTMENT OF PATHOLOGY, [address] [place] [address] Denilson Cheney M.D. Director [facility] # [id number] 17 Rn Clinical: [id number] ZACKERY SMITH 18 Rn Clinical: [id number] ZACKERY SMITH The quality improvement engineer and regulatory agencies both recommend that a throat culture for beta strep be performed if a Rapid Group A Strep assay yields a negative result. Therefore a culture will be automatically performed on all negative samples. 19 SEE RESULT BELOW Name: ALEX OBRIEN : [address]: Perla Mcguire MD Acct: [id number] Unit: [id number] AGE: 35 Location: ED Re10/19/15 SEX: M Status: DEP ER SPEC: [id number] SELENE: 10/19/[address]: Perla Mcguire MD REQ: [id number] RECD: 10/19/15 STATUS: KARTIK HILLIARD DR: Fatuma Richards RESPIRATORY COORDINATOR _ SOURCE: THROAT SPDESC: ORDERED: Throat Beta Str Procedure Result Reported Site Throat Beta Strep Culture Final 10/21/15- 1006 ML Negative For Group A Beta Streptococcus * ML - MAIN LAB ([facility]) . END OF REPORT * ML=Testing performed at Main Lab DEPARTMENT OF PATHOLOGY, [address] [place] [address] Denilson Cheney M.D. Director [facility] # [id number] 20 Acute inflammation: >10.00 21 [facility] Severe Sepsis and Septic Shock Management Bundle Measure requires all lactic acids initially measuring >2.0mmol/L be repeated. 22 Because ethnic data is not always readily [...] 15-29 5 Kidney failure <15 (or dialysis) 23 SRC:abdomin 1 plascencia bonifacio t swab 24 Source of Specimen: abdomin 1 plascencia fineremedios 25 Staphylococcus aureus Source of Specimen: abdomin 1 [...] * Antistaphylococcal carbapenems; such as: Imipenem Meropenem 26 Skin laron isolated Source of Specimen: abdomin 1 [employer] Moderate growth 27 Source of Specimen: abdomin 1 plascencia bonifacio S=Susceptible; I=Intermediate; R=Resistant P=Positive; N=Negative MICS are expressed in micrograms per mL Antibiotic RSLT#1 RSLT#2 RSLT#3 RSLT#4 Ciprofloxacin R Clindamycin S Erythromycin S Gentamicin S Levofloxacin I Linezolid S Moxifloxacin R Oxacillin S Quinupristin/Dalfopristin S Rifampin S Tetracycline S Trimethoprim/Sulfa S Vancomycin S 28 SEE RESULT BELOW Name: ALEX OBRIEN : [address]: Yovanny Croft MD Acct: [id number] Unit: [id number] AGE: 35 Location: [facility] Re06/01/15 SEX: M Status: REG REF SPEC: [id number] SELENE: 05/31/15 [facility] DR: Yovanny Croft MD REQ: [id number] RECD: 06/01/15 STATUS: COMP _ SOURCE: URINE SPDESC: ORDERED: Urine Culture COMMENTS: LUIZ WITH URINE Procedure Result Verified Site Urine Culture Final 06/03/15- 1051 ML No Growth Day 2 (<1,000 CFU/mL) * ML - MAIN LAB ([facility]) . END OF REPORT * ML=Testing performed at Main Lab DEPARTMENT OF PATHOLOGY, [facility] [employer] [place], [place] [address] Denilson Cheney M.D. Director [place] # [id number] 29 RUN DATE: 03/16/14 [facility] LAB LIVE PAGE 1 RUN TIME: 08 [facility] [employer] [place], [place] [address] Specimen Inquiry Name: ALEX OBRIEN : [address]: Jung Puente MD Acct: [id number] Unit: [id number] AGE: 34 Location: [facility] Re03/13/14 SEX: M Status: DEP ER SPEC: [id number] SELENE: 03/13/14-175 [facility] DR: Jung Puente MD REQ: [id number] RECD: 03/14/14-1039 STATUS: COMP ARMINDA DR: [employer] Ubaldo Donaldson MD _ SOURCE: THROAT SPDESC: ORDERED: Throat Beta Str Procedure Result Verified Site Throat Beta Strep Culture Final 03/16/14- 2156 ML Negative For Group A Beta Streptococcus END OF REPORT * ML=Testing performed at Main Lab DEPARTMENT OF PATHOLOGY, [address] [place] [address] Denilson Cheney M.D. Director [facility] # [id number] 30 RESULTS VERIFIED BY REPEAT ANALYSIS 31 RUN DATE: 01/13/14 [facility] LAB LIVE PAGE 1 RUN TIME: [address] [place] [address] Specimen Inquiry Name: ALEX OBRIEN : [address]: Berenice Zavala MD Acct: [id number] Unit: [id number] AGE: 33 Location: [facility] Re01/10/14 SEX: M Status: DEP ER SPEC: [id number] SELENE: 01/10/14-1649 [facility] DR: Kierra MCCLELLAND REQ: [id number] RECD: 01/10/14 STATUS: KARTIK HILLIARD DR: Berenice [...] performed at Main Lab DEPARTMENT OF PATHOLOGY, [facility] [employer] [place] [address] Denilson Cheney M.D. Director [facility] # [id number] RUN DATE: 01/13/14 [facility] LAB LIVE PAGE 2 RUN TIME: 1037 [facility] [employer] [place], [place] [address] Specimen Inquiry Patient: ALEX OBRIEN [id number] (Continued) Specimen: [id number] Collected: 01/10/14-1649 Received: 01/10/14 (Continued) Procedure Result Verified Site Ear Culture Final (continued) * These antibiotics are not available in the [facility] Formulary Contact the Microbiology Department for any additional antibiotic reporting. Ear Gram Stain Final 01/11/14820 ML 1+ Polys 2+ Epithelial Cells 1+ Gram Positive Cocci END OF REPORT * ML=Testing performed at Main Lab DEPARTMENT OF PATHOLOGY, [address] [place] [address] Denilson Cheney M.D. Director [facility] # [id number] 32 Anion gap measurement may be of limited value in the presence of any alkalosis, especially in a combined acid base disorder. . 33 A metabolite of Naproxen, O-desmethylnaproxen, has been shown to interfere with the Jendrassik-Radha method for measuring total bilirubin. Samples from patients who have taken Naproxen have shown spurious elevation in total bilirubin levels. 34 Because ethnic data is not always readily [...] 15-29 5 Kidney failure <15 (or dialysis) 35 PLEASE NOTE NEW REFERENCE RANGE. 36 Lymphopenia % 37 RESULT ANU'D 38 RESULT ANU'D 39 COMMENTS: WOUND ON RIGHT LOWER LEG 40 RARE EPITHELIAL CELLS RARE GRAM POSITIVE COCCI NONE 41 METH RESIST S. AUREUS (MRSA) MOD^MODERATE^QTY 42 Lymphopenia % 43 Anion gap measurement may be of limited value in the presence of any alkalosis, especially in a combined acid base disorder. . 44 Note change in reference range as of 04/06/08. The change was based on recommendations from the [place] [employer]. 45 Please note change in reference range effective 08 . 46 A metabolite of Naproxen, O-desmethylnaproxen, has been shown to interfere with the Jendrassik-Epes method for measuring total bilirubin. Samples from patients who have taken Naproxen have shown spurious elevation in total bilirubin levels. 47 Because ethnic data is not always readily [...] 15-29 5 Kidney failure <15 (or dialysis) 48 FASTING 49 RESULT ANU'D 50 RESULT ANU'D 51 RESULT VERIFIED BY REPEAT ANALYSIS 52 RESULT VERIFIED BY REPEAT ANALYSIS 53 RESULT VERIFIED BY REPEAT ANALYSIS Procedures Date Code Description Status 01/01/2018 65584 Nebulizer Treatment Completed 11/01/2013 25488 Electrocardiogram Complete Completed Encounters Type Date Location Provider Dx Diagnosis Office Visit 11/08/2018 Main Office Carmenza Paniagua J02.9 Acute pharyngitis, 9:45a KRISSY Ball unspecified Office Visit 08/23/2018 Main Office Carmenza Paniagua M54.5 Low back pain 6:30p KRISSY Ball Office Visit 05/18/2018 [facility] Carmenza Paniagua I10 Essential (primary ) 8:00a KRISSY Ball 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 I10 Essential (primary) hypertension E78.2 Mixed hyperlipidemia E66.8 Other obesity Office Visit 10/06/2015 [facility] Xiomara J02.9 Acute pharyngitis, 11:30a Office Terrance, AMERICANIZATION TEACHER unspecified Office Visit 09/25/2015 [facility] Fatuma M25.571 Pain in right 9:00a Office [place], ankle and joints Afnp-C of right foot M79.671 Pain in right foot Office Visit 07/18/2015 11:15a [facility] Ania Mauricio, L03.032 Cellulitis of Afnp-C left toe L03.311 Cellulitis of abdominal wall L03.811 Cellulitis of head [any part, except face] Office Visit 05/31/2015 6:30p Main Office Yovanny Nick M54.9 DorsalgiaGuerda M.D. unspecified Office Visit 02/13/2015 11:10a [facility] Milan Garcia, 724.2 Lumbago M.D. 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, Unspecified Office Visit 11/01/2013 8:50a [facility] Ubaldo Donaldson, 785.1 Palpitations MChi 459.81 Venous Insufficiency (Peripheral) Unspec Office Visit 09/26/2013 Main Office Christine Camilo, 465.8 Upper Respiratory 1:45p AMERICANIZATION TEACHER Infections Acute Other Multiple Sites Office Visit 03/13/2012 Main Office Fatuma 372.00 Conjunctivitis Acute 10:15a [place], Unspec Afnp-C Office Visit 12/17/2011 [facility] Christine Leslee, 462 Pharyngitis Acute 9:15a Office AMERICANIZATION TEACHER Office Visit 07/17/2011 [facility] Anai Mauricio, 789.00 Pain Abdominal 9:30a Office Afnp-C Unspec Site Office Visit 03/21/2011 Main Office Christine Camilo, 272.4 Hyperlipidemia Other 9:00a AMERICANIZATION TEACHER Unspec Office Visit 07/18/2010 Main Office Ania Mauricio, 465.9 URI Upper 10:15a Afnp-C Respiratory Infections Acute Unspec Sites 462 Pharyngitis Acute Office Visit 12/05/2009 2:00p Main Office Fatuma Richards, 373.11 Hordeolum Afnp-C Externum 703.0 Ingrowing Nail Office Visit 11/13/2009 8:00p Main Office Christine Camilo, AMERICANIZATION TEACHER 380.22 Otitis Externa Other Acute 372.30 Conjuctivitis Unspec Office Visit 08/11/2009 10:30a [facility] Zbigniew Garcia 465.9 URI Upper Otis Peterson Respiratory Infections Acute Unspec Sites Office Visit 07/31/2009 8:30a Main Office Cristel Rodriguez 388.70 Otalgia & Earache Otis Guerrero Unspec 791.0 Proteinuria Office Visit 12/14/2008 [facility] Xiomara francis 272.4 Hyperlipidemia Other 9:40a Office Otis Toro Unspec 401.9 Hypertension Unspec 959.7 Injury Knee Leg Ankle & Foot Other & Unspec Office Visit 11/18/2008 10:00a Main Office Ubaldo Nick 382.9 Otitis Media Otis Donaldson Unspec Office Visit 09/18/2008 8:40a [facility] Jocelyne Shrestha 477.8 Rhinitis Otis Day Allergic Due To Other Allergen 401.9 Hypertension Unspec Office Visit 12/21/2007 3:20p Main Office Ubaldo Nick 465.9 URI Upper Otis Donaldson Respiratory Infections Acute Unspec Sites Office Visit 10/22/2007 9:45a Main Office Christine Camilo, 272.4 Hyperlipidemia Other AMERICANIZATION TEACHER Unspec Office Visit 10/20/2006 8:00p Main Office Cat Eladio Bazzi, 465.8 Upper Respiratory RESPIRATORY COORDINATOR Infections Acute Other Multiple Sites 528.00 Stomatitis And Mucositis,Unspecified Office Visit 10/16/2006 9:45a Main Office Christine Camilo, 272.4 Hyperlipidemia Other AMERICANIZATION TEACHER Unspec Office Visit 04/25/2006 11:40a Main Office Riley Garcia 682.6 Cellulitis & Abscess Otis Donahue Leg Except Foot 680.6 Carbuncle & Furuncle Leg Except Foot Office Visit 09/01/2005 10:20a Main Office Riley Donahue, V70.0 Examination General M.D. Medical Routine AT [facility] 272.4 Hyperlipidemia Other Unspec V12.2 History Personal Endocrien/Metabolic/Immunity Disorders 237.70 Neurofibromatosis Unspec Office Visit 08/16/2005 12:20p Main Office Johnny JeanetteNilo Garnett, 465.9 URI Upper M.D. Respiratory Infections Acute Unspec Sites 461.9 Sinusitis Acute Unspec 272.4 Hyperlipidemia Other Unspec Office Visit 06/30/2005 12:00p Main Office Isaiah Soriano, 461.9 Sinusitis Acute M.D. Unspec 465.9 URI Upper Respiratory Infections Acute Unspec Sites Office Visit 02/04/2005 11:10a Main Office Riley Garcia 272.4 Hyperlipidemia Genna Donahue M.D. Unspec 278.00 Obesity Unspec Office Visit 11/11/2004 7:15p Main Office Christine Camilo, 490 Bronchitis Acute Or AMERICANIZATION TEACHER Chronic Not Spec Office Visit 08/06/2004 11:20a Main Office Riley Donahue, 401.9 Hypertension Unspec M.D. 272.4 Hyperlipidemia Other Unspec Office Visit 05/28/2004 9:00a Main Office Riley Donahue, 401.1 Hypertension Benign M.D. 380.10 Otitis Externa Infective Unspec 272.4 Hyperlipidemia Other Unspec 278.00 Obesity Unspec Office Visit 05/17/2004 10:30a [facility] Ania Mauricio, 465.9 URI Upper Afnp-C Respiratory Infections Acute Unspec Sites Office Visit 03/26/2004 9:00a Main Office Riley Garcia 278.00 Obesity Unspec Otis Donahue 401.9 Hypertension Unspec 382.9 Otitis Media Unspec 784.0 Headache V77.1 Screening Diabetes Mellitus Office Visit 11/17/2003 9:50a Main Office Isaiah Orozco 719.47 Pain Joint Kaila M.D. Foot Office Visit 11/10/2003 10:00a [facility] Ania Mauricio, 401.9 Hypertension Afnp-C Unspec Plan of Treatment 11/22/2018 - Carmenza Ball, NPM54.5 Low back painNew Medication:Naproxen 500 mg - 1 by mouth twice a day as needed painCyclobenzaprine HCL 5 mg - take 1- 2 tablets by mouth at night as needed for back spasmComments:Apply heat packs to affected area. Use acetaminophen/ibuprofen/aleve for pain as directed. Avoid heavy lifting. Do crystal stretching but nothing strenuous. Sleep in a bed, avoid couches or recliners. Muscle relaxer: take at night. do not drink alcohol with this medication. Do no drive or operate heavy machinery with this medication due to its sedating effects. Return if condition worsens, fails to improve or if concerning features arise.AllComments:Medication Management Patient Understands medications he 's taking? Yes No Are there Barriers to Adherence? Yes No Has the patient been asked about herbal supplements and therapies, andOT meds? Yes No Care Plan1. Patient has been queried about patient's goals/preferences and functional/ lifestyle goals at relevant visits. If relevant, describe: na2. Treatment goals as explained to the patient: above3. Are there barriers to meeting treatment goals? Yes No If Yes, please describe:4. Self-Management goals as described to the patient: Yes NoAs always, we strongly encourage a healthy diet and making physical activity a part of your every day life. If you have questions about how or where to start, please contact the office.Follow up:Please schedule a full annual visit at your earliest convenience Last appointment with MD: 10/2017 MD Cesario
--- NOTE | 2018-12-12 21:03 | ED ---
Dizziness - HPI Summary HPI Summary: This patient is a 38 year old M presenting to [facility] accompanied by with a chief complaint of waxing and waning dizziness that began at 1900 yesterday night. The patient rates the pain 2/10 in severity. Symptoms aggravated by nothing. Symptoms alleviated by nothing. Patient reports near syncope, lightheadedness, and headache. Patient denies CP and SOB. Patient states he was put on a heart monitor previously for these symptoms. - History Of Current Complaint Chief Complaint: EDDizziness Stated Complaint: DIZZINESS PER PT Time Seen by Provider: 12/12/18 20:55 Hx Obtained From: Patient Onset/Duration: Still Present Timing: Days Severity Initially: Mild Severity Currently: Mild Character: Room Spinning Aggravating Factor(s): Nothing Alleviating Factor(s): Nothing Associated Signs And Symptoms: Positive: Other: - Positive near syncope, lightheadedness, and headache. Negative CP and SOB. - Allergies/Home Medications Allergies/Adverse Reactions: Allergies Allergy/AdvReac Type Severity Reaction Status Date / Time amoxicillin Allergy Vomiting Verified 12/12/18 21:09 clavulanic acid Allergy Vomiting Verified 12/12/18 21:09 mushroom Allergy Airway Verified 12/12/18 21:09 Obstruction shrimp Allergy Hives Verified 12/12/18 21:09 trimethoprim AdvReac See Comment Verified 12/12/18 21:09 PMH/Surg Hx/FS Hx/Imm Hx Previously Healthy: No Endocrine/Hematology History: Denies: Hx Diabetes, Hx Thyroid Disease Cardiovascular History: Reports: Hx Hypercholesterolemia, Hx Hypertension - on meds, Other Cardiovascular Problems/Disorders - varicose veins issues - wears compression stockings Denies: Hx Congestive Heart Failure, Hx Pacemaker/ICD Respiratory History: Reports: Hx Sleep Apnea - possibly Denies: Hx Asthma, Hx Chronic Obstructive Pulmonary Disease (COPD), Other Respiratory Problems/Disorders GI History: Reports: Other GI Disorders - cholelithiasis Denies: Hx Ulcer History: Denies: Hx Renal Disease Musculoskeletal History: Reports: Other Musculoskeletal History - Raynaud's Sensory History: Reports: Hx Contacts or Glasses Denies: Hx Hearing Aid Opthamlomology History: Reports: Hx Contacts or Glasses Neurological History: Reports: Hx Headaches, Hx Migraine - rare, Other Neuro Impairments/Disorders - neuro fibromytosis Psychiatric History: Denies: Hx Panic Disorder - Surgical History Surgery Procedure, Year, and Place: none Hx Anesthesia Reactions: No - Immunization History Date of Tetanus Vaccine: UTD Date of Influenza Vaccine: 2012 Infectious Disease History: No Infectious Disease History: Reports: 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 Denies: Hx Clostridium Difficile, Hx Hepatitis, Hx Human Immunodeficiency Virus (HIV), Hx Shingles, Hx Tuberculosis, Hx Known/Suspected VRE, Hx Known/ Suspected VRSA, History Other Infectious Disease, Traveled Outside the [place] in Last 30 Days - Family History Known Family History: Positive: Hypertension, Diabetes - in father - Social History Occupation: Employed Full-time Lives: With Family Alcohol Use: Rare Alcohol Amount: 4 per month Hx Substance Use: No Substance Use Type: Reports: None Hx Tobacco Use: Yes Smoking Status (MU): Former Smoker Type: Cigarettes Amount Used/How Often: 1/2 pack a day Length of Time of Smoking/Using Tobacco: 2-3 years Review of Systems Negative: Chest Pain Negative: Shortness Of Breath Neurological: Other - Positive dizziness, lightheadedness, and near syncope Positive: Headache All Other Systems Reviewed And Are Negative: Yes Physical Exam - Summary Physical Exam Summary: Appearance: Well-appearing, obese, lying in bed comfortably Skin: Warm, dry, no obvious rash Eyes: sclera anicteric, no conjunctival pallor ENT: mucous membranes moist, pharynx appears normal Neck: Supple, nontender Respiratory: Clear to auscultation, no signs of respiratory distress Cardiovascular: Normal S1, S2. No murmurs. Normal distal pulses in tibial and radial bilaterally. Slightly elevated heart rate. Abdomen: Soft, nontender, normal active bowel sounds present Musculoskeletal: Normal, Strength/ROM Intact Neurological: A&Ox3, awake and alert, mentation is normal, speech is fluent and appropriate Psychiatric: affect is normal, does not appear anxious or depressed Triage Information Reviewed: Yes Vital Signs On Initial Exam: Initial Vitals Temp Pulse Resp BP Pulse Ox 98.2 F 204 20 165/107 96 12/12/18 20:43 12/12/18 20:43 12/12/18 20:43 12/12/18 20:43 12/12/18 20:43 Vital Signs Reviewed: Yes Diagnostics - Vital Signs Vital Signs Temp Pulse Resp BP Pulse Ox 12/12/18 20:43 98.2 F 204 20 165/107 96 - Laboratory Result Diagrams: 12/12/18 21:06 12/12/18 21:06 Lab Statement: Any lab studies that have been ordered have been reviewed, and results considered in the medical decision making process. - EKG 2050 Cardiac Rate: Tachycardia EKG Rhythm: Sinus Rhythm - 104 BPM Summary of EKG Findings: An EKG taken at 2050 reveals sinus tachycardia at 104 BPM with no STEMI. Dizzy Course/Dx - Course Course Of Treatment: This patient is a 38 year old M presenting to [facility] accompanied by with a chief complaint of waxing and waning dizziness that began at 1900 yesterday night. Physical Exam Findings: Obesity. Slightly elevated HR. An EKG taken at 2050 reveals sinus tachycardia at 104 BPM with no STEMI. Bloodwork obtained. Patient will be discharged with follow up from PCP. The patient is agreeable with this plan. - Diagnoses Provider Diagnoses: Vertigo, peripheral Discharge - Sign-Out/Discharge Documenting (check all that apply): Patient Departure - Discharge home Patient Received Moderate/Deep Sedation with Procedure: No - Discharge Plan Condition: Good Disposition: HOME Prescriptions: Meclizine TAB* [Antivert 12.5 TAB*] 50 mg PO TID PRN #30 tab PRN Reason: Dizziness Patient Education Materials: Vertigo (ED) Referrals: Rekha Nassar MD [Primary Care Provider] - Additional Instructions: The very brief transient elevations noted on the finger monitor of your heart rate have not recurred on the heart monitor. It may have been an erroneous reading, as your symptoms sound more like vertigo than fainting. Vertigo generally comes and goes before resolving over a period of a few days. No specific treatment is needed at present. - Billing Disposition and Condition Condition: GOOD Disposition: Home - Attestation Statements Document Initiated by Vicenteibe: Yes Documenting Scribe: Uzma Muñiz Provider For Whom Esau is Documenting (Include Credential): Dr. Montez Pabon MD Scribe Attestation: I, shelley Germaned for Dr. Montez Pabon MD on 12/13/18 at 0347. Scribe Documentation Reviewed: Yes Provider Attestation: The documentation as recorded by the Uzma wallace accurately reflects the service I personally performed and the decisions made by me, Dr. Montez Pabon MD Status of Scribe Document: Viewed
[2018-12-12 21:16] LABS: ABS Basophils 0 10^3/ul (0-0.2); ABS Eosinophils 0.3 10^3/ul (0-0.6); ABS Lymphocytes 1.9 10^3/ul (1.0-4.8); ABS Monocytes 1.2 10^3/ul (0-0.8); ABS Neutrophils 9.5 10^3/ul (1.5-7.7); ABS Nucleated RBC 0 10^3/ul; Eosinophil % 2.1 %; Hematocrit 42 % (36-46); Hemoglobin 13.9 g/dL (14.0-18.0); Lymphocyte % 14.7 %; Mean Corpuscular HGB Conc 33 g/dL (31-36); Mean Corpuscular Hemoglobin 27 pg (27-31); Mean Corpuscular Volume 81 fL (80-94); Mean Platelet Volume 8.4 fL (7.4-10.4); Nucleated Red Blood Cells % 0.2; Platelet Count 255 10^3/uL (150-450); Red Cell Distribution Width 15 % (10.5-15); White Blood Count 12.8 10^3/uL (3.5-10.8)
[2018-12-12 21:34] LABS: Albumin 4.1 g/dL (3.2-5.2); Albumin/Globulin Ratio 1.2 (1-3); BUN/Creatinine Ratio 24.7 (8-20); Calcium 9.2 mg/dL (8.6-10.3); EGFR African American 130.5 (>60); EGFR Non-African American 107.8 (>60); Globulin 3.4 g/dL (2-4); Potassium 3.7 mmol/L (3.5-5.0); Total Bilirubin 0.4 mg/dL (0.2-1.0); Total Protein 7.5 g/dL (6.4-8.9)
[2018-12-12 21:35] LABS: Troponin I 0.01 ng/mL (<0.04)
[2018-12-12 22:05] LABS: TSH (Thyroid Stimulating Horm) 2.86 mcIU/mL (0.34-5.60)
[2018-12-12] MEDS ORDERED: Meclizine TAB* 12.5 MG PO ONE (23:09)
[2018-12-12 23:12] VITALS: BP 155/92
== END 2018-12-12 23:10 | disposition home or self-care (01) ==
LOC: ED 20:41
DX: H81.399 Other peripheral vertigo, unspecified ear (principal); R55 Syncope and collapse; R51 Headache; Z88.0 Allergy status to penicillin; I10 Essential (primary) hypertension; Z86.14 Personal history of Methicillin resistant Staphylococcus aureus infection; Z87.891 Personal history of nicotine dependence; E78.00 Pure hypercholesterolemia, unspecified; G47.30 Sleep apnea, unspecified
CPT/HCPCS: 36415; 80053; 83735; 84443; 84484; 85025; 93005; 99283; A9270-GY

== ENCOUNTER 2019-04-20 21:46 | Emergency (ER) | payer OTHER, MEDICAID ==
--- OUTSIDE RECORDS SUMMARY | 2019-04-20 21:53 | XMS REPORT | Continuity of Care Document ---
:1980 External Reference #:[id number] Author Name Abdullahi Denny M.D. Address [address] [place] [address] Care Team Providers Name Role Phone Rekha Nassar MD Care Team Information Paper Sorter Unavailable Problems Active Problems Provider Date Concussion with no loss of consciousness Johnny Garnett MD Onset: 12/23/2016 Social History Type Date Description Comments Sex Unknown ETOH Use Rarely consumes alcohol Tobacco Use Start: Unknown End: Unknown Patient is a former smoker Smoking Status Reviewed: 03/28/19 Patient is a former smoker Allergies, Adverse Reactions, Alerts Active Allergies Reaction Severity Comments Date Mushrooms 07/18/2010 Shellfish 09/01/2005 Augmentin 11/10/2003 Medications Active Medications SIG Qnty Indications Ordering Date Provider Atorvastatin Calcium take one 30tabs E78.2 Rekha Nassar, 04/17/2012 20mg Tablets tablet by mouth at bedtime Hydrochlorothiazide Unknown 25mg Tablets Xyzal Allergy 24HR Unknown 5mg Tablets Dilt-XR Take One Unknown 180mg Caps ER 24HR Capsule By Mouth Twice A Day Immunizations Description No Information Available Vital Signs Date Vital Result Comment 03/28/2019 10:11am Intraocular Pressure Right Eye 22 mmHg Intraocular Pressure Left Eye 21 mmHg Cornea Thickness Left Eye 547 m Cornea Thickness Right Eye 538 m Pachymetry adjusted IOP Right Eye 0 Pachymetry adjusted IOP Left Eye 0 09/17/2018 11:19am Intraocular Pressure Right Eye 21 mmHg Intraocular Pressure Left Eye 21 mmHg Results Description No Information Available Procedures Date Code Description Status 03/28/2019 92236 Fundus Photography W/Interpretation & Report Completed 03/28/2019 80880 Refraction Completed 03/28/2019 55530 Eye Exam Est Comprehensive Completed 03/28/2019 15900 Corneal Pachymetry, Unilateral/Bilateral Completed Medical Devices Description No Information Available Encounters Description No Information Available Assessments Date Code Description Provider 03/28/2019 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 Plan of Treatment 03/28/2019 - Abdullahi Denny M.D.H18.613 Keratoconus, stable, vrxnavcfwR42.013 Open angle with borderline findings, low risk, lwmwolevzM77.09 Other joqawuzivynzoxdhlF85.413 Lattice degeneration of retina, bilateralFollow up:6 mos oct vf iop Functional Status Description No Information Available Mental Status Description No Information Available Referrals Description No Information Available
--- NOTE | 2019-04-20 22:22 | ED ---
Back Pain - HPI Summary HPI Summary: Patient complains of right lower back pain after bending over to get dressed this morning. Pain is worse with movement. Denies any other pain, injury or symptoms including urinary retention, bowel incontinence. No radiation of pain. Patient ambulatory. Medical history is HTN, neurofibromatosis type I - History of Current Complaint Chief Complaint: EDBackInjuryPain Stated Complaint: BACK PAIN PER EMS Time Seen by Provider: 04/20/19 22:16 Hx Obtained From: Patient Onset/Duration: Sudden Onset, Lasting Hours Onset/Duration: Started Hours Ago Timing: Constant Back Pain Location: Is Discrete @ Severity Initially: Severe Severity Currently: Severe Pain Intensity: 10 Pain Scale Used: 0-10 Numeric Character: Sharp, Aching Aggravating Symptom(s): Movement, Bending Alleviating Symptom(s): Rest, Position Associated Signs And Symptoms: Positive: Negative - Allergies/Home Medications Allergies/Adverse Reactions: Allergies Allergy/AdvReac Type Severity Reaction Status Date / Time amoxicillin Allergy Vomiting Verified 12/12/18 21:09 clavulanic acid Allergy Vomiting Verified 12/12/18 21:09 mushroom Allergy Airway Verified 12/12/18 21:09 Obstruction shrimp Allergy Hives Verified 12/12/18 21:09 trimethoprim AdvReac See Comment Verified 12/12/18 21:09 Home Medications: Home Medications Dilt-Xr 180 mg PO BID 04/21/19 [History Confirmed 04/21/19] PMH/Surg Hx/FS Hx/Imm Hx Endocrine/Hematology History: Denies: Hx Diabetes, Hx Thyroid Disease Cardiovascular History: Reports: Hx Hypercholesterolemia, Hx Hypertension, Other Cardiovascular Problems/Disorders - varicose veins issues - wears compression stockings Denies: Hx Congestive Heart Failure, Hx Pacemaker/ICD Respiratory History: Reports: Hx Sleep Apnea - possibly Denies: Hx Asthma, Hx Chronic Obstructive Pulmonary Disease (COPD), Other Respiratory Problems/Disorders GI History: Reports: Other GI Disorders - cholelithiasis Denies: Hx Ulcer History: Denies: Hx Renal Disease Musculoskeletal History: Reports: Other Musculoskeletal History - RAYNAUD'S Sensory History: Reports: Hx Contacts or Glasses Denies: Hx Hearing Aid Opthamlomology History: Reports: Hx Contacts or Glasses EENT History: Denies: Hx Deafness Neurological History: Reports: Hx Headaches, Hx Migraine - rare, Other Neuro Impairments/Disorders - NEUROFIBROMYTOSIS TYPE I Denies: Hx Seizures, Hx Transient Ischemic Attacks (TIA) Psychiatric History: Denies: Hx Panic Disorder - Surgical History Surgery Procedure, Year, and Place: GALLBLADDER 08/31/2018; Hx Anesthesia Reactions: No - Immunization History Date of Tetanus Vaccine: UTD Date of Influenza Vaccine: 2012 Infectious Disease History: Yes Infectious Disease History: Reports: 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 Denies: Hx Clostridium Difficile, Hx Hepatitis, Hx Human Immunodeficiency Virus (HIV), Hx Shingles, Hx Tuberculosis, Hx Known/Suspected VRE, Hx Known/ Suspected VRSA, History Other Infectious Disease, Traveled Outside the [place] in Last 30 Days - Family History Known Family History: Positive: Hypertension, Diabetes - in father - Social History Alcohol Use: Rare Alcohol Amount: 4 per month Hx Substance Use: No Substance Use Type: Reports: None Hx Tobacco Use: Yes Smoking Status (MU): Former Smoker Type: Cigarettes Amount Used/How Often: 1/2 pack a day Length of Time of Smoking/Using Tobacco: 2-3 years Review of Systems Constitutional: Negative Eyes: Negative ENT: Negative Cardiovascular: Negative Respiratory: Negative Gastrointestinal: Negative Genitourinary: Negative Musculoskeletal: Other Skin: Negative Neurological: Negative Psychological: Normal All Other Systems Reviewed And Are Negative: Yes Physical Exam - Summary Physical Exam Summary: No tenderness to palpation no paraspinal muscles of the lumbar spine, thoracic spine, C-spine. PMS intact distally bilateral lower extremities. No bony point tenderness of lumbar, thoracic or cervical spine. No ecchymosis, erythema , deformity, swelling, mass noted to back. Triage Information Reviewed: Yes Vital Signs On Initial Exam: Initial Vitals Temp Pulse Resp BP Pulse Ox 98 F 89 18 125/71 94 04/20/19 22:00 04/20/19 22:00 04/20/19 22:00 04/20/19 22:00 04/20/19 22:00 Vital Signs Reviewed: Yes Appearance: Positive: Well-Appearing Skin: Positive: Warm Head/Face: Positive: Normal Head/Face Inspection Eyes: Positive: Normal Neck: Positive: Supple Respiratory/Lung Sounds: Positive: Clear to Auscultation Cardiovascular: Positive: Normal Abdomen Description: Positive: Nontender Musculoskeletal: Positive: Normal Neurological: Positive: Normal Psychiatric: Positive: Normal AVPU Assessment: Alert - Jl Coma Scale Best Eye Response: 4 - Spontaneous Best Motor Response: 6 - Obeys Commands Best Verbal Response: 5 - Oriented Coma Scale Total: 15 Diagnostics - Vital Signs Vital Signs Temp Pulse Resp BP Pulse Ox 04/20/19 22:00 98 F 89 18 125/71 94 - Laboratory Lab Statement: Any lab studies that have been ordered have been reviewed, and results considered in the medical decision making process. Back Pain Course/Dx - Course Course Of Treatment: Patient complains of right lower back pain after bending over to get dressed this morning. Pain is worse with movement. Denies any other pain, injury or symptoms including urinary retention, bowel incontinence. No radiation of pain. Patient ambulatory. Medical history is HTN, neurofibromatosis type I. Vital signs within normal limits. Back pain improved with Valium 5 mg by mouth 2, Toradol 30 mg IM. - Diagnoses Provider Diagnoses: Muscle spasm of back Discharge ED - Sign-Out/Discharge Documenting (check all that apply): Patient Departure Patient Received Moderate/Deep Sedation with Procedure: No - Discharge Plan Condition: Stable Disposition: HOME Patient Education Materials: Muscle Spasm (ED) Forms: *Work Release Referrals: Rekha Nassar MD [Primary Care Provider] - Additional Instructions: Take Valium as directed for muscle spasm. Rest. Also take ibuprofen 600 mg every 6 hours for the next 2 days. Return to the ED for any new or worsening symptoms. - Billing Disposition and Condition Condition: STABLE Disposition: Home
[2019-04-20] MEDS: Diazepam TAB(*) 5 MG PO ONE (22:28)
[2019-04-20] MEDS: Ketorolac INJ* 30 MG/ML 1 ML VIAL IM ONE (22:29)
[2019-04-21] MEDS: Diazepam TAB(*) 5 MG PO ONE (00:03)
[2019-04-21 00:42] VITALS: BP 146/85
== END 2019-04-20 23:51 | disposition home or self-care (01) ==
LOC: ED 21:46
DX: M62.830 Muscle spasm of back (principal); I10 Essential (primary) hypertension; Q85.01 Neurofibromatosis, type 1; E78.00 Pure hypercholesterolemia, unspecified; Z87.891 Personal history of nicotine dependence; Z79.899 Other long term (current) drug therapy; Z88.1 Allergy status to other antibiotic agents; Z88.8 Allergy status to other drugs, medicaments and biological substances
CPT/HCPCS: 96372; 99282; A9270-GY; J1885

== ENCOUNTER 2019-07-11 20:21 | Emergency (ER) | payer OTHER, MEDICAID ==
--- OUTSIDE RECORDS SUMMARY | 2019-07-11 20:35 | XMS REPORT | Continuity of Care Document ---
:1980 External Reference #:[id number] Author Name Lopez Corona M.D. Address [address] [place] [address] Care Team Providers Name Role Phone Abdullahi Denny M.D. Care Team Information Associate Producer [phone] Rekha Nassar MD Care Team Information Associate Producer [phone] Problems Active Problems Provider Date Acute hydrops keratoconus Zbigniew Hope M.D. Onset: 06/06/2019 Social History Type Date Description Comments Sex Unknown Tobacco Use Start: Unknown End: Quit ETOH Use Currently consumes alcohol Tobacco Use Start: Unknown End: Unknown Patient is a former smoker Smoking Status Reviewed: 06/06/19 Patient is a former smoker Allergies, Adverse Reactions, Alerts Active Allergies Reaction Severity Comments Date Augmentin Nausea, vomiting Moderate 06/06/2019 Mushrooms itchy throat Moderate 06/06/2019 Shrimp rash Moderate 06/06/2019 Medications Active Medications SIG Qnty Indications Ordering Date Provider Tobramycin-Dexamethasone 1 drop four 5ml H18.623 Zbigniew Issa 06/07/2019 0.3-0.1% times per day Jyay Suspension right eye M.D. Hydrocodone-Acetaminophen 1 by mouth 12tabs H18.623 Zbigniew Issa 06/07/2019 5-325mg every 4-6 Weisenliliana, Tablets hours as M.D. needed for pain Dilt-XR Unknown 180mg Caps ER 24HR Hydrochlorothiazide 1 by mouth Unknown 25mg Tablets every day Levocetirizine 1 by mouth Unknown Dihydrochloride every day 5mg Tablets Atorvastatin Calcium 1 by mouth Unknown 20mg Tablets every day Immunizations Description No Information Available Vital Signs Date Vital Result Comment 06/06/2019 2:39pm Intraocular Pressure Right Eye 15 mmHg Intraocular Pressure Left Eye 16 mmHg Al-, Applanation 02:41 PM Results Description No Information Available Procedures Date Code Description Status 06/27/2019 0402T Collagen Crosslinking Cornea Completed 06/06/2019 62166 Corneal Topography Unilateral Or Bilateral With Completed Interpretation 06/06/2019 37981 Comprehensive Exam New Patient Completed Medical Devices Description No Information Available Encounters Description No Information Available Assessments Date Code Description Provider 06/28/2019 H18.623 Keratoconus Lopez Corona M.D. 06/27/2019 H18.623 Keratoconus Roby Bonilla O.D. 06/27/2019 H18.621 Keratoconus, unstable, right eye Zbigniew Hpoe M.D. 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 06/06/2019 H18.623 Keratoconus, unstable, bilateral Zibgniew Hope M.D. Plan of Treatment Future Appointment(s):06/30/2019 10:15 am - Zbigniew Hope M.D. at [facility] Yvyyce1006/28/2019 - Lopez Corona M.D.H18.623 KeratoconusComments:Continue current medications as directed.Follow up:As scheduled with [facility]. Functional Status Description No Information Available Mental Status Description No Information Available Referrals Refer to Dr Reason for Referral Status Appt Date Zbigniew Hope M.D. Created [address] [place] [address] [phone] Zbigniew Hope M.D. Created [address] [place] [address] 10519 [phone] Zbigniew Hope M.D. Created [address] [place] [address]25 [phone] Zbigniew Hope M.D. Created [address] [place] [address]9832 [phone] Zbigniew Hope M.D. Created [address] [place] [address] [phone] Zbigniew Hope M.D. Created [address] [place] [address] [phone]
--- OUTSIDE RECORDS SUMMARY | 2019-07-11 20:35 | XMS REPORT | Continuity of Care Document ---
:1980 External Reference #:[id number] Author Name Roby Bonilla O.D. Address [address] [place] [address] Care Team Providers Name Role Phone Abdullahi Denny M.D. Care Team Information Assisted Sales Representative [phone] Rekha Nassar MD Care Team Information Assisted Sales Representative [phone] Problems Active Problems Provider Date Acute hydrops [...] Zbigniew Issa 06/07/2019 0.3-0.1% times per day Jayy Suspension right eye M.D. Hydrocodone-Acetaminophen 1 by [...] 06/27/2019 0402T Collagen Crosslinking Cornea Completed 06/06/2019 85880 Corneal Topography Unilateral Or Bilateral With Completed Interpretation 06/06/2019 33670 Comprehensive Exam New Patient Completed Medical Devices Description No Information Available Encounters Description No Information Available Assessments Date Code Description Provider 06/27/2019 H18.623 Keratoconus Roby Bonilla O.D. 06/27/2019 H18.621 Keratoconus, unstable, right eye Zbigniew Hope M.D. 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 Plan of Treatment Future Appointment(s):06/30/2019 10:15 am - Zbigniew Hope M.D. at [facility] Llpkei7406/28/2019 10:30 am - Lopez Corona M.D. at [facility] Cdgowt3706/27/2019 - Roby Bonilla O.D.H18.623 KeratoconusComments:Removed torn bandage contact lens and replace with new bandage contact lens. Patient reports immediate resolution of extreme pain. Advised patient that some discomfort may return after anesthetic eyedrop wears off. Reassure patient and advised patient to call tonight if develops extreme pain again. Advised patient to resume taking eyedrops as directed and advised to use oral pain medication as neededwith next one being in 4-5 hours since just taking one tablet within the last hour.Follow up:As scheduled with Dr. Corona for 1 day post-operative follow- up tomorrow at 10:30am Functional Status Description No Information Available Mental Status Description No Information Available Referrals Refer to Dr Reason for Referral Status Appt Date Zbigniew Hope M.D. Created [address] [place] [address] [phone] Zbigniew Hope M.D. Created [address] [place] [address] [phone] Zbigniew Hope M.D. Created [address] [place] [address] [phone] Zbigniew Hope M.D. Created [address] [place] [address]63 [phone] Zbigniew Hope M.D. Created [address] [place] [address]84 [phone] Zbigniew Hope M.D. Created [address] [place] [address]36 [phone]
--- OUTSIDE RECORDS SUMMARY | 2019-07-11 20:35 | XMS REPORT | Continuity of Care Document ---
:1980 External Reference #:[id number] Author Name Zbigniew Hope M.D. Address [address] [place] [address] Care Team Providers Name Role Phone Abdullahi Denny M.D. Care Team Information Prepress Supervisor [phone] Rekha Nassar MD Care Team Information Prepress Supervisor [phone] Problems Active Problems Provider Date Keratoconus, stable condition Zbigniew Hope M.D. Onset: 06/30/2019 Acute hydrops keratoconus Zbigniew Hope M.D. Onset: [...] Medications SIG Qnty Indications Ordering Date Provider Fluorometholone 1 drop right 10ml H18.611 Zbigniew Issa 06/30/2019 0.1% Suspension eye 4 xday Weisenthal, for 1 week M.D. and taper weekly. Tobramycin-Dexamethasone 1 drop four 5ml H18.623 Zbigniew Issa 06/07/2019 0.3-0.1% times per day Weisenthal, Suspension right eye M.D. Hydrocodone-Acetaminophen 1 by mouth 12tabs H18.623 Zbigniew Issa 06/07/2019 5-325mg every 4-6 Weisenthal, Tablets hours as M.D. needed for pain [...] 06/27/2019 0402T Collagen Crosslinking Cornea Completed 06/06/2019 32023 Corneal Topography Unilateral Or Bilateral With Completed Interpretation 06/06/2019 28909 Comprehensive Exam New Patient Completed Medical Devices Description No Information Available Encounters Description No Information Available Assessments Date Code Description Provider 06/30/2019 H18.611 Keratoconus, stable, right eye Zbigniew Hope M.D. 06/28/2019 H18.623 Keratoconus Lopez Corona M.D. 06/27/2019 H18.623 Keratoconus Roby Bonilla O.D. 06/27/2019 H18.621 Keratoconus, unstable, right eye Zbigniew Hope M.D. 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 Plan of Treatment 06/30/2019 - Zbigniew Hope M.D.H18.611 Keratoconus, stable, right eyeNew Medication:Fluorometholone 0.1 % - 1 drop right eye 4 xday for 1 week and taper weekly.Comments:Use Tobradex 1 drop right eye 4 xday for 4 days then stop and start FML 1 drop right eye 4 xday for 1 week, 3 xday for 1 week, 2 x day for 1 week and 1 xday for 1 week.Follow up:1 month refact Functional Status Description No Information Available Mental Status Description No Information Available Referrals Refer to Dr Reason for Referral Status Appt Date Zbigniew Hope M.D. Created [address] [place] [address] [phone] Zbigniew Hope M.D. Created [address] [place] [address] [phone] Zbigniew Hope M.D. Created [address] [place] [address]44 [phone] Zbigniew Hope M.D. Created [address] [place] [address] [phone] Zbigniew Hope M.D. Created [address] [place] [address] [phone] Zbigniew Hope M.D. Created [address] [place] [address] [phone]
--- OUTSIDE RECORDS SUMMARY | 2019-07-11 20:35 | XMS REPORT | Continuity of Care Document ---
:1980 External Reference #:[id number] Author Name Zbigniew Hope M.D. Address [address] [place] [address] Care Team Providers Name Role Phone Abdullahi Denny M.D. Care Team Information Foot Worker [phone] Rekha Nassar MD Care Team Information Foot Worker [phone] Problems Active Problems Provider Date Acute hydrops [...] Medications SIG Qnty Indications Ordering Date Provider Dilt-XR Unknown 180mg Caps ER 24HR Hydrochlorothiazide [...] Information Available Procedures Date Code Description Status 06/06/2019 25229 Corneal Topography Unilateral Or Bilateral With Completed Interpretation 06/06/2019 09733 Comprehensive Exam New Patient Completed Medical Devices Description No Information Available Encounters Description No Information Available Assessments Date Code Description Provider 06/06/2019 H18.623 Keratoconus, unstable, bilateral Zbigniew Hope M.D. Plan of Treatment 06/06/2019 - Zbigniew Hope M.D.H18.623 Keratoconus, unstable, bilateralComments:Discussed collagen crosslinking, risks, benefits and alternatives. Collagen crosslinking is performed as an in-office procedure. The goal of collagen crosslinking is to stop the cornea from becoming thinner, weaker and more irregular in shape. Collagen crosslinking is designed to stabilize the cornea.Patient will still have a need for glasses and/or contact lenses following procedure. Alternatives include: No treatment-continue to follow keratoconus, keratoconus may continue to progress requiring corneal transplant, continued glasses and contact lens wear, scleral or hybrid contact lens fit.Discussed with patient risks involved with collagen crosslinking, including but not limited to:Pain, lightsensitivity, infection (prescription eye drops will be prescribed to help prevent infection), UV damage to the internal structure of the eye, swelling of the cornea-requiring a second surgery and increase in eye pressure due to post treatment drops. Hand out given to patient. All questions answered.Follow up:[facility] OD Functional Status Description No Information Available Mental Status Description No Information Available Referrals Description No Information Available
--- OUTSIDE RECORDS SUMMARY | 2019-07-11 20:35 | XMS REPORT | Continuity of Care Document ---
:1980 External Reference #:[id number] Author Name Carmenza Ball NP Address [address] [place] [address] Care Team Providers Name Role Phone [facility] Care Team Information Master Deputy [employer] Security [phone] Rekha Nassar M.D. - Family Medicine Care Team Information Master Deputy [employer] Security Unavailable Problems Active Problems Provider Date Peripheral venous insufficiency Ubaldo Donaldson M.D. Onset: 11/01/2013 Essential hypertension Milan Garcia M.D. Onset: 02/13/2015 Hyperlipidemia Milan Garcai M.D. Onset: 02/13/2015 Mixed hyperlipidemia Rekha Nassar M.D. Onset: 12/04/2015 Neurofibromatosis type 1 Rekha Nassar M.D. Onset: 05/09/2016 Morbid obesity Rekha Nassar M.D. Onset: 05/09/2016 Concussion with no loss of consciousness Johnny Garnett M.D. Onset: 2016 Leukocytosis Rekha Nassar M.D. Onset: 12/13/2018 Chiari malformation type I Rekha Nassar M.D. Onset: 01/13/2019 Social History Type Date Description Comments Sex Unknown Tobacco Use Start: Unknown Nonsmoker Smoking Status Reviewed: 06/10/19 Nonsmoker ETOH Use Denies alcohol use Tobacco Use Start: Unknown nonsmoker Allergies, Adverse Reactions, Alerts Active Allergies Reaction Severity Comments Date Augmentin 11/10/2003 Shellfish 09/01/2005 Mushrooms Throat Closing 07/18/2010 Bactrim stiff neck 11/08/2018 Medications Active Medications SIG Qnty Indications Ordering Date Provider Keflex 1 by mouth twice 14caps L03.116 Carmenza Paniagua 06/10/2019 500mg Capsules a day - has KRISSY Ball tolerated well in the past Diltiazem HCL ER one tablet by 60caps I10 Rekha Nassar, 12/27/2018 180mg Caps ER mouth twice a M.D. 24HR day Hydrochlorothiazide Take One Tablet 30tabs I10 Carmenza Paniagua 12/13/2018 25mg Tablets By Mouth Every KRISSY Ball Day Xyzal Allergy 24HR one by mouth 30tabs H69.93 Carmenza Paniagua 11/18/2017 5mg Tablets daily KRISSY Ball Compression Stockings to knee, wear as 2units Rekha Nassar, 10/31/2017 30-40mm HG needed please M.D. provide size to patient that fits Ibuprofen 1 by mouth q8 90tabs J30.2 Rekha Cesario, 03/08/2016 800mg Tablets hours three M.D. times a day as needed with food Atorvastatin Calcium Take One Tablet 30tabs E78.2 Carmenza Paniagua 04/17/2012 20mg Tablets By Mouth AT KRISSY Ball Bedtime History Medications Metformin HCL 1 by mouth every 60tabs E88.81 Carmenza Paniagua 03/11/2019 - day x 7 days; then KRISSY Ball 06/10/2019 500mg Tablets 1 in the morning and 1 in the evening every day thereafter E66.01 Immunizations CPT Code Status Date Vaccine Lot # [id number] Given 06/10/2019 Influenza Vac, Quadrivalent, Slit Virus, Im [id number] 96446 Given 05/18/2018 Influenza Vac, Quadrivalent, Slit Virus, Im [id number] Given 05/07/2017 Influenza Vac, [place]riv[place] [id number] Given 05/09/2016 Influenza Vac, Quadrivalent, Slit Virus, Im [id number] 69198 Given 04/27/2015 Influenza Vac, [place] [address] Given 04/27/2015 DO Not Use Split Influenza Virus Vaccine [id number] Given 06/17/2014 DO Not Use Split Influenza Virus Vaccine Vital Signs Date Vital Result Comment 06/10/2019 10:05am BP Systolic 144 mmHg BP Diastolic 108 mmHg Heart Rate 84 /min Body Temperature 98.4 F Respiratory Rate 12 /min Height 75.75 inches 6'3.75" per pt Weight 400.00 lb BMI (Body Mass Index) 49.0 kg/m2 03/04/2019 11:50am BP Systolic 126 mmHg BP Diastolic 88 mmHg BP Systolic Recheck 128 mmHg [employer] Recheck right arm seated BP Diastolic Recheck 86 mmHg [employer] Recheck right arm seated Heart Rate 84 /min Body Temperature 98.0 F Respiratory Rate 16 /min Weight 408.00 lb Results Test Date Facility Test Result H/L Range Note Laboratory test 06/10/2019 [facility]) TSH <pending> 0.5-5.0 finding Comprehensive 01/11/2019 [facility]) Sodium 140 mEq/L 134-149 Metabolic Prof Potassium 4.3 mEq/L 3.6-5.5 Chloride 104 mEq/L 94-112 Carbon Dioxide 26 mEq/L 21-32 Glucose 86 mg/dL 70-105 BUN 11 mg/dL 6-26 Creatinine 0.7 mg/dL 0.6-1.4 BUN/Creat Ratio 15.7 CALC 8.0-36.0 Calcium 8.9 mg/dL 8.6-10.2 Total Protein 7.3 g/dL 6.4-8.3 Albumin 4.3 g/dL 3.8-5.5 Globulin 3.0 g/dL 2.0-4.8 A/G Ratio 1.4 CALC 0.6-2.3 Alk. Phosphatase 87 U/L 22-95 Alt (SGPT) 24 U/L 7-35 Ast (Sgot) 16 U/L 5-34 Total Bilirubin 0.6 mg/dL 0.2-1.3 GFR Non- >60 ml/min/1.73m^ >=60 GFR >60 ml/min/1.73m^ >=60 CBC, PLT & Hem 01/11/2019 [facility] WBC 9.9 x10E3/uL 3.4-10.8 1 [address] [place] [address] (607)- - RBC 5.10 x10E6/uL 4.14-5.80 Hemoglobin 13.6 g/dL 13.0-17.7 Hematocrit 42.9 % 37.5-51.0 MCV 84 fL 79-97 MCH 26.7 pg 26.6-33.0 MCHC 31.7 g/dL 31.5-35.7 RDW 14.2 % 12.3-15.4 Platelets 231 x10E3/uL 150-450 2 Immature Cells TNP NRBC TNP Neutrophils 57 % Not Estab. Lymphs 30 % Not Estab. Monocytes 8 % Not Estab. Eos 2 % Not Estab. Basos 3 % Not Estab. Neutrophils Absolute 5.6 x10E3/uL 1.4-7.0 Lymphs (Absolute) 3.0 x10E3/uL 0.7-3.1 Monocytes(Absolute) 0.8 x10E3/uL 0.1-0.9 Eos (Absolute Value) 0.2 x10E3/uL 0.0-0.4 Baso(Absolute) 0.3 x10E3/uL High 0.0-0.2 Differential Comment TNP RBC Comment RBC's appear nor <SEE NOTE> Normal 3 Platelet Comment See Comment: Adequate 4 Comprehensive Metabolic 12/27/2018 Grant Ailin([facility]) Sodium 137 mEq/L 134-149 Prof Potassium 3.6 mEq/L 3.6-5.5 Chloride 101 mEq/L 94-112 Carbon Dioxide 22 mEq/L 21-32 Glucose 81 mg/dL 70-105 BUN 12 mg/dL 6-26 Creatinine 0.8 mg/dL 0.6-1.4 BUN/Creat Ratio 15.0 CALC 8.0-36.0 Calcium 9.0 mg/dL 8.6-10.2 Total Protein 7.3 g/dL 6.4-8.3 Albumin 4.2 g/dL 3.8-5.5 Globulin 3.1 g/dL 2.0-4.8 A/G Ratio 1.4 CALC 0.6-2.3 Alk. Phosphatase 90 U/L 22-95 Alt (SGPT) 25 U/L 7-35 Ast (Sgot) 18 U/L 5-34 Total Bilirubin 0.4 mg/dL 0.2-1.3 GFR Non- >60 ml/min/1.73m^ >=60 GFR >60 ml/min/1.73m^ >=60 CBC Electronic ([facility] New) 12/27/2018 [facility] WBC 11.00 High 4.0- 10.0 (607)- - RBC 4.93 3.93-6.0 Hemoglobin (Fma/CMC/CTX) 13.4 g/dL 12.0-17.0 Hematocrit (Fma/CMC/CTX) 40.5 % 35.0-50.0 Mean Corpuscular Vol 82.2 fL 80-95 Mean Corpuscular Hemoglobin 27.2 pg 25.6-32.2 Mean Corpuscular Hemo Concen 33.1 g/dL 32.2-36.0 Platelets 242 10^3/ul 163-400 RDW-CV 13.4 11.6-14.4 Mean Platelet Volume 10.1 fL 8.0-12.4 Absolute Neutrophils BLD 8.02 High 1.56-6.13 Absolute Lymphocytes 1.64 1.18-3.74 Absolute Monocytes BLD Auto 0.93 High 0.24-0.82 Absolute Eos Blood 0.28 0.04-0.54 Absolute Basophils 0.09 High 0.01-0.08 Neutrophil % 72.9 % High 34.0-70.0 Lymph% 14.9 % Low 20.0-52.0 Monocytes % 8.5 % 5.0-12.0 Eos % 2.5 % 0.7-7.0 Basophil% 0.8 % 0-1.2 1 1 lav edta tube sent 2 Please note reference interval change 3 RBC's appear normal. 4 Platelet count verified by examination of peripheral blood smear. Large platelets were observed. Procedures Date Code Description Status 01/21/2019 24263 Pulse Oximetry Completed Medical Devices Description No Information Available Encounters Type Date Location Provider Dx Diagnosis Office Visit 03/04/2019 [facility] Office Carmenza Paniagua I10 Essential (primary ) 11:30a KRISSY Ball hypertension E66.01 Morbid (severe) obesity due to excess calories Office Visit 01/24/2019 6:00p Main Office Carmenza Paniagua I10 Essential ( primary) KRISSY Ball hypertension E66.01 Morbid (severe) obesity due to excess calories Office Visit 01/21/2019 2:15p [facility] Office Uzma Braswell06.9 Acute upper Kwame, [employer] respiratory infection, unspecified K12.0 Recurrent oral aphthae Office Visit 01/18/2019 10:45a Main Office Uzma Kuhn.9 Acute upper Kwame, [employer] respiratory infection, unspecified Office Visit 01/11/2019 9:30a [facility] Office Brody Boyd0 Essential M.D. (primary) hypertension D72.829 Elevated white blood cell count, unspecified Office Visit 12/27/2018 3:45p Main Office Carmenza Paniagua I10 Essential ( primary) KRISSY Ball 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, type 1 D72.829 Elevated white blood cell count, unspecified E66.01 Morbid (severe) obesity due to excess calories I73.00 Raynaud's syndrome without gangrene Assessments Date Code Description Provider 06/10/2019 I10 Essential (primary) hypertension Carmenza Ball, KRISSY 06/10/2019 E66.01 Morbid (severe) obesity due to excess Carmenza Ball NP calories 06/10/2019 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, type 1 Carmenza Ball NP 06/10/2019 L03.116 Cellulitis of left lower limb Carmenza Ball NP 06/10/2019 Z23 Encounter for immunization Carmenza Ball NP 03/04/2019 I10 Essential (primary) hypertension Carmenza Ball NP 03/04/2019 E66.01 Morbid (severe) obesity due to excess Carmenza Ball NP calories 01/24/2019 I10 Essential (primary) hypertension Carmenza Ball NP 01/24/2019 E66.01 Morbid (severe) obesity due to excess Carmenza Ball NP calories 01/21/2019 J06.9 Acute upper respiratory infection, Uzma Puente NP unspecified 01/21/2019 K12.0 Recurrent oral aphthae Uzma Puente, KRISSY 01/18/2019 J06.9 Acute upper respiratory infection, Uzma Puente NP unspecified 01/11/2019 I10 Essential (primary) hypertension Rekha Nassar M.D. 01/11/2019 D72.829 Elevated white blood cell count, Rekha Nassar M.D. unspecified 12/27/2018 I10 Essential (primary) hypertension Carmenza Ball, KRISSY 12/27/2018 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, type 1 Carmenza Ball, KRISSY 12/27/2018 D72.829 Elevated white blood cell count, Carmenza Ball NP unspecified 12/27/2018 E66.01 Morbid (severe) obesity due to excess Carmenza Ball NP calories 12/27/2018 I73.00 Raynaud's syndrome without gangrene Carmenza Ball NP Plan of Treatment Future Appointment(s):09/16/2019 11:00 am - Carmenza Ball NP at [facility]06/10/2019 - Carmenza Ball, NPI10 Essential (primary) hypertensionComments:The patient will continue to monitor blood pressure and let me know the blood pressure results if there are readings persistently above 140/80. Goal blood pressure is less than 140/80. Recommend low salt/cardiac diet and routine exercise.E66.01 Morbid (severe) obesity due to excess caloriesComments:Counseled on heart healthy diet and nxfmwreyO28.01 Neurofibromatosis, type 1Comments:patient instructed to call back if condition fails to improve or worsens.L03.116 Cellulitis of left lower limbNew Medication: Keflex 500 mg - 1 by mouth twice a day - has tolerated well in the pastComments: keep area clean and dry wash with plain soap and water patient instructed to call back if condition fails to improve or worsens.Z23 Encounter for immunizationComments:Your flu vaccination has been administered. This protects you for the fall, winter and spring. It will decrease the likelihood that you will get the flu. If you are unlucky and get the flu, the symptoms will be less severe.AllComments:Medication Management Patient Understands medications he 's taking? Yes No Are there Barriers to Adherence? Yes No Has the patient been asked about herbal supplements and therapies, andOTC meds? Yes No Care Plan1. Patient has been queried about patient's goals/ preferences and functional/lifestyle goals at relevant visits. If relevant, describe: na2. Treatment goals as explained to the patient: above3. Are there barriers to meeting treatment goals? Yes No If Yes, please describe: comorbid conditions, disease process, polypharmacy4. Self-Management goals as described to the patient: Yes NoAs always, we strongly encourage a healthy diet and making physical activity a part of your every day life. If you have questions about how or where to start, please contact the office. Functional Status Description No Information Available Mental Status Description No Information Available Referrals Description No Information Available
--- NOTE | 2019-07-11 21:22 | ED ---
Upper Extremity Pain - HPI Summary HPI Summary: 39 year old right hand dominant male presents today with a chief complaint of left wrist pain for 1 week. He states that he has also had associated numbness and tingling in the left 3rd and 4th digits. He rates the pain 4/10. Has taken Ibuprofen 800 mg prn for pain. He denies any injury, swelling, or ecchymosis. 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 Has history of raynauds. - History of Current Complaint Chief Complaint: EDExtremityUpper Stated Complaint: LT WRIST PAIN PER PT Time Seen by Provider: 07/11/19 21:13 - Allergies/Home Medications Allergies/Adverse Reactions: Allergies Allergy/AdvReac Type Severity Reaction Status Date / Time amoxicillin Allergy Vomiting Verified 07/11/19 20:28 clavulanic acid Allergy Vomiting Verified 07/11/19 20:28 mushroom Allergy Airway Verified 07/11/19 20:28 Obstruction shrimp Allergy Hives Verified 07/11/19 20:28 trimethoprim AdvReac See Comment Verified 07/11/19 20:28 PMH/Surg Hx/FS Hx/Imm Hx Endocrine/Hematology History: Reports: Other Endocrine/Hematological Disorders - Raynaud's Denies: Hx Diabetes, Hx Thyroid Disease Cardiovascular History: Reports: Hx Hypercholesterolemia, Hx Hypertension, Other Cardiovascular Problems/Disorders - varicose veins issues - wears compression stockings Denies: Hx Congestive Heart Failure, Hx Pacemaker/ICD Respiratory History: Reports: Hx Sleep Apnea - possibly Denies: Hx Asthma, Hx Chronic Obstructive Pulmonary Disease (COPD), Other Respiratory Problems/Disorders GI History: Reports: Other GI Disorders - cholelithiasis Denies: Hx Ulcer History: Denies: Hx Renal Disease Musculoskeletal History: Reports: Other Musculoskeletal History - RAYNAUD'S Sensory History: Reports: Hx Contacts or Glasses Denies: Hx Deafness, Hx Hearing Aid Opthamlomology History: Reports: Hx Contacts or Glasses Neurological History: Reports: Hx Headaches, Hx Migraine - rare, Other Neuro Impairments/Disorders - NEUROFIBROMYTOSIS TYPE I Denies: Hx Seizures, Hx Transient Ischemic Attacks (TIA) Psychiatric History: Denies: Hx Panic Disorder - Surgical History Surgery Procedure, Year, and Place: GALLBLADDER 08/31/2018; Hx Anesthesia Reactions: No - Immunization History Date of Tetanus Vaccine: UTD Date of Influenza Vaccine: 2012 Infectious Disease History: No Infectious Disease History: Reports: 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 Denies: Hx Clostridium Difficile, Hx Hepatitis, Hx Human Immunodeficiency Virus (HIV), Hx Shingles, Hx Tuberculosis, Hx Known/Suspected VRE, Hx Known/ Suspected VRSA, History Other Infectious Disease, Traveled Outside the [place] in Last 30 Days - Family History Known Family History: Positive: Hypertension, Diabetes - in father - Social History Alcohol Use: Rare Alcohol Amount: 4 per month Hx Substance Use: No Substance Use Type: Reports: None Hx Tobacco Use: Yes Smoking Status (MU): Former Smoker Type: Cigarettes Amount Used/How Often: 1/2 pack a day Length of Time of Smoking/Using Tobacco: 2-3 years Review of Systems Constitutional: Negative Negative: Fever Negative: Chest Pain Negative: Shortness Of Breath Positive: Myalgia - left wrist pain Skin: Negative Positive: Paresthesia, Numbness All Other Systems Reviewed And Are Negative: Yes Physical Exam Triage Information Reviewed: Yes Vital Signs On Initial Exam: Initial Vitals Temp Pulse Resp BP Pulse Ox 98 F 93 18 168/93 97 07/11/19 20:24 07/11/19 20:24 07/11/19 20:24 07/11/19 20:24 07/11/19 20:24 Vital Signs Reviewed: Yes Appearance: Positive: Well-Appearing Skin: Positive: Warm, Skin Color Reflects Adequate Perfusion, Dry Head/Face: Positive: Normal Head/Face Inspection ENT: Positive: Pharynx normal Neck: Positive: Supple Respiratory/Lung Sounds: Positive: Clear to Auscultation, Breath Sounds Present Cardiovascular: Positive: Normal, RRR Musculoskeletal: Positive: Strength/ROM Intact, Pain @ - left flexor tendon sheath tenderness, Other - positive tinels, positive phalens- reproducible numbness and tingling No swelling, erythema, ecchymosis or palpable deformity Neurological: Positive: Normal Psychiatric: Positive: Normal Procedures - Sedation Patient Received Moderate/Deep Sedation with Procedure: No Diagnostics - Vital Signs Vital Signs Temp Pulse Resp BP Pulse Ox 07/11/19 20:24 98 F 93 18 168/93 97 - Laboratory Lab Statement: Any lab studies that have been ordered have been reviewed, and results considered in the medical decision making process. - Radiology wrist Radiology Interpretation Completed By: ED Physician Summary of Radiographic Findings: no fracture Course/Dx - Course Course Of Treatment: 39 year old right hand dominant male here for left wrist pain. No erthema, swelling, or ecchymosis noted. X-ray within normal limits. Reproducible numbness and tingling with phalens and tinels testing of left hand. Cock-up wrist splint applied. Work note given for light duty. Follow up with orthopedics. patient understand and agrees with plan. - Diagnoses Provider Diagnoses: Left wrist pain Discharge ED - Sign-Out/Discharge Documenting (check all that apply): Patient Departure - Discharge Plan Condition: Good Disposition: HOME Patient Education Materials: Wrist Sprain (ED) Forms: *Work Release Referrals: Rekha Nassar MD [Primary Care Provider] - Joni Law MD [Medical Doctor] - Additional Instructions: Keep brace on area Take Tylenol or ibuprofen every 6 hours as needed for pain Apply ice, rest, elevate Follow up with ortho Return to ED if develop any new or worsening symptoms - Billing Disposition and Condition Condition: GOOD Disposition: Home
[2019-07-11 22:20] VITALS: BP 153/86
== END 2019-07-11 22:20 | disposition home or self-care (01) ==
LOC: ED 20:21
DX: M25.532 Pain in left wrist (principal); I73.00 Raynaud's syndrome without gangrene; E78.00 Pure hypercholesterolemia, unspecified; I10 Essential (primary) hypertension; Q85.01 Neurofibromatosis, type 1; Z87.891 Personal history of nicotine dependence
CPT/HCPCS: 99282

== ENCOUNTER 2019-10-17 13:31 | Emergency (ER) | payer OTHER, MEDICAID ==
--- OUTSIDE RECORDS SUMMARY | 2019-10-17 13:43 | XMS REPORT | Continuity of Care Document ---
:1980 External Reference #:[id number] Author Name Carmenza Ball NP Address [address] [place] [address] Care Team Providers Name Role Phone [facility] [place] [facility] - Clinic/Center Care Team Information Accounting Generalist [phone] Rekha Nassar M.D. - Family Medicine Care Team Information Accounting Generalist Unavailable Problems Active Problems Provider Date Peripheral venous insufficiency Ubaldo Donaldson M.D. Onset: 11/01/2013 Essential hypertension Milan Garcia M.D. Onset: 02/13/2015 Hyperlipidemia Milan Garcia M.D. [...] Use Start: Unknown Nonsmoker Smoking Status Reviewed: 09/16/19 Nonsmoker ETOH Use Denies alcohol use Tobacco Use Start: Unknown nonsmoker Allergies, Adverse Reactions, Alerts Active Allergies Reaction Severity Comments Date Augmentin 11/10/2003 Shellfish 09/01/2005 Mushrooms Throat Closing 07/18/2010 Bactrim stiff neck 11/08/2018 Medications Active Medications SIG Qnty Indications Ordering Date Provider Diltiazem HCL ER Beads one tablet by 60caps I10 Carmenza Paniagua 09/16/2019 180mg Caps mouth twice a KRISSY Ball ER 24HR day Hydrochlorothiazide take one 30tabs I10 Rekha Nassar, 12/13/2018 25mg Tablets tablet by M.D. mouth every day Xyzal Allergy 24HR one by mouth 30tabs H69.93 Carmenza Paniagua 11/18/2017 5mg Tablets daily KRISSY Ball Compression Stockings to knee, wear 2units Rekha Nassar, 10/31/2017 30-40mm HG as needed M.D. please provide size to patient that fits Ibuprofen 1 by mouth q8 90tabs J30.2 Rekha Nassar, 03/08/2016 800mg Tablets hours three M.D. times a day as needed with food Atorvastatin Calcium Take One 30tabs E78.2 Carmenza Paniagua 04/17/2012 20mg Tablets Tablet By KRISSY Ball Mouth AT Bedtime History Medications Keflex 1 by mouth twice a 14caps L03.116 Carmenza Paniagua 06/10/2019 - 500mg day - has KRISSY Ball 06/17/2019 Capsules tolerated well in the past Immunizations CPT Code Status Date Vaccine Lot # [id number] Given 06/10/2019 Influenza Vac, Quadrivalent, Slit Virus, Im [id number] 81326 Given 05/18/2018 Influenza Vac, Quadrivalent, Slit Virus, Im [id number] Given 05/07/2017 Influenza Vac, [place] [address] Given 05/09/2016 Influenza Vac, Quadrivalent, Slit Virus, Im [id number] 14757 Given 04/27/2015 Influenza Vac, [place], [place] [address] Given 04/27/2015 DO Not Use Split Influenza Virus Vaccine [id number] Given 06/17/2014 DO Not Use Split Influenza Virus Vaccine Vital Signs Date Vital Result Comment 09/16/2019 10:28am BP Systolic 142 mmHg BP Diastolic 88 mmHg BP Systolic Recheck 128 mmHg SCENE SH[employer]TER Recheck right arm seated BP Diastolic Recheck 82 mmHg SCENE SHIFTER Recheck right arm seated Heart Rate 88 /min Body Temperature 98.1 F Respiratory Rate 20 /min Weight 418.25 lb 08/15/2019 2:24pm BP Systolic 142 mmHg BP Diastolic 100 mmHg BP Systolic Recheck 148 mmHg 10 min later sitting BP Diastolic Recheck 100 mmHg 10 min later sitting Heart Rate 84 /min Body Temperature 98.0 F Results Test Acquired Date Facility Test Result H/L Range Note CBC Electronic [facility] 09/16/2019 Rgant Ailin([facility]) WBC 11.0 x10^3/UL High 4.0-10.0 RBC 5.29 x10^6/UL 3.93-6.00 HGB 14.3 g/dL 12.0-17.0 HCT 43 % 35-50 MCV 82.0 fL 80.0-95.0 MCH 27.0 pg 25.6-32.2 MCHC 32.9 g/dL 32.2-36.0 RDW-CV 13.8 % 11.6-14.4 PLT 255 x10^3/UL 163-400 MPV 10.5 fL 9.4-12.4 Frida# 7.95 x10^3/UL High 1.56-6.13 Lymph# 1.68 x10^3/UL 1.18-3.74 [place]# 1.01 x10^3/UL High 0.24-0.82 Eos # 0.3 x10^3/UL 0.0-0.5 Baso # 0.11 x10^3/UL High 0.01-0.08 Frida% 72.0 % High 34.0-70.0 Lymph % 15.2 % Low 20.0-52.0 [place]% 9.1 % 5.0-12.0 Eos% 2.4 % 0.7-7.0 Baso% 1.0 % 0.1-1.2 Comprehensive Metabolic 06/10/2019 Rudy Parisi([facility]) Sodium 136 mEq/L 134-149 Prof Potassium 3.8 mEq/L 3.6-5.5 Chloride 100 mEq/L 94-112 Carbon Dioxide 24 mEq/L 21-32 Glucose 85 mg/dL 70-105 BUN 10 mg/dL 6-26 Creatinine 0.7 mg/dL 0.6-1.4 BUN/Creat Ratio 14.3 CALC 8.0-36.0 Calcium 8.6 mg/dL 8.6-10.2 Total Protein 7.3 g/dL 6.4-8.3 Albumin 4.1 g/dL 3.8-5.5 Globulin 3.2 g/dL 2.0-4.8 A/G Ratio 1.3 CALC 0.6-2.3 Alk. Phosphatase 88 U/L 22-95 Alt (SGPT) 30 U/L 7-35 Ast (Sgot) 17 U/L 5-34 Total Bilirubin 0.8 mg/dL 0.2-1.3 GFR Non- >60 ml/min/1.73m^ >=60 GFR >60 ml/min/1.73m^ >=60 Lipid Profile 06/10/2019 Rudy Parisi([facility]) Cholesterol 141 mg/dL 120- 200 Triglycerides 135 mg/dL 30-200 HDL Cholesterol 40 mg/dL 30-70 LDL (Calculated) 74 CALC 0-129 VLDL Cholesterol 27 mg/dL 0-50 HDL Risk Factor 3.5 CALC 0.0-4.4 Laboratory test 06/10/2019 Rudy Parisi([facility]) TSH 1.94 mIU/L 0.50-6.00 finding CBC Electronic a 06/10/2019 Rudy Parisi([facility]) WBC 10.7 x10^3/UL High 4.0-10.0 1 RBC 5.39 x10^6/UL 3.93-6.00 HGB 14.3 g/dL 12.0-17.0 HCT 44 % 35-50 MCV 81.3 fL 80.0-95.0 MCH 26.5 pg 25.6-32.2 MCHC 32.6 g/dL 32.2-36.0 RDW-CV 13.7 % 11.6-14.4 PLT 246 x10^3/UL 163-400 MPV 10.5 fL 9.4-12.4 Frida# 7.68 x10^3/UL High 1.56-6.13 2 Lymph# 1.59 x10^3/UL 1.18-3.74 [place]# 1.01 x10^3/UL High 0.24-0.82 3 Eos # 0.3 x10^3/UL 0.0-0.5 Baso # 0.12 x10^3/UL High 0.01-0.08 4 Frida% 71.6 % High 34.0-70.0 5 Lymph % 14.8 % Low 20.0-52.0 6 [place]% 9.4 % 5.0-12.0 Eos% 2.7 % 0.7-7.0 Baso% 1.1 % 0.1-1.2 1 RESULTS VERIFIED BY REPEAT ANALYSIS 2 RESULTS VERIFIED BY REPEAT ANALYSIS 3 RESULTS VERIFIED BY REPEAT ANALYSIS 4 RESULTS VERIFIED BY REPEAT ANALYSIS 5 RESULTS VERIFIED BY REPEAT ANALYSIS 6 RESULTS VERIFIED BY REPEAT ANALYSIS Procedures Description No Information Available Medical Devices Description No Information Available Encounters Type Date Location Provider Dx Diagnosis [facility] Carm[facility] Miguel Essential (primary ) 2:30p KRISSY Ball hypertension [facility] Carmenza Skinner0 Essential (primary ) 10:30a KRISSY Ball hypertension E66.01 Morbid (severe) obesity due to excess calories 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, type 1 L03.116 Cellulitis of left lower limb Z23 Encounter for immunization Assessments Date Code Description Provider 09/16/2019 I10 Essential (primary) hypertension Carmenza Ball NP 09/16/2019 E66.01 Morbid (severe) obesity due to excess Carmenza Ball NP calories 09/16/2019 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, type 1 Carmenza Ball NP 09/16/2019 D72.829 Elevated white blood cell count, Carmenza Ball NP unspecified 08/15/2019 I10 Essential (primary) hypertension Carmenza Ball NP 06/10/2019 I10 Essential (primary) hypertension Carmenza Ball NP 06/10/2019 E66.01 Morbid (severe) obesity due to excess Carmenza Ball NP calories 06/10/2019 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 Goal blood pressure is less than 140/80. Recommend low salt/cardiac diet and routine exercise.E66.01 Morbid (severe) obesity due to excess caloriesComments:Counseled on heart healthy diet and exercise I am concerned about the 18lb weight gain over the holidays - I need to see some improvement for next visit to help reduce your risk for early onset diabetes, cardiovascular disease, or .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, type 1Comments: patient instructed to call back if condition fails to improve or worsens.D72.829 Elevated white blood cell count, unspecifiedComments:will recheck blood workAllComments:Medication Management Patient Understands medications he 's taking? Yes No Are there Barriers to Adherence? Yes No Has the patient been asked about herbal supplements and therapies, [facility]? Yes No Care Plan1. Patient has been queried about patient's goals/preferences and functional/lifestyle goals at relevant visits. If relevant, describe: na2. Treatment goals as explained to the patient: above3. Are there barriers to meeting treatment goals? Yes No If Yes, please describe: lifestyle, comorbid conditions, disease process 4. Self- Management goals as described to the patient: Yes NoAs always, we strongly encourage a healthy diet and making physical activity a part of your every day life. If you have questions about how or where to start, pleasecontact the office. Functional Status Description No Information Available Mental Status Description No Information Available Referrals Description No Information Available
--- OUTSIDE RECORDS SUMMARY | 2019-10-17 13:43 | XMS REPORT | Continuity of Care Document ---
:1980 External Reference #:[id number] Author Name Carmenza Ball NP Address [address] [facility] [place] [address] Care Team Providers Name Role Phone [facility] [place] W[facility] Clinic - Clinic/Center Care Team Information Senior Web Services Developer [phone] Rekha Nassar M.D. - Family Medicine Care Team Information Senior Web Services Developer Unavailable Problems Active Problems Provider Date Peripheral [...] CPT Code Status Date Vaccine Lot # [id number] Given 06/10/2019 Influenza Vac, Quadrivalent, Slit Virus, Im [id number] [id number] Given 05/18/2018 Influenza Vac, Quadrivalent, Slit Virus, Im [id number] 30089 Given 05/07/2017 Influenza Vac, [place]riv[place], [place] [address] Given 05/09/2016 Influenza Vac, Quadrivalent, Slit Virus, Im [id number] 36337 Given 04/27/2015 Influenza Vac, [place]riv[place], [place] [id number] Given 04/27/2015 DO Not Use Split Influenza Virus Vaccine [id number] Given 06/17/2014 DO Not Use Split Influenza Virus Vaccine Vital Signs Date Vital Result Comment 09/16/2019 10:28am BP Systolic 142 mmHg BP Diastolic 88 mmHg BP Systolic Recheck 128 mmHg [employer] Recheck right arm seated BP Diastolic Recheck 82 mmHg [employer] Recheck right arm seated Heart Rate 88 [...] Date Facility Test Result H/L Range Note Comprehensive 06/10/2019 Grant Ailin([facility]) Sodium 136 mEq/L 134-149 Metabolic Prof Potassium 3.8 mEq/L 3.6-5.5 Chloride 100 [...] >60 ml/min/1.73m^ >=60 Lipid Profile 06/10/2019 Rudy Ailin([facility]) Cholesterol 141 mg/dL 120- 200 Triglycerides 135 mg/dL 30-200 HDL Cholesterol 40 mg/dL 30-70 LDL (Calculated) 74 CALC 0-129 VLDL Cholesterol 27 mg/dL 0-50 HDL Risk Factor 3.5 CALC 0.0-4.4 Laboratory test 06/10/2019 Rudy Parisi([facility]) TSH 1.94 mIU/L 0.50-6.00 finding CBC Electronic [facility] 06/10/2019 Rudy Ailin([facility]) WBC 10.7 x10^3/UL High 4.0-10.0 1 RBC 5.39 x10^6/UL 3.93-6.00 HGB 14.3 g/dL 12.0-17.0 HCT 44 % 35-50 MCV 81.3 fL 80.0-95.0 MCH 26.5 pg 25.6-32.2 MCHC 32.6 g/dL 32.2-36.0 RDW-CV 13.7 % 11.6-14.4 PLT 246 x10^3/UL 163-400 MPV 10.5 fL 9.4-12.4 Frida# 7.68 x10^3/UL High 1.56-6.13 2 Lymph# 1.59 x10^3/UL 1.18-3.74 [place]# 1.01 x10^3/UL High 0.24-0.82 3 Eos # 0.3 x10^3/UL 0.0-0.5 Baso # 0.12 x10^3/UL High 0.01-0.08 4 Frida% 71.6 % High 34.0-70.0 5 Lymph % 14.8 % Low 20.0-52.0 6 [place]% 9.4 % 5.0-12.0 Eos% 2.7 % 0.7-7.0 [...] Location Provider Dx Diagnosis Office Visit 08/15/2019 [facility] Carmenza Skinner0 Essential (primary ) 2:30p KRISSY Ball hypertension Office Visit 06/10/2019 [facility] Carmenza Skinner0 Essential (primary ) [...] 9:30 am - [facility] - Carmenza Ball NPI10 Essential (primary) hypertensionNew [...]
[2019-10-17 14:56] LABS: ABS Eosinophils 0.3 10^3/ul (0-0.6); ABS Lymphocytes 1.5 10^3/ul (1.0-4.8); ABS Neutrophils 8.4 10^3/ul (1.5-7.7); Eosinophil % 2.4 %; Hematocrit 42 % (42-52); Lymphocyte % 13.6 %; Mean Corpuscular HGB Conc 33 g/dL (31-36); Mean Corpuscular Hemoglobin 27 pg (27-31); Mean Corpuscular Volume 81 fL (80-94); Mean Platelet Volume 8.5 fL (7.4-10.4); Nucleated Red Blood Cells % 0.1; Platelet Count 256 10^3/uL (150-450); Red Blood Count 5.17 10^6 /uL (4.18-5.48); Red Cell Distribution Width 15 % (10-15); White Blood Count 11.3 10^3/uL (3.5-10.8)
[2019-10-17 15:41] LABS: ALT 28 U/L (7-52); AST 20 U/L (13-39); Albumin 4.2 g/dL (3.2-5.2); Albumin/Globulin Ratio 1.3 (1-3); Alkaline Phosphatase 89 U/L (34-104); Anion Gap 8 mmol/L (2-11); BUN/Creatinine Ratio 17.5 (8-20); Blood Urea Nitrogen 14 mg/dL (6-24); C Reactive Protein 18.77 mg/L (<8.01); CO2 Carbon Dioxide 25 mmol/L (22-32); Calcium 9.3 mg/dL (8.6-10.3); Chloride 103 mmol/L (101-111); EGFR African American 131.6 (>60); EGFR Non-African American 108.8 (>60); Globulin 3.3 g/dL (2-4); Glucose 93 mg/dL (70-100); Magnesium 1.9 mg/dL (1.9-2.7); Potassium 3.7 mmol/L (3.5-5.0); Sodium 136 mmol/L (135-145); Total Protein 7.5 g/dL (6.4-8.9)
[2019-10-17 15:47] LABS: Alcohol < 10 mg/dL (<10); TSH (Thyroid Stimulating Horm) 2.61 mcIU/mL (0.34-5.60)
[2019-10-17] MEDS ORDERED: Meclizine TAB* 12.5 MG PO ONE (16:47)
--- NOTE | 2019-10-17 16:49 | ED ---
Dizziness - HPI Summary HPI Summary: This patient is a 39 y/o male presenting to [facility] c/o dizziness today. Patient reports he has been having lightheadedness and dizziness. 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 Additionally he states he has headaches, described as pressure on top of head, and tingling in fingers. He denies chest pain, shortness of breath, palpitations, nausea, vomiting. Patient called his PCP today and was advised to come to the ED. Patient reports he has had these symptoms in the past intermittently but not this bad. PMHx includes neurofibromatosis, Raynaud's, HTN, dyslipidemia. Home Medications Medication Instructions Recorded Confirmed Type Atorvastatin* [Lipitor 20 MG*] 20 mg PO QPM 01/28/18 10/17/19 History Hydrochlorothiazide TAB* 25 mg PO QAM 01/28/18 10/17/19 History [Hydrodiuril TAB*] LevoCETirizine TAB (NF) [Xyzal TAB 5 mg PO QPM 01/28/18 10/17/19 History (NF)] Ibuprofen TAB* [Motrin TAB* 600 MG] 800 mg PO Q6H PRN 08/25/18 10/17/19 History dilTIAZem HCl [Dilt-Xr] 180 mg PO BID 10/17/19 10/17/19 History - History Of Current Complaint Chief Complaint: EDDizziness Stated Complaint: DIZZINESS/HEAD PRESSURE PER PT Time Seen by Provider: 10/17/19 16:41 Hx Obtained From: Patient Onset/Duration: Still Present Timing: Days Severity Currently: Moderate Character: Lightheaded, Dizzy Aggravating Factor(s): Nothing Alleviating Factor(s): Nothing Associated Signs And Symptoms: Positive: Visual Changes - blurry vision, Other: - tingling in fingers. Negative: Nausea, Vomiting, Chest Pain, SOB, Palpitations, Fever - Allergies/Home Medications Allergies/Adverse Reactions: Allergies Allergy/AdvReac Type Severity Reaction Status Date / Time amoxicillin Allergy Vomiting Verified 10/17/19 13:37 clavulanic acid Allergy Vomiting Verified 10/17/19 13:37 mushroom Allergy Airway Verified 10/17/19 13:37 Obstruction shrimp Allergy Hives Verified 10/17/19 13:37 trimethoprim AdvReac See Comment Verified 10/17/19 13:37 Home Medications: Home Medications Atorvastatin* [Lipitor 20 MG*] 20 mg PO QPM 01/28/18 [History Confirmed 10/17/19 ] Hydrochlorothiazide TAB* [Hydrodiuril TAB*] 25 mg PO QAM 01/28/18 [History Confirmed 10/17/19] LevoCETirizine TAB (NF) [Xyzal TAB (NF)] 5 mg PO QPM 01/28/18 [History Confirmed 10/17/19] Ibuprofen TAB* [Motrin TAB* 600 MG] 800 mg PO Q6H PRN 08/25/18 [History Confirmed 10/17/19] Meclizine TAB* [Antivert 12.5 TAB*] 25 mg PO TID PRN #30 tab 10/17/19 [Rx] dilTIAZem HCl [Dilt-Xr] 180 mg PO BID 10/17/19 [History Confirmed 10/17/19] PMH/Surg Hx/FS Hx/Imm Hx Endocrine/Hematology History: Reports: Other Endocrine/Hematological Disorders - Raynaud's Denies: Hx Diabetes, Hx Thyroid Disease Cardiovascular History: Reports: Hx Hypercholesterolemia, Hx Hypertension, Other Cardiovascular Problems/Disorders - varicose veins issues - wears compression stockings Denies: Hx Congestive Heart Failure, Hx Pacemaker/ICD Respiratory History: Reports: Hx Sleep Apnea - possibly Denies: Hx Asthma, Hx Chronic Obstructive Pulmonary Disease (COPD), Other Respiratory Problems/Disorders GI History: Reports: Other GI Disorders - cholelithiasis Denies: Hx Ulcer History: Denies: Hx Renal Disease Musculoskeletal History: Reports: Other Musculoskeletal History - RAYNAUD'S Sensory History: Reports: Hx Contacts or Glasses Denies: Hx Deafness, Hx Hearing Aid Opthamlomology History: Reports: Hx Contacts or Glasses Neurological History: Reports: Hx Headaches, Hx Migraine - rare, Other Neuro Impairments/Disorders - NEUROFIBROMATOSIS TYPE I Denies: Hx Seizures, Hx Transient Ischemic Attacks (TIA) Psychiatric History: Denies: Hx Panic Disorder - Surgical History Surgery Procedure, Year, and Place: GALLBLADDER 08/31/2018; Hx Anesthesia Reactions: No - Immunization History Date of Tetanus Vaccine: UTD Date of Influenza Vaccine: 2012 Infectious Disease History: Yes Infectious Disease History: Reports: 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 Denies: Hx Clostridium Difficile, Hx Hepatitis, Hx Human Immunodeficiency Virus (HIV), Hx Shingles, Hx Tuberculosis, Hx Known/Suspected VRE, Hx Known/ Suspected VRSA, History Other Infectious Disease, Traveled Outside the [place] in Last 30 Days - Family History Known Family History: Positive: Hypertension, Diabetes - in father - Social History Alcohol Use: Rare Alcohol Amount: 4 per month Hx Substance Use: No Substance Use Type: Reports: None Hx Tobacco Use: Yes Smoking Status (MU): Former Smoker Type: Cigarettes Amount Used/How Often: 1/2 pack a day Length of Time of Smoking/Using Tobacco: 2-3 years Review of Systems Negative: Fever Positive: Blurred Vision Negative: Palpitations, Chest Pain Negative: Shortness Of Breath Negative: Vomiting, Nausea Neurological/Mental Status: Other - POSITIVE: dizziness, lightheadedness Positive: Paresthesia - in fingers All Other Systems Reviewed And Are Negative: Yes Physical Exam - Summary Physical Exam Summary: VITAL SIGNS: Reviewed. GENERAL: Patient is a well-developed and nourished male who is lying comfortable in the stretcher. Patient is not in any acute respiratory distress. HEAD AND FACE: No signs of trauma. No ecchymosis, hematomas or skull depressions. No sinus tenderness. EYES: PERRLA, EOMI x 2, No injected conjunctiva, no nystagmus. EARS: Hearing grossly intact. Ear canals and tympanic membranes are within normal limits. MOUTH: Oropharynx within normal limits. NECK: Supple, trachea is midline, no adenopathy, no JVD, no carotid bruit, no c- spine tenderness, neck with full ROM. CHEST: Symmetric, no tenderness at palpation LUNGS: Clear to auscultation bilaterally. No wheezing or crackles. CVS: Regular rate and rhythm, S1 and S2 present, no murmurs or gallops appreciated. ABDOMEN: Soft, non-tender. No signs of distention. No rebound, no guarding, and no masses palpated. Bowel sounds are normal. EXTREMITIES: FROM in all major joints, no edema, no cyanosis or clubbing. NEURO: Alert and oriented x 3. No acute neurological deficits. Speech is normal and follows commands. SKIN: Dry and warm GCS: 15 Triage Information Reviewed: Yes Vital Signs On Initial Exam: Initial Vitals Temp Pulse Resp BP Pulse Ox 97.9 F 105 16 132/94 97 10/17/19 13:33 10/17/19 13:33 10/17/19 13:33 10/17/19 13:33 10/17/19 13:33 Vital Signs Reviewed: Yes Procedures - Sedation Patient Received Moderate/Deep Sedation with Procedure: No Diagnostics - Vital Signs Vital Signs Temp Pulse Resp BP Pulse Ox 10/17/19 15:45 98.3 F 96 14 144/81 95 10/17/19 13:33 97.9 F 105 16 132/94 97 - Laboratory Lab Results: Lab Results 10/17/19 10/17/19 10/17/19 Range/Units 14:47 14:47 14:47 WBC 11.3 H (3.5-10.8) 10^3/uL RBC 5.17 (4.18-5.48) 10^6 /uL Hgb 14.0 (14.0-18.0) g/dL Hct 42 (42-52) % MCV 81 (80-94) fL MCH 27 (27-31) pg MCHC 33 (31-36) g/dL RDW 15 (10-15) % Plt Count 256 (150-450) 10^3/uL MPV 8.5 (7.4-10.4) fL Neut % (Auto) 74.7 % Lymph % (Auto) 13.6 % [place] % (Auto) 9.1 % Eos % (Auto) 2.4 % Baso % (Auto) 0.2 % Absolute Neuts (auto) 8.4 H (1.5-7.7) 10^3/ul Absolute Lymphs (auto) 1.5 (1.0-4.8) 10^3/ul Absolute Monos (auto) 1.0 H (0-0.8) 10^3/ul Absolute Eos (auto) 0.3 (0-0.6) 10^3/ul Absolute Basos (auto) 0.0 (0-0.2) 10^3/ul Absolute Nucleated RBC 0.0 10^3/ul Nucleated RBC % 0.1 Sodium 136 (135-145) mmol/L Potassium 3.7 (3.5-5.0) mmol/L Chloride 103 (101-111) mmol/L Carbon Dioxide 25 (22-32) mmol/L Anion Gap 8 (2-11) mmol/L BUN 14 (6-24) mg/dL Creatinine 0.80 (0.67-1.17) mg/dL Est GFR ( Amer) 131.6 (>60) Est GFR (Non-Af Amer) 108.8 (>60) BUN/Creatinine Ratio 17.5 (8-20) Glucose 93 (70-100) mg/dL Lactic Acid 1.0 (0.5-2.0) mmol/L Calcium 9.3 (8.6-10.3) mg/dL Magnesium 1.9 (1.9-2.7) mg/dL Total Bilirubin 0.40 (0.2-1.0) mg/dL AST 20 (13-39) U/L ALT 28 (7-52) U/L Alkaline Phosphatase 89 (34-104) U/L Troponin I 0.00 (<0.03) ng/mL C-Reactive Protein 18.77 H (<8.01) mg/L B-Natriuretic Peptide (<=100) pg/mL Total Protein 7.5 (6.4-8.9) g/dL Albumin 4.2 (3.2-5.2) g/dL Globulin 3.3 (2-4) g/dL Albumin/Globulin Ratio 1.3 (1-3) TSH 2.61 (0.34-5.60) mcIU/mL Serum Alcohol < 10 (<10) mg/dL 10/17/19 Range/Units 14:47 WBC (3.5-10.8) 10^3/uL RBC (4.18-5.48) 10^6 /uL Hgb (14.0-18.0) g/dL Hct (42-52) % MCV (80-94) fL MCH (27-31) pg MCHC (31-36) g/dL RDW (10-15) % Plt Count (150-450) 10^3/uL MPV (7.4-10.4) fL Neut % (Auto) % Lymph % (Auto) % [place] % (Auto) % Eos % (Auto) % Baso % (Auto) % Absolute Neuts (auto) (1.5-7.7) 10^3/ul Absolute Lymphs (auto) (1.0-4.8) 10^3/ul Absolute Monos (auto) (0-0.8) 10^3/ul Absolute Eos (auto) (0-0.6) 10^3/ul Absolute Basos (auto) (0-0.2) 10^3/ul Absolute Nucleated RBC 10^3/ul Nucleated RBC % Sodium (135-145) mmol/L Potassium (3.5-5.0) mmol/L Chloride (101-111) mmol/L Carbon Dioxide (22-32) mmol/L Anion Gap (2-11) mmol/L BUN (6-24) mg/dL Creatinine (0.67-1.17) mg/dL Est GFR ( Amer) (>60) Est GFR (Non-Af Amer) (>60) BUN/Creatinine Ratio (8-20) Glucose (70-100) mg/dL Lactic Acid (0.5-2.0) mmol/L Calcium (8.6-10.3) mg/dL Magnesium (1.9-2.7) mg/dL Total Bilirubin (0.2-1.0) mg/dL AST (13-39) U/L ALT (7-52) U/L Alkaline Phosphatase (34-104) U/L Troponin I (<0.03) ng/mL C-Reactive Protein (<8.01) mg/L B-Natriuretic Peptide 22 (<=100) pg/mL Total Protein (6.4-8.9) g/dL Albumin (3.2-5.2) g/dL Globulin (2-4) g/dL Albumin/Globulin Ratio (1-3) TSH (0.34-5.60) mcIU/mL Serum Alcohol (<10) mg/dL Result Diagrams: 10/17/19 14:47 10/17/19 14:47 Lab Statement: Any lab studies that have been ordered have been reviewed, and results considered in the medical decision making process. - CT Brain CT CT Interpretation Completed By: Radiologist Summary of CT Findings: IMPRESSION: No acute intracranial pathology. Dr. Franco has reviewed this report. - EKG 16:54 Cardiac Rate: NL - at 93 bpm EKG Rhythm: Sinus Rhythm EKG Comparison: No Significant Change - similar to prior EKG on 12/12/18. Summary of EKG Findings: EKG at 1654 shows sinus rhythm at [address] elevations. Similar to prior EKG on 12/12/18. This EKG was interpreted and reviewed by ED physician. Re-Evaluation - Re-Evaluation First Eval Re-Evaluation Time: 18:50 Comment: Reviewed results with patient. He will be discharged home with follow up from PCP. Dizzy Course/Dx - Course Assessment/Plan: This patient is a 39 y/o male presenting to [facility] c/o dizziness today. Patient reports he has been having lightheadedness and dizziness. 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 Additionally he states he has headaches, described as pressure on top of head, and tingling in fingers. He denies chest pain, shortness of breath, palpitations, nausea, vomiting. Patient called his PCP today and was advised to come to the ED. Patient reports he has had these symptoms in the past intermittently but not this bad. PMHx includes neurofibromatosis, Raynaud's, HTN, dyslipidemia. In the ED course the patient was placed in a monitoring tech, IV access was obtained, IV fluids were started. He was given Meclizine for vertigo. Past medical records reviewed. Blood test w/o a significant abnormality except for WBCs of 11.3, CRP of 18.7. Head CT IMPRESSION: NO ACUTE INTRACRANIAL PATHOLOGY. EKG shows a sinus rhythm at [address] elevation. The EKG is similar to the previous EKG done on 12/12/18. After the patient was given the above medications his symptoms improved. At this point, I discussed all the findings and test results with the patient. Patient was instructed to return to the emergency room immediately if any of the symptoms return or worsen. Plan of care was discussed with the patient and the patient understands and agrees. All questions were answered at patient satisfaction. Patient understands and agrees. Neurological exam before discharge: Patient is alert and oriented x 3. No acute neurological deficits. Patient's vital signs are stable. Patient is to follow up with his PCP in the next 2 3 days. They understand and agree. The plan of care was discussed with the patient and the patient understands and agrees with the plan of care. All questions were answered at patient satisfaction. There were no further complaints or concerns. - Diagnoses Differential Diagnosis/HQI/PQRI: Benign Paroxysmal Positional Vertigo, CVA, Meniere's Disease, Seizure, Transient Ischemic Attack, Vasovagal Reaction Provider Diagnoses: Vertigo Discharge ED - Sign-Out/Discharge Documenting (check all that apply): Patient Departure - Discharge home - Discharge Plan Condition: Stable Disposition: HOME Prescriptions: Meclizine TAB* [Antivert 12.5 TAB*] 25 mg PO TID PRN #30 tab PRN Reason: Vertigo Patient Education Materials: Vertigo (ED) Referrals: Rekha Nassar MD [Primary Care Provider] - Additional Instructions: FOLLOW UP WITH YOUR PRIMARY CARE PROVIDER IN 2-3 DAYS. RETURN TO THE ED FOR ANY NEW OR WORSENING SYMPTOMS. - Billing Disposition and Condition Condition: STABLE Disposition: Home - Attestation Statements Document Initiated by Scribe: Yes Documenting Scribe: Chrissy Sorenson Provider For Whom Scribe is Documenting (Include Credential): Andre Franco MD Scribe Attestation: Chrissy Brennan scribed for Andre Franco MD on 10/17/19 at 2057. Scribe Documentation Reviewed: Yes Provider Attestation: The documentation as recorded by the Chrissy wallace accurately reflects the service I personally performed and the decisions made by Andre gonzalez MD Status of Scribe Document: Viewed
[2019-10-17 19:06] VITALS: BP 133/92
== END 2019-10-17 19:05 | disposition home or self-care (01) ==
LOC: ED 13:31
DX: R42 Dizziness and giddiness (principal); H53.8 Other visual disturbances; R20.2 Paresthesia of skin; E78.00 Pure hypercholesterolemia, unspecified; I10 Essential (primary) hypertension; Z79.899 Other long term (current) drug therapy; Z88.1 Allergy status to other antibiotic agents; Z88.0 Allergy status to penicillin; Z91.013 Allergy to seafood; Z91.018 Allergy to other foods; Z87.891 Personal history of nicotine dependence
CPT/HCPCS: 36415; 70450; 80053; 80320; 83605; 83735; 83880; 84443; 84484; 85025; 86140; 93005; 99283; A9270-GY; G0480